=== PATIENT | female | born 1945 | race Two or more races ===

== ENCOUNTER 2017-04-18 18:42 | Observation (INO) | payer MEDICARE, OTHER ==
[~2017-04-18] VITALS: Ht 170.2 cm; Wt 91.6 kg
[~2017-04-18 18:42] MED LIST: ALBU0.63 NEB; AMIT25TA PO; AMOX875T PO; CEFU250T PO; CETI10TA22 PO; CYCL-331 PO; ETAN50DI2 SQ; FERR325T58 PO; FLUC150T PO; FLUT1DIS3 IH; FLUT9.9S NS; HYDR25TA9 PO; INSU100I13 SQ; INSU100V11 IJ; LIRA0.6P2 SQ; OMEP20CA9 PO; OXYM30SP NS; PHEN-443 PO; POTA20TA4 PO; PRED-220 PO; PROM25SU32 RC; TRAM50TA PO; TRIA15CR50 TP
[2017-04-18 19:18] LABS: HEMATOCRIT 41.1 % (36.0-47.0); HEMOGLOBIN 13.8 g/dL (12.0-15.5); LYMPH % 25 % (24-48); MEAN CORPUSCULAR HEMOGLOBIN 29 pg (25-35); MEAN CORPUSCULAR HGB CONC 34 g/dL (31-37); MEAN CORPUSCULAR VOLUME 85 fL (79-100); MONO % 7 % (0-9); NEUT % 67 % (31-73); PLATELET COUNT 271 x10^3/uL (140-400); RED BLOOD COUNT 4.83 x10^6/uL (3.50-5.40); RED CELL DISTRIBUTION WIDTH 14.3 % (11.5-14.5); WHITE BLOOD COUNT 11.1 x10^3/uL (4.0-11.0)
[2017-04-18 19:19] LABS: BASO # 0.1 x10^3/uL (0.0-0.2); BASO % 1 % (0-3); EOS % 0 % (0-3); LYMPH # 2.7 x10^3/uL (1.0-4.8); MONO # 0.8 x10^3/uL (0.0-1.1); NEUT # 7.4 x10^3uL (1.8-7.7)
[2017-04-18] MEDS ORDERED: NITROGLYCERIN SUBLINGUAL 0.4 MG BOTTLE OF 25. SL PRN ×2 (19:30→21:15)
[2017-04-18 19:33] LABS: ALBUMIN 3.6 g/dL (3.4-5.0); ALBUMIN/GLOBULIN RATIO 0.9 (1.0-1.7); CALCIUM 9.3 mg/dL (8.5-10.1); CREATININE 1.2 mg/dL (0.6-1.0); GFR 44.5; MAGNESIUM 1.7 mg/dL (1.8-2.4); POTASSIUM 3.8 mmol/L (3.5-5.1); TOTAL BILIRUBIN 0.3 mg/dL (0.2-1.0); TOTAL PROTEIN 7.8 g/dL (6.4-8.2)
[2017-04-18] MEDS ORDERED: LIDO:MAALOX 1:1 20 ML SINGLE DOSE PO ONE (19:45)
[2017-04-18 19:57] LABS: CREATINE KINASE 81 U/L (26-192); LIPASE 117 U/L (73-393)
[2017-04-18] MEDS ORDERED: IOHEXOL 300 MG/ML 75 ML VIAL. IV ONE (20:15)
[2017-04-18] MEDS ORDERED: ENOXAPARIN ** NOTE DOSE ** SYRINGE SQ ONE (21:15)
--- NOTE | 2017-04-18 22:10 | EKG ---
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
[2017-04-18 22:14] VITALS: BP 138/68
[2017-04-18] MEDS ORDERED: ZOLP10TA PO (23:58)
[2017-04-19] MEDS ORDERED: AMOX500T PO
[2017-04-19] MEDS ORDERED: ESOM40CA PO
[2017-04-19] MEDS ORDERED: INSU100I30 SQ (00:01)
--- NOTE | 2017-04-19 00:02 | PHYS DOC ---
General Chief Complaint: CHEST PAIN Stated Complaint: CHEST PAIN ELEV D DIMER Time Seen by MD: 19:16 Source: patient Exam Limitations: no limitations Problems: History of Present Illness Initial Comments Patient is a 71-year-old female brought to the ED by EMS with chest pain. Patient states that immediately prior to arrival she developed sudden onset anterior chest pain described as sharp and steady 10 out of 10 no exacerbating or relieving factors. She denies breathing, arm or neck radiation, diaphoresis or emesis. When I evaluated her initially she attributes her symptoms to gastroesophageal reflux disease stating that she had some chili at noon today. GI cocktail did not affect her discomfort in the emergency department. Patient received nitroglycerin without relief as well as aspirin in route to this facility. ED vital signs: 98.2, 110, 20, 162/100, 97% on room air Patient follows with Dr. Stevens Timing/Duration: 1/2 hour Severity: severe Modifying Factors: improves with other Associated Symptoms: chest pain, other Allergies: Coded Allergies: Sulfa (Sulfonamide Antibiotics) (Verified Allergy, Intermediate, 05/07/15) capsaicin (Verified Allergy, Intermediate, 05/07/15) codeine (Verified Allergy, Intermediate, 05/07/15) insulin lispro (Verified Allergy, Intermediate, 05/07/15) iodine (Verified Allergy, Intermediate, 05/07/15) levofloxacin (Verified Allergy, Intermediate, 05/07/15) menthol (Verified Allergy, Intermediate, 05/07/15) metformin (Verified Allergy, Intermediate, 05/07/15) naproxen (Verified Allergy, Intermediate, 05/07/15) Past Medical History Medical History: other (GERD, rheumatoid arthritis, diabetes, hypertension, asthma, osteoarthritis) Surgical History: noncontributory Social History Smoker: non-smoker Alcohol: none Drugs: none Review of Systems Constitutional: denies chills, denies diaphoresis, denies fever, denies malaise Respiratory: denies cough, denies shortness of breath, denies wheezing Cardiovascular: see HPI Gastrointestinal: denies abdominal pain, denies nausea, denies vomiting Musculoskeletal: see HPI Psychiatric/Neurological: denies headache, denies numbness, denies paresthesia Hematologic/Lymphatic: denies blood clots, denies easy bleeding, denies easy bruising Physical Exam General Appearance: no apparent distress, obese Eyes: bilateral eye normal inspection, bilateral eye PERRL, bilateral eye EOMI Ear, Nose, Throat: hearing grossly normal, normal ENT inspection, normal pharynx Neck: non-tender, supple Respiratory: chest non-tender, normal breath sounds, no respiratory distress Cardiovascular: normal peripheral pulses, tachycardia Gastrointestinal: normal bowel sounds, non tender, soft Back: no CVA tenderness, no vertebral tenderness Extremities: non-tender, normal inspection, other (left knee swelling which is chronic "[id number]") Neurologic/Psychiatric: dehairing machine tender II-XII nml as tested, no motor/sensory deficits, alert, normal mood/affect, oriented x 3 Skin: normal color, warm/dry Orders, Labs, Meds EKG: Sinus tachycardia 108 bpm, PAC, nonspecific ST T changes no STEMI. Interpreted by Dr Moreno. Chest x-ray unremarkable. Pertinent labs: White blood cells 11.1, d-dimer 1.11, BUN 23, creatinine 1.2, glucose 60, magnesium 1.7 Patient has an iodine allergy and CTA of the chest is contraindicated. Patient is agreeable to hospitalization for observation, serial cardiac enzymes, and VQ scan. 2027: I discussed the patient with Dr. Stevens who agrees to accept the patient for further evaluation as above. The patient had no new or progressive symptoms throughout her ED course and was discharged to the floor in stable condition. Departure Disposition: 09 ADMITTED INPATIENT Diagnosis: chest pain, elevated d-dimer, Condition: STABLE MUSHTAQ MORENO DO Apr 19, 2017 00:02
[2017-04-19] MEDS ORDERED: PROMETHAZINE 25 MG SUPP.RECT. RC PRN (01:00)
[2017-04-19] MEDS ORDERED: ALBUTEROL SULFATE 2.5 MG/3 ML NEBU. NEB PRN ×2 (01:00→01:30)
[2017-04-19] MEDS: ZOLPIDEM 10 MG TABLET. PO PRN ×3 (01:54→22:22)
--- NOTE | 2017-04-19 02:00 | RAD ---
AP chest radiograph 04/18/2017 Clinical indication: Chest pain, shortness of air. COMPARISON: Chest radiograph 05/05/2015. FINDINGS: Cardiac and mediastinal silhouettes are within normal limits. No pleural effusion, pneumothorax or focal consolidation. IMPRESSION: No acute cardiopulmonary abnormality Electronically signed by: Ismael Adhikari MD (04/19/2017 1:57 AM) [facility]
--- NOTE | 2017-04-19 02:04 | RAD ---
Nuclear medicine ventilation/perfusion scan 04/19/2017 CLINICAL INDICATION: Chest pain, tachycardia, elevated d-dimer. COMPARISON: Same day chest radiograph. TECHNIQUE: Ventilation portion performed after inhalation from a vial containing 26 mCi 133 xenon gas. Perfusion portion performed after the intravenous administration of 5.5 mCi technetium 99m MAA. Multiple projection planar images of the lungs were obtained. FINDINGS: Ventilation images are within normal limits. Perfusion images demonstrate no suspicious perfusion defects. IMPRESSION:Normal ventilation/perfusion scan. Negative for pulmonary embolism. Electronically signed by: Ismael Adhikari MD (04/19/2017 2:01 AM) [facility]
[2017-04-19] MEDS: CALCIUM CARBONATE 500 MG TAB.CHEW PO PRN (02:20)
[2017-04-19] MEDS: ACETAMINOPHEN 325 MG TABLET PO PRN ×3 (02:46→20:46)
[2017-04-19 03:00] VITALS: BP 127/67
[2017-04-19 05:58] VITALS: BP 156/75
[2017-04-19] MEDS ORDERED: INSULIN REGULAR 100 UNIT/ML 10ML VIAL. SQ SCH (08:00)
[2017-04-19 08:29] LABS: BASO # 0.1 x10^3/uL (0.0-0.2); BASO % 1 % (0-3); EOS # 0.2 x10^3/uL (0.0-0.7); EOS % 3 % (0-3); HEMATOCRIT 40.6 % (36.0-47.0); HEMOGLOBIN 13.8 g/dL (12.0-15.5); LYMPH # 3.7 x10^3/uL (1.0-4.8); LYMPH % 40 % (24-48); MEAN CORPUSCULAR HEMOGLOBIN 29 pg (25-35); MEAN CORPUSCULAR HGB CONC 34 g/dL (31-37); MEAN CORPUSCULAR VOLUME 86 fL (79-100); MONO # 0.8 x10^3/uL (0.0-1.1); MONO % 9 % (0-9); NEUT # 4.4 x10^3uL (1.8-7.7); NEUT % 47 % (31-73); PLATELET COUNT 247 x10^3/uL (140-400); RED BLOOD COUNT 4.75 x10^6/uL (3.50-5.40); RED CELL DISTRIBUTION WIDTH 14.5 % (11.5-14.5); WHITE BLOOD COUNT 9.3 x10^3/uL (4.0-11.0)
[2017-04-19 08:40] LABS: CALCIUM 8.8 mg/dL (8.5-10.1); CREATININE 0.9 mg/dL (0.6-1.0); GFR 62.1; POTASSIUM 3.7 mmol/L (3.5-5.1)
[2017-04-19] MEDS ORDERED: FERROUS SULFATE 325 MG TABLET PO SCH (09:00)
[2017-04-19] MEDS ORDERED: CYCLOBENZAPRINE 10 MG TABLET. PO SCH (09:00)
[2017-04-19] MEDS ORDERED: FLUCONAZOLE 100 MG TABLET. PO SCH (09:00)
[2017-04-19] MEDS ORDERED: CYCLOBENZAPRINE 10 MG TABLET. PO PRN (09:15)
[2017-04-19] MEDS: FLUTICASONE 50MCG/NASAL SPRAY 16GM BOTTLE. NS SCH (09:22)
[2017-04-19] MEDS: TRIAMCINOLONE ACETONIDE 0.5% TOPICAL CREAM 15GM TUBE. TP SCH ×3 (09:23→20:43)
[2017-04-19] MEDS: hydroCHLOROthiazide 25 MG TABLET PO SCH (09:24)
[2017-04-19] MEDS: PHENAZOPYRIDINE 100 MG TABLET. PO SCH ×2 (09:24→12:36)
[2017-04-19] MEDS: predniSONE 10 MG TABLET PO SCH (09:24)
[2017-04-19] MEDS: POTASSIUM CHLORIDE 20 MEQ TABLET.ER. PO SCH (09:25)
[2017-04-19] MEDS: CETIRIZINE HCL 10 MG TABLET PO SCH (09:25)
--- NOTE | 2017-04-19 10:14 | PDOC2 ---
CONSULT Date of Admission DATE: 04/19/17 TIME: 10:13 Reason for Consult: chest pain History of Present Illness Ms Guerra is a 71 year old female with history of diabetes mellitus, hypertension, hyperlipidemia and family history of premature coronary disease. She presented to the ED with complaints of anterior chest pain that started after some emotional upset. She reports that she has been having episodes of pain she attributed to reflux. This is described as burning that radiates from the epigastric area up into her throat. Yesterday she was upset and had a sudden onset of midsternal chest tightness that she describes as severe. She rested without relief so called EMS. She reports that she was given aspirin and NTG, which significantly improved her discomfort. She does report that she continued to have some burning in her throat similar to the earlier episodes and was given GI coctail which did not help at all. She reports a significant decline in her functional capacity due to need for knee surgery. She also reports she was told she needed cardiac clearance for this surgery but has not seen cardiology up until now as she felt her pain was all reflux related. She reports occasional dyspnea on exertion but denies congestive symptoms. She denies palpitations, lightheadedness or syncope. Past Medical History rheumatoid arthritis, bilateral cataracts, hypercholesterolemia, hypertension, asthma, bronchitis, pneumonia, GERD, heartburn, hysterectomy, diabetes mellitus ago. Past Surgical History Cataract surgery with lens implants, abdominal surgeries for cholecystectomy and hysterectomy, right knee surgery, amputation of right small toe and left middle toe. Family History Father with stroke and mother of an [place] in her 50s Social History The patient denies smoking, alcohol or drug use, , lives at home. Current Medications Current Medications Nitroglycerin (Nitrostat) 0.4 mg PRN Q5MIN PRN SL CP RATING > 1/10; Start 04/18 at 19:30; Stop 04/18/17 at 22:11; Status DC Multi-Ingredient Mouthwash/Gargle (Gi Cocktail) 20 ml 1X ONCE PO Last administered on 04/18/17t 19:45; Start 04/18/17 at 19:45; Stop 04/18/17 at 19:46 ; Status DC Iohexol (Omnipaque 300 Mg/ml) 75 ml 1X ONCE IV ; Start 04/18/17 at 20:15; Stop 04/18/17 at 20:16; Status UNV Enoxaparin Sodium (Lovenox 80mg Syringe) 80 mg 1X ONCE SQ Last administered on 04/18/17 22:58; Start 04/18/17 at 21:15; Stop 04/18/17 at 21:16; Status DC Acetaminophen (Tylenol) 650 mg PRN Q4HRS PRN PO FEVER Last administered on 04/19 02:46; Start 04/18/17 at 21:15; Stop 04/19/17 at 21:14 Nitroglycerin (Nitrostat) 0.4 mg PRN Q5MIN PRN SL CHEST PAIN; Start 04/18/17 at 21:15; Stop 04/19/17 at 21:14 Calcium Carbonate/ Glycine (Tums) 500 mg TID PRN PRN PO INDIGESTION Last administered on 04/19/17 02:20; Start 04/18/17 at 23:30 Amitriptyline HCl (Elavil) 25 mg HS PO ; Start 04/19/17 at 21:00 Cetirizine HCl (ZyrTEC) 10 mg DAILY PO Last administered on 04/19/17 09:25; Start 04/19/17 at 09:00 Cyclobenzaprine HCl (Flexeril) 10 mg TID PO ; Start 04/19/17 at 09:00; Stop at 09:10; Status DC Ferrous Sulfate (Feosol) 325 mg DAILY PO ; Start 04/19/17 at 09:00 Hydrochlorothiazide (Hydrodiuril) 25 mg DAILY PO Last administered on 09:24; Start 04/19/17 at 09:00 Insulin Human Regular (NovoLIN R) 18-20 units with meals TIDWMEALS SQ ; Start at 08:00 Phenazopyridine HCl (Pyridium) 200 mg TIDPC PO Last administered on 04/19/17 09:24; Start 04/19/17 at 08:30 Potassium Chloride (Klor-Con) 20 meq DAILY PO Last administered on 04/19/17 09 :25; Start 04/19/17 at 09:00 Prednisone (Prednisone) 10 mg DAILY PO Last administered on 04/19/17 09:24; Start 04/19/17 at 09:00 Promethazine HCl (Phenergan) 25 mg PRN Q6HRS PRN RC NAUSEA; Start 04/19/17 at 01:00 Tramadol HCl (Ultram) 50 mg PRN Q6HRS PRN PO MODERATE PAIN; Start 04/19/17 at 01:00 Triamcinolone Acetonide (Aristocort) 1 dorian TID TP Last administered on 09:23; Start 04/19/17 at 09:00 Zolpidem Tartrate (Ambien) 5 mg PRN QHS PRN PO INSOMNIA, MAY REPEAT X1 Last administered on 04/19/17 02:53; Start 04/19/17 at 01:00 Albuterol Sulfate (Ventolin) 2.5 mg PRN Q6HRS PRN NEB SHORTNESS OF BREATH; Start 04/19/17 at 01:00; Status UNV Albuterol Sulfate (Ventolin) 2.5 mg PRN Q6HRS PRN NEB SHORTNESS OF BREATH; Start 04/19/17 at 01:30 Fluticasone Propionate (Flonase) 1 spray DAILY NS Last administered on 09:22; Start 04/19/17 at 09:00 Fluconazole (Diflucan) 150 mg DAILY PO ; Start 04/19/17 at 09:00; Stop 04/19/17 at 09:10; Status DC Cyclobenzaprine HCl (Flexeril) 10 mg PRN TID PRN PO pain Last administered on 09:23; Start 04/19/17 at 09:15 Active Scripts Active Reported Tresiba Flextouch U-100 (Insulin Degludec) 100 Unit/1 Ml Insuln.pen 100 Unit SQ DAILY Amoxicillin 500 Mg Tablet 2 Tab PO TID Nexium Capsule (Esomeprazole Magnesium) 40 Mg Capsule.dr 40 Mg PO DAILYAC Ambien (Zolpidem Tartrate) 10 Mg Tablet 10 Mg PO PRN QHS PRN Tramadol Hcl (Tramadol HCl) 50 Mg Tablet 50 Mg PO Q6HRS PRN take as needed for pain. last dose: 05/06 PM Novolin R (Insulin Regular, Human) 100 Unit/1 Ml Vial 18-20 Unit IJ TIDWMEALS high blood sugar, uses Novolog pen during admission last dose: 05/07 AM next dose: 10/7 with lunch Advair 250-50 Diskus (Fluticasone/Salmeterol) 1 Each Disk.w.dev 1 Puff IH BID for shortness of breath last dose: 05/07 AM next dose: 05/07 PM Zyrtec (Cetirizine Hcl) 10 Mg Tablet 10 Mg PO DAILY for acid reflux last dose: 05/07 AM next dose: 05/08 AM Omeprazole 20 Mg Capsule.dr 20 Mg PO BID for acid reflux, substituted with Protonix during admission. last dose: 05/07 AM next dose: 05/07 PM Diflucan (Fluconazole) 150 Mg Tablet 150 Mg PO DAILY yeast infections last dose: 05/07 AM next dose: 05/08 AM Hydrochlorothiazide Tablet (Hydrochlorothiazide) 25 Mg Tablet 25 Mg PO DAILY for fluid retention last dose: 05/07 AM next dose: 05/08 AM Flonase Allergy Relief (Fluticasone Propionate) 9.9 Ml Miller.susp 1 Spr NS DAILY for seasonal allergies last dose: 05/07 AM next dose: 05/08 AM Amitriptyline Hcl 25 Mg Tablet 25 Mg PO HS for depression. not given this admission. Phenergan (Promethazine HCl) 25 Mg Supp.rect 25 Mg RC PRN Q6HRS PRN take as needed for nausea. not given this admission Phenazopyridine Hcl 100 Mg Tablet 200 Mg PO TIDPC for urinary symptoms last dose: 05/07 AM next dose: 05/07 afternoon Victoza 3-Sotero (Liraglutide) 0.6 Mg/0.1 Ml Pen.injctr 1 Mg SQ DAILY for high blood sugar last dose: 05/07 next dose: 05/08 AM Cyclobenzaprine Hcl 10 Mg Tablet 10 Mg PO TID for muscle spasms last dose: 05/07 AM next dose: 05/07 PM Klor-Con M20 (Potassium Chloride) 20 Meq Tab.er.prt 20 Meq PO DAILY supplement last dose: 05/07 next dose: 05/08 AM Iron Supplement (Ferrous Sulfate) 325 Mg Tablet 325 Mg PO DAILY supplement last dose: 05/07 AM next dose: 05/08 AM Albuterol Sulfate Neb Soln (Albuterol Sulfate) 0.63 Mg/3 Ml Vial.neb 0.63 Mg NEB QID for asthma not given this admission Prednisone 10 Mg Tablet 10 Mg PO DAILY steroid last dose: 10/7 AM next dose: 108 AM Triamcinolone Acetonide 15 Gm Cream..g. 1 Dorian TP TID topical cream last dose: 10 PM next dose: 05/07 AM Enbrel (Etanercept) 50 Mg/1 Ml Disp.syrin 50 Mg SQ WEEKLY for arthritis not given this admission Allergies: Coded Allergies: Sulfa (Sulfonamide Antibiotics) (Verified Allergy, Intermediate, 05/07/15) capsaicin (Verified Allergy, Intermediate, 05/07/15) codeine (Verified Allergy, Intermediate, 05/07/15) insulin lispro (Verified Allergy, Intermediate, 05/07/15) iodine (Verified Allergy, Intermediate, 05/07/15) levofloxacin (Verified Allergy, Intermediate, 05/07/15) menthol (Verified Allergy, Intermediate, 05/07/15) metformin (Verified Allergy, Intermediate, 05/07/15) naproxen (Verified Allergy, Intermediate, 05/07/15) Review of System as per HPI General: Alert, Oriented X3, Cooperative, No acute distress HEENT: Atraumatic, EOMI Lungs: Other (few basilar crackles clear with cough) Heart: Regular rate, Normal S1, Normal S2 Abdomen: Normal bowel sounds, Soft Extremities: No cyanosis, No edema, Normal pulses Neuro: Normal speech, Strength at 5/5 X4 ext Psych/Mental Status: Mental status NL, Mood NL VITALS Vital Signs Date Time Temp Pulse Resp B/P (MAP) Pulse Ox O2 Delivery O2 Flow Rate FiO2 04/19/17 05:58 97.9 76 16 156/75 (102) 96 Room Air Labs Laboratory Tests Test 04/18/17 18:57 04/18/17 18:59 04/18/17 19:47 04/18/17 20:39 Glucose (Fingerstick) 96 mg/dL (70-99) 60 mg/dL (70-99) 94 mg/dL (70-99) White Blood Count 11.1 x10^3/uL (4.0-11.0) Red Blood Count 4.83 x10^6/uL (3.50-5.40) Hemoglobin 13.8 g/dL (12.0-15.5) Hematocrit 41.1 % (36.0-47.0) Mean Corpuscular Volume 85 fL (79-100) Mean Corpuscular Hemoglobin 29 pg (25-35) Mean Corpuscular Hemoglobin Concent 34 g/dL (31-37) Red Cell Distribution Width 14.3 % (11.5-14.5) Platelet Count 271 x10^3/uL (140-400) Neutrophils (%) (Auto) 67 % (31-73) Lymphocytes (%) (Auto) 25 % (24-48) Monocytes (%) (Auto) 7 % (0-9) Eosinophils (%) (Auto) 0 % (0-3) Basophils (%) (Auto) 1 % (0-3) Neutrophils # (Auto) 7.4 x10^3uL (1.8-7.7) Lymphocytes # (Auto) 2.7 x10^3/uL (1.0-4.8) Monocytes # (Auto) 0.8 x10^3/uL (0.0-1.1) Eosinophils # (Auto) 0.0 x10^3/uL (0.0-0.7) Basophils # (Auto) 0.1 x10^3/uL (0.0-0.2) Prothrombin Time 10.3 SEC (9.4-11.4) Prothromb Time International Ratio 1.0 (0.9-1.1) Activated Partial Thromboplast Time 21 SEC (23-33) D-Dimer (Dalia) 1.11 mg/L (0.00-0.50) Sodium Level 142 mmol/L (136-145) Potassium Level 3.8 mmol/L (3.5-5.1) Chloride Level 104 mmol/L (98-107) Carbon Dioxide Level 30 mmol/L (21-32) Anion Gap 8 (6-14) Blood Urea Nitrogen 23 mg/dL (7-20) Creatinine 1.2 mg/dL (0.6-1.0) Estimated GFR (Cockcroft-Gault) 44.5 BUN/Creatinine Ratio 19 (6-20) Glucose Level 98 mg/dL (70-99) Calcium Level 9.3 mg/dL (8.5-10.1) Magnesium Level 1.7 mg/dL (1.8-2.4) Total Bilirubin 0.3 mg/dL (0.2-1.0) Aspartate Amino Transf (AST/SGOT) 27 U/L (15-37) Alanine Aminotransferase (ALT/SGPT) 53 U/L (14-59) Alkaline Phosphatase 107 U/L (46-116) Creatine Kinase 81 U/L (26-192) Troponin I Quantitative < 0.017 ng/mL (0-0.055) CJ-Sww-Z-Type Natriuretic Peptide 72 pg/mL (0-124) Total Protein 7.8 g/dL (6.4-8.2) Albumin 3.6 g/dL (3.4-5.0) Albumin/Globulin Ratio 0.9 (1.0-1.7) Lipase 117 U/L (73-393) Test 04/18/17 23:39 04/19/17 00:28 04/19/17 02:25 04/19/17 07:24 Glucose (Fingerstick) 94 mg/dL (70-99) 87 mg/dL (70-99) 97 mg/dL (70-99) Troponin I Quantitative < 0.017 ng/mL (0-0.055) Test 04/19/17 08:07 White Blood Count 9.3 x10^3/uL (4.0-11.0) Red Blood Count 4.75 x10^6/uL (3.50-5.40) Hemoglobin 13.8 g/dL (12.0-15.5) Hematocrit 40.6 % (36.0-47.0) Mean Corpuscular Volume 86 fL (79-100) Mean Corpuscular Hemoglobin 29 pg (25-35) Mean Corpuscular Hemoglobin Concent 34 g/dL (31-37) Red Cell Distribution Width 14.5 % (11.5-14.5) Platelet Count 247 x10^3/uL (140-400) Neutrophils (%) (Auto) 47 % (31-73) Lymphocytes (%) (Auto) 40 % (24-48) Monocytes (%) (Auto) 9 % (0-9) Eosinophils (%) (Auto) 3 % (0-3) Basophils (%) (Auto) 1 % (0-3) Neutrophils # (Auto) 4.4 x10^3uL (1.8-7.7) Lymphocytes # (Auto) 3.7 x10^3/uL (1.0-4.8) Monocytes # (Auto) 0.8 x10^3/uL (0.0-1.1) Eosinophils # (Auto) 0.2 x10^3/uL (0.0-0.7) Basophils # (Auto) 0.1 x10^3/uL (0.0-0.2) Sodium Level 143 mmol/L (136-145) Potassium Level 3.7 mmol/L (3.5-5.1) Chloride Level 105 mmol/L (98-107) Carbon Dioxide Level 28 mmol/L (21-32) Anion Gap 10 (6-14) Blood Urea Nitrogen 21 mg/dL (7-20) Creatinine 0.9 mg/dL (0.6-1.0) Estimated GFR (Cockcroft-Gault) 62.1 Glucose Level 176 mg/dL (70-99) Calcium Level 8.8 mg/dL (8.5-10.1) Troponin I Quantitative 0.017 ng/mL (0-0.055) Images EKG - sinus tachycardia, leftward axis, non specific abnormalities, CXR - no acute abn VQ - low prob Assessment/Plan 1. Chest pain - CE negative. EKG with non specific abnormalities. Suggest echo for LV function and wall motion today and MPI in am. 2. hypertension - uncontrolled. add beta fam, consider addition of ACEI as well in hypertensive diabetic. 3. hyperlipidemia - check lipids 4. preop for knee surgery - clearance after above testing. 5. diabetes mellitus - mgmt per PCP 6. elevated d dimer - VQ low prob Problems: CARMEL JURADO APRN Apr 19, 2017 10:14
--- NOTE | 2017-04-19 11:09 | HP ---
ADMIT DATE: 04/19/2017 HISTORY OF PRESENT ILLNESS: The patient is a 71-year-old female came in via EMS to the Emergency Room with chest pain, anterior chest wall pain, 10/10, exacerbating. The patient denies any problems with breathing or radiation or diaphoresis with it, though it was reflux, although she did receive some GI cocktail in the Emergency Room without any relief whatsoever. She also received nitroglycerin without much relief. In any case, because of her multiple risk factors, the patient was admitted to the hospital for rule out [place] protocol, she also had an elevated D-dimer and make further evaluation on her. She has risk factors of obesity, type 2 diabetes, rheumatoid arthritis, hypercholesterolemia, and poorly controlled diabetes . ALLERGIES: THE PATIENT HAS ALLERGIES TO SULFUR, CAPSAICIN, CODEINE, FORMS OF INSULIN, IODINE, LEVOTHYROXINE, LEVAQUIN, MENTHOL, METFORMIN AND NAPROXEN. PAST MEDICAL HISTORY: Extensive. She is on Enbrel for her rheumatoid arthritis; lens implants, bilateral cataracts. She has had hypercholesterolemia, hypertension, asthma, bronchitis, pneumonia, abdominal surgeries for cholecystectomy, GERD, heartburn, hysterectomy, amputation of the right small toe and left middle toe, rheumatoid arthritis, orthopedic surgery on the right knee and supposed to have surgery on her left knee, but has not received cardiac clearance. Endocrine disorder includes diabetes ____ 4 years ago. FAMILY HISTORY: Father with stroke and mother of an [place]. SOCIAL HISTORY: The patient denies smoking, alcohol or drug use, , lives at home. REVIEW OF SYSTEMS: The patient outside of the severe anterior chest wall pain, denies shortness of breath, abdominal pain. Denies any melena, hematochezia, hematemesis. Neurologically stable. MEDICATIONS: Include that of Tylenol, Ventolin inhaler, Elavil 25 mg at bedtime, calcium carbonate, Zyrtec 10 mg, Flexeril 10, ferrous sulfate, Flonase, hydrochlorothiazide, HydroDIURIL, Novolin, Nitrostat 0.4, Pyridium 200 t.i.d., potassium chloride, prednisone 10, promethazine 25 mg a day, tramadol 50 mg q.6h., Aristocort, Ambien 5 mg at bedtime. PHYSICAL EXAMINATION: GENERAL: White female in moderate amount of discomfort. VITAL SIGNS: Blood pressure 160/68, respiratory rate 20, pulse 110, temperature 98, oxygen saturation good. HEENT: The patient's head was atraumatic, normocephalic. Eyes: PERRLA without jaundice. Mouth and throat were normal. NECK: Supple, without JVD, carotid bruits. No thyromegaly. LUNGS: Diminished throughout, but clear. CARDIOVASCULAR: Regular sinus rhythm, S1, S2, without murmur, rub, thrill, or extra heart sounds. ABDOMEN: Soft, nontender, no rebound or guarding, positive bowel sounds, no hepatosplenomegaly. EXTREMITIES: No clubbing, cyanosis. Trace edema noted. Arthritic changes of the MCP joints as well as the knees noted consistent with her rheumatoid arthritis. LABORATORY DATA: The patient's white count 9, hemoglobin 13 and 40. Labs so far have been good, except for sugar of 176. Cardiac enzymes were negative so far. Lipase 117, blood sugars varied anywhere from 60-170. IMPRESSION AND PLAN: 1. Chest pain, high probability multiple risk factors for coronary artery disease, apparently has not seen a parking enforcement technician in the past. 2. The patient is also type 2 diabetic, poorly controlled at times. 3. Possible gastroesophageal reflux disease, drinks a lot of coffee, told to stop on that. 4. Hypertension, hypercholesterolemia, obesity for risk factors and of course, her age of almost 72. The patient will be admitted for rule out [place] protocol, get a Cardiology consultation and make further evaluation on her as indicated. JOSE FRANCISCO SZYMANSKI MD DR: LAURENT/jaime JOB#: [id number] / [id number]
[2017-04-19 11:17] VITALS: BP 164/61
[2017-04-19] MEDS ORDERED: LISPRO INSULIN SQ SCH ×2 (11:30→16:30)
[2017-04-19] MEDS ORDERED: [UNRECOGNIZED DRUG - OTHER] SQ SCH ×2 (11:30→16:30)
[2017-04-19] MEDS: IPRATRPIUM/ALBUTEROL 0.5/2.5MG 3 ML NEBU. NEB SCH ×3 (12:00→21:31)
[2017-04-19] MEDS: ASPIRIN ENTERIC COATED 81 MG TABLET.DR. PO SCH (12:03)
[2017-04-19] MEDS: traMADol 50 MG TABLET PO PRN ×2 (12:03→20:45)
[2017-04-19] MEDS: MAGNESIUM OXIDE 400 MG TABLET PO SCH ×2 (12:03→20:45)
[2017-04-19] MEDS: METOPROLOL TART IMMED RELEASE 25 MG TABLET PO SCH ×2 (12:04→20:44)
[2017-04-19] MEDS: LIRAGLUTIDE SQ SCH (12:07)
[2017-04-19] MEDS: VICTOZA SQ SCH (12:07)
[2017-04-19] MEDS: POLYETHYLENE GLYCOL 3350 17 GM PACKET. PO SCH (13:29)
[2017-04-19] MEDS ORDERED: diphenhydrAMINE HCL 25 MG CAPSULE PO PRN (14:00)
[2017-04-19 15:39] VITALS: BP 151/76
[2017-04-19] MEDS: [UNRECOGNIZED DRUG - OTHER] SQ SCH (17:45)
[2017-04-19] MEDS: LISPRO INSULIN SQ SCH (17:45)
[2017-04-19] MEDS: PHENAZOPYRIDINE 200 MG TABLET. PO SCH (17:51)
[2017-04-19 19:00] VITALS: BP 148/77
[2017-04-19] MEDS ORDERED: AMITRIPTYLINE HCL 25 MG TABLET PO SCH (21:00)
[2017-04-19 23:00] VITALS: BP 145/79
[2017-04-20 05:10] VITALS: BP 140/73
[2017-04-20] MEDS: IPRATRPIUM/ALBUTEROL 0.5/2.5MG 3 ML NEBU. NEB SCH ×2 (05:36→11:37)
[2017-04-20] MEDS: [UNRECOGNIZED DRUG - OTHER] SQ SCH ×2 (07:30→11:30)
[2017-04-20] MEDS: LISPRO INSULIN SQ SCH ×2 (07:30→11:30)
--- NOTE | 2017-04-20 07:31 | CARD ---
APPROVED REPORT EXAM: Two-dimensional and M-mode echocardiogram with Doppler and color Doppler. Other Information Quality : GoodHR: 78bpm Rhythm : NSR INDICATION Chest Pain RISK FACTORS Obesity 2D DIMENSIONS RVDd3.0 (2.9-3.5cm)Left Atrium(2D)3.5 (1.6-4.0cm) IVSd1.2 (0.7-1.1cm)Aortic Root(2D)3.3 (2.0-3.7cm) LVDd5.0 (3.9-5.9cm)LVOT Diameter2.4 (1.8-2.4cm) PWd1.2 (0.7-1.1cm)LVDs3.7 (2.5-4.0cm) FS (%) 25.9 %SV59.5 ml LVEF(%)50.7 (>50%) Aortic Valve AoV Peak Jhonathan.102.2cm/sAoV VTI20.6cm AO Peak GR.4.2mmHgLVOT Peak Jhonathan.84.2cm/s LVOT VTI 15.44cmAO Mean GR.2mmHg MAIA (VMAX)3.44jy6THG (VTI)3.51cm2 Mitral Valve MV E Jretscyw71.8cm/sMV DECEL YHEC625sl MV A Cblavnmi14.9cm/sE/A Ratio0.7 MV A [id number] Pulmonary Valve PV Peak Cxurowqo75.9cm/sPV Peak Grad.3mmHg Pulmonary Vein S1 Lskjwrzx84.1cm/sD2 Kpcagvpv87.2cm/s LEFT VENTRICLE The left ventricle is normal size. There is mild concentric left ventricular hypertrophy. The left ve ntricular systolic function is normal. The Ejection Fraction is 50-55%. There is normal LV segmental wall motion. Transmitral Doppler flow pattern is Grade I-abnormal relaxation pattern. RIGHT VENTRICLE The right ventricle is normal size. There is normal right ventricular wall thickness. The right ventr icular systolic function is normal. ATRIA The left atrium size is normal. The right atrium size is normal. The interatrial septum is intact wit h no evidence for an atrial septal defect or patent foramen ovale as noted on 2-D or Doppler imaging. AORTIC VALVE The aortic valve is mildly sclerotic. The aortic valve is trileaflet. Doppler and Color Flow revealed no significant aortic regurgitation. There is no significant aortic valvular stenosis. MITRAL VALVE The mitral valve leaflets are mildly thickened. There is no evidence of mitral valve prolapse. There is no mitral valve stenosis. Doppler and Color Flow revealed mild mitral regurgitation. TRICUSPID VALVE Doppler and Color Flow revealed no tricuspid valve regurgitation noted. PULMONIC VALVE The pulmonic valve is not well visualized but appears to open adequately. Doppler and Color Flow reve aled mild pulmonic valvular regurgitation. There is no pulmonic valvular stenosis by spectral Doppler . GREAT VESSELS The aortic root is normal in size. The ascending aorta is normal in size. The pulmonary artery is nor mal. The IVC is normal in size and collapses >50% with inspiration. PERICARDIAL EFFUSION There is no evidence of significant pericardial effusion. Critical Notification Critical Value: No <Conclusion> The left ventricular systolic function is normal. The Ejection Fraction is 50-55%. There is normal LV segmental wall motion. Transmitral Doppler flow pattern is Grade I-abnormal relaxation pattern. Mild mitral regurgitation. There is no evidence of significant pericardial effusion.
[2017-04-20] MEDS ORDERED: REGADENOSON 0.4 MG/5 ML DISP.SYRIN. IV ONE (08:30)
[2017-04-20] MEDS: VICTOZA SQ SCH (09:00)
[2017-04-20] MEDS ORDERED: LISINOPRIL 2.5 MG TABLET PO SCH (09:00)
[2017-04-20] MEDS ORDERED: INSULIN DEGLUDEC SQ SCH (09:00)
[2017-04-20] MEDS ORDERED: FERROUS SULFATE 325 MG TABLET. PO SCH (09:00)
[2017-04-20] MEDS ORDERED: TRESIBA SQ SCH (09:00)
[2017-04-20] MEDS: LIRAGLUTIDE SQ SCH (09:00)
--- NOTE | 2017-04-20 09:20 | PDOC ---
PROGRESS NOTES Assessment 1. Chest pain - CE negative. EKG with non specific abnormalities. Echo with low normal EF and normal wall motion. MPI pending. 2. hypertension - improved. Continue beta fam and add low dose ACEI. 3. hyperlipidemia - lipids pending 4. preop for knee surgery - clearance after above testing. 5. diabetes mellitus - mgmt per PCP 6. elevated d dimer - VQ low prob If MPI normal she could discharge from CV perspective. If normal MPI revised cardiac risk class II for non cardiac surgery. Problems: Subjective no chest pain, breathing easy. no palpitations. no lightheadedness or syncope. Objective Vital Signs Date Time Temp Pulse Resp B/P (MAP) Pulse Ox O2 Delivery O2 Flow Rate FiO2 04/20/17 05:38 95 Room Air 04/20/17 05:10 98.4 82 18 140/73 (95) Abdomen: Normal bowel sounds, Soft, No tenderness Heart: Regular rate, Normal S1, Normal S2 Extremities: No cyanosis, No edema, Normal pulses General: Alert, Oriented X3, Cooperative, No acute distress HEENT: Atraumatic, EOMI Lungs: Other (few basilar crackles) Neuro: Normal speech, Strength at 5/5 X4 ext Psych/Mental Status: Mental status NL, Mood NL Review of Relevant I have reviewed the following items federico (where applicable) has been applied. Labs Laboratory Tests Test 04/18/17 18:57 04/18/17 18:59 04/18/17 19:47 04/18/17 20:39 Glucose (Fingerstick) 96 mg/dL (70-99) 60 mg/dL (70-99) 94 mg/dL (70-99) White Blood Count 11.1 x10^3/uL (4.0-11.0) Red Blood Count 4.83 x10^6/uL (3.50-5.40) Hemoglobin 13.8 g/dL (12.0-15.5) Hematocrit 41.1 % (36.0-47.0) Mean Corpuscular Volume 85 fL (79-100) Mean Corpuscular Hemoglobin 29 pg (25-35) Mean Corpuscular Hemoglobin Concent 34 g/dL (31-37) Red Cell Distribution Width 14.3 % (11.5-14.5) Platelet Count 271 x10^3/uL (140-400) Neutrophils (%) (Auto) 67 % (31-73) Lymphocytes (%) (Auto) 25 % (24-48) Monocytes (%) (Auto) 7 % (0-9) Eosinophils (%) (Auto) 0 % (0-3) Basophils (%) (Auto) 1 % (0-3) Neutrophils # (Auto) 7.4 x10^3uL (1.8-7.7) Lymphocytes # (Auto) 2.7 x10^3/uL (1.0-4.8) Monocytes # (Auto) 0.8 x10^3/uL (0.0-1.1) Eosinophils # (Auto) 0.0 x10^3/uL (0.0-0.7) Basophils # (Auto) 0.1 x10^3/uL (0.0-0.2) Prothrombin Time 10.3 SEC (9.4-11.4) Prothromb Time International Ratio 1.0 (0.9-1.1) Activated Partial Thromboplast Time 21 SEC (23-33) D-Dimer (Dalia) 1.11 mg/L (0.00-0.50) Sodium Level 142 mmol/L (136-145) Potassium Level 3.8 mmol/L (3.5-5.1) Chloride Level 104 mmol/L (98-107) Carbon Dioxide Level 30 mmol/L (21-32) Anion Gap 8 (6-14) Blood Urea Nitrogen 23 mg/dL (7-20) Creatinine 1.2 mg/dL (0.6-1.0) Estimated GFR (Cockcroft-Gault) 44.5 BUN/Creatinine Ratio 19 (6-20) Glucose Level 98 mg/dL (70-99) Calcium Level 9.3 mg/dL (8.5-10.1) Magnesium Level 1.7 mg/dL (1.8-2.4) Total Bilirubin 0.3 mg/dL (0.2-1.0) Aspartate Amino Transf (AST/SGOT) 27 U/L (15-37) Alanine Aminotransferase (ALT/SGPT) 53 U/L (14-59) Alkaline Phosphatase 107 U/L (46-116) Creatine Kinase 81 U/L (26-192) Troponin I Quantitative < 0.017 ng/mL (0-0.055) GQ-Hes-X-Type Natriuretic Peptide 72 pg/mL (0-124) Total Protein 7.8 g/dL (6.4-8.2) Albumin 3.6 g/dL (3.4-5.0) Albumin/Globulin Ratio 0.9 (1.0-1.7) Lipase 117 U/L (73-393) Test 04/18/17 23:39 04/19/17 00:28 04/19/17 02:25 04/19/17 07:24 Glucose (Fingerstick) 94 mg/dL (70-99) 87 mg/dL (70-99) 97 mg/dL (70-99) Troponin I Quantitative < 0.017 ng/mL (0-0.055) Test 04/19/17 08:07 04/19/17 16:53 04/19/17 20:03 04/20/17 05:55 White Blood Count 9.3 x10^3/uL (4.0-11.0) Red Blood Count 4.75 x10^6/uL (3.50-5.40) Hemoglobin 13.8 g/dL (12.0-15.5) Hematocrit 40.6 % (36.0-47.0) Mean Corpuscular Volume 86 fL (79-100) Mean Corpuscular Hemoglobin 29 pg (25-35) Mean Corpuscular Hemoglobin Concent 34 g/dL (31-37) Red Cell Distribution Width 14.5 % (11.5-14.5) Platelet Count 247 x10^3/uL (140-400) Neutrophils (%) (Auto) 47 % (31-73) Lymphocytes (%) (Auto) 40 % (24-48) Monocytes (%) (Auto) 9 % (0-9) Eosinophils (%) (Auto) 3 % (0-3) Basophils (%) (Auto) 1 % (0-3) Neutrophils # (Auto) 4.4 x10^3uL (1.8-7.7) Lymphocytes # (Auto) 3.7 x10^3/uL (1.0-4.8) Monocytes # (Auto) 0.8 x10^3/uL (0.0-1.1) Eosinophils # (Auto) 0.2 x10^3/uL (0.0-0.7) Basophils # (Auto) 0.1 x10^3/uL (0.0-0.2) Sodium Level 143 mmol/L (136-145) Potassium Level 3.7 mmol/L (3.5-5.1) Chloride Level 105 mmol/L (98-107) Carbon Dioxide Level 28 mmol/L (21-32) Anion Gap 10 (6-14) Blood Urea Nitrogen 21 mg/dL (7-20) Creatinine 0.9 mg/dL (0.6-1.0) Estimated GFR (Cockcroft-Gault) 62.1 Glucose Level 176 mg/dL (70-99) Calcium Level 8.8 mg/dL (8.5-10.1) Troponin I Quantitative 0.017 ng/mL (0-0.055) Glucose (Fingerstick) 175 mg/dL (70-99) 153 mg/dL (70-99) Magnesium Level 1.9 mg/dL (1.8-2.4) Test 04/20/17 07:48 Glucose (Fingerstick) 125 mg/dL (70-99) Medications Current Medications Nitroglycerin (Nitrostat) 0.4 mg PRN Q5MIN PRN SL CP RATING > 1/10; Start 04/18 at 19:30; Stop 04/18/17 at 22:11; Status DC Multi-Ingredient Mouthwash/Gargle (Gi Cocktail) 20 ml 1X ONCE PO Last administered on 04/18/17 19:45; Start 04/18/17 at 19:45; Stop 04/18/17 at 19:46 ; Status DC Iohexol (Omnipaque 300 Mg/ml) 75 ml 1X ONCE IV ; Start 04/18/17 at 20:15; Stop 04/18/17 at 20:16; Status UNV Enoxaparin Sodium (Lovenox 80mg Syringe) 80 mg 1X ONCE SQ Last administered on 04/18/17 22:58; Start 04/18/17 at 21:15; Stop 04/18/17 at 21:16; Status DC Acetaminophen (Tylenol) 650 mg PRN Q4HRS PRN PO FEVER Last administered on 04/19 20:46; Start 04/18/17 at 21:15; Stop 04/19/17 at 21:14; Status DC Nitroglycerin (Nitrostat) 0.4 mg PRN Q5MIN PRN SL CHEST PAIN; Start 04/18/17 at 21:15; Stop 04/19/17 at 21:14; Status DC Calcium Carbonate/ Glycine (Tums) 500 mg TID PRN PRN PO INDIGESTION Last administered on 04/19/17 02:20; Start 04/18/17 at 23:30 Amitriptyline HCl (Elavil) 25 mg HS PO Last administered on 04/19/17 20:46; Start 04/19/17 at 21:00 Cetirizine HCl (ZyrTEC) 10 mg DAILY PO Last administered on 04/19/17 09:25; Start 04/19/17 at 09:00 Cyclobenzaprine HCl (Flexeril) 10 mg TID PO ; Start 04/19/17 at 09:00; Stop at 09:10; Status DC Ferrous Sulfate (Feosol) 325 mg DAILY PO ; Start 04/19/17 at 09:00; Stop at 12:01; Status DC Hydrochlorothiazide (Hydrodiuril) 25 mg DAILY PO Last administered on 09:24; Start 04/19/17 at 09:00 Insulin Human Regular (NovoLIN R) 18-20 units with meals TIDWMEALS SQ ; Start at 08:00; Stop 04/19/17 at 11:21; Status DC Phenazopyridine HCl (Pyridium) 200 mg TIDPC PO Last administered on 04/19/17 12:36; Start 04/19/17 at 08:30; Stop 04/19/17 at 17:46; Status DC Potassium Chloride (Klor-Con) 20 meq DAILY PO Last administered on 04/19/17 09 :25; Start 04/19/17 at 09:00 Prednisone (Prednisone) 10 mg DAILY PO Last administered on 04/19/17 09:24; Start 04/19/17 at 09:00 Promethazine HCl (Phenergan) 25 mg PRN Q6HRS PRN RC NAUSEA; Start 04/19/17 at 01:00 Tramadol HCl (Ultram) 50 mg PRN Q6HRS PRN PO MODERATE PAIN Last administered on 04/19/17 20:45; Start 04/19/17 at 01:00 Triamcinolone Acetonide (Aristocort) 1 dorian TID TP Last administered on 20:43; Start 04/19/17 at 09:00 Zolpidem Tartrate (Ambien) 5 mg PRN QHS PRN PO INSOMNIA, MAY REPEAT X1 Last administered on 04/19/17 22:22; Start 04/19/17 at 01:00 Albuterol Sulfate (Ventolin) 2.5 mg PRN Q6HRS PRN NEB SHORTNESS OF BREATH; Start 04/19/17 at 01:00; Status UNV Albuterol Sulfate (Ventolin) 2.5 mg PRN Q6HRS PRN NEB SHORTNESS OF BREATH; Start 04/19/17 at 01:30 Fluticasone Propionate (Flonase) 1 spray DAILY NS Last administered on 09:22; Start 04/19/17 at 09:00 Fluconazole (Diflucan) 150 mg DAILY PO ; Start 04/19/17 at 09:00; Stop 04/19/17 at 09:10; Status DC Cyclobenzaprine HCl (Flexeril) 10 mg PRN TID PRN PO pain Last administered on 09:23; Start 04/19/17 at 09:15 Aspirin (Aspirin Enteric Coated) 81 mg DAILYWBKFT PO Last administered on 12:03; Start 04/19/17 at 10:30 Metoprolol Tartrate (Lopressor) 25 mg BID PO Last administered on 04/19/17 20: 44; Start 04/19/17 at 10:30 Magnesium Oxide (Magnesium Oxide) 400 mg BID PO Last administered on 04/19/17 20:45; Start 04/19/17 at 10:30; Stop 04/20/17 at 10:29 Albuterol/ Ipratropium (Duoneb) 3 ml RTQID NEB Last administered on 04/20/17 05:36; Start 04/19/17 at 12:00 Non-Formulary Medication 85 ea DAILY SQ Last administered on 04/19/17 12:01; Start 04/20/17 at 09:00 Non-Formulary Medication 18-20 UNITS DAILY W... TIDBFRMEAL SQ ; Start 04/19/17 at 11:30; Stop 04/19/17 at 11:38; Status DC Non-Formulary Medication 1.8 ea DAILY SQ Last administered on 04/19/17 12:07; Start 04/19/17 at 11:30 Non-Formulary Medication 18-20 UNITS DAILY W... TIDBFRMEAL SQ Last administered on 04/19/17 12:02; Start 04/19/17 at 16:30; Stop 04/19/17 at 17:41 ; Status DC Ferrous Sulfate (Feosol) 325 mg DAILY PO ; Start 04/20/17 at 09:00 Polyethylene Glycol (miraLAX) 17 gm DAILY PO Last administered on 04/19/17 13: 29; Start 04/19/17 at 13:20 Diphenhydramine HCl (Benadryl) 25 mg PRN Q6HRS PRN PO ITCHING Last administered on 04/19/17 13:59; Start 04/19/17 at 14:00 Non-Formulary Medication 18-20 UNITS DAILY W... TIDBFRMEAL SQ Last administered on 04/19/17 17:45; Start 04/19/17 at 17:45 Phenazopyridine HCl (Pyridium) 200 mg TIDPC PO Last administered on 04/19/17 17:51; Start 04/19/17 at 18:00 Regadenoson (Lexiscan) 0.4 mg 1X ONCE IV ; Start 04/20/17 at 08:30; Stop at 08:31; Status DC Active Scripts Active Reported Tresiba Flextouch U-100 (Insulin Degludec) 100 Unit/1 Ml Insuln.pen 100 Unit SQ DAILY Amoxicillin 500 Mg Tablet 2 Tab PO TID Nexium Capsule (Esomeprazole Magnesium) 40 Mg Capsule.dr 40 Mg PO DAILYAC Ambien (Zolpidem Tartrate) 10 Mg Tablet 10 Mg PO PRN QHS PRN Tramadol Hcl (Tramadol HCl) 50 Mg Tablet 50 Mg PO Q6HRS PRN take as needed for pain. last dose: 05/06 PM Novolin R (Insulin Regular, Human) 100 Unit/1 Ml Vial 18-20 Unit IJ TIDWMEALS high blood sugar, uses Novolog pen during admission last dose: 05/07 AM next dose: 05/07 with lunch Advair 250-50 Diskus (Fluticasone/Salmeterol) 1 Each Disk.w.dev 1 Puff IH BID for shortness of breath last dose: 05/07 AM next dose: 05/07 PM Zyrtec (Cetirizine Hcl) 10 Mg Tablet 10 Mg PO DAILY for acid reflux last dose: 05/07 AM next dose: 05/08 AM Omeprazole 20 Mg Capsule.dr 20 Mg PO BID for acid reflux, substituted with Protonix during admission. last dose: 05/07 AM next dose: 05/07 PM Diflucan (Fluconazole) 150 Mg Tablet 150 Mg PO DAILY yeast infections last dose: 05/07 AM next dose: 05/08 AM Hydrochlorothiazide Tablet (Hydrochlorothiazide) 25 Mg Tablet 25 Mg PO DAILY for fluid retention last dose: 05/07 AM next dose: 05/08 AM Flonase Allergy Relief (Fluticasone Propionate) 9.9 Ml [place].susp 1 Spr NS DAILY for seasonal allergies last dose: 05/07 next dose: 05/08 AM Amitriptyline Hcl 25 Mg Tablet 25 Mg PO HS for depression. not given this admission. Phenergan (Promethazine HCl) 25 Mg Supp.rect 25 Mg RC PRN Q6HRS PRN take as needed for nausea. not given this admission Phenazopyridine Hcl 100 Mg Tablet 200 Mg PO TIDPC for urinary symptoms last dose: 05/07 AM next dose: 05/07 afternoon Victoza 3-Sotero (Liraglutide) 0.6 Mg/0.1 Ml Pen.injctr 1 Mg SQ DAILY for high blood sugar last dose: 05/07 next dose: 05/08 AM Cyclobenzaprine Hcl 10 Mg Tablet 10 Mg PO TID for muscle spasms last dose: 05/07 AM next dose: 05/07 PM Klor-Con M20 (Potassium Chloride) 20 Meq Tab.er.prt 20 Meq PO DAILY supplement last dose: 05/07 AM next dose: 05/08 AM Iron Supplement (Ferrous Sulfate) 325 Mg Tablet 325 Mg PO DAILY supplement last dose: 05/07 AM next dose: 05/08 AM Albuterol Sulfate Neb Soln (Albuterol Sulfate) 0.63 Mg/3 Ml Vial.neb 0.63 Mg NEB QID for asthma not given this admission Prednisone 10 Mg Tablet 10 Mg PO DAILY steroid last dose: 05/07 AM next dose: 108 AM Triamcinolone Acetonide 15 Gm Cream..g. 1 Dorian TP TID topical cream last dose: 05/06 PM next dose: 107 AM Enbrel (Etanercept) 50 Mg/1 Ml Disp.syrin 50 Mg SQ WEEKLY for arthritis not given this admission Vitals/I & O Vital Sign - Last 24 Hours 04/19/17 04/19/17 04/19/17 04/19/17 11:17 12:03 12:04 15:39 Temp 97.9 98.3 Pulse 96 96 83 Resp 20 20 B/P (MAP) 164/61 (95) 164/61 151/76 (101) Pulse Ox 97 97 97 O2 Delivery Room Air Room Air 04/19/17 04/19/17 04/19/17 04/19/17 16:52 19:00 20:44 20:45 Temp 98.4 Pulse 88 88 Resp 19 B/P (MAP) 148/77 (100) 148/77 Pulse Ox 100 98 98 O2 Delivery Room Air Room Air Room Air 04/19/17 04/19/17 04/19/17 04/20/17 21:33 21:45 23:00 05:10 Temp 98.4 Pulse 84 82 Resp 18 19 18 B/P (MAP) 145/79 (101) 140/73 (95) Pulse Ox 99 99 99 97 O2 Delivery Room Air Room Air Room Air 04/20/17 05:38 Pulse Ox 95 O2 Delivery Room Air CARMEL JURADO APRN Apr 20, 2017 09:20
[2017-04-20] MEDS: predniSONE 10 MG TABLET PO SCH (09:33)
[2017-04-20] MEDS: METOPROLOL TART IMMED RELEASE 25 MG TABLET PO SCH (09:33)
[2017-04-20] MEDS: MAGNESIUM OXIDE 400 MG TABLET PO SCH (09:33)
[2017-04-20] MEDS: POTASSIUM CHLORIDE 20 MEQ TABLET.ER. PO SCH (09:33)
[2017-04-20] MEDS: ASPIRIN ENTERIC COATED 81 MG TABLET.DR. PO SCH (09:33)
[2017-04-20] MEDS: TRIAMCINOLONE ACETONIDE 0.5% TOPICAL CREAM 15GM TUBE. TP SCH ×2 (09:34→13:24)
[2017-04-20] MEDS: FLUTICASONE 50MCG/NASAL SPRAY 16GM BOTTLE. NS SCH (09:34)
[2017-04-20] MEDS: CETIRIZINE HCL 10 MG TABLET PO SCH (09:34)
[2017-04-20] MEDS: hydroCHLOROthiazide 25 MG TABLET PO SCH (09:34)
[2017-04-20] MEDS: POLYETHYLENE GLYCOL 3350 17 GM PACKET. PO SCH (09:36)
[2017-04-20] MEDS: PHENAZOPYRIDINE 200 MG TABLET. PO SCH ×2 (09:38→12:03)
--- NOTE | 2017-04-20 10:40 | RAD ---
APPROVED REPORT Test Type: Pharmacological Stress Nurse/Tech: GILDARDO Yo Test Indications: Tachycardia+ Chest pain Cardiac History: Pt is diabetic Medications: see EHR Medical History: see EHR Resting ECG: SR Left [place] NS Changes Resting Heart Rate: 89 bpm Resting Blood Pressure: 138/60mmHg Pretest Chest Pain: None Nurse/Tech Notes Dyspnea during stress Consent: The procedure was explained to the patient in lay terms. Informed consent was witnessed. Ramirez eout was entered into [employer]. History and Stress Test performed by GILDARDO Yo Pharm. Details Pharmacologic stress testing was performed using 0.4mg per 5ml of regadenoson given intravenously ove r 7-10 seconds. Stress Symptoms Dyspnea during stress POST EXERCISE Max HR: 105 bpm Max Blood Pressure: 144/61mmHg Blood Pressure response to exercise: Normal blood pressure response during stress. Heart Rate response to exercise: normal response Chest Pain: No. INTERPRETATION Stress EKG Conclusion: No Chest Pain - no Acute Changes Imaging Protocol IMAGE PROTOCOL: Rest Tc-99m/stress Tc-99m 1 day Rest: Stress: Viability: Radiopharm.Tc99m [id number] Sestamibi Dose11.9mCi 33mCi Duration 17min. 12min. Img Date 04/20/2017 04/20/2017 Inj-Img Faux96oem. 45min. Rest Admin Site:IV - Left AntecubitalAdministrator: GILDARDO Yo Stress Admin Site: IV - Left AntecubitalAdministrator: GILDARDO Yo STRESS DATA End Diast. Vol.107.0mlAv. Heart Rate97.0bpm LVEDV index BSA2.0mlCardiac Output0.1L/min End Syst. Vol.38.0mlCO Index BSA6.7L/min LVESV index BSA1.0mlMyocardial Saal795.0g Eject. Icvhcmgs70.0% Stress Rates Pk. Fill Rate2.97EDV/secLVtime Pk. Fill 63.28msec Pk. Empty Rate4.66ESV/secLVtime Pk. Oogrk894.97msec 08/03 Pk. Fill2.13EDV/sec Stress Scores Regional WT1.00Summed WT21.00 Regional WM0.00Summed WM2.00 The rest and stress images show normal perfusion, normal contraction and thickening. LV Perf. Quant 17 Seg. SSS0.00 17 Seg. SRS2.00 17 Seg. SDS0.00 Stress Defect Extent (% LAD)0.00Rest Defect Extent (% LAD)0.00Rev. Defect Extent (% LAD)0.00 Stress Defect Extent (% LCX) 0.00Rest Defect Extent (% LCX)13.80Rev. Defect Extent (% LCX)0.00 Stress Defect Extent (% RCA)0.00Rest Defect Extent (% RCA)0.00Rev. Defect Extent (% RCA)0.00 Stress Defect Extent (% UMANG)0.00Rest Defect Extent (% UMANG)3.30Rev. Defect Extent (% UMANG)0.00 Other Information Quality:Fair Risk Assessment: Low Risk Conclusion 1. No evidence of EKG changes with stress testing. 2. Normal perfusion at stress/rest. 3. Low risk study. 4. EF > 60%.
[2017-04-20 10:47] VITALS: BP 129/73
[2017-04-20] MEDS: CALCIUM CARBONATE 500 MG TAB.CHEW PO PRN (12:04)
[2017-04-20] MEDS ORDERED: ZOLPIDEM 5 MG TABLET. PO PRN (13:00)
--- NOTE | 2017-04-20 13:34 | PDOC3 ---
Discharge Summary Visit Information Date of Admission: Apr 18, 2017 Date of Discharge: Apr 20, 2017 Final Diagnosis essment 1. Chest pain - CE negative. EKG with non specific abnormalities. Echo with low normal EF and normal wall motion. MPI pending. 2. hypertension - improved. Continue beta fam and add low dose ACEI. 3. hyperlipidemia - lipids pending 4. preop for knee surgery - clearance after above testing. 5. diabetes mellitus - mgmt per PCP 6. elevated d dimer - VQ low prob Problems: Brief Hospital Course Allergies Allergies Coded Allergies Type Severity Reaction Last Updated Verified Sulfa (Sulfonamide Antibiotics) Allergy Intermediate 05/07/15 Yes capsaicin Allergy Intermediate 05/07/15 Yes codeine Allergy Intermediate 05/07/15 Yes insulin lispro Allergy Intermediate 05/07/15 Yes iodine Allergy Intermediate 05/07/15 Yes levofloxacin Allergy Intermediate 05/07/15 Yes menthol Allergy Intermediate 05/07/15 Yes metformin Allergy Intermediate 05/07/15 Yes naproxen Allergy Intermediate 05/07/15 Yes Influenza Virus Vaccines Allergy Unknown 04/20/17 Yes Vital Signs Vital Signs Date Time Temp Pulse Resp B/P (MAP) Pulse Ox O2 Delivery O2 Flow Rate FiO2 04/20/17 11:41 98 Room Air 04/20/17 10:47 98.4 103 20 129/73 (91) Lab Results Laboratory Tests Test 04/18/17 18:57 04/18/17 18:59 04/18/17 19:47 04/18/17 20:39 Glucose (Fingerstick) 96 mg/dL (70-99) 60 mg/dL (70-99) 94 mg/dL (70-99) White Blood Count 11.1 x10^3/uL (4.0-11.0) Red Blood Count 4.83 x10^6/uL (3.50-5.40) Hemoglobin 13.8 g/dL (12.0-15.5) Hematocrit 41.1 % (36.0-47.0) Mean Corpuscular Volume 85 fL (79-100) Mean Corpuscular Hemoglobin 29 pg (25-35) Mean Corpuscular Hemoglobin Concent 34 g/dL (31-37) Red Cell Distribution Width 14.3 % (11.5-14.5) Platelet Count 271 x10^3/uL (140-400) Neutrophils (%) (Auto) 67 % (31-73) Lymphocytes (%) (Auto) 25 % (24-48) Monocytes (%) (Auto) 7 % (0-9) Eosinophils (%) (Auto) 0 % (0-3) Basophils (%) (Auto) 1 % (0-3) Neutrophils # (Auto) 7.4 x10^3uL (1.8-7.7) Lymphocytes # (Auto) 2.7 x10^3/uL (1.0-4.8) Monocytes # (Auto) 0.8 x10^3/uL (0.0-1.1) Eosinophils # (Auto) 0.0 x10^3/uL (0.0-0.7) Basophils # (Auto) 0.1 x10^3/uL (0.0-0.2) Prothrombin Time 10.3 SEC (9.4-11.4) Prothromb Time International Ratio 1.0 (0.9-1.1) Activated Partial Thromboplast Time 21 SEC (23-33) D-Dimer (Dalia) 1.11 mg/L (0.00-0.50) Sodium Level 142 mmol/L (136-145) Potassium Level 3.8 mmol/L (3.5-5.1) Chloride Level 104 mmol/L (98-107) Carbon Dioxide Level 30 mmol/L (21-32) Anion Gap 8 (6-14) Blood Urea Nitrogen 23 mg/dL (7-20) Creatinine 1.2 mg/dL (0.6-1.0) Estimated GFR (Cockcroft-Gault) 44.5 BUN/Creatinine Ratio 19 (6-20) Glucose Level 98 mg/dL (70-99) Calcium Level 9.3 mg/dL (8.5-10.1) Magnesium Level 1.7 mg/dL (1.8-2.4) Total Bilirubin 0.3 mg/dL (0.2-1.0) Aspartate Amino Transf (AST/SGOT) 27 U/L (15-37) Alanine Aminotransferase (ALT/SGPT) 53 U/L (14-59) Alkaline Phosphatase 107 U/L (46-116) Creatine Kinase 81 U/L (26-192) Troponin I Quantitative < 0.017 ng/mL (0-0.055) BL-Fpv-[id number]-Type Natriuretic Peptide 72 pg/mL (0-124) Total Protein 7.8 g/dL (6.4-8.2) Albumin 3.6 g/dL (3.4-5.0) Albumin/Globulin Ratio 0.9 (1.0-1.7) Lipase 117 U/L (73-393) Test 04/18/17 23:39 04/19/17 00:28 04/19/17 02:25 04/19/17 07:24 Glucose (Fingerstick) 94 mg/dL (70-99) 87 mg/dL (70-99) 97 mg/dL (70-99) Troponin I Quantitative < 0.017 ng/mL (0-0.055) Test 04/19/17 08:07 04/19/17 16:53 04/19/17 20:03 04/20/17 05:55 White Blood Count 9.3 x10^3/uL (4.0-11.0) Red Blood Count 4.75 x10^6/uL (3.50-5.40) Hemoglobin 13.8 g/dL (12.0-15.5) Hematocrit 40.6 % (36.0-47.0) Mean Corpuscular Volume 86 fL (79-100) Mean Corpuscular Hemoglobin 29 pg (25-35) Mean Corpuscular Hemoglobin Concent 34 g/dL (31-37) Red Cell Distribution Width 14.5 % (11.5-14.5) Platelet Count 247 x10^3/uL (140-400) Neutrophils (%) (Auto) 47 % (31-73) Lymphocytes (%) (Auto) 40 % (24-48) Monocytes (%) (Auto) 9 % (0-9) Eosinophils (%) (Auto) 3 % (0-3) Basophils (%) (Auto) 1 % (0-3) Neutrophils # (Auto) 4.4 x10^3uL (1.8-7.7) Lymphocytes # (Auto) 3.7 x10^3/uL (1.0-4.8) Monocytes # (Auto) 0.8 x10^3/uL (0.0-1.1) Eosinophils # (Auto) 0.2 x10^3/uL (0.0-0.7) Basophils # (Auto) 0.1 x10^3/uL (0.0-0.2) Sodium Level 143 mmol/L (136-145) Potassium Level 3.7 mmol/L (3.5-5.1) Chloride Level 105 mmol/L (98-107) Carbon Dioxide Level 28 mmol/L (21-32) Anion Gap 10 (6-14) Blood Urea Nitrogen 21 mg/dL (7-20) Creatinine 0.9 mg/dL (0.6-1.0) Estimated GFR (Cockcroft-Gault) 62.1 Glucose Level 176 mg/dL (70-99) Calcium Level 8.8 mg/dL (8.5-10.1) Troponin I Quantitative 0.017 ng/mL (0-0.055) Glucose (Fingerstick) 175 mg/dL (70-99) 153 mg/dL (70-99) Magnesium Level 1.9 mg/dL (1.8-2.4) Test 04/20/17 07:48 04/20/17 11:22 Glucose (Fingerstick) 125 mg/dL (70-99) 222 mg/dL (70-99) Brief Hospital Course Ms. Guerra is a 71 old FEMALE WHO PRESENTED WITH CHEST PAIN. OR WAS RULED OUT AND HER MPI WAS NEGATIVE. SHE IS CLEARED TO HAVE HER KNEE SURGERY PER CARDIOLOGY. Discharge Information Condition at Discharge: Improved Disposition/Orders: D/C to Home Dischare Medications Current Medications Nitroglycerin (Nitrostat) 0.4 mg PRN Q5MIN PRN SL CP RATING > 1/10; Start 04/18 at 19:30; Stop 04/18/17 at 22:11; Status DC Multi-Ingredient Mouthwash/Gargle (Gi Cocktail) 20 ml 1X ONCE PO Last administered on 04/18/17t 19:45; Start 04/18/17 at 19:45; Stop 04/18/17 at 19:46 ; Status DC Iohexol (Omnipaque 300 Mg/ml) 75 ml 1X ONCE IV ; Start 04/18/17 at 20:15; Stop 04/18/17 at 20:16; Status UNV Enoxaparin Sodium (Lovenox 80mg Syringe) 80 mg 1X ONCE SQ Last administered on 04/18/17 22:58; Start 04/18/17 at 21:15; Stop 04/18/17 at 21:16; Status DC Acetaminophen (Tylenol) 650 mg PRN Q4HRS PRN PO FEVER Last administered on 04/19 20:46; Start 04/18/17 at 21:15; Stop 04/19/17 at 21:14; Status DC Nitroglycerin (Nitrostat) 0.4 mg PRN Q5MIN PRN SL CHEST PAIN; Start 04/18/17 at 21:15; Stop 04/19/17 at 21:14; Status DC Calcium Carbonate/ Glycine (Tums) 500 mg TID PRN PRN PO INDIGESTION Last administered on 04/20/17 12:04; Start 04/18/17 at 23:30 Amitriptyline HCl (Elavil) 25 mg HS PO Last administered on 04/19/17 20:46; Start 04/19/17 at 21:00 Cetirizine HCl (ZyrTEC) 10 mg DAILY PO Last administered on 04/20/17 09:34; Start 04/19/17 at 09:00 Cyclobenzaprine HCl (Flexeril) 10 mg TID PO ; Start 04/19/17 at 09:00; Stop at 09:10; Status DC Ferrous Sulfate (Feosol) 325 mg DAILY PO ; Start 04/19/17 at 09:00; Stop at 12:01; Status DC Hydrochlorothiazide (Hydrodiuril) 25 mg DAILY PO Last administered on 09:34; Start 04/19/17 at 09:00 Insulin Human Regular (NovoLIN R) 18-20 units with meals TIDWMEALS SQ ; Start at 08:00; Stop 04/19/17 at 11:21; Status DC Phenazopyridine HCl (Pyridium) 200 mg TIDPC PO Last administered on 04/19/17 12:36; Start 04/19/17 at 08:30; Stop 04/19/17 at 17:46; Status DC Potassium Chloride (Klor-Con) 20 meq DAILY PO Last administered on 04/20/17 09 :33; Start 04/19/17 at 09:00 Prednisone (Prednisone) 10 mg DAILY PO Last administered on 04/20/17 09:33; Start 04/19/17 at 09:00 Promethazine HCl (Phenergan) 25 mg PRN Q6HRS PRN RC NAUSEA; Start 04/19/17 at 01:00 Tramadol HCl (Ultram) 50 mg PRN Q6HRS PRN PO MODERATE PAIN Last administered on 04/19/17 20:45; Start 04/19/17 at 01:00 Triamcinolone Acetonide (Aristocort) 1 dorian TID TP Last administered on 13:24; Start 04/19/17 at 09:00 Zolpidem Tartrate (Ambien) 5 mg PRN QHS PRN PO INSOMNIA, MAY REPEAT X1 Last administered on 04/19/17 22:22; Start 04/19/17 at 01:00; Stop 04/20/17 at 12:54 ; Status DC Albuterol Sulfate (Ventolin) 2.5 mg PRN Q6HRS PRN NEB SHORTNESS OF BREATH; Start 04/19/17 at 01:00; Status UNV Albuterol Sulfate (Ventolin) 2.5 mg PRN Q6HRS PRN NEB SHORTNESS OF BREATH; Start 04/19/17 at 01:30 Fluticasone Propionate (Flonase) 1 spray DAILY NS Last administered on 09:34; Start 04/19/17 at 09:00 Fluconazole (Diflucan) 150 mg DAILY PO ; Start 04/19/17 at 09:00; Stop 04/19/17 at 09:10; Status DC Cyclobenzaprine HCl (Flexeril) 10 mg PRN TID PRN PO pain Last administered on 09:23; Start 04/19/17 at 09:15 Aspirin (Aspirin Enteric Coated) 81 mg DAILYWBKFT PO Last administered on 09:33; Start 04/19/17 at 10:30 Metoprolol Tartrate (Lopressor) 25 mg BID PO Last administered on 04/20/17 09: 33; Start 04/19/17 at 10:30 Magnesium Oxide (Magnesium Oxide) 400 mg BID PO Last administered on 04/20/17 09:33; Start 04/19/17 at 10:30; Stop 04/20/17 at 10:29; Status DC Albuterol/ Ipratropium (Duoneb) 3 ml RTQID NEB Last administered on 04/20/17 11:37; Start 04/19/17 at 12:00 Non-Formulary Medication 85 ea DAILY SQ Last administered on 04/19/17 12:01; Start 04/20/17 at 09:00 Non-Formulary Medication 18-20 UNITS DAILY W... TIDBFRMEAL SQ ; Start 04/19/17 at 11:30; Stop 04/19/17 at 11:38; Status DC Non-Formulary Medication 1.8 ea DAILY SQ Last administered on 04/20/17 09:00; Start 04/19/17 at 11:30 Non-Formulary Medication 18-20 UNITS DAILY W... TIDBFRMEAL SQ Last administered on 04/19/17 12:02; Start 04/19/17 at 16:30; Stop 04/19/17 at 17:41 ; Status DC Ferrous Sulfate (Feosol) 325 mg DAILY PO ; Start 04/20/17 at 09:00 Polyethylene Glycol (miraLAX) 17 gm DAILY PO Last administered on 04/20/17 09: 36; Start 04/19/17 at 13:20 Diphenhydramine HCl (Benadryl) 25 mg PRN Q6HRS PRN PO ITCHING Last administered on 04/19/17 13:59; Start 04/19/17 at 14:00 Non-Formulary Medication 18-20 UNITS DAILY W... TIDBFRMEAL SQ Last administered on 04/20/17 11:30; Start 04/19/17 at 17:45 Phenazopyridine HCl (Pyridium) 200 mg TIDPC PO Last administered on 04/20/17 12:03; Start 04/19/17 at 18:00 Regadenoson (Lexiscan) 0.4 mg 1X ONCE IV Last administered on 04/20/17 08:30 ; Start 04/20/17 at 08:30; Stop 04/20/17 at 08:31; Status DC Lisinopril (Prinivil) 2.5 mg DAILY PO Last administered on 04/20/17 09:38; Start 04/20/17 at 09:00 Zolpidem Tartrate (Ambien) 5 mg PRN QHS PRN PO INSOMNIA, MAY REPEAT X1; Start 04/20/17 at 13:00 Active Scripts Active Reported Tresiba Flextouch U-100 (Insulin Degludec) 100 Unit/1 Ml Insuln.pen 100 Unit SQ DAILY Amoxicillin 500 Mg Tablet 2 Tab PO TID Nexium Capsule (Esomeprazole Magnesium) 40 Mg Capsule.dr 40 Mg PO DAILYAC Ambien (Zolpidem Tartrate) 10 Mg Tablet 10 Mg PO PRN QHS PRN Tramadol Hcl (Tramadol HCl) 50 Mg Tablet 50 Mg PO Q6HRS PRN take as needed for pain. last dose: 05/06 PM Novolin R (Insulin Regular, Human) 100 Unit/1 Ml Vial 18-20 Unit IJ TIDWMEALS high blood sugar, uses Novolog pen during admission last dose: 05/07 AM next dose: 05/07 with lunch Advair 250-50 Diskus (Fluticasone/Salmeterol) 1 Each Disk.w.dev 1 Puff IH BID for shortness of breath last dose: 05/07 AM next dose: 05/07 PM Zyrtec (Cetirizine Hcl) 10 Mg Tablet 10 Mg PO DAILY for acid reflux last dose: 05/07 AM next dose: 05/08 AM Omeprazole 20 Mg Capsule.dr 20 Mg PO BID for acid reflux, substituted with Protonix during admission. last dose: 05/07 AM next dose: 05/07 PM Diflucan (Fluconazole) 150 Mg Tablet 150 Mg PO DAILY yeast infections last dose: 05/07 AM next dose: 108 AM Hydrochlorothiazide Tablet (Hydrochlorothiazide) 25 Mg Tablet 25 Mg PO DAILY for fluid retention last dose: 05/07 AM next dose: 05/08 AM Flonase Allergy Relief (Fluticasone Propionate) 9.9 Ml [place].susp 1 Spr NS DAILY for seasonal allergies last dose: 05/07 AM next dose: 05/08 AM Amitriptyline Hcl 25 Mg Tablet 25 Mg PO HS for depression. not given this admission. Phenergan (Promethazine HCl) 25 Mg Supp.rect 25 Mg RC PRN Q6HRS PRN take as needed for nausea. not given this admission Phenazopyridine Hcl 100 Mg Tablet 200 Mg PO TIDPC for urinary symptoms last dose: 05/07 AM next dose: 05/07 afternoon Victoza 3-Sotero (Liraglutide) 0.6 Mg/0.1 Ml Pen.injctr 1 Mg SQ DAILY for high blood sugar last dose: 05/07 AM next dose: 05/08 AM Cyclobenzaprine Hcl 10 Mg Tablet 10 Mg PO TID for muscle spasms last dose: 05/07 AM next dose: 05/07 PM Klor-Con M20 (Potassium Chloride) 20 Meq Tab.er.prt 20 Meq PO DAILY supplement last dose: 05/07 AM next dose: 05/08 AM Iron Supplement (Ferrous Sulfate) 325 Mg Tablet 325 Mg PO DAILY supplement last dose: 05/07 AM next dose: 05/08 AM Albuterol Sulfate Neb Soln (Albuterol Sulfate) 0.63 Mg/3 Ml Vial.neb 0.63 Mg NEB QID for asthma not given this admission Prednisone 10 Mg Tablet 10 Mg PO DAILY steroid last dose: 05/07 AM next dose: 05/08 AM Triamcinolone Acetonide 15 Gm Cream..g. 1 Dorian TP TID topical cream last dose: 05/06 PM next dose: 05/07 AM Enbrel (Etanercept) 50 Mg/1 Ml Disp.syrin 50 Mg SQ WEEKLY for arthritis not given this admission Patient Instructions Patient Instuctions TAKE ALL MEDS PRESCRIBED. CLEARED FOR KNEE SURGERY. GOPAL MEDINA DO Apr 20, 2017 13:34
== END 2017-04-20 14:20 | disposition home or self-care (01) ==
LOC: ER 18:42 → 1 SOUTH 21:08
PROVIDERS: ADMIT Family Medicine; ATTEND Family Medicine
DX: R07.89 Other chest pain (principal); I10 Essential (primary) hypertension; E78.5 Hyperlipidemia, unspecified; E11.65 Type 2 diabetes mellitus with hyperglycemia; R79.1 Abnormal coagulation profile; K21.9 Gastro-esophageal reflux disease without esophagitis; E78.00 Pure hypercholesterolemia, unspecified; M06.9 Rheumatoid arthritis, unspecified; J45.909 Unspecified asthma, uncomplicated; M19.90 Unspecified osteoarthritis, unspecified site; Z79.899 Other long term (current) drug therapy; Z82.3 Family history of stroke; Z82.49 Family history of ischemic heart disease and other diseases of the circulatory system; Z96.1 Presence of intraocular lens
CPT/HCPCS: 36415; 71010; 78452; 78582; 80048; 80053; 80061; 82550; 82947; 83690; 83735; 83880; 84484; 85025; 85379; 85610; 85730; 93005; 93017; 93306; 94640; 96372; 96376; 99285; A9500; A9540; A9558; G0378; J1650; J2785; J7512; J7620; Q0163; 96360; 96374; 96375; G0379; J1815

== ENCOUNTER 2017-10-06 05:19 | Emergency (ER) | payer MEDICARE, OTHER ==
[~2017-10-06] VITALS: Ht 170.2 cm; Wt 88.9 kg
[~2017-10-06 05:19] MED LIST changes: +AMOX500T PO; +ESOM40CA PO; +INSU100I30 SQ; +ZOLP10TA PO
--- NOTE | 2017-10-06 05:59 | ED.ADGEN ---
Past History Past Medical History: No Pertinent History Past Surgical History: No Surgical History Alcohol Use: None Drug Use: None Adult General Chief Complaint Chief Complaint Severe back pain HPI HPI Patient is a 72-year-old female presents with bilateral back pain she describes as pain over kidneys. Patient has a history of recurrent urinary tract infection and kidney stones who is currently on day 2 of 3 of for Rocephin for treatment of urinary tract infection, day 3 of Augmentin after having completed a 10 day course of penicillin. Pain is worse with palpation and movement. It is associated with fever. Patient reports temperature 100.0 yesterday. No nausea vomiting, no abdominal pain, no hematuria, urinary frequency urgency. No focal extremity weakness, loss of sensation. Patient last treated for kidney stone 2 years ago. She has not had recent imaging studies. Patient has been treating her pain with tramadol and Tylenol every 6 hours until this morning when it worsened which prompted her visit to the emergency department. [] Review of Systems Review of Systems Review symptoms as per history of present illness. All other review symptoms are negative.[] All other systems were reviewed and found to be within normal limits, except as documented in this note. Current Medications Current Medications Current Medications Medications (Trade) Dose Ordered Sig/Ashlyn Start Time Stop Time Status Last Admin Dose Admin Fentanyl Citrate (Fentanyl 2ml Vial) 50 mcg 1X ONCE 10/06/17 06:00 10/06/17 06:01 UNV Ondansetron HCl (Zofran) 4 mg 1X ONCE 10/06/17 06:00 10/06/17 06:01 UNV Allergies Allergies Allergies Coded Allergies Type Severity Reaction Last Updated Verified Sulfa (Sulfonamide Antibiotics) Allergy Intermediate 05/07/15 Yes capsaicin Allergy Intermediate 05/07/15 Yes codeine Allergy Intermediate 05/07/15 Yes insulin lispro Allergy Intermediate 05/07/15 Yes iodine Allergy Intermediate 05/07/15 Yes levofloxacin Allergy Intermediate 05/07/15 Yes menthol Allergy Intermediate 05/07/15 Yes metformin Allergy Intermediate 05/07/15 Yes naproxen Allergy Intermediate 05/07/15 Yes Influenza Virus Vaccines Allergy Unknown 04/20/17 Yes Physical Exam Physical Exam Constitutional: Well developed, well nourished, moderate comfort secondary to pain. [] HENT: Normocephalic, atraumatic, bilateral external ears normal, oropharynx moist, no oral exudates, nose normal. [] Eyes: PERRLA, EOMI, conjunctiva normal, no discharge. [] Neck: Normal range of motion, no tenderness, supple, no stridor. [] Cardiovascular:Heart rate regular rhythm, no murmur [] Lungs & Thorax: Bilateral breath sounds clear to auscultation [] Abdomen: Bowel sounds normal, soft, no tenderness. [] Skin: Warm, dry, no erythema, no rash. [] Back: No tenderness, L CVA tenderness, diffuse mid back pain reproduces with palpation in trunk movement. [] Extremities: No tenderness, no cyanosis, no clubbing, ROM intact, no edema. [] Neurologic: Alert and oriented X 3, normal motor function, normal sensory function, no focal deficits noted. [] [] EKG EKG [] Radiology/Procedures Radiology/Procedures [] Course & Med Decision Making Course & Med Decision Making Pertinent Labs and Imaging studies reviewed. (See chart for details) [Diffuse back pain, disproportionate to presence of urinary tract infection alone. Pain address, lab work started. Dissipate chance imaging study performed here in the emergency department. All labs and studies pending. Care endorsed to oncoming ERP at 06:00.] Final Impression Final Impression [1. Back pain] Problems: Dragon Disclaimer Dragon Disclaimer This electronic medical record was generated, in whole or in part, using a voice recognition dictation system. DEMOND VALLADARES DO Oct 06, 2017 05:59
[2017-10-06] MEDS ORDERED: ONDANSETRON PF 4 MG/2 ML VIAL. IV ONE (06:00)
--- NOTE | 2017-10-06 06:12 | EKG ---
[address] [address] Test Date: 2017-10-06 Test Time: 06:05:42 Pat Name: PATRIA GONSALVES Department: Room: Gender: F Die Holder: : 1945 Requested By: DEMOND VALLADARES Order Number: [id number] Reading MD: Measurements Intervals [place] Rate: 110 P: 90 AL: 166 QRS: -7 QRSD: 76 T: 52 QT: 330 QTc: 452 Interpretive Statements SINUS TACHYCARDIA ATRIAL PREMATURE COMPLEX(ES) LEFTWARD AXIS OTHERWISE NORMAL ECG RI6.01 No previous ECG available for comparison
[2017-10-06 06:28] LABS: BASO # 0.1 x10^3/uL (0.0-0.2); BASO % 1 % (0-3); EOS # 0.1 x10^3/uL (0.0-0.7); EOS % 1 % (0-3); HEMATOCRIT 36.3 % (36.0-47.0); LYMPH # 2.4 x10^3/uL (1.0-4.8); LYMPH % 18 % (24-48); MEAN CORPUSCULAR HEMOGLOBIN 27 pg (25-35); MEAN CORPUSCULAR HGB CONC 33 g/dL (31-37); MEAN CORPUSCULAR VOLUME 81 fL (79-100); MONO % 8 % (0-9); NEUT # 9.9 x10^3uL (1.8-7.7); NEUT % 73 % (31-73); PLATELET COUNT 316 x10^3/uL (140-400); RED BLOOD COUNT 4.51 x10^6/uL (3.50-5.40); RED CELL DISTRIBUTION WIDTH 17.6 % (11.5-14.5); WHITE BLOOD COUNT 13.6 x10^3/uL (4.0-11.0)
[2017-10-06 06:31] LABS: CLARITY,URINE HAZY; COLOR,URINE YELLOW
[2017-10-06 06:32] LABS: BACTERIA,URINE FEW /HPF (0-FEW); BILIRUBIN,URINE NEG (NEG); GLUCOSE,URINE NEG (NEG); NITRITE,URINE NEG (NEG); SQUAMOUS EPITHELIAL CELL,UR FEW /LPF; UROBILINOGEN,URINE 0.2 mg/dL (0.2 mg/dL)
[2017-10-06 07:00] LABS: ALBUMIN 2.7 g/dL (3.4-5.0); ALBUMIN/GLOBULIN RATIO 0.6 (1.0-1.7); C REACTIVE PROTEIN 75.3 mg/L (0-3.3); CALCIUM 8.2 mg/dL (8.5-10.1); CREATININE 1.2 mg/dL (0.6-1.0); GFR 44.4; POTASSIUM 3.6 mmol/L (3.5-5.1); TOTAL BILIRUBIN 0.3 mg/dL (0.2-1.0); TOTAL PROTEIN 7.3 g/dL (6.4-8.2)
[2017-10-06 07:09] LABS: LIPASE 89 U/L (73-393)
[2017-10-06] MEDS ORDERED: IV NORMAL SALINE 50ML 50 ML ONE (07:27)
[2017-10-06] MEDS ORDERED: PIPERACILLIN/TAZOBACTAM 3.375 GM VIAL IV ONE (07:27)
[2017-10-06] MEDS ORDERED: PIPERACILLIN/TAZOBACTAM 3.375 GM in IV NORMAL SALINE 50ML 50 ML IV ONE (07:30)
[2017-10-06] MEDS ORDERED: IV NORMAL SALINE 1,000ML 1,000 ML IV ONE ×2 (07:30→09:15)
--- NOTE | 2017-10-06 07:59 | RAD ---
CT chest, abdomen and pelvis without contrast 10/06/2017 Indication: Back and flank pain. Chest pain with weakness. Comparison: CT chest 02/19/2012. Technique: Multiple axial CT images of the chest, abdomen and pelvis were obtained without intravenous contrast. Coronal and sagittal reformats are provided. Findings: Chest: The thyroid gland is normal in appearance. There are no pathologically enlarged lymph nodes in the axilla, mediastinum or hilar regions. Heart size is within normal limits. There is mild coronary artery vascular calcification. The thoracic aorta is normal in course and caliber. Anterior chest wall appears normal. There is a 4 mm groundglass nodule in the left upper lobe (series 7, image 18). Findings are likely inflammatory. Scattered areas of subpleural interstitial thickening is present with adjacent groundglass changes. These findings are new from 02/19/2012. There are no pleural effusions. There is no pulmonary vascular congestion or pneumothorax. The central airways are clear. Abdomen/pelvis: Evaluation of the solid abdominal viscera is limited by lack of intravenous contrast. No suspicious hepatic masses are identified. The spleen, bilateral adrenal glands and pancreas appear normal. Gallbladder is surgically absent. The abdominal aorta is normal in course and caliber. There are no pathologically enlarged lymph nodes in the abdomen and pelvis. There is no abdominal free fluid. There is no free intraperitoneal air. Mild atherosclerotic changes of the abdominal aorta are present. Calcified portacaval and leobardo hepatis lymph nodes are present suggestive of prior granulomatous exposure. Kidneys are symmetric in appearance. There may be a 1 mm calculus in the distal one third of the left ureter (series 2, image 126). There is no hydronephrosis. No contour deforming renal mass is suspected. Small and large bowel are normal in caliber. There is no evidence for bowel obstruction or inflammation. Appendix is normal in caliber without adjacent inflammatory changes. Urinary bladder is within normal limits given degree of distention. No suspicious pelvic mass is visualized. There is a fat-containing right inguinal hernia. No suspicious osseous lesions are identified. There is advanced degenerative disc disease at L2-L3, L4-L5 and L5-S1. Impression: 1. There are scattered areas of subpleural interstitial thickening with few scattered areas of groundglass changes. Findings are nonspecific and may be associated with mild chronic interstitial edema versus early chronic interstitial lung disease. There is no honeycombing or traction bronchiectasis. Findings may be secondary to chronic obstructive pulmonary disease. 2. No focal airspace consolidation is visualized. 3. There may be a 1 mm calculus in the distal left ureter. No significant hydroureteronephrosis. Correlate with site of patient's symptoms. 4. Appendix is normal. 5. There is a fat-containing right inguinal hernia. PQRS Compliance Statement: One or more of the following individualized dose reduction techniques were utilized for this examination: 1. Automated exposure control 2. Adjustment of the mA and/or kV according to patient size 3. Use of iterative reconstruction technique
--- NOTE | 2017-10-06 08:15 | PHYS DOC ---
Past History Past Medical History: Asthma, Diabetes Past Surgical History: Cholecystectomy Alcohol Use: None Drug Use: None Adult General Chief Complaint Chief Complaint: BACK PAIN OR INJURY HPI HPI Patient is a [age] year old [sex] who presents with [] Review of Systems Review of Systems Please see Dr. Festus Pettit note Current Medications Current Medications Current Medications Medications (Trade) Dose Ordered Sig/Ashlyn Start Time Stop Time Status Last Admin Dose Admin Fentanyl Citrate (Fentanyl 2ml Vial) 50 mcg 1X ONCE 10/06/17 06:00 10/06/17 06:02 DC 10/06/17 06:41 50 MCG Ondansetron HCl (Zofran) 4 mg 1X ONCE 10/06/17 06:00 10/06/17 06:02 DC 10/06/17 06:41 4 MG Piperacillin Sod/ Tazobactam Sod (Zosyn) 3.375 gm STK-MED ONCE 10/06/17 07:27 10/06/17 07:28 DC Piperacillin Sod/ Tazobactam Sod 3.375 gm/Sodium Chloride 50 ml @ 100 mls/hr 1X ONCE 10/06/17 07:30 10/06/17 07:59 DC 10/06/17 07:34 100 MLS/HR Sodium Chloride 50 ml @ As Directed STK-MED ONCE 10/06/17 07:27 10/06/17 07:28 DC Allergies Allergies Allergies Coded Allergies Type Severity Reaction Last Updated Verified Sulfa (Sulfonamide Antibiotics) Allergy Intermediate 05/07/15 Yes capsaicin Allergy Intermediate 05/07/15 Yes codeine Allergy Intermediate 05/07/15 Yes insulin lispro Allergy Intermediate 05/07/15 Yes iodine Allergy Intermediate 05/07/15 Yes levofloxacin Allergy Intermediate 05/07/15 Yes menthol Allergy Intermediate 05/07/15 Yes metformin Allergy Intermediate 05/07/15 Yes naproxen Allergy Intermediate 05/07/15 Yes Influenza Virus Vaccines Allergy Unknown 04/20/17 Yes Physical Exam Physical Exam Please see Dr. Festus Pettit note Current Patient Data Vital Signs Vital Signs Date Time Temp Pulse Resp B/P (MAP) Pulse Ox O2 Delivery O2 Flow Rate FiO2 10/06/17 07:37 72 20 131/57 (81) 94 Room Air 10/06/17 05:19 98.4 Lab Results Laboratory Tests Test 10/06/17 05:25 10/06/17 05:55 10/06/17 06:29 Urine Collection Type Unknown Urine Color Yellow Urine Clarity Hazy Urine pH 6.0 Urine Specific [place] <=1.005 Urine Protein Neg (NEG-TRACE) Urine Glucose (UA) Neg mg/dL (NEG) Urine Ketones (Stick) Neg mg/dL (NEG) Urine Blood Mod (NEG) Urine Nitrite Neg (NEG) Urine Bilirubin Neg (NEG) Urine Urobilinogen Dipstick 0.2 mg/dL (0.2 mg/dL) Urine Leukocyte Esterase Small (NEG) Urine RBC 1-2 /HPF (0-2) Urine WBC 5-10 /HPF (0-4) Urine Squamous Epithelial Cells Few /LPF Urine Bacteria Few /HPF (0-FEW) White Blood Count 13.6 x10^3/uL (4.0-11.0) H Red Blood Count 4.51 x10^6/uL (3.50-5.40) Hemoglobin 12.0 g/dL (12.0-15.5) Hematocrit 36.3 % (36.0-47.0) Mean Corpuscular Volume 81 fL (79-100) Mean Corpuscular Hemoglobin 27 pg (25-35) Mean Corpuscular Hemoglobin Concent 33 g/dL (31-37) Red Cell Distribution Width 17.6 % (11.5-14.5) H Platelet Count 316 x10^3/uL (140-400) Neutrophils (%) (Auto) 73 % (31-73) Lymphocytes (%) (Auto) 18 % (24-48) L Monocytes (%) (Auto) 8 % (0-9) Eosinophils (%) (Auto) 1 % (0-3) Basophils (%) (Auto) 1 % (0-3) Neutrophils # (Auto) 9.9 x10^3uL (1.8-7.7) H Lymphocytes # (Auto) 2.4 x10^3/uL (1.0-4.8) Monocytes # (Auto) 1.0 x10^3/uL (0.0-1.1) Eosinophils # (Auto) 0.1 x10^3/uL (0.0-0.7) Basophils # (Auto) 0.1 x10^3/uL (0.0-0.2) D-Dimer (Dalia) 1.49 mg/L (0.00-0.50) H Sodium Level 138 mmol/L (136-145) Potassium Level 3.6 mmol/L (3.5-5.1) Chloride Level 101 mmol/L (98-107) Carbon Dioxide Level 28 mmol/L (21-32) Anion Gap 9 (6-14) Blood Urea Nitrogen 24 mg/dL (7-20) H Creatinine 1.2 mg/dL (0.6-1.0) H Estimated GFR (Cockcroft-Gault) 44.4 BUN/Creatinine Ratio 20 (6-20) Glucose Level 160 mg/dL (70-99) H Lactic Acid Level 2.3 mmol/L (0.4-2.0) H Calcium Level 8.2 mg/dL (8.5-10.1) L Total Bilirubin 0.3 mg/dL (0.2-1.0) Aspartate Amino Transferase (AST) 16 U/L (15-37) Alanine Aminotransferase (ALT) 32 U/L (14-59) Alkaline Phosphatase 103 U/L (46-116) Creatine Kinase 17 U/L (26-192) L Creatine Kinase MB (Mass) < 0.5 ng/mL (0.0-3.6) Creatine Kinase MB Relative Index 2.9 % (0-4) Troponin I Quantitative < 0.017 ng/mL (0-0.055) C-Reactive Protein 75.3 mg/L (0-3.3) H XH-Wrs-F-Type Natriuretic Peptide 226 pg/mL (0-124) H Total Protein 7.3 g/dL (6.4-8.2) Albumin 2.7 g/dL (3.4-5.0) L Albumin/Globulin Ratio 0.6 (1.0-1.7) L Lipase 89 U/L (73-393) EKG EKG EKG interpreted by me. EKG at 0605 showed sinus tachycardia at rate of 110 him a PACs, left johnson axis[, no acute ST and T wave abnormality] Radiology/Procedures Radiology/Procedures [] [address] [address] IMAGING REPORT Signed PATIENT: PATRIA GONSALVES ACCOUNT: [id number] : 1945 LOCATION: ER AGE: 72 SEX: F EXAM STATUS: REG ER ORD. PHYSICIAN: JEROME HILLIARD MD REASON: back pain PROCEDURE: CT CHEST ABDOMEN PELVIS WO CT chest, abdomen and pelvis without contrast 10/06/2017 Indication: Back and flank pain. Chest pain with weakness. Comparison: CT chest 02/19/2012. Technique: Multiple axial CT images of the chest, abdomen and pelvis were obtained without intravenous contrast. Coronal and sagittal reformats are provided. Findings: Chest: The thyroid gland is normal in appearance. There are no pathologically enlarged lymph nodes in the axilla, mediastinum or hilar regions. Heart size is within normal limits. There is mild coronary artery vascular calcification. The thoracic aorta is normal in course and caliber. Anterior chest wall appears normal. There is a 4 mm groundglass nodule in the left upper lobe (series 7, image 18). Findings are likely inflammatory. Scattered areas of subpleural interstitial thickening is present with adjacent groundglass changes. These findings are new from 02/19/2012. There are no pleural effusions. There is no pulmonary vascular congestion or pneumothorax. The central airways are clear. Abdomen/pelvis: Evaluation of the solid abdominal viscera is limited by lack of intravenous contrast. No suspicious hepatic masses are identified. The spleen, bilateral adrenal glands and pancreas appear normal. Gallbladder is surgically absent. The abdominal aorta is normal in course and caliber. There are no pathologically enlarged lymph nodes in the abdomen and pelvis. There is no abdominal free fluid. There is no free intraperitoneal air. Mild atherosclerotic changes of the abdominal aorta are present. Calcified portacaval and leobardo hepatis lymph nodes are present suggestive of prior granulomatous exposure. Kidneys are symmetric in appearance. There may be a 1 mm calculus in the distal one third of the left ureter (series 2, image 126). There is no hydronephrosis. No contour deforming renal mass is suspected. Small and large bowel are normal in caliber. There is no evidence for bowel obstruction or inflammation. Appendix is normal in caliber without adjacent inflammatory changes. Urinary bladder is within normal limits given degree of distention. No suspicious pelvic mass is visualized. There is a fat-containing right inguinal hernia. No suspicious osseous lesions are identified. There is advanced degenerative disc disease at L2-L3, L4-L5 and L5-S1. Impression: 1. There are scattered areas of subpleural interstitial thickening with few scattered areas of groundglass changes. Findings are nonspecific and may be associated with mild chronic interstitial edema versus early chronic interstitial lung disease. There is no honeycombing or traction bronchiectasis. Findings may be secondary to chronic obstructive pulmonary disease. 2. No focal airspace consolidation is visualized. 3. There may be a 1 mm calculus in the distal left ureter. No significant hydroureteronephrosis. Correlate with site of patient's symptoms. 4. Appendix is normal. 5. There is a fat-containing right inguinal hernia. PQRS Compliance Statement: One or more of the following individualized dose reduction techniques were utilized for this examination: 1. Automated exposure control 2. Adjustment of the mA and/or kV according to patient size 3. Use of iterative reconstruction technique Course & Med Decision Making Course & Med Decision Making Pertinent Labs and Imaging studies reviewed. (See chart for details) Evaluation of patient in ER showed 9-year-old female patient with complaining of bilateral flank pain for 3 weeks that did not get better with treatment for UTI as outpatient by primary care physician including Rocephin IM. She had tachycardia and elevation of lactic acid without hypertension or fever. IV fluids and Zosyn was started. Patient had leukocytosis and elevation of C- reactive protein. She treated with fentanyl and her pain improved to [address] Szymanski informed at 0 626 and recommended to transfer patient to [facility]. Dr. Jara accepted transfer at [address] [facility] did show possible left ureteral stone. Dragon Disclaimer Dragon Disclaimer This electronic medical record was generated, in whole or in part, using a voice recognition dictation system. Departure Departure: Impression: Primary Impression: Sepsis Additional Impressions: UTI (urinary tract infection) Flank pain Ureterolithiasis Uncontrolled diabetes mellitus Disposition: 02 XFER SHT-TRM HOSP ([facility]@0 856) Condition: IMPROVED Referrals: JOSE FRANCISCO SZYMANSKI MD (PCP) Problem Qualifiers JEROME HILLIARD MD Oct 06, 2017 08:15
[2017-10-06 09:50] VITALS: BP 139/76
== END 2017-10-06 10:00 | disposition short-term general hospital (02) ==
LOC: ER 05:19
DX: A41.9 Sepsis, unspecified organism (principal); N39.0 Urinary tract infection, site not specified; N20.1 Calculus of ureter; E11.9 Type 2 diabetes mellitus without complications; J45.909 Unspecified asthma, uncomplicated; Z87.440 Personal history of urinary (tract) infections; Z87.442 Personal history of urinary calculi; Z88.2 Allergy status to sulfonamides; Z88.1 Allergy status to other antibiotic agents; Z88.5 Allergy status to narcotic agent; Z88.7 Allergy status to serum and vaccine; Z88.8 Allergy status to other drugs, medicaments and biological substances; Z88.6 Allergy status to analgesic agent; Z91.041 Radiographic dye allergy status
CPT/HCPCS: 36415; 71250; 74176; 80053; 81001; 82553; 83605; 83690; 83880; 84484; 85025; 85379; 86140; 87040; 87086; 93005; 96361; 96365; 96375; 99285; J2405; J2543; J3010; J7030

== ENCOUNTER 2017-11-10 14:34 | Inpatient (IN) | payer MEDICARE, OTHER ==
[~2017-11-10] VITALS: Ht 171.4 cm; Wt 90.8 kg
[2017-11-10] MEDS ORDERED: ONDANSETRON PF 4 MG/2 ML VIAL. IV ONE (15:00)
[2017-11-10] MEDS ORDERED: IV NORMAL SALINE 1,000ML 1,000 ML IV SCH (15:00)
[2017-11-10] MEDS ORDERED: PANTOPRAZOLE IV 40 MG VIAL. IVP ONE (15:00)
--- NOTE | 2017-11-10 15:20 | PHYS DOC ---
Past History Past Medical History: Asthma, Diabetes Past Surgical History: Cholecystectomy Alcohol Use: None Drug Use: None Adult General Chief Complaint Chief Complaint: NAUSEA/VOMITING/DIARRHEA HPI HPI 72-year-old female patient with history of diabetes mellitus and previous cholecystectomy complaining of intermittent episodes of right upper quadrant pain for the last 4 days as a sharp pain with radiation to her back that last for a few minutes and repeated frequently. Patient said the pain became constant since yesterday and had 16 episodes of coffee-ground material. Patient states she had a normal bowel movement today and denies urinary symptom. Patient states she had a temperature of 102 last night but because she was taking care of her grandkids she was not to come to emergency room. She denies chest pain, shortness of breath, melena, history of the same problem. Review of Systems Review of Systems Constitutional: Reports fever Eyes: Denies change in visual acuity, redness, or eye pain [] HENT: Denies nasal congestion or sore throat [] Respiratory: Denies cough or shortness of breath [] Cardiovascular: No additional information not addressed in HPI [] GI: Reports abdominal pain, nausea, vomiting, denies bloody stools or diarrhea [ ] : Denies dysuria or hematuria [] Musculoskeletal: Denies back pain or joint pain [] Integument: Denies rash or skin lesions [] Neurologic: Denies headache, focal weakness or sensory changes [] Endocrine: Denies polyuria or polydipsia [] All other systems were reviewed and found to be within normal limits, except as documented in this note. Allergies Allergies Allergies Coded Allergies Type Severity Reaction Last Updated Verified Sulfa (Sulfonamide Antibiotics) Allergy Intermediate 05/07/15 Yes capsaicin Allergy Intermediate 05/07/15 Yes codeine Allergy Intermediate 05/07/15 Yes insulin lispro Allergy Intermediate 05/07/15 Yes iodine Allergy Intermediate 05/07/15 Yes levofloxacin Allergy Intermediate 05/07/15 Yes menthol Allergy Intermediate 05/07/15 Yes metformin Allergy Intermediate 05/07/15 Yes naproxen Allergy Intermediate 05/07/15 Yes Influenza Virus Vaccines Allergy Unknown 04/20/17 Yes Physical Exam Physical Exam Constitutional: Well nourished, mild distress, non-toxic appearance. [] HENT: Normocephalic, atraumatic, oropharynx dry, no oral exudates, nose normal. [] Eyes: PERRLA, EOMI, conjunctiva normal, no discharge. [] Neck: Normal range of motion, no tenderness, supple, no stridor. [] Cardiovascular:Heart rate regular rhythm, no murmur [] Lungs & Thorax: Bilateral breath sounds clear to auscultation [] Abdomen: Bowel sounds normal, soft, right upper quadrant guarding , no masses, no pulsatile masses. [] Skin: Warm, dry, no erythema, no rash. [] Back: No tenderness, no CVA tenderness. [] Extremities: No tenderness, no cyanosis, no clubbing, ROM intact, no edema. [] Neurologic: Alert and oriented X 3, normal motor function, normal sensory function, no focal deficits noted. [] Psychologic: Affect normal, judgement normal, mood normal. [] EKG EKG EKG interpreted by me. EKG at 1458 showed sinus tachycardia rate of 115, PACs, left johnson axis, no acute ST-T wave abnormalities[] Radiology/Procedures Radiology/Procedures [] [place] [address] IMAGING REPORT Signed PATIENT: PATRIA GONSALVES ACCOUNT: [id number] : 1945 LOCATION: ER AGE: 72 SEX: F EXAM STATUS: REG ER ORD. PHYSICIAN: JEROME HILLIARD MD REASON: RUQ pain - DRINKING [id number] PROCEDURE: CT ABD PEL W/ORAL CONTRST ONLY CT abdomen pelvis without intravenous contrast History: Right upper quadrant pain, coffee-ground emesis. Comparison: CT abdomen pelvis October 06, 2017. Technique: CT of the abdomen and pelvis was performed without intravenous contrast. Oral contrast was administered to the patient. No intravenous contrast was administered secondary to iodine allergy. Exposure: One or more of the following individualized dose reduction techniques were utilized for this examination: 1. Automated exposure control 2. Adjustment of the mA and/or kV according to patient size 3. Use of iterative reconstruction technique Findings: Evaluation of solid organs is limited by lack of intravenous contrast. Scattered groundglass opacity and nodules involving both lung bases are similar to previous study. Fatty liver disease is seen. Gallbladder is absent. Pancreas and bilateral adrenal glands unremarkable. Bilateral kidneys and ureters are free stone or obstruction. Appendix is without evidence of inflammation. Uterus is absent. Urinary bladder is unremarkable. No bowel obstruction or inflammation is seen. Small fat-containing epigastric ventral hernia is seen, similar to previous study. Fat-containing right inguinal hernia is seen. No stomach wall thickening is identified. No free air or free fluid is seen in the abdomen or pelvis. Degenerative changes are present in the spine. Impression: 1. No acute abnormality identified in the abdomen or pelvis. 2. Less salient findings as above. Electronically signed by: Edvin Mcmahon MD (11/10/2017 5:00 PM) [place] [id number] DICTATED AND SIGNED BY: EDVIN MCMAHON MD DATE: 11/10/17 0139 CC: JOSE FRANCISCO SZYMANSKI MD; JEROME HILLIARD MD ~ Course & Med Decision Making Course & Med Decision Making Pertinent Labs and Imaging studies reviewed. (See chart for details) Evaluation of patient in ER showed 72-year-old female patient with complaining of nausea and vomiting and lower abdominal pain and fever. Patient had temperature of 100 at arrival to ER with tachycardia and treated with IV fluid and fentanyl and Zofran and did not have any episodes of vomiting while she was in ER. Patient had unremarkable CBC and CMP except for elevation of blood sugar and the urine. UA was unremarkable. Chest x-ray CT of abdomen and pelvis did not show acute finding. Dr. Szymanski informed at 1745 and agreed with plan of admission and starting Rocephin. Lactic acid is pending because of miscommunication between the GALLERY DIRECTOR and lab. Dragon Disclaimer Dragon Disclaimer This electronic medical record was generated, in whole or in part, using a voice recognition dictation system. Departure Departure: Impression: Primary Impression: Nausea and vomiting Additional Impressions: SIRS (systemic inflammatory response syndrome) Abdominal pain Uncontrolled diabetes mellitus Fever Tachycardia Dehydration Disposition: 09 ADMITTED INPATIENT (at 1745) Admitting Physician: Jose Francisco Szymanski Condition: IMPROVED Referrals: JOSE FRANCISCO SZYMANSKI MD (PCP) Problem Qualifiers JEROME HILLIARD MD Nov 10, 2017 15:20
[2017-11-10 15:23] LABS: BASO % 1 % (0-3); EOS % 0 % (0-3); HEMATOCRIT 40.7 % (36.0-47.0); HEMOGLOBIN 13.7 g/dL (12.0-15.5); LYMPH # 0.4 x10^3/uL (1.0-4.8); LYMPH % 5 % (24-48); MEAN CORPUSCULAR HEMOGLOBIN 28 pg (25-35); MEAN CORPUSCULAR HGB CONC 34 g/dL (31-37); MEAN CORPUSCULAR VOLUME 82 fL (79-100); MONO # 0.3 x10^3/uL (0.0-1.1); MONO % 4 % (0-9); NEUT # 7.5 x10^3uL (1.8-7.7); NEUT % 90 % (31-73); PLATELET COUNT 233 x10^3/uL (140-400); RED BLOOD COUNT 4.95 x10^6/uL (3.50-5.40); RED CELL DISTRIBUTION WIDTH 17.4 % (11.5-14.5); WHITE BLOOD COUNT 8.3 x10^3/uL (4.0-11.0)
[2017-11-10 15:32] LABS: ALBUMIN 3.4 g/dL (3.4-5.0); ALBUMIN/GLOBULIN RATIO 1.1 (1.0-1.7); CALCIUM 8.1 mg/dL (8.5-10.1); CREATININE 1.1 mg/dL (0.6-1.0); GFR 49.1; POTASSIUM 3.6 mmol/L (3.5-5.1); TOTAL BILIRUBIN 0.6 mg/dL (0.2-1.0); TOTAL PROTEIN 6.6 g/dL (6.4-8.2)
--- NOTE | 2017-11-10 17:03 | RAD ---
CT abdomen pelvis without intravenous contrast History: Right upper quadrant pain, coffee-ground emesis. Comparison: CT abdomen pelvis October 06, 2017. Technique: CT of the abdomen and pelvis was performed without intravenous contrast. Oral contrast was administered to the patient. No intravenous contrast was administered secondary to iodine allergy. Exposure: One or more of the following individualized dose reduction techniques were utilized for this examination: 1. Automated exposure control 2. Adjustment of the mA and/or kV according to patient size 3. Use of iterative reconstruction technique Findings: Evaluation of solid organs is limited by lack of intravenous contrast. Scattered groundglass opacity and nodules involving both lung bases are similar to previous study. Fatty liver disease is seen. Gallbladder is absent. Pancreas and bilateral adrenal glands unremarkable. Bilateral kidneys and ureters are free stone or obstruction. Appendix is without evidence of inflammation. Uterus is absent. Urinary bladder is unremarkable. No bowel obstruction or inflammation is seen. Small fat-containing epigastric ventral hernia is seen, similar to previous study. Fat-containing right inguinal hernia is seen. No stomach wall thickening is identified. No free air or free fluid is seen in the abdomen or pelvis. Degenerative changes are present in the spine. Impression: 1. No acute abnormality identified in the abdomen or pelvis. 2. Less salient findings as above. Electronically signed by: Edvin Escobar MD (11/10/2017 5:00 PM) [place] [id number]
--- NOTE | 2017-11-10 17:12 | EKG ---
[address] [address] Test Date: 2017-11-10 Test Time: 14:58:31 Pat Name: PATRIA GONSALVES Department: Room: Gender: F Manager Security And Safety: EZRA : 1945 Requested By: JEROME HILLIARD Order Number: [id number] Reading MD: Chris Lam MD Measurements Intervals [place] Rate: 115 P: 48 HI: 154 QRS: -17 QRSD: 76 T: 66 QT: 332 QTc: 461 Interpretive Statements SINUS TACHYCARDIA ATRIAL PREMATURE COMPLEX(ES) Electronically Signed On 11-14-2017 16:13:50 CDT by Chris Lam MD
[2017-11-10 17:38] LABS: BACTERIA,URINE 0 /HPF (0-FEW); BILIRUBIN,URINE NEG (NEG); CLARITY,URINE CLEAR; COLOR,URINE YELLOW; GLUCOSE,URINE 100 mg/dL (NEG); NITRITE,URINE NEG (NEG); RBC,URINE OCC /HPF (0-2); SQUAMOUS EPITHELIAL CELL,UR OCC /LPF; UROBILINOGEN,URINE 0.2 mg/dL (0.2 mg/dL); WBC,URINE RARE /HPF (0-4)
[2017-11-10] MEDS ORDERED: cefTRIAXone IV Push 1 GM VIAL. IVP ONE (18:00)
[2017-11-10] MEDS ORDERED: ONDANSETRON PF 4 MG/2 ML VIAL. IV PRN (18:00)
[2017-11-10 20:57] VITALS: BP 135/90
[2017-11-10] MEDS ORDERED: INSU100V9 SQ (21:25)
[2017-11-10] MEDS ORDERED: INSULIN GLULISINE 10 UNIT SQ SCH (22:45)
[2017-11-10] MEDS ORDERED: PROMETHAZINE 25 MG SUPP.RECT. RC PRN (22:45)
[2017-11-10] MEDS: ZOLPIDEM 5 MG TABLET. PO PRN (23:11)
[2017-11-10] MEDS: AMITRIPTYLINE HCL 25 MG TABLET PO SCH (23:11)
[2017-11-10] MEDS: IV NORMAL SALINE 1,000ML 1,000 ML IV SCH (23:11)
[2017-11-10] MEDS: CYCLOBENZAPRINE 10 MG TABLET. PO SCH (23:11)
[2017-11-10 23:41] VITALS: BP 132/72
[2017-11-11] MEDS: IV NORMAL SALINE 1,000ML 1,000 ML IV SCH ×2 (01:47→07:05)
[2017-11-11 05:22] VITALS: BP 154/78
[2017-11-11] MEDS ORDERED: IPRATRPIUM/ALBUTEROL 0.5/2.5MG 3 ML NEBU. ONE (05:35)
[2017-11-11] MEDS: ALBUTEROL SULFATE 2.5 MG/3 ML NEBU. NEB SCH ×4 (05:53→21:05)
[2017-11-11] MEDS: PANTOPRAZOLE 40 MG TABLET. PO SCH (07:37)
[2017-11-11 08:51] LABS: BASO % 1 % (0-3); EOS # 0.2 x10^3/uL (0.0-0.7); EOS % 3 % (0-3); HEMATOCRIT 38.7 % (36.0-47.0); HEMOGLOBIN 12.8 g/dL (12.0-15.5); LYMPH % 34 % (24-48); MEAN CORPUSCULAR HEMOGLOBIN 28 pg (25-35); MEAN CORPUSCULAR HGB CONC 33 g/dL (31-37); MEAN CORPUSCULAR VOLUME 83 fL (79-100); MONO # 0.7 x10^3/uL (0.0-1.1); MONO % 11 % (0-9); NEUT % 52 % (31-73); PLATELET COUNT 201 x10^3/uL (140-400); RED BLOOD COUNT 4.65 x10^6/uL (3.50-5.40); RED CELL DISTRIBUTION WIDTH 17.5 % (11.5-14.5); WHITE BLOOD COUNT 5.9 x10^3/uL (4.0-11.0)
[2017-11-11] MEDS: TRIAMCINOLONE ACETONIDE 0.1% TOPICAL CREAM 15GM TUBE. TP SCH ×3 (09:00→20:09)
[2017-11-11] MEDS ORDERED: NON FORMULARY ITEM (Omeprazole 20 MG) PO SCH (09:00)
[2017-11-11] MEDS: NON FORMULARY ITEM (Liraglutide (Victoza 3-Pak) 1.8 MG) SQ SCH (09:00)
[2017-11-11] MEDS ORDERED: hydroCHLOROthiazide 25 MG TABLET PO SCH (09:00)
[2017-11-11] MEDS ORDERED: INSULIN DETEMIR 300 UNITS/3 ML INSULN.PEN. SQ SCH (09:00)
[2017-11-11] MEDS ORDERED: NON FORMULARY ITEM (Albuterol Sulfate (Albuterol Sulfate Neb Soln) 0.63 MG) NEB SCH (09:00)
[2017-11-11] MEDS ORDERED: predniSONE 10 MG TABLET PO SCH (09:00)
[2017-11-11] MEDS ORDERED: NON FORMULARY ITEM (Fluticasone/Salmeterol (Advair 250-50 Diskus) 1 PUFF) IH SCH (09:00)
[2017-11-11] MEDS: POTASSIUM CHLORIDE 20 MEQ TABLET.ER. PO SCH (09:01)
[2017-11-11] MEDS: CETIRIZINE HCL 10 MG TABLET PO SCH (09:02)
[2017-11-11] MEDS: FERROUS SULFATE 325 MG TABLET. PO SCH (09:03)
[2017-11-11] MEDS: PHENAZOPYRIDINE 100 MG TABLET. PO SCH ×3 (09:03→17:30)
[2017-11-11] MEDS: FLUTICASONE 50MCG/NASAL SPRAY 16GM BOTTLE. NS SCH (09:03)
[2017-11-11] MEDS: CYCLOBENZAPRINE 10 MG TABLET. PO SCH ×3 (09:03→20:08)
[2017-11-11 09:08] LABS: CALCIUM 7.4 mg/dL (8.5-10.1); GFR 54.8; POTASSIUM 3.3 mmol/L (3.5-5.1)
[2017-11-11] MEDS: HEPARIN PF for SUB-Q USE 5,000 UNIT/0.5 ML VIAL. SQ SCH ×2 (09:08→20:18)
--- NOTE | 2017-11-11 09:36 | RAD ---
Portable chest, 11/10/2017: History: Fever Comparison is made to a study from 04/18/2017. The heart size and pulmonary vascularity are normal. No pulmonary infiltrate is seen. There is no evidence of pleural fluid. IMPRESSION: No acute cardiopulmonary abnormality is detected.
[2017-11-11 10:23] VITALS: BP 147/70
[2017-11-11] MEDS: BUDESONIDE 0.5 MG/2 ML NEBU NEB SCH ×2 (10:39→21:05)
--- NOTE | 2017-11-11 13:56 | HP ---
ADMIT DATE: 11/10/2017 HISTORY OF PRESENT ILLNESS: A 72-year-old female came in through the Emergency Room. The patient has history of diabetes, complaining of intermittent episodes of right mid lower quadrant pain radiating to her back for the last few minutes. The patient notes the pain is about 9-10/10. The patient has also had bringing up some coffee-ground material. The patient otherwise denies any chest pain or shortness of breath or abdominal pain, did have a slight temperature of 102 degrees. PAST MEDICAL HISTORY: The patient's history shows lens implants, cataracts, hypercholesterolemia, bronchitis, pneumonia, cholecystectomy, hysterectomy, amputation of the right small toe and left middle toe, rheumatoid arthritis, orthopedic surgery right knee, pneumococcal vaccination. FAMILY HISTORY: The patient's condition, stroke in father, mother with myocardial infarction. ALLERGIES: TO INFLUENZA VACCINE, SULFUR, CAPSAICIN, CODEINE, INSULIN ASPART, INSULIN GLARGINE, INSULIN LISPRO, IODINE, LEVOTHYROXINE, MENTHOL, METFORMIN, AND NAPROXEN. MEDICATIONS: Reviewed. CODE STATUS: The patient is a full code. SOCIAL HISTORY: Denies smoking, alcohol or drug use. REVIEW OF SYSTEMS: Outside of the pain in her right flank area, the patient denies any headaches, visual change, blurred vision, double vision. Denies any melena, hematochezia, hematemesis and neurologically, the patient is alert and oriented x 3 there. PHYSICAL EXAMINATION: GENERAL: This is a pleasant white female, in moderate amount of distress. VITAL SIGNS: Blood pressure 147/70, respiratory rate 20, pulse 100, afebrile. HEENT: The patient's head was atraumatic, normocephalic. Eyes: PERRLA without jaundice. Mouth and throat were normal. NECK: Supple, without JVD, carotid bruits. No thyromegaly. LUNGS: The patient's lungs were diminished throughout, but clear. CARDIOVASCULAR: Regular sinus rhythm, S1, S2, without murmur, rub, thrill, or extra heart sounds. ABDOMEN: Soft, nontender, no rebound or guarding. Positive bowel sounds, no hepatosplenomegaly except for the right mid quadrant area, which shows some tenderness on palpation, but no rebounding or guarding. EXTREMITIES: No clubbing, cyanosis, nor edema. GENITOURINARY: Normal female genitalia. NEUROLOGIC: The patient was alert and oriented x 3. LABORATORY DATA: The patient's CBC all within normal limits. The patient's chemistry showed low potassium of 3.3, otherwise liver enzymes are normal. Blood sugar is 254. UA was basically unremarkable. IMPRESSION AND PLAN: Right flank pain, elevated D-dimer. We will continue to monitor the patient accordingly with IV PPIs and make further evaluation on the possibility of a fever and some hidden occult infection as well, although CT scan does not show any signs of diverticulitis underlying. JOSE FRANCISCO SZYMANSKI MD DR: LAURENT/jaime JOB#: [id number] / [id number]
[2017-11-11] MEDS: cefTRIAXone IV Push 1 GM VIAL. IVP SCH (14:27)
[2017-11-11 14:56] VITALS: BP 135/61
[2017-11-11] MEDS: SUCRALFATE 1 GM/10 ML ORAL.SUSP. PO SCH ×2 (16:41→20:08)
[2017-11-11 19:41] VITALS: BP 100/57
[2017-11-11] MEDS: FLUCONAZOLE 100 MG TABLET. PO SCH (20:08)
[2017-11-11] MEDS: AMITRIPTYLINE HCL 25 MG TABLET PO SCH (20:08)
[2017-11-11] MEDS: LACTOBACILLUS RHAMNOSUS GG 1 CAPSULE. PO SCH (20:12)
[2017-11-11] MEDS: ZOLPIDEM 5 MG TABLET. PO PRN (20:13)
[2017-11-11] MEDS: traMADol 50 MG TABLET PO PRN (23:31)
[2017-11-11 23:47] VITALS: BP 146/80
[2017-11-12] MEDS: ALBUTEROL SULFATE 2.5 MG/3 ML NEBU. NEB SCH ×4 (05:34→21:48)
[2017-11-12] MEDS: BUDESONIDE 0.5 MG/2 ML NEBU NEB SCH ×2 (05:35→10:02)
[2017-11-12 06:14] VITALS: BP 147/61
[2017-11-12 06:43] LABS: HEMATOCRIT 38.1 % (36.0-47.0); HEMOGLOBIN 12.6 g/dL (12.0-15.5); RED BLOOD COUNT 4.57 x10^6/uL (3.50-5.40); RED CELL DISTRIBUTION WIDTH 17.1 % (11.5-14.5); WHITE BLOOD COUNT 6.1 x10^3/uL (4.0-11.0)
[2017-11-12 07:17] LABS: CALCIUM 8.2 mg/dL (8.5-10.1); GFR 54.8
[2017-11-12 07:24] LABS: POTASSIUM 2.7 mmol/L (3.5-5.1)
[2017-11-12] MEDS: SUCRALFATE 1 GM/10 ML ORAL.SUSP. PO SCH ×4 (07:53→20:41)
[2017-11-12] MEDS: PANTOPRAZOLE 40 MG TABLET. PO SCH (07:53)
[2017-11-12] MEDS: PHENAZOPYRIDINE 100 MG TABLET. PO SCH ×3 (08:13→17:02)
[2017-11-12] MEDS: predniSONE 10 MG TABLET PO SCH (08:13)
[2017-11-12] MEDS: CYCLOBENZAPRINE 10 MG TABLET. PO SCH (08:13)
[2017-11-12] MEDS: LACTOBACILLUS RHAMNOSUS GG 1 CAPSULE. PO SCH ×2 (08:13→20:39)
[2017-11-12] MEDS: FERROUS SULFATE 325 MG TABLET. PO SCH (08:13)
[2017-11-12] MEDS: FLUCONAZOLE 100 MG TABLET. PO SCH (08:14)
[2017-11-12] MEDS: CETIRIZINE HCL 10 MG TABLET PO SCH (08:14)
[2017-11-12] MEDS: POTASSIUM CHLORIDE 20 MEQ/15 ML ORAL LIQUID. PO SCH ×2 (08:16→11:37)
--- NOTE | 2017-11-12 08:16 | RAD ---
EXAM: Pulmonary ventilation-perfusion scan. HISTORY: Elevated d-dimer, back pain. TECHNIQUE: Anterior projection ventilation images of the chest were obtained during the inhalation of 20.0 mCi Xe-133 gas. Anterior, posterior, bilateral oblique and bilateral lateral images of the chest were obtained following the administration of 5.5 mCi Tc-99m MAA. COMPARISON: Chest radiograph, 11/10/2017. FINDINGS: Ventilation images demonstrate a normal pulmonary distribution of radiotracer. Uptake in the liver is consistent with diffuse hepatic steatosis. Perfusion images demonstrate no segmental defects. IMPRESSION: 1. Low probability of pulmonary embolism. 2. Findings consistent with diffuse hepatic steatosis.
[2017-11-12] MEDS: FLUTICASONE 50MCG/NASAL SPRAY 16GM BOTTLE. NS SCH (08:19)
[2017-11-12] MEDS: NON FORMULARY ITEM (Liraglutide (Victoza 3-Pak) 1.8 MG) SQ SCH (08:20)
[2017-11-12] MEDS: INSULIN DEGLUDEC SQ SCH (08:22)
[2017-11-12] MEDS: TRIAMCINOLONE ACETONIDE 0.1% TOPICAL CREAM 15GM TUBE. TP SCH ×3 (08:23→20:39)
[2017-11-12] MEDS: POTASSIUM CHLORIDE 20 MEQ TABLET.ER. PO SCH (08:33)
[2017-11-12] MEDS: HEPARIN PF for SUB-Q USE 5,000 UNIT/0.5 ML VIAL. SQ SCH ×2 (08:33→20:42)
[2017-11-12 10:37] VITALS: BP 131/56
[2017-11-12] MEDS ORDERED: methylPREDNISolone SOD SUCC PF 40 MG/ML VIAL. IV ONE (11:30)
[2017-11-12] MEDS ORDERED: diphenhydrAMINE HCL 25 MG CAPSULE PO PRN (11:30)
[2017-11-12] MEDS ORDERED: diphenhydrAMINE 50 MG/ML VIAL IM ONE (11:30)
[2017-11-12] MEDS: traMADol 50 MG TABLET PO PRN ×2 (14:03→18:42)
[2017-11-12] MEDS: cefTRIAXone IV Push 1 GM VIAL. IVP SCH (14:04)
[2017-11-12] MEDS ORDERED: ACETAMINOPHEN 325 MG TABLET PO PRN (14:15)
[2017-11-12 15:10] VITALS: BP 164/75
[2017-11-12 16:43] LABS: CALCIUM 8.1 mg/dL (8.5-10.1); CREATININE 1.4 mg/dL (0.6-1.0); GFR 37.2; POTASSIUM 4.6 mmol/L (3.5-5.1)
[2017-11-12 18:00] LABS: FECAL OB PT NEGATIVE (NEG)
[2017-11-12 18:26] VITALS: BP 164/77
[2017-11-12] MEDS ORDERED: INSULIN REGULAR 100 UNIT/ML 10ML VIAL. SQ ONE ×2 (19:00→21:00)
[2017-11-12] MEDS: AMITRIPTYLINE HCL 25 MG TABLET PO SCH (20:39)
[2017-11-12] MEDS: ZOLPIDEM 5 MG TABLET. PO PRN (20:39)
[2017-11-12] MEDS ORDERED: CYCLOBENZAPRINE 10 MG TABLET. PO SCH (21:00)
[2017-11-12 23:16] VITALS: BP 140/70
[2017-11-13] MEDS: ALBUTEROL SULFATE 2.5 MG/3 ML NEBU. NEB SCH ×2 (04:38→10:14)
[2017-11-13] MEDS: BUDESONIDE 0.5 MG/2 ML NEBU NEB SCH ×2 (04:38→10:14)
[2017-11-13 05:17] VITALS: BP 162/73
[2017-11-13 07:24] LABS: HEMATOCRIT 36.9 % (36.0-47.0); HEMOGLOBIN 12.2 g/dL (12.0-15.5); RED BLOOD COUNT 4.43 x10^6/uL (3.50-5.40); RED CELL DISTRIBUTION WIDTH 17.1 % (11.5-14.5); WHITE BLOOD COUNT 9.2 x10^3/uL (4.0-11.0)
[2017-11-13] MEDS: SUCRALFATE 1 GM/10 ML ORAL.SUSP. PO SCH (07:26)
[2017-11-13] MEDS: PANTOPRAZOLE 40 MG TABLET. PO SCH (07:26)
[2017-11-13 07:29] LABS: CALCIUM 8.4 mg/dL (8.5-10.1); GFR 54.8; POTASSIUM 3.5 mmol/L (3.5-5.1)
[2017-11-13] MEDS ORDERED: INSULIN REGULAR 100 UNIT/ML 10ML VIAL. SQ SCH (07:30)
[2017-11-13] MEDS: POTASSIUM CHLORIDE 20 MEQ TABLET.ER. PO SCH (08:01)
[2017-11-13] MEDS: LACTOBACILLUS RHAMNOSUS GG 1 CAPSULE. PO SCH (08:01)
[2017-11-13] MEDS: FERROUS SULFATE 325 MG TABLET. PO SCH (08:01)
[2017-11-13] MEDS: PHENAZOPYRIDINE 100 MG TABLET. PO SCH (08:01)
[2017-11-13] MEDS: CETIRIZINE HCL 10 MG TABLET PO SCH (08:01)
[2017-11-13] MEDS: predniSONE 10 MG TABLET PO SCH (08:01)
[2017-11-13] MEDS: FLUCONAZOLE 100 MG TABLET. PO SCH (08:02)
[2017-11-13] MEDS: FLUTICASONE 50MCG/NASAL SPRAY 16GM BOTTLE. NS SCH (08:03)
[2017-11-13] MEDS: INSULIN DEGLUDEC SQ SCH (08:05)
[2017-11-13] MEDS: NON FORMULARY ITEM (Liraglutide (Victoza 3-Pak) 1.8 MG) SQ SCH (08:06)
[2017-11-13] MEDS: TRIAMCINOLONE ACETONIDE 0.1% TOPICAL CREAM 15GM TUBE. TP SCH (08:06)
[2017-11-13] MEDS: HEPARIN PF for SUB-Q USE 5,000 UNIT/0.5 ML VIAL. SQ SCH (08:11)
[2017-11-13] MEDS: traMADol 50 MG TABLET PO PRN (10:10)
--- NOTE | 2017-11-13 10:38 | PN ---
DATE: 11/12/2017 SUBJECTIVE: The patient says she has had her allergic reaction to Apidra. She does have a rash over her neck and upper chest wall and has some swelling to her face, gave her immediate Benadryl and Solu-Medrol to monitor that. Her potassium also dropped down into the 2.7 range, placed on electrolyte replacement there. Otherwise, the patient says she is feeling a little better, but still very weak. The patient is still having pain down in her right mid abdominal area after she eats; however, she says the pain is somewhat better. She will need to see Gastroenterology. PHYSICAL EXAMINATION: VITAL SIGNS: Her blood pressure is 130/56, respiratory rate 20, pulse 110, afebrile. LUNGS: Clear to auscultation. CARDIOVASCULAR: CVR Regular sinus rhythm, S1, S2, without murmur, rub, thrill, or extra heart sound. ABDOMEN: Soft. Slight tenderness in the right mid quadrant area, but no rebounding or guarding. Positive bowel sounds, no hepatosplenomegaly was noted. EXTREMITIES: No clubbing, cyanosis, no edema. The patient is still receiving some pain medication. PLAN: We will go ahead and continue to be monitored carefully, make further evaluation on the abdominal pain as well as her low potassium and her allergic reaction. Obviously needs to be monitored carefully, pressure right abdominal pain, allergic reaction to Apidra, hypokalemia. JOSE FRANCISCO SZYMANSKI MD DR: LAURENT/jaime JOB#: [id number] / [id number]
[2017-11-13] MEDS ORDERED: INSU100V11 SQ (11:04)
--- NOTE | 2017-11-13 20:48 | DS ---
DATE OF DISCHARGE: HOSPITAL COURSE: A 72-year-old female in with diabetes with intermittent episodes of right mid to lower quadrant pain. She also was bringing up some coffee-ground emesis, but that was not confirmed here at the hospital. Her hemoglobin remained basically stable. Her electrolytes were somewhat off initially of 2.7 potassium. Her blood sugars were vacillating. Apparently she said she had an allergic reaction to Apidra and as a result of that had to stop the Apidra and give her Benadryl and some methylprednisolone. We also stopped the Flexeril. The patient continued to have a little bit of pain, it was in the right mid quadrant, but she said that got better. Her CAT scan of her abdomen and pelvis was basically unremarkable. She will be scheduled for a colonoscopy as an outpatient as soon as possible and make further evaluation. She has a sliding scale at home. She was in good health. She said she wanted to be discharged. She was here with her and said she was well enough to go home. She was eating, drinking, and having normal bowel movements at the time of discharge. See MRAD. Decreased activity. She will follow up in 7-10 days and also get a colonoscopy as soon as possible. JOSE FRANCISCO SZYMANSKI MD DR: LAURENT/jaime JOB#: [id number] / [id number]
[2017-11-17] MEDS ORDERED: NON FORMULARY ITEM (Etanercept (Enbrel) 50 MG) SQ SCH (09:00)
== END 2017-11-13 11:55 | disposition home or self-care (01) | DRG 638 ==
LOC: ER 14:34 → 1 SOUTH 17:47
PROVIDERS: ADMIT Family Medicine; ATTEND Family Medicine
DX: E11.65 Type 2 diabetes mellitus with hyperglycemia (principal); R65.10 Systemic inflammatory response syndrome (SIRS) of non-infectious origin without acute organ dysfunction; M06.9 Rheumatoid arthritis, unspecified; K52.9 Noninfective gastroenteritis and colitis, unspecified; E86.0 Dehydration; E87.6 Hypokalemia; R11.2 Nausea with vomiting, unspecified; J45.909 Unspecified asthma, uncomplicated; T38.3X5A Adverse effect of insulin and oral hypoglycemic [antidiabetic] drugs, initial encounter; E78.00 Pure hypercholesterolemia, unspecified; Z96.1 Presence of intraocular lens; R21 Rash and other nonspecific skin eruption; R79.1 Abnormal coagulation profile; Z82.3 Family history of stroke; Z82.49 Family history of ischemic heart disease and other diseases of the circulatory system; Z90.49 Acquired absence of other specified parts of digestive tract; Z88.5 Allergy status to narcotic agent; Z88.2 Allergy status to sulfonamides; Z88.8 Allergy status to other drugs, medicaments and biological substances; Z88.7 Allergy status to serum and vaccine; Z88.1 Allergy status to other antibiotic agents; Z91.041 Radiographic dye allergy status; Z90.710 Acquired absence of both cervix and uterus; Y92.89 Other specified places as the place of occurrence of the external cause; Z87.01 Personal history of pneumonia (recurrent); Z98.42 Cataract extraction status, left eye; Z98.41 Cataract extraction status, right eye; Z89.421 Acquired absence of other right toe(s)
CPT/HCPCS: 36415; 71045; 74176; 78582; 80048; 80053; 81001; 82274; 82947; 83605; 83690; 84484; 85025; 85027; 85379; 85610; 93005; 94640; 96361; 96374; 96375; A9540; A9558; C9113; J0696; J1200; J1815; J2405; J2920; J3010; J7512; J7613; J7626; Q0163; 99285-25; J7030

== ENCOUNTER → 2017-11-25 | Outpatient (CLI) | payer MEDICARE, OTHER ==
[2017-11-13 05:17] VITALS: BP 162/73
[~2017-11-25] MED LIST changes: +INSU100V11 SQ; +INSU100V9 SQ
--- NOTE | 2017-11-25 13:56 | RAD ---
Abdominal ultrasound, 11/25/2017: History: Right upper quadrant pain The gallbladder is surgically absent. The liver is enlarged measuring 18 cm in craniocaudad extent at the level of the right lobe. It demonstrates generalized increased echogenicity, most commonly due to fatty change. No hepatic mass is evident. The common bile duct measures 7-8 mm which is within normal limits for the postcholecystectomy state. The visualized portions of the pancreas show no evidence of a mass. The pancreatic duct in the pancreatic body is at the upper limits of normal in size measuring 3 mm. The spleen is of normal size. No renal abnormality is detected. The abdominal aorta is not dilated. The visualized portions of the inferior vena cava show no abnormality. No free fluid is evident in the abdomen. IMPRESSION: 1. Status post cholecystectomy. 2. Hepatic steatosis.. 3. No acute abdominal abnormality is detected.
== END | disposition home or self-care (01) ==
LOC: US 06:54
PROVIDERS: ATTEND Internal Medicine Gastroenterology
DX: K76.0 Fatty (change of) liver, not elsewhere classified (principal); Z90.49 Acquired absence of other specified parts of digestive tract
CPT/HCPCS: 76700

== ENCOUNTER → 2017-12-06 | Outpatient (CLI) | payer MEDICARE, OTHER ==
[2017-11-13 05:17] VITALS: BP 162/73
== END | disposition home or self-care (01) ==
LOC: SURG 13:46
PROVIDERS: ATTEND Anesthesiology
DX: M54.16 Radiculopathy, lumbar region (principal); M46.1 Sacroiliitis, not elsewhere classified; M79.1 Myalgia
CPT/HCPCS: 99214

== ENCOUNTER → 2017-12-22 | Day surgery (SDC) | payer MEDICARE, OTHER ==
[~2017-12-22] MED LIST changes: +ALBU8.5H8 INH; +DOCU-109 PO; +ESTR1TAB17 PO; +FERR325T14 PO; +GLIP5TAB10 PO; +HYDR-971 PO; +IV RINGERS SOLUTION,LACTATED 1,000 ML IV SCH; +LIDOCAINE 1% Multi-Dose 20 ML VIAL. ONE; +LIDOCAINE 1% PF 2 ML VIAL. ID PRN; +NEOM7.5C2 TP; +ONDA4TAB10 SL; +ONDANSETRON PF 4 MG/2 ML VIAL. IV PRN; +PANT40TA3 PO; +PROPOFOL 10,000 MCG/ML (20ML) VIAL IV ONE; +PROPOFOL 20 ML IV ONE
[2017-12-22 09:13] VITALS: BP 146/78
== END ==
LOC: SURG 07:14
PROVIDERS: ATTEND Internal Medicine Gastroenterology
DX: K29.50 Unspecified chronic gastritis without bleeding (principal); E11.9 Type 2 diabetes mellitus without complications; I10 Essential (primary) hypertension; E78.5 Hyperlipidemia, unspecified; E83.51 Hypocalcemia; J45.909 Unspecified asthma, uncomplicated; Z90.49 Acquired absence of other specified parts of digestive tract; Z90.710 Acquired absence of both cervix and uterus; Z98.41 Cataract extraction status, right eye; Z96.651 Presence of right artificial knee joint; Z88.6 Allergy status to analgesic agent; Z88.1 Allergy status to other antibiotic agents; Z88.5 Allergy status to narcotic agent; Z88.8 Allergy status to other drugs, medicaments and biological substances
CPT/HCPCS: 43239; 82947; J2704; J7120

== ENCOUNTER 2017-12-31 08:10 | Emergency (ER) | payer MEDICARE, OTHER ==
[~2017-12-31 08:10] MED LIST changes: -HYDR-971 PO; -IV RINGERS SOLUTION,LACTATED 1,000 ML IV SCH; -LIDOCAINE 1% Multi-Dose 20 ML VIAL. ONE; -LIDOCAINE 1% PF 2 ML VIAL. ID PRN; -ONDANSETRON PF 4 MG/2 ML VIAL. IV PRN; -PROPOFOL 10,000 MCG/ML (20ML) VIAL IV ONE; -PROPOFOL 20 ML IV ONE
--- NOTE | 2017-12-31 09:27 | PHYS DOC ---
Past History Past Medical History: Arthritis, Diabetes, Hypertension Past Surgical History: Appendectomy, Hysterectomy, Knee Replacement Alcohol Use: None Drug Use: None Adult General Chief Complaint Chief Complaint: MECHANICAL FALL HPI HPI 72-year-old female presents with right elbow pain. She was eating breakfast and sitting on a stool. She went to lean back and leaned too far. She fell off backwards and to the right. She landed on her right side and struck her elbow on the ground. She did not hit her head. She denies loss of consciousness. At this time her only pain is her right elbow. She has a laceration. The patient damaged her right toenail, but is unsure how. She's had some bleeding from the front of that toenail. The pain is minimal. Review of Systems Review of Systems Constitutional: Denies fever or chills [] Eyes: Denies change in visual acuity, redness, or eye pain [] HENT: Denies nasal congestion or sore throat [] Respiratory: Denies cough or shortness of breath [] Cardiovascular: No additional information not addressed in HPI [] GI: Denies abdominal pain, nausea, vomiting, bloody stools or diarrhea [] : Denies dysuria or hematuria [] Musculoskeletal: right elbow pain [] Integument: Denies rash or skin lesions [] Neurologic: Denies headache, focal weakness or sensory changes [] Endocrine: Denies polyuria or polydipsia [] All other systems were reviewed and found to be within normal limits, except as documented in this note. Allergies Allergies Allergies Coded Allergies Type Severity Reaction Last Updated Verified insulin aspart Allergy Severe Anaphylaxis 11/12/17 Yes insulin glargine Allergy Severe Anaphylaxis 11/12/17 Yes insulin lispro Allergy Severe Anaphylaxis 11/12/17 Yes Influenza Virus Vaccines Allergy Intermediate 11/12/17 Yes Sulfa (Sulfonamide Antibiotics) Allergy Intermediate 05/07/15 Yes capsaicin Allergy Intermediate 05/07/15 Yes codeine Allergy Intermediate 05/07/15 Yes insulin glulisine Allergy Intermediate Rash 11/12/17 Yes iodine Allergy Intermediate 05/07/15 Yes levofloxacin Allergy Intermediate 05/07/15 Yes menthol Allergy Intermediate 05/07/15 Yes metformin Allergy Intermediate Hives 11/12/17 Yes naproxen Allergy Intermediate 05/07/15 Yes Gadolinium-Containing Contrast Medi Allergy Unknown 12/16/17 Yes alogliptin Allergy Unknown 12/16/17 Yes clindamycin Allergy Unknown 12/16/17 Yes exenatide Allergy Unknown 12/16/17 Yes morphine Allergy Unknown 12/16/17 Yes pioglitazone Allergy Unknown 12/16/17 Yes pregabalin Allergy Unknown 12/16/17 Yes Physical Exam Physical Exam Constitutional: Well developed, well nourished, no acute distress, non-toxic appearance. [] HENT: Normocephalic, atraumatic, bilateral external ears normal, oropharynx moist, no oral exudates, nose normal. [] Eyes: PERRLA, EOMI, conjunctiva normal, no discharge. [] Neck: Normal range of motion, no tenderness, supple, no stridor. [] Cardiovascular:Heart rate regular rhythm, no murmur [] Lungs & Thorax: Bilateral breath sounds clear to auscultation [] Abdomen: Bowel sounds normal, soft, no tenderness, no masses, no pulsatile masses. [] Skin: Warm, dry, no erythema, no rash. [] Back: No tenderness, no CVA tenderness. [] Extremities: right elbow tenderness, ROM normal, no obvious deformity. 8cm laceration to the posterior right elbow.[] Neurologic: Alert and oriented X 3, normal motor function, normal sensory function, no focal deficits noted. [] Psychologic: Affect normal, judgement normal, mood normal. [] EKG EKG [] Radiology/Procedures Radiology/Procedures Three-view right elbow study Clinical indications: Fell today. Right elbow pain FINDINGS: No joint effusion is seen. No acute fracture or dislocation or osteolytic process is seen. IMPRESSION: No acute fracture. Electronically signed by: Rodolfo Murphy MD (12/31/2017 10:47 AM) [facility][] Course & Med Decision Making Course & Med Decision Making Pertinent Labs and Imaging studies reviewed. (See chart for details) The patient's x-rays are negative for fracture. The patient had a 4 cm laceration of the right posterior elbow. I was able to repair this with sutures. See note below. The patient tolerated the procedure well. Her tetanus is up-to-date as it was 4 years ago. I will give her Deshler 5/325 for pain management at home. I advised she not take her tramadol while she is taking this medication. She is stable for discharge. Laceration repair: I received verbal consent from the patient for the procedure. Timeout was performed to identify the correct site and side for the procedure. The wound was irrigated with normal saline spray under pressure. I anesthetized the wound with 1% lidocaine with epinephrine. A total of 5 mL was used. After good anesthesia was achieved, I placed 8 4-0 Ethilon sutures in an interrupted fashion. Good skin closure and hemostasis. The patient tolerated the procedure well. There were no complications. Antibiotic ointment and a clean gauze dressing were placed over the wound. [] Dragon Disclaimer Dragon Disclaimer This electronic medical record was generated, in whole or in part, using a voice recognition dictation system. Departure Departure: Referrals: JOSE FRANCISCO SZYMANSKI MD (PCP) Scripts Hydrocodone Bit/Acetaminophen (NORCO 5-325 TABLET) 1 Each Tablet 1 TAB PO PRN Q6HRS PRN for PAIN, #12 TAB 0 Refills Prov: DEMOND NEVILLE DO 12/31/17 DEMOND NEVILLE DO Dec 31, 2017 09:27
--- NOTE | 2017-12-31 10:50 | RAD ---
Three-view right elbow study Clinical indications: Fell today. Right elbow pain FINDINGS: No joint effusion is seen. No acute fracture or dislocation or osteolytic process is seen. IMPRESSION: No acute fracture. Electronically signed by: Rodolfo Murphy MD (12/31/2017 10:47 AM) [facility]
[2017-12-31 11:15] VITALS: BP 132/93
[2017-12-31] MEDS ORDERED: HYDR-971 PO (11:18)
== END 2017-12-31 11:20 | disposition home or self-care (01) ==
LOC: ER 08:10
DX: S51.011A Laceration without foreign body of right elbow, initial encounter (principal); M19.90 Unspecified osteoarthritis, unspecified site; E11.9 Type 2 diabetes mellitus without complications; I10 Essential (primary) hypertension; Z88.6 Allergy status to analgesic agent; Z88.1 Allergy status to other antibiotic agents; Z91.041 Radiographic dye allergy status; Z88.5 Allergy status to narcotic agent; Z88.7 Allergy status to serum and vaccine; Z88.8 Allergy status to other drugs, medicaments and biological substances; Z91.018 Allergy to other foods; Z88.2 Allergy status to sulfonamides; W19.XXXA Unspecified fall, initial encounter; Y93.89 Activity, other specified; Y99.8 Other external cause status; Y92.89 Other specified places as the place of occurrence of the external cause
CPT/HCPCS: 12004; 73080; 99284

== ENCOUNTER → 2018-01-26 | Day surgery (SDC) | payer MEDICARE, OTHER ==
[~2018-01-26] MED LIST changes: +HYDR-971 PO; +IV RINGERS SOLUTION,LACTATED 1,000 ML IV SCH; +LIDOCAINE 1% Multi-Dose 20 ML VIAL. ONE; +LIDOCAINE 1% PF 2 ML VIAL. ID PRN; +PROPOFOL 10,000 MCG/ML (20ML) VIAL IV ONE; +PROPOFOL 40 ML IV ONE
[2018-01-26 12:03] VITALS: BP 120/71
== END ==
LOC: SURG 10:18
PROVIDERS: ATTEND Internal Medicine Gastroenterology
DX: K57.30 Diverticulosis of large intestine without perforation or abscess without bleeding (principal); K64.8 Other hemorrhoids; E11.9 Type 2 diabetes mellitus without complications; I10 Essential (primary) hypertension; E78.5 Hyperlipidemia, unspecified; E78.00 Pure hypercholesterolemia, unspecified; J45.909 Unspecified asthma, uncomplicated; Z90.710 Acquired absence of both cervix and uterus; Z90.49 Acquired absence of other specified parts of digestive tract; Z98.890 Other specified postprocedural states; Z88.1 Allergy status to other antibiotic agents; Z88.5 Allergy status to narcotic agent; Z88.8 Allergy status to other drugs, medicaments and biological substances
CPT/HCPCS: 45378; J2704; J7120

== ENCOUNTER → 2018-04-07 | Outpatient (CLI) | payer MEDICARE, OTHER ==
[2018-01-26 12:03] VITALS: BP 120/71
[~2018-04-07] MED LIST changes: +0.9 % SODIUM CHLORIDE 10 ML VIAL ONE; +BUPIVACAINE MPF 0.25% 30 ML VIAL. ONE; +DEXAMETHASONE SOD PHOS 10 MG/ML VIAL ONE; -IV RINGERS SOLUTION,LACTATED 1,000 ML IV SCH; -LIDOCAINE 1% Multi-Dose 20 ML VIAL. ONE; -LIDOCAINE 1% PF 2 ML VIAL. ID PRN; +LIDOCAINE 1% PF 30 ML VIAL. ONE; -PROPOFOL 10,000 MCG/ML (20ML) VIAL IV ONE; -PROPOFOL 40 ML IV ONE; +methylPREDNISolone ACETATE 40 MG/ML VIAL. ONE
== END | disposition home or self-care (01) ==
LOC: SURG 13:39
PROVIDERS: ATTEND Anesthesiology Pain Medicine
DX: M54.16 Radiculopathy, lumbar region (principal); J45.909 Unspecified asthma, uncomplicated; E11.9 Type 2 diabetes mellitus without complications; M19.90 Unspecified osteoarthritis, unspecified site; I10 Essential (primary) hypertension; K21.9 Gastro-esophageal reflux disease without esophagitis; Z90.49 Acquired absence of other specified parts of digestive tract; Z98.890 Other specified postprocedural states; Z79.899 Other long term (current) drug therapy; Z79.4 Long term (current) use of insulin; Z91.041 Radiographic dye allergy status; Z88.2 Allergy status to sulfonamides; Z88.5 Allergy status to narcotic agent; Z88.1 Allergy status to other antibiotic agents; Z88.6 Allergy status to analgesic agent; Z88.8 Allergy status to other drugs, medicaments and biological substances; Z72.89 Other problems related to lifestyle; M06.9 Rheumatoid arthritis, unspecified; Z96.652 Presence of left artificial knee joint
CPT/HCPCS: 62323; J1030; J1100; J2001; J3490; 62321

== ENCOUNTER → 2018-05-02 | Outpatient (CLI) | payer MEDICARE, OTHER ==
[2018-01-26 12:03] VITALS: BP 120/71
[~2018-05-02] MED LIST changes: -0.9 % SODIUM CHLORIDE 10 ML VIAL ONE; -DEXAMETHASONE SOD PHOS 10 MG/ML VIAL ONE; +DEXAMETHASONE SOD PHOS 4 MG/ML VIAL ONE; +IOHEXOL 300 MG/ML 50 ML VIAL. ONE; +LIDOCAINE 1% PF 2 ML VIAL. ONE; -LIDOCAINE 1% PF 30 ML VIAL. ONE; -methylPREDNISolone ACETATE 40 MG/ML VIAL. ONE
== END | disposition home or self-care (01) ==
LOC: SURG 12:15
PROVIDERS: ATTEND Anesthesiology
DX: M54.16 Radiculopathy, lumbar region (principal); J45.909 Unspecified asthma, uncomplicated; Z72.89 Other problems related to lifestyle; I10 Essential (primary) hypertension; E11.9 Type 2 diabetes mellitus without complications; M19.90 Unspecified osteoarthritis, unspecified site; Z98.890 Other specified postprocedural states; Z88.2 Allergy status to sulfonamides; Z88.1 Allergy status to other antibiotic agents; Z88.6 Allergy status to analgesic agent; Z88.7 Allergy status to serum and vaccine; Z88.8 Allergy status to other drugs, medicaments and biological substances; Z91.041 Radiographic dye allergy status
CPT/HCPCS: 64483; J1100; J3490; Q9967; 64484

== ENCOUNTER → 2018-05-03 | Outpatient (CLI) | payer MEDICARE, OTHER ==
[2018-01-26 12:03] VITALS: BP 120/71
[~2018-05-03] MED LIST changes: -BUPIVACAINE MPF 0.25% 30 ML VIAL. ONE; -DEXAMETHASONE SOD PHOS 4 MG/ML VIAL ONE; -IOHEXOL 300 MG/ML 50 ML VIAL. ONE; -LIDOCAINE 1% PF 2 ML VIAL. ONE
--- NOTE | 2018-05-03 16:38 | RAD ---
CT ABDOMEN PELVIS WO CONTRAST Indication: LUQ pain rule out kidney stone hx of rt sided kidney stone x1 year Exposure: One or more of the following individualized dose reduction techniques were utilized for this examination: 1. Automated exposure control 2. Adjustment of the mA and/or kV according to patient size 3. Use of iterative reconstruction technique. Comparison: November 10, 2017 Contrast: No intravenous contrast given. No oral contrast per request. Evaluation of solid viscera, bowel and vasculature is compromised by the noncontrast technique. Lower thorax: Mild reticulonodular opacities in both lung bases are again identified. Liver: Unremarkable Spleen: Unremarkable Pancreas: Unremarkable Adrenals: No evidence of mass. Kidneys: No obvious mass. Urinary tracts: No urolithiasis or hydronephrosis. Gallbladder: Surgically absent Aorta: Mild calcifications. No aneurysm. Lymph nodes: No significant enlargement GI tract: Mild retained stool in the colon. No acute colitis. No bowel obstruction. Appendix is normal. Reproductive organs:No evidence of mass. Urinary bladder: Unremarkable. Peritoneum: No evidence of pneumoperitoneum. No free fluid. Abdominal wall: Tiny fat-containing abdominal wall hernia at the upper abdominal midline. Spine: Degenerative spondylosis, severe at several lumbar levels Bones: No destructive process identified. IMPRESSION: 1. Mild retained stool in the colon. 2. Mild reticulonodular opacities in both lung bases appears similar to prior. 3. Degenerative lumbar spondylosis. Electronically signed by: Edvin Hannah MD (05/03/2018 4:35 PM) [facility]
== END | disposition home or self-care (01) ==
LOC: CT 13:22
PROVIDERS: ATTEND Nurse Practitioner Family
DX: K56.41 Fecal impaction (principal); M47.896 Other spondylosis, lumbar region; R91.8 Other nonspecific abnormal finding of lung field; J45.909 Unspecified asthma, uncomplicated; E11.9 Type 2 diabetes mellitus without complications
CPT/HCPCS: 74176

== ENCOUNTER 2018-05-25 01:27 | Inpatient (IN) | payer MEDICARE, OTHER ==
[~2018-05-25] VITALS: Ht 170.2 cm; Wt 96.2 kg
[2018-05-25] MEDS ORDERED: IV NORMAL SALINE 1,000ML 1,000 ML IV ONE (01:45)
[2018-05-25] MEDS ORDERED: ONDANSETRON PF 4 MG/2 ML VIAL. IV ONE (02:00)
[2018-05-25] MEDS ORDERED: fentaNYL PF 250 MCG/5 ML VIAL IV ONE (02:00)
--- NOTE | 2018-05-25 02:02 | PHYS DOC ---
Past History Past Medical History: Asthma, COPD, Diabetes, Other Past Surgical History: Hysterectomy, Knee Replacement, Other Alcohol Use: None Drug Use: None Adult General Chief Complaint Chief Complaint: MUSCLE SPASM/CRAMP [facility] HPI 72-year-old female complains of muscle spasms in her bilateral lower extremities , across her abdomen, and her bilateral hands. She states that they started suddenly around 9 PM last night. She describes the pain as a spasming, cramping sensation. She was concerned it could be related to her blood sugar so she checked it. The meter read "high". The patient took 30 units of Apidra ( glulisine) short-acting prior to arrival. 3 days ago, the patient completely stopped taking her Tresiba and Apidra because she looked something up on the Internet that said she could not take these 2 medications together. She is on several other medications for various things. She denies any other changes in medications. She has not had cramping like this before. She has been eating and drinking normally. She denies fever or chills. Review of Systems Review of Systems Constitutional: Denies fever or chills [] Eyes: Denies change in visual acuity, redness, or eye pain [] HENT: Denies nasal congestion or sore throat [] Respiratory: Denies cough or shortness of breath [] Cardiovascular: No additional information not addressed in HPI [] GI: Denies abdominal pain, nausea, vomiting, bloody stools or diarrhea [] : Denies dysuria or hematuria [] Musculoskeletal: Bilateral lower extremity muscle spasms[] Integument: Denies rash or skin lesions [] Neurologic: Denies headache, focal weakness or sensory changes [] Endocrine: Denies polyuria or polydipsia [] All other systems were reviewed and found to be within normal limits, except as documented in this note. Current Medications Current Medications Current Medications Medications (Trade) Dose Ordered Sig/Ashlyn Start Time Stop Time Status Last Admin Dose Admin Fentanyl Citrate (Fentanyl 5ml Vial) 50 mcg 1X ONCE 05/25/18 02:00 05/25/18 02:01 Ondansetron HCl (Zofran) 4 mg 1X ONCE 05/25/18 02:00 05/25/18 02:01 Sodium Chloride 1,000 ml @ 1,000 mls/hr 1X ONCE 05/25/18 01:45 05/25/18 02:44 Allergies Allergies Allergies Coded Allergies Type Severity Reaction Last Updated Verified insulin aspart Allergy Severe Anaphylaxis 01/26/18 Yes insulin glargine Allergy Severe Anaphylaxis 01/26/18 Yes insulin lispro Allergy Severe Anaphylaxis 01/26/18 Yes Influenza Virus Vaccines Allergy Intermediate 01/26/18 Yes Sulfa (Sulfonamide Antibiotics) Allergy Intermediate 01/26/18 Yes capsaicin Allergy Intermediate 01/26/18 Yes codeine Allergy Intermediate 01/26/18 Yes insulin glulisine Allergy Intermediate Rash 01/26/18 Yes iodine Allergy Intermediate 01/26/18 Yes levofloxacin Allergy Intermediate 01/26/18 Yes menthol Allergy Intermediate 01/26/18 Yes metformin Allergy Intermediate Hives 01/26/18 Yes naproxen Allergy Intermediate 01/26/18 Yes Gadolinium-Containing Contrast Medi Allergy Unknown 01/26/18 Yes alogliptin Allergy Unknown 01/26/18 Yes clindamycin Allergy Unknown 01/26/18 Yes exenatide Allergy Unknown 01/26/18 Yes morphine Allergy Unknown 01/26/18 Yes pioglitazone Allergy Unknown 01/26/18 Yes pregabalin Allergy Unknown 01/26/18 Yes Physical Exam Physical Exam Constitutional: Well developed, well nourished, mild acute distress, non-toxic appearance. The patient appears to have sudden periods of discomfort that would be consistent with muscle cramps or spasms.[] HENT: Normocephalic, atraumatic, bilateral external ears normal, oropharynx moist, no oral exudates, nose normal. [] Eyes: PERRLA, EOMI, conjunctiva normal, no discharge. [] Neck: Normal range of motion, no tenderness, supple, no stridor. [] Cardiovascular:Heart rate regular rhythm, no murmur [] Lungs & Thorax: Bilateral breath sounds clear to auscultation [] Abdomen: Bowel sounds normal, soft, no tenderness, no masses, no pulsatile masses. [] Skin: Warm, dry, no erythema, no rash. [] Back: No tenderness, no CVA tenderness. [] Extremities: No tenderness, no cyanosis, no clubbing, ROM intact, no edema. [] Neurologic: Alert and oriented X 3, normal motor function, normal sensory function, no focal deficits noted. [] Psychologic: Affect normal, judgement normal, mood normal. [] Current Patient Data Vital Signs Vital Signs Date Time Temp Pulse Resp B/P (MAP) Pulse Ox O2 Delivery O2 Flow Rate FiO2 05/25/18 01:37 97.6 110 30 100 EKG EKG [] Radiology/Procedures Radiology/Procedures [] Course & Med Decision Making Course & Med Decision Making Pertinent Labs and Imaging studies reviewed. (See chart for details) The patient's labs are remarkable for an elevated blood sugar of 219. Her anion gap is 15. Acetone is negative. Some signs of dehydration with an elevated creatinine (1.7) compared to baseline (1.0) as well as an elevated BUN of 32. I have given her 1 L normal saline. Her potassium and sodium and chloride are slightly low. None of these appear to be low enough to the likely cause of her symptoms though I can't rule that out. Her urinalysis is unremarkable except for the expected spilling of glucose. I gave the patient 50 g of fentanyl and this significantly helped with her pain. She was able to fall asleep in the room. After waking up, the patient states that the pain is somewhat better but she still has episodes of pain. Since the patient has a creatinine increase of 0.7 from baseline and signs of dehydration with borderline electrolytes, I feel it is prudent to admit her to the hospital for rehydration and further evaluation of these cramps. I discussed the case with Dr. Roman and he has accepted the patient for admission. Dr. Szymanski is out of town. [] Dragon Disclaimer Dragon Disclaimer This electronic medical record was generated, in whole or in part, using a voice recognition dictation system. Departure Departure: Referrals: JOSE FRANCISCO SZYMANSKI MD (PCP) DEMOND NEVILLE DO May 25, 2018 02:02
[2018-05-25 02:12] LABS: BASO # 0.1 x10^3/uL (0.0-0.2); BASO % 1 % (0-3); EOS # 0.2 x10^3/uL (0.0-0.7); EOS % 2 % (0-3); HEMATOCRIT 40.5 % (36.0-47.0); HEMOGLOBIN 13.1 g/dL (12.0-15.5); LYMPH % 28 % (24-48); MEAN CORPUSCULAR HEMOGLOBIN 24 pg (25-35); MEAN CORPUSCULAR HGB CONC 32 g/dL (31-37); MEAN CORPUSCULAR VOLUME 74 fL (79-100); MONO % 9 % (0-9); NEUT # 6.4 x10^3uL (1.8-7.7); NEUT % 60 % (31-73); PLATELET COUNT 299 x10^3/uL (140-400); RED BLOOD COUNT 5.46 x10^6/uL (3.50-5.40); RED CELL DISTRIBUTION WIDTH 16.7 % (11.5-14.5); WHITE BLOOD COUNT 10.6 x10^3/uL (4.0-11.0)
[2018-05-25 02:26] LABS: ALBUMIN 3.9 g/dL (3.4-5.0); CALCIUM 10.1 mg/dL (8.5-10.1); CREATININE 1.7 mg/dL (0.6-1.0); GFR 29.7; POTASSIUM 3.1 mmol/L (3.5-5.1); TOTAL BILIRUBIN 0.4 mg/dL (0.2-1.0)
[2018-05-25] MEDS ORDERED: POTASSIUM CHLORIDE 20 MEQ TABLET.ER. PO ONE ×2 (02:45→11:30)
[2018-05-25 03:04] LABS: BACTERIA,URINE 0 /HPF (0-FEW); BILIRUBIN,URINE NEG (NEG); CLARITY,URINE CLEAR; COLOR,URINE YELLOW; GLUCOSE,URINE >=1000 mg/dL (NEG); NITRITE,URINE NEG (NEG); RBC,URINE OCC /HPF (0-2); SQUAMOUS EPITHELIAL CELL,UR OCC /LPF; UROBILINOGEN,URINE 0.2 mg/dL (0.2 mg/dL); WBC,URINE OCC /HPF (0-4)
[2018-05-25] MEDS ORDERED: POTASSIUM BICARB 25 MEQ EFFERVESCENT TAB. PO SCH (03:30)
[2018-05-25] MEDS ORDERED: ONDANSETRON PF 4 MG/2 ML VIAL. IV PRN (03:45)
[2018-05-25] MEDS: IV NORMAL SALINE 1,000ML 1,000 ML IV SCH ×4 (03:51→16:00)
[2018-05-25 04:30] VITALS: BP 116/50
[2018-05-25] MEDS ORDERED: ERGO500027 PO (06:33)
[2018-05-25] MEDS ORDERED: DIPH25CA58 PO (06:33)
[2018-05-25] MEDS ORDERED: ALPR0.254 PO (06:33)
[2018-05-25] MEDS ORDERED: INSU100I15 SUBCUT (06:33)
[2018-05-25] MEDS ORDERED: TRAM50TA PO (06:33)
[2018-05-25] MEDS ORDERED: CIME200T8 PO (06:33)
[2018-05-25] MEDS ORDERED: GABA100C6 PO (06:33)
[2018-05-25] MEDS ORDERED: GLIP5TAB10 PO (06:33)
[2018-05-25] MEDS ORDERED: ACET500T68 PO (06:33)
[2018-05-25] MEDS ORDERED: INSU200I4 SUBCUT (06:33)
[2018-05-25] MEDS ORDERED: IV NORMAL SALINE 1,000ML 1,000 ML IV SCH (08:53)
[2018-05-25 09:51] LABS: BASO # 0.1 x10^3/uL (0.0-0.2); BASO % 1 % (0-3); EOS # 0.3 x10^3/uL (0.0-0.7); EOS % 4 % (0-3); HEMATOCRIT 37.5 % (36.0-47.0); HEMOGLOBIN 12.3 g/dL (12.0-15.5); LYMPH # 2.2 x10^3/uL (1.0-4.8); LYMPH % 27 % (24-48); MEAN CORPUSCULAR HEMOGLOBIN 24 pg (25-35); MEAN CORPUSCULAR HGB CONC 33 g/dL (31-37); MEAN CORPUSCULAR VOLUME 74 fL (79-100); MONO # 0.8 x10^3/uL (0.0-1.1); MONO % 9 % (0-9); NEUT # 4.8 x10^3uL (1.8-7.7); NEUT % 59 % (31-73); PLATELET COUNT 269 x10^3/uL (140-400); RED BLOOD COUNT 5.06 x10^6/uL (3.50-5.40); WHITE BLOOD COUNT 8.2 x10^3/uL (4.0-11.0)
[2018-05-25 10:02] LABS: CREATININE 1.3 mg/dL (0.6-1.0); GFR 40.5; POTASSIUM 3.1 mmol/L (3.5-5.1)
[2018-05-25 10:54] VITALS: BP 132/55
[2018-05-25] MEDS ORDERED: traMADol 50 MG TABLET PO PRN (12:15)
[2018-05-25] MEDS ORDERED: ALPRAZolam 0.25 MG TABLET PO PRN (12:15)
[2018-05-25] MEDS ORDERED: PANTOPRAZOLE 40 MG TABLET. PO SCH (12:30)
[2018-05-25] MEDS ORDERED: POTASSIUM CHLORIDE 20 MEQ TABLET.ER. PO SCH (12:30)
[2018-05-25] MEDS: predniSONE 1 MG TABLET PO SCH ×2 (12:30→12:52)
[2018-05-25] MEDS ORDERED: GABAPENTIN 100 MG CAPSULE. PO SCH (12:30)
[2018-05-25] MEDS ORDERED: CETIRIZINE HCL 10 MG TABLET PO SCH (12:30)
[2018-05-25] MEDS ORDERED: hydroCHLOROthiazide 25 MG TABLET PO SCH (12:30)
[2018-05-25] MEDS ORDERED: predniSONE 10 MG TABLET PO SCH (12:30)
[2018-05-25 15:54] LABS: CALCIUM 8.4 mg/dL (8.5-10.1); CREATININE 1.3 mg/dL (0.6-1.0); GFR 40.5; POTASSIUM 4.3 mmol/L (3.5-5.1)
[2018-05-25] MEDS ORDERED: glipiZIDE 5 MG TABLET PO SCH (16:30)
[2018-05-25 16:47] VITALS: BP 153/83
--- NOTE | 2018-05-25 17:30 | PDOC1 ---
History of Present Illness Reason for Visit: muscle cramps History of Present Illness 72-year-old female presented to the emergency department very early this morning with a complaint of whole body muscle cramping. She reports that the cramping began approximately 9 PM on the day prior. She was having severe pain associated describing the pain as intermittent muscle spasms and contractures. She is a diabetic and says she has numerous drug allergies including insulin and had been taking Tresiba and Apidra to control her sugars. She had been having some left adductor muscle discomforts she says started with these medications and caused her to limp and reports that she read on the Internet these medications caused limping. She reports that she stopped taking this medications 3 days ago and her limp resolved immediately. Prior to coming to the emergency department had checked her blood sugar which read "high" and she took 30 units of Apidra prior to ED arrival. Denies any other recent medication changes denies any change with by mouth intake, no headache or focal neurologic deficit no fever chills. She does have history of rheumatoid arthritis as well among other things. I find her today lying in bed resting comfortably with spouse at bedside. She reports that she's feeling better and is requesting discharge. Her potassium was 3.1 in the emergency department that has improved with supplementation to 4.3. B UN initially 32 and creatinine 1.7, has improved some to B UN 26 and creatinine 1.3 after IV hydration. Initial glucose was 219 her anion gap was 15 with greater than 1000 glucosuria. Current glucose is 382 and I advised her she needs further hydration and improvement of kidney function as well as better glucose control. She reports that she just ate a banana and this is her typical glucose response however I advised her I feel her glucose is not going to be well controlled and she is going to get dehydrated again likely having to come back to the hospital. She is adamant about going home and says she is at her baseline and intends to follow-up with Dr. Stevens's nurse practitioner in the office tomorrow. Dr. Stevens is out of town. Chief Complaint: MUSCLE SPASM/CRAMP Allergies: Coded Allergies: insulin aspart (Verified Allergy, Severe, Anaphylaxis, 01/26/18) insulin glargine (Verified Allergy, Severe, Anaphylaxis, 01/26/18) insulin lispro (Verified Allergy, Severe, Anaphylaxis, 01/26/18) Gadolinium-Containing Contrast Medi (Verified Allergy, Intermediate, 05/25) Influenza Virus Vaccines (Verified Allergy, Intermediate, 01/26/18) Sulfa (Sulfonamide Antibiotics) (Verified Allergy, Intermediate, 01/26/18) alogliptin (Verified Allergy, Intermediate, 05/25/18) capsaicin (Verified Allergy, Intermediate, 01/26/18) clindamycin (Verified Allergy, Intermediate, 05/25/18) codeine (Verified Allergy, Intermediate, 01/26/18) exenatide (Verified Allergy, Intermediate, 05/25/18) insulin glulisine (Verified Allergy, Intermediate, Rash, 01/26/18) iodine (Verified Allergy, Intermediate, 01/26/18) levofloxacin (Verified Allergy, Intermediate, 01/26/18) menthol (Verified Allergy, Intermediate, 01/26/18) metformin (Verified Allergy, Intermediate, Hives, 01/26/18) morphine (Verified Allergy, Intermediate, 05/25/18) naproxen (Verified Allergy, Intermediate, 01/26/18) pioglitazone (Verified Allergy, Intermediate, 05/25/18) pregabalin (Verified Allergy, Intermediate, 05/25/18) Past Medical History Pulmonary: Asthma, COPD [employer]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 See HPI for pertinent positives and negative responses, other vergara all other systems are negative, non pertinent or non contributory Constitutional: No: Fever, Chills Eyes: No: Eye Pain, Photophobia ENT: No: Ear pain, Nose congestion, Throat pain Respiratory: No: Cough, Shortness of breath, SOB with excertion Cardiovascular: No: Chest Pain, Palpitations, Orthopnea Gastrointestinal: No: Nausea, Vomiting, Abdominal Pain Musculoskeletal: YES: Other (see history of present illness) Neurological: No: Confusion, Headaches, Weakness Medications Current Medications Sodium Chloride 1,000 ml @ 1,000 mls/hr 1X ONCE IV Last administered on 05/25at 02:06; Start 05/25/18 at 01:45; Stop 05/25/18 at 02:45; Status DC Fentanyl Citrate (Fentanyl 5ml Vial) 50 mcg 1X ONCE IV Last administered on at 02:06; Start 05/25/18 at 02:00; Stop 05/25/18 at 02:02; Status DC Ondansetron HCl (Zofran) 4 mg 1X ONCE IV Last administered on 05/25/18at 02:06 ; Start 05/25/18 at 02:00; Stop 05/25/18 at 02:02; Status DC Potassium Chloride (Klor-Con) 40 meq 1X ONCE PO ; Start 05/25/18 at 02:45; Stop 05/25/18 at 03:02; Status DC Potassium Bicarbonate (Klyte/Cl) 25 meq DAILY PO Last administered on at 03:10; Start 05/25/18 at 03:30; Stop 05/25/18 at 12:26; Status DC Ondansetron HCl (Zofran) 4 mg PRN Q4HRS PRN IV NAUSEA/VOMITING; Start at 03:45; Stop 05/26/18 at 03:44 Fentanyl Citrate (Fentanyl 2ml Vial) 50 mcg PRN Q2HR PRN IV PAIN Last administered on 05/25/18at 03:50; Start 05/25/18 at 03:45; Stop 05/26/18 at 03 :44 Sodium Chloride 1,000 ml @ 250 mls/hr Q4H IV Last administered on 05/25/18at 09:22; Start 05/25/18 at 04:00 Sodium Chloride 1,000 ml @ 200 mls/hr Q5H IV ; Start 05/25/18 at 08:53; Stop 05/25/18 at 13:52; Status DC Potassium Chloride (Klor-Con) 40 meq 1X ONCE PO Last administered on at 12:36; Start 05/25/18 at 11:30; Stop 05/25/18 at 11:31; Status DC Hydrochlorothiazide (Hydrodiuril) 25 mg DAILY PO Last administered on at 12:36; Start 05/25/18 at 12:30 Potassium Chloride (Klor-Con) 20 meq DAILY PO ; Start 05/25/18 at 12:30; Stop 05/25/18 at 12:30; Status DC Prednisone (Prednisone) 10 mg DAILY PO Last administered on 05/25/18at 12:36; Start 05/25/18 at 12:30 Tramadol HCl (Ultram) 50 mg PRN Q12HR PRN PO PAIN; Start 05/25/18 at 12:15 Alprazolam (Xanax) 0.25 mg Q8HRS PRN PO ANXIETY / AGITATION Last administered on 05/25/18at 12:36; Start 05/25/18 at 12:15 Amitriptyline HCl (Elavil) 25 mg QHS PO ; Start 05/25/18 at 21:00 Cetirizine HCl (ZyrTEC) 10 mg DAILY PO Last administered on 05/25/18at 12:36; Start 05/25/18 at 12:30 Gabapentin (Neurontin) 2 mg BID PO Last administered on 05/25/18at 12:36; Start 05/25/18 at 12:30 Glipizide (Glucotrol) 5 mg BIDBFRMEAL PO Last administered on 05/25/18at 17:00 ; Start 05/25/18 at 16:30 Pantoprazole Sodium (Protonix) 40 mg DAILYAC PO Last administered on at 12:39; Start 05/25/18 at 12:30 Potassium Chloride (Klor-Con) 20 meq DAILY PO ; Start 05/26/18 at 09:00 Prednisone (Prednisone) 2 mg DAILY PO Last administered on 05/25/18at 12:52; Start 05/25/18 at 12:30 Active Scripts Active Reported Acid Lapeler (Cimetidine) 200 Mg Tablet 200 Mg PO PRN PRN Acetaminophen 500 Mg Tablet 1 Tab PO BID PRN Benadryl (Diphenhydramine Hcl) 25 Mg Capsule 1 Cap PO QHS PRN Alprazolam 0.25 Mg Tablet 0.25 Mg PO Q8HRS PRN Vitamin D2 (Ergocalciferol (Vitamin D2)) 50,000 Unit Capsule 1 Cap PO WEEKLY Gabapentin 100 Mg Capsule 200 Cap PO BID Glipizide 5 Mg Tablet 1 Tab PO BID Apidra Solostar (Insulin Glulisine) 100 Unit/1 Ml Insuln.pen 20 Units SUBCUT TIDWMEALS Tresiba Flextouch U-200 (Insulin Degludec) 200 Unit/1 Ml Insuln.pen 96 Units SUBCUT DAILY Tramadol Hcl (Tramadol HCl) 50 Mg Tablet 50 Mg PO PRN Q12HR PRN Diflucan (Fluconazole) 150 Mg Tablet 1 Tab PO ONCE Protonix (Pantoprazole Sodium) 40 Mg Tablet.dr 1 Tab PO DAILY Zyrtec (Cetirizine Hcl) 10 Mg Tablet 10 Mg PO DAILY LAST DOSE GIVEN: DATE: TODAY TIME: AM NEXT DOSE DUE: DATE: TOMORROW TIME: AM Hydrochlorothiazide Tablet (Hydrochlorothiazide) 25 Mg Tablet 25 Mg PO DAILY LAST DOSE GIVEN: DATE: TODAY TIME: AM NEXT DOSE DUE: DATE: TOMORROW TIME: AM Flonase Allergy Relief (Fluticasone Propionate) 9.9 Ml [place].susp 1 Spr NS DAILY LAST DOSE GIVEN: DATE: TODAY TIME: AM NEXT DOSE DUE: DATE: TOMORR TIME: AM Amitriptyline Hcl 25 Mg Tablet 25 Mg PO HS LAST DOSE GIVEN: DATE: YESTER TIME: AT BEDTIME NEXT DOSE DUE: DATE: TODAY TIME: AT BEDTIME Cyclobenzaprine Hcl 10 Mg Tablet 10 Mg PO TID LAST DOSE GIVEN: DATE: YESTER TIME: AT BEDTIME NEXT DOSE DUE: DATE: TODAY TIME: AT BEDTIME IF NEEDED Klor-Con M20 (Potassium Chloride) 20 Meq Tab.er.prt 20 Meq PO DAILY LAST DOSE GIVEN: DATE: TODAY TIME: AM NEXT DOSE DUE: DATE: TOMORR TIME: AM Prednisone 10 Mg Tablet 12 Mg PO DAILY LAST DOSE GIVEN: DATE: TIME: AM NEXT DOSE DUE: DATE: TOMORROW TIME: AM Enbrel (Etanercept) 50 Mg/1 Ml Disp.syrin 50 Mg SQ WEEKLY RESTART ON YOUR NORMALLY SCHEDULED DAY not given this admission Exam Vital Signs Vital Signs Date Time Temp Pulse Resp B/P (MAP) Pulse Ox O2 Delivery O2 Flow Rate FiO2 05/25/18 16:47 98.7 76 18 153/83 (106) 97 Room Air Constitutional: Slightly pale no jaundice sitting up in bed with spouse at bedside in no apparent distress HENT: Normocephalic, atraumatic, bilateral external ears normal, oropharynx slightly dry, no oral exudates, nose normal. Neck: Normal range of motion, no tenderness, supple, no stridor. Cardiovascular: JVP not elevated. S1N,S2N. No murmurs. Thorax and Lungs: Normal respiration. Normal chest expansion. Clear to auscultation bilaterally Abdomen: Bowel sounds normal, soft, no tenderness Skin: Warm, dry, no erythema, poor turgor Back: No tenderness, no CVA tenderness. Neurologic: Alert and oriented X 3, normal motor function Psychologic: Alert and oriented 3, Affect normal, judgement normal, mood normal. Assessment/Plan Assessment/Plan Muscle cramps Hypovolemia Acute kidney injury Hypokalemia Uncontrolled diabetes Multiple drug allergies Rheumatoid arthritis Noncompliance After discussing my concerns about her leaving and discussing risks associated patient and spouse continue to request discharge home. They agree to follow-up at their PCPs office tomorrow for recheck, further evaluation and treatment. They agree to return to the emergency department as needed, see discharge orders and instructions. COURSE Allergies Coded Allergies Type Severity Reaction Last Updated Verified insulin aspart Allergy Severe Anaphylaxis 01/26/18 Yes insulin glargine Allergy Severe Anaphylaxis 01/26/18 Yes insulin lispro Allergy Severe Anaphylaxis 01/26/18 Yes Gadolinium-Containing Contrast Medi Allergy Intermediate 05/25/18 Yes Influenza Virus Vaccines Allergy Intermediate 01/26/18 Yes Sulfa (Sulfonamide Antibiotics) Allergy Intermediate 01/26/18 Yes alogliptin Allergy Intermediate 05/25/18 Yes capsaicin Allergy Intermediate 01/26/18 Yes clindamycin Allergy Intermediate 05/25/18 Yes codeine Allergy Intermediate 01/26/18 Yes exenatide Allergy Intermediate 05/25/18 Yes insulin glulisine Allergy Intermediate Rash 01/26/18 Yes iodine Allergy Intermediate 01/26/18 Yes levofloxacin Allergy Intermediate 01/26/18 Yes menthol Allergy Intermediate 01/26/18 Yes metformin Allergy Intermediate Hives 01/26/18 Yes morphine Allergy Intermediate 05/25/18 Yes naproxen Allergy Intermediate 01/26/18 Yes pioglitazone Allergy Intermediate 05/25/18 Yes pregabalin Allergy Intermediate 05/25/18 Yes Laboratory Tests Test 05/25/18 01:53 05/25/18 01:55 05/25/18 01:56 05/25/18 02:45 Magnesium Level 1.7 mg/dL (1.8-2.4) White Blood Count 10.6 x10^3/uL (4.0-11.0) Red Blood Count 5.46 x10^6/uL (3.50-5.40) Hemoglobin 13.1 g/dL (12.0-15.5) Hematocrit 40.5 % (36.0-47.0) Mean Corpuscular Volume 74 fL (79-100) Mean Corpuscular Hemoglobin 24 pg (25-35) Mean Corpuscular Hemoglobin Concent 32 g/dL (31-37) Red Cell Distribution Width 16.7 % (11.5-14.5) Platelet Count 299 x10^3/uL (140-400) Neutrophils (%) (Auto) 60 % (31-73) Lymphocytes (%) (Auto) 28 % (24-48) Monocytes (%) (Auto) 9 % (0-9) Eosinophils (%) (Auto) 2 % (0-3) Basophils (%) (Auto) 1 % (0-3) Neutrophils # (Auto) 6.4 x10^3uL (1.8-7.7) Lymphocytes # (Auto) 3.0 x10^3/uL (1.0-4.8) Monocytes # (Auto) 1.0 x10^3/uL (0.0-1.1) Eosinophils # (Auto) 0.2 x10^3/uL (0.0-0.7) Basophils # (Auto) 0.1 x10^3/uL (0.0-0.2) Sodium Level 135 mmol/L (136-145) Potassium Level 3.1 mmol/L (3.5-5.1) Chloride Level 94 mmol/L (98-107) Carbon Dioxide Level 26 mmol/L (21-32) Anion Gap 15 (6-14) Blood Urea Nitrogen 32 mg/dL (7-20) Creatinine 1.7 mg/dL (0.6-1.0) Estimated GFR (Cockcroft-Gault) 29.7 BUN/Creatinine Ratio 19 (6-20) Glucose Level 219 mg/dL (70-99) Calcium Level 10.1 mg/dL (8.5-10.1) Total Bilirubin 0.4 mg/dL (0.2-1.0) Aspartate Amino Transf (AST/SGOT) 28 U/L (15-37) Alanine Aminotransferase (ALT/SGPT) 48 U/L (14-59) Alkaline Phosphatase 150 U/L (46-116) Total Protein 8.0 g/dL (6.4-8.2) Albumin 3.9 g/dL (3.4-5.0) Albumin/Globulin Ratio 1.0 (1.0-1.7) Acetone Level Neg (NEG) Glucose (Fingerstick) 252 mg/dL (70-99) Urine Collection Type U cath Urine Color Yellow Urine Clarity Clear Urine pH 5.5 Urine Specific [place] <=1.005 Urine Protein Neg (NEG-TRACE) Urine Glucose (UA) >=1000 mg/dL (NEG) Urine Ketones (Stick) Neg mg/dL (NEG) Urine Blood Small (NEG) Urine Nitrite Neg (NEG) Urine Bilirubin Neg (NEG) Urine Urobilinogen Dipstick 0.2 mg/dL (0.2 mg/dL) Urine Leukocyte Esterase Neg (NEG) Urine RBC Occ /HPF (0-2) Urine WBC Occ /HPF (0-4) Urine Squamous Epithelial Cells Occ /LPF Urine Bacteria 0 /HPF (0-FEW) Test 05/25/18 09:40 05/25/18 11:08 05/25/18 15:33 White Blood Count 8.2 x10^3/uL (4.0-11.0) Red Blood Count 5.06 x10^6/uL (3.50-5.40) Hemoglobin 12.3 g/dL (12.0-15.5) Hematocrit 37.5 % (36.0-47.0) Mean Corpuscular Volume 74 fL (79-100) Mean Corpuscular Hemoglobin 24 pg (25-35) Mean Corpuscular Hemoglobin Concent 33 g/dL (31-37) Red Cell Distribution Width 17.0 % (11.5-14.5) Platelet Count 269 x10^3/uL (140-400) Neutrophils (%) (Auto) 59 % (31-73) Lymphocytes (%) (Auto) 27 % (24-48) Monocytes (%) (Auto) 9 % (0-9) Eosinophils (%) (Auto) 4 % (0-3) Basophils (%) (Auto) 1 % (0-3) Neutrophils # (Auto) 4.8 x10^3uL (1.8-7.7) Lymphocytes # (Auto) 2.2 x10^3/uL (1.0-4.8) Monocytes # (Auto) 0.8 x10^3/uL (0.0-1.1) Eosinophils # (Auto) 0.3 x10^3/uL (0.0-0.7) Basophils # (Auto) 0.1 x10^3/uL (0.0-0.2) Sodium Level 139 mmol/L (136-145) 136 mmol/L (136-145) Potassium Level 3.1 mmol/L (3.5-5.1) 4.3 mmol/L (3.5-5.1) Chloride Level 103 mmol/L (98-107) 101 mmol/L (98-107) Carbon Dioxide Level 28 mmol/L (21-32) 26 mmol/L (21-32) Anion Gap 8 (6-14) 9 (6-14) Blood Urea Nitrogen 29 mg/dL (7-20) 26 mg/dL (7-20) Creatinine 1.3 mg/dL (0.6-1.0) 1.3 mg/dL (0.6-1.0) Estimated GFR (Cockcroft-Gault) 40.5 40.5 Glucose Level 74 mg/dL (70-99) 382 mg/dL (70-99) Calcium Level 9.0 mg/dL (8.5-10.1) 8.4 mg/dL (8.5-10.1) Glucose (Fingerstick) 170 mg/dL (70-99) Current Medications Medications (Trade) Dose Ordered Sig/Ashlyn Route PRN Reason Start Time Stop Time Status Last Admin Dose Admin Sodium Chloride 1,000 ml @ 1,000 mls/hr 1X ONCE IV 05/25/18 01:45 05/25/18 02:45 DC 05/25/18 02:06 Fentanyl Citrate (Fentanyl 5ml Vial) 50 mcg 1X ONCE IV 05/25/18 02:00 05/25/18 02:02 DC 05/25/18 02:06 Ondansetron HCl (Zofran) 4 mg 1X ONCE IV 05/25/18 02:00 05/25/18 02:02 DC 05/25/18 02:06 Potassium Chloride (Klor-Con) 40 meq 1X ONCE PO 05/25/18 02:45 05/25/18 03:02 DC Potassium Bicarbonate (Klyte/Cl) 25 meq DAILY PO 05/25/18 03:30 05/25/18 12:26 DC 05/25/18 03:10 Ondansetron HCl (Zofran) 4 mg PRN Q4HRS PRN IV NAUSEA/VOMITING 05/25/18 03:45 05/26/18 03:44 Fentanyl Citrate (Fentanyl 2ml Vial) 50 mcg PRN Q2HR PRN IV PAIN 05/25/18 03:45 05/26/18 03:44 05/25/18 03:50 Sodium Chloride 1,000 ml @ 250 mls/hr Q4H IV 05/25/18 04:00 05/25/18 09:22 Sodium Chloride 1,000 ml @ 200 mls/hr Q5H IV 05/25/18 08:53 05/25/18 13:52 DC Potassium Chloride (Klor-Con) 40 meq 1X ONCE PO 05/25/18 11:30 05/25/18 11:31 DC 05/25/18 12:36 Hydrochlorothiazide (Hydrodiuril) 25 mg DAILY PO 05/25/18 12:30 05/25/18 12:36 Potassium Chloride (Klor-Con) 20 meq DAILY PO 05/25/18 12:30 05/25/18 12:30 DC Prednisone (Prednisone) 10 mg DAILY PO 05/25/18 12:30 05/25/18 12:36 Tramadol HCl (Ultram) 50 mg PRN Q12HR PRN PO PAIN 05/25/18 12:15 Alprazolam (Xanax) 0.25 mg Q8HRS PRN PO ANXIETY / AGITATION 05/25/18 12:15 05/25/18 12:36 Amitriptyline HCl (Elavil) 25 mg QHS PO 05/25/18 21:00 Cetirizine HCl (ZyrTEC) 10 mg DAILY PO 05/25/18 12:30 05/25/18 12:36 Gabapentin (Neurontin) 2 mg BID PO 05/25/18 12:30 05/25/18 12:36 Glipizide (Glucotrol) 5 mg BIDBFRMEAL PO 05/25/18 16:30 05/25/18 17:00 Pantoprazole Sodium (Protonix) 40 mg DAILYAC PO 05/25/18 12:30 05/25/18 12:39 Potassium Chloride (Klor-Con) 20 meq DAILY PO 05/26/18 09:00 Prednisone (Prednisone) 2 mg DAILY PO 05/25/18 12:30 05/25/18 12:52 Orders Procedure Category Date Status Time Cbc W [facility] LAB 05/25/18 Complete 01:33 Comprehensive LAB 05/25/18 Complete Metabolic Panel 01:33 Iv Normal Saline PHA 05/25/18 Complete 1,000ml (Iv Sodium 01:45 Fentanyl Pf (Fentanyl PHA 05/25/18 Complete 5ml Vial) 02:00 Ondansetron Pf PHA 05/25/18 Complete (Zofran) 02:00 Ua, Cult If Indicated LAB 05/25/18 Complete 01:50 Acetone LAB 05/25/18 Complete 01:50 Potassium Chloride PHA 05/25/18 Complete Tab (Klor-Con) 02:45 Potassium Bicarb Eff PHA 05/25/18 Complete Tab (Klyte/Cl) 03:30 [place] Order ADT 05/25/18 Transmitted 03:37 Code Status CODE 05/25/18 Transmitted 03:37 Vital Signs, Per [facility] 05/25/18 In Process Protocol 03:37 Mexican Diabetic DIET 05/25/18 Transmitted Assoc Diet Breakfast Ambulate Ad [place] [facility] 05/25/18 In Process 03:37 Cbc W [employer] LAB 05/26/18 Verified 06:00 Basic Metabolic Panel LAB 05/26/18 Verified 06:00 Ondansetron Pf PHA 05/25/18 In Process (Zofran) 03:45 Fentanyl Pf (Fentanyl PHA 05/25/18 In Process 2ml Vial) 03:45 Iv Normal Saline PHA 05/25/18 In Process 1,000ml (Iv Sodium 04:00 Admit Orders ADT 05/25/18 Transmitted 04:09 Notify Provider No [facility] 05/25/18 In Process Vte Prophyl 05:28 Apply Marc Stockings [facility] 05/25/18 In Process And Mike Wr 05:28 Pneumatic Compression [facility] 05/25/18 In Process Device 05:28 Magnesium LAB 05/25/18 Complete 06:06 Pt. On Electrolyte [facility] 05/25/18 In Process Protocol 08:53 Cbc W [employer]odiff LAB 05/25/18 Complete 08:53 Basic Metabolic Panel LAB 05/25/18 Complete 08:53 Iv Normal Saline PHA 05/25/18 Complete 1,000ml (Iv Sodium 08:53 Potassium Chloride PHA 05/25/18 Complete Tab (Klor-Con) 11:30 Tramadol (Ultram) PHA 05/25/18 In Process 12:15 Alprazolam (Xanax) PHA 05/25/18 In Process 12:15 Amitriptyline Hcl PHA 05/25/18 In Process (Elavil) 21:00 Gabapentin (Neurontin) PHA 05/25/18 In Process 12:30 Glipizide (Glucotrol) PHA 05/25/18 In Process 16:30 Hydrochlorothiazide PHA 05/25/18 In Process (Hydrodiuril) 12:30 Cetirizine Hcl PHA 05/25/18 In Process (Zyrtec) 12:30 Pantoprazole PHA 05/25/18 In Process (Protonix) 12:30 Potassium Chloride PHA 05/25/18 Complete Tab (Klor-Con) 12:30 Potassium Chloride PHA 05/26/18 In Process Tab (Klor-Con) 09:00 Prednisone PHA 05/25/18 In Process (Prednisone) 12:30 Prednisone PHA 05/25/18 In Process (Prednisone) 12:30 Basic Metabolic Panel LAB 05/25/18 Complete 15:09 Discharge From ADT 05/25/18 [facility] Vital Signs Date Time Temp Pulse Resp B/P (MAP) Pulse Ox O2 Delivery O2 Flow Rate FiO2 05/25/18 16:47 98.7 76 18 153/83 (106) 97 Room Air DAMIEN MORENO DO May 25, 2018 17:30
[2018-05-25] MEDS ORDERED: AMITRIPTYLINE HCL 25 MG TABLET PO SCH (21:00)
[2018-05-26] MEDS ORDERED: POTASSIUM CHLORIDE 20 MEQ TABLET.ER. PO SCH (09:00)
== END 2018-05-25 17:25 | disposition home or self-care (01) | DRG 683 ==
LOC: ER 01:27 → 1 SOUTH 03:37
PROVIDERS: ADMIT Neuromusculoskeletal Medicine & OMM; ATTEND Neuromusculoskeletal Medicine & OMM
DX: N17.9 Acute kidney failure, unspecified (principal); E87.1 Hypo-osmolality and hyponatremia; E87.2 Acidosis; E11.65 Type 2 diabetes mellitus with hyperglycemia; E86.0 Dehydration; E86.1 Hypovolemia; E87.6 Hypokalemia; J44.9 Chronic obstructive pulmonary disease, unspecified; M06.9 Rheumatoid arthritis, unspecified; M19.90 Unspecified osteoarthritis, unspecified site; Z96.659 Presence of unspecified artificial knee joint; E11.42 Type 2 diabetes mellitus with diabetic polyneuropathy; M62.48 Contracture of muscle, other site; G89.29 Other chronic pain; Z88.9 Allergy status to unspecified drugs, medicaments and biological substances; Z91.19 Patient's noncompliance with other medical treatment and regimen; Z90.710 Acquired absence of both cervix and uterus; Z79.4 Long term (current) use of insulin; Z79.899 Other long term (current) drug therapy; Z88.6 Allergy status to analgesic agent; Z88.4 Allergy status to anesthetic agent; Z88.1 Allergy status to other antibiotic agents; Z88.2 Allergy status to sulfonamides; Z88.8 Allergy status to other drugs, medicaments and biological substances; Z91.018 Allergy to other foods; Z91.048 Other nonmedicinal substance allergy status
CPT/HCPCS: 36415; 80048; 80053; 81001; 82010; 82947; 83735; 85025; 96361; 96374; 96375; 96376; J2405; J3010; J7512; P9612; 99285-25; J7030

== ENCOUNTER → 2018-06-06 | Outpatient (CLI) | payer MEDICARE, OTHER ==
[2018-05-25 16:47] VITALS: BP 153/83
[~2018-06-06] MED LIST changes: +ACET500T68 PO; +ALPR0.254 PO; +BUPIVACAINE MPF 0.25% 30 ML VIAL. ONE; +CIME200T8 PO; +DEXAMETHASONE SOD PHOS 4 MG/ML VIAL ONE; +DIPH25CA58 PO; +ERGO500027 PO; +GABA100C6 PO; +INSU100I15 SUBCUT; +INSU200I4 SUBCUT; +IOHEXOL 300 MG/ML 50 ML VIAL. ONE; +LIDOCAINE 1% PF 30 ML VIAL. ONE
== END ==
LOC: SURG 13:55
PROVIDERS: ATTEND Anesthesiology
DX: M54.16 Radiculopathy, lumbar region (principal); Z90.49 Acquired absence of other specified parts of digestive tract; Z98.890 Other specified postprocedural states; Z79.899 Other long term (current) drug therapy; Z96.659 Presence of unspecified artificial knee joint; Z91.041 Radiographic dye allergy status
CPT/HCPCS: 64483; 64484; J1100; J2001; J3490; Q9967; 77002

== ENCOUNTER 2018-07-04 15:07 | Inpatient (IN) | payer MEDICARE, OTHER ==
[2018-07-04] VITALS (7 sets, daily range): BP systolic 145–174; BP diastolic 69–86
[~2018-07-04] VITALS: Ht 170.2 cm; Wt 101.3 kg
[~2018-07-04 15:07] MED LIST changes: -BUPIVACAINE MPF 0.25% 30 ML VIAL. ONE; -DEXAMETHASONE SOD PHOS 4 MG/ML VIAL ONE; +HYDR-2145 PO; +HYDR-3165 PO; -HYDR-971 PO; -HYDR25TA9 PO; -IOHEXOL 300 MG/ML 50 ML VIAL. ONE; -LIDOCAINE 1% PF 30 ML VIAL. ONE
[2018-07-04] MEDS ORDERED: ALBUTEROL SULFATE 2.5 MG/3 ML NEBU. ONE (15:14)
[2018-07-04] MEDS ORDERED: IV NORMAL SALINE 1,000ML 1,000 ML IV ONE (15:30)
[2018-07-04] MEDS ORDERED: IPRATRPIUM/ALBUTEROL 0.5/2.5MG 3 ML NEBU. NEB ONE (15:30)
[2018-07-04] MEDS ORDERED: methylPREDNISolone SOD SUCC PF 125 MG/2 ML VIAL. IV ONE (15:30)
[2018-07-04 15:39] LABS: BASO % 0 % (0-3); EOS % 0 % (0-3); HEMATOCRIT 36.9 % (36.0-47.0); HEMOGLOBIN 11.5 g/dL (12.0-15.5); LYMPH # 0.7 x10^3/uL (1.0-4.8); LYMPH % 8 % (24-48); MEAN CORPUSCULAR HEMOGLOBIN 23 pg (25-35); MEAN CORPUSCULAR HGB CONC 31 g/dL (31-37); MEAN CORPUSCULAR VOLUME 75 fL (79-100); MONO # 0.1 x10^3/uL (0.0-1.1); MONO % 2 % (0-9); NEUT % 90 % (31-73); PLATELET COUNT 256 x10^3/uL (140-400); RED BLOOD COUNT 4.95 x10^6/uL (3.50-5.40); RED CELL DISTRIBUTION WIDTH 17.6 % (11.5-14.5); WHITE BLOOD COUNT 8.8 x10^3/uL (4.0-11.0)
--- NOTE | 2018-07-04 15:39 | PHYS DOC ---
Past History Past Medical History: Asthma, COPD, Diabetes, Hypertension, Other Past Surgical History: Hysterectomy, Knee Replacement, Other Alcohol Use: None Drug Use: None Adult General Chief Complaint Chief Complaint: shortness of breath HPI HPI Patient is a 72 year old female who presents with complaining of shortness of breath. Patient states she has had exertional shortness of breath worse more than 2 weeks and seen by her primary care physician and [facility] and treated with prednisone and antibiotics without improvement of her condition. Patient complaining of supine shortness of breath and dry cough without chest pain, palpitation, nausea and vomiting. 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 Review of Systems Review of Systems Constitutional: Denies fever or chills [] Eyes: Denies change in visual acuity, redness, or eye pain [] HENT: Denies nasal congestion or sore throat [] Respiratory: Reports cough and shortness of breath Cardiovascular: No additional information not addressed in HPI [] GI: Denies abdominal pain, nausea, vomiting, bloody stools or diarrhea [] : Denies dysuria or hematuria [] Musculoskeletal: Denies back pain or joint pain [] Integument: Denies rash or skin lesions [] Neurologic: Denies headache, focal weakness or sensory changes [] Endocrine: Denies polyuria or polydipsia [] All other systems were reviewed and found to be within normal limits, except as documented in this note. Current Medications Current Medications Current Medications Medications (Trade) Dose Ordered Sig/Ashlyn Start Time Stop Time Status Last Admin Dose Admin Albuterol Sulfate (Ventolin) 2.5 mg STK-MED ONCE 07/04/18 15:14 07/04/18 15:15 DC Albuterol/ Ipratropium (Duoneb) 3 ml 1X ONCE 07/04/18 15:30 07/04/18 15:31 DC 07/04/18 15:31 3 ML Methylprednisolone Sodium Succinate (SOLU-Medrol 125MG VIAL) 125 mg 1X ONCE 07/04/18 15:30 07/04/18 15:31 DC 07/04/18 15:31 125 MG Sodium Chloride 1,000 ml @ 1,000 mls/hr 1X ONCE 07/04/18 15:30 07/04/18 15:31 DC Allergies Allergies Allergies Coded Allergies Type Severity Reaction Last Updated Verified insulin aspart Allergy Severe Anaphylaxis 01/26/18 Yes insulin glargine Allergy Severe Anaphylaxis 01/26/18 Yes insulin lispro Allergy Severe Anaphylaxis 01/26/18 Yes Gadolinium-Containing Contrast Medi Allergy Intermediate 05/25/18 Yes Influenza Virus Vaccines Allergy Intermediate 01/26/18 Yes Sulfa (Sulfonamide Antibiotics) Allergy Intermediate 01/26/18 Yes alogliptin Allergy Intermediate 05/25/18 Yes capsaicin Allergy Intermediate 01/26/18 Yes clindamycin Allergy Intermediate 05/25/18 Yes codeine Allergy Intermediate 01/26/18 Yes exenatide Allergy Intermediate 05/25/18 Yes insulin glulisine Allergy Intermediate Rash 01/26/18 Yes iodine Allergy Intermediate 01/26/18 Yes levofloxacin Allergy Intermediate 01/26/18 Yes menthol Allergy Intermediate 01/26/18 Yes metformin Allergy Intermediate Hives 01/26/18 Yes morphine Allergy Intermediate 05/25/18 Yes naproxen Allergy Intermediate 01/26/18 Yes pioglitazone Allergy Intermediate 05/25/18 Yes pregabalin Allergy Intermediate 05/25/18 Yes Physical Exam Physical Exam Constitutional: Well developed, well nourished, moderate distress, non-toxic appearance. [] HENT: Normocephalic, atraumatic, bilateral external ears normal, oropharynx moist, no oral exudates, nose normal. [] Eyes: PERRLA, EOMI, conjunctiva normal, no discharge. [] Neck: Normal range of motion, no tenderness, supple, no stridor. [] Cardiovascular: Tachycardia, no murmur [] Lungs & Thorax: Mild respiratory distress with intercostal retraction, bilateral rhonchi, no wheezing or rales Abdomen: Bowel sounds normal, soft, no tenderness, no masses, no pulsatile masses. [] Skin: Warm, dry, no erythema, no rash. [] Back: No tenderness, no CVA tenderness. [] Extremities: No tenderness, no cyanosis, no clubbing, ROM intact, bilateral lower extremity 1+ edema as a chronic problem[] Neurologic: Alert and oriented X 3, normal motor function, normal sensory function, no focal deficits noted. [] Psychologic: Affect anxious, judgement normal, mood normal. [] EKG EKG EKG interpreted by me. EKG at 1549 showed sinus tachycardia at rate of 112, left fourth axis, normal intervals, no acute ST and T-wave abnormalities. Radiology/Procedures Radiology/Procedures [address] [address] IMAGING REPORT Signed PATIENT: PATRIA GONSALVES ACCOUNT: [id number] : 1945 LOCATION: ER AGE: 72 SEX: F EXAM STATUS: REG ER ORD. PHYSICIAN: JEROME HILLIARD MD REASON: shortness of breath PROCEDURE: PORTABLE CHEST 1V Portable chest, 07/04/2018: HISTORY: Shortness of breath, tube insertion Comparison is made to a study from 11/10/2017. No tube is evident on this exam. The heart is at the upper limits of normal in size. The pulmonary vascularity is prominent with loss of vascular margination. There are interstitial opacities in the lungs suggesting mild interstitial edema. No definite pleural fluid is seen. IMPRESSION: Vascular congestion with interstitial prominence suggesting mild pulmonary edema due to congestive heart failure. Electronically signed by: Loi Sarkar MD (07/04/2018 4:30 PM) [facility] DICTATED AND SIGNED BY: LOI SARKAR MD DATE: 07/04/181626 CC: JOSE FRANCISCO SZYMANSKI MD; JREOME HILLIARD MD ~ Course & Med Decision Making Course & Med Decision Making Pertinent Labs and Imaging studies reviewed. (See chart for details) Evaluation of patient in ER showed 72-year-old female patient with several because of shortness of breath that did not respond to outpatient treatment. Patient had O2 sat of 92% at room air with blood pressure of 90s over 60s and tachycardia without fever and confusion. Blood pressure went to 130/70 with rest. Patient treated with IV fluid, DuoNeb, Solu-Medrol improvement of her condition After results of lactic acid of 3.4 vancomycin and Zosyn was started. Patient had elevation of d-dimer and VQ scan was requested. Dr. Szymanski accepted admission at 1608. Dragon Disclaimer Dragon Disclaimer This electronic medical record was generated, in whole or in part, using a voice recognition dictation system. Departure Departure: Impression: Primary Impression: Acute respiratory distress Additional Impressions: Sepsis CAP (community acquired pneumonia) Hypoxia CHF (congestive heart failure) Elevated d-dimer Renal insufficiency Hypomagnesemia Elevated liver function tests Rheumatoid arthritis Uncontrolled diabetes mellitus Disposition: ADMITTED INPATIENT (@1609) Admitting Physician: Jose Francisco Szymanski (accepted admission at 1608) Condition: GUARDED Referrals: JOSE FRANCISCO SZYMANSKI MD (PCP) Critical Care Time Critical care time was 60 minutes exclusive of procedures. Problem Qualifiers JEROME HILLIARD MD Jul 04, 2018 15:39
[2018-07-04 16:03] LABS: ALBUMIN 3.4 g/dL (3.4-5.0); ALBUMIN/GLOBULIN RATIO 0.9 (1.0-1.7); CALCIUM 8.6 mg/dL (8.5-10.1); CREATININE 1.2 mg/dL (0.6-1.0); GFR 44.4; MAGNESIUM 1.7 mg/dL (1.8-2.4); POTASSIUM 4.1 mmol/L (3.5-5.1); TOTAL BILIRUBIN 0.4 mg/dL (0.2-1.0); TOTAL PROTEIN 7.2 g/dL (6.4-8.2)
[2018-07-04] MEDS ORDERED: IV NORMAL SALINE 1,000ML 1,000 ML IV SCH (16:09)
[2018-07-04] MEDS ORDERED: IV NORMAL SALINE 50ML 50 ML ONE (16:13)
[2018-07-04] MEDS ORDERED: PIPERACILLIN/TAZOBACTAM 3.375 GM VIAL IV ONE (16:13)
[2018-07-04] MEDS ORDERED: IV NORMAL SALINE 500ML 500 ML IV ONE (16:15)
[2018-07-04] MEDS ORDERED: VANCOMYCIN 1 GM in IV NORMAL SALINE 250ML 250 ML IV ONE (16:15)
[2018-07-04] MEDS ORDERED: PIPERACILLIN/TAZOBACTAM 3.375 GM in IV NORMAL SALINE 50ML 50 ML IV ONE (16:15)
[2018-07-04 16:18] LABS: BGAS PH 7.42 (7.35-7.45)
[2018-07-04] MEDS ORDERED: VANCOMYCIN 2 GM in IV NORMAL SALINE 500ML 500 ML IV ONE (16:30)
--- NOTE | 2018-07-04 16:33 | RAD ---
Portable chest, 07/04/2018: HISTORY: Shortness of breath, tube insertion Comparison is made to a study from 11/10/2017. No tube is evident on this exam. The heart is at the upper limits of normal in size. The pulmonary vascularity is prominent with loss of vascular margination. There are interstitial opacities in the lungs suggesting mild interstitial edema. No definite pleural fluid is seen. IMPRESSION: Vascular congestion with interstitial prominence suggesting mild pulmonary edema due to congestive heart failure. Electronically signed by: Loi Yee MD (07/04/2018 4:30 PM) [facility]
--- NOTE | 2018-07-04 16:39 | EKG ---
[address] [address] Test Date: 2018-07-04 Test Time: 15:49:21 Pat Name: PATRIA GONSALVES Department: Room: Gender: F Palliative Care Coordinator: : 1945 Requested By: JEROME HILLIARD Order Number: [id number] Reading MD: Chris Lam MD Measurements Intervals [place] Rate: 112 P: 90 NH: 174 QRS: -3 QRSD: 82 T: 29 QT: 336 QTc: 460 Interpretive Statements SINUS TACHYCARDIA Electronically Signed On 07-05-2018 16:49:52 GENERAL REPAIRER by Chris Lam MD
[2018-07-04] MEDS ORDERED: ACETAMINOPHEN 500 MG TABLET PO PRN (17:45)
[2018-07-04] MEDS: FUROSEMIDE 20 MG/2 ML VIAL IVP SCH (18:40)
[2018-07-04] MEDS ORDERED: INSU100I17 SQ (19:17)
[2018-07-04] MEDS ORDERED: HYDR25TA PO (19:17)
[2018-07-04] MEDS ORDERED: HYDR-2145 PO (19:17)
[2018-07-04] MEDS ORDERED: ZOLP5TAB PO (19:19)
[2018-07-04] MEDS ORDERED: ALPRAZolam 0.25 MG TABLET PO PRN (19:45)
[2018-07-04] MEDS: VANCOMYCIN PER PHARMACY MC PRN (19:56)
[2018-07-04] MEDS: IPRATRPIUM/ALBUTEROL 0.5/2.5MG 3 ML NEBU. NEB SCH (20:24)
[2018-07-04 20:34] LABS: CLARITY,URINE CLEAR; COLOR,URINE YELLOW; GLUCOSE,URINE 500 mg/dL (NEG)
[2018-07-04 20:35] LABS: BACTERIA,URINE MOD /HPF (0-FEW); BILIRUBIN,URINE NEG (NEG); NITRITE,URINE POS (NEG); RBC,URINE OCC /HPF (0-2); SQUAMOUS EPITHELIAL CELL,UR FEW /LPF; UROBILINOGEN,URINE 0.2 mg/dL (0.2 mg/dL); YEAST,URINE PRESENT /HPF
[2018-07-04] MEDS ORDERED: PIP/TAZO PER PHARMACY MC PRN (20:45)
[2018-07-04] MEDS ORDERED: AMITRIPTYLINE HCL 25 MG PO SCH (21:00)
[2018-07-04] MEDS ORDERED: FLUCONAZOLE 100 MG TABLET. PO ONE (21:00)
[2018-07-04] MEDS ORDERED: GABAPENTIN PO SCH (21:00)
[2018-07-04] MEDS ORDERED: FAMOTIDINE 20 MG TABLET PO PRN (21:00)
[2018-07-04] MEDS: GABAPENTIN 300 MG CAPSULE. PO SCH (21:26)
[2018-07-04] MEDS: diphenhydrAMINE HCL 25 MG CAPSULE PO PRN (21:27)
[2018-07-04] MEDS: CYCLOBENZAPRINE 10 MG TABLET. PO SCH (21:27)
[2018-07-04] MEDS: methylPREDNISolone SOD SUCC PF 40 MG/ML VIAL. IV SCH (21:27)
[2018-07-04] MEDS: AMITRIPTYLINE HCL 50 MG TABLET PO SCH (21:28)
[2018-07-04] MEDS: HEPARIN for SUB-Q USE 5,000 UNIT/ML VIAL. SQ SCH (21:33)
[2018-07-04] MEDS: PIPERACILLIN/TAZOBACTAM 3.375 GM in IV NORMAL SALINE 50ML 50 ML IV SCH (21:48)
[2018-07-04] MEDS ORDERED: methylPREDNISolone SOD SUCC PF 40 MG/ML VIAL. IV SCH (22:00)
[2018-07-05] VITALS (13 sets, daily range): BP systolic 124–166; BP diastolic 55–91
[2018-07-05] MEDS: PIPERACILLIN/TAZOBACTAM 3.375 GM in IV NORMAL SALINE 50ML 50 ML IV SCH ×4 (04:02→21:26)
[2018-07-05] MEDS: IPRATRPIUM/ALBUTEROL 0.5/2.5MG 3 ML NEBU. NEB SCH ×7 (05:27→19:42)
[2018-07-05] MEDS: methylPREDNISolone SOD SUCC PF 40 MG/ML VIAL. IV SCH ×3 (05:45→21:05)
[2018-07-05] MEDS: HEPARIN for SUB-Q USE 5,000 UNIT/ML VIAL. SQ SCH ×3 (05:46→21:06)
[2018-07-05] MEDS ORDERED: INSULIN GLULISINE 20 UNIT SUBCUT SCH (08:00)
[2018-07-05] MEDS: glipiZIDE 5 MG TABLET PO SCH ×2 (08:39→16:10)
[2018-07-05] MEDS: CETIRIZINE HCL 10 MG TABLET PO SCH (08:39)
[2018-07-05] MEDS: GABAPENTIN 300 MG CAPSULE. PO SCH ×2 (08:39→21:03)
[2018-07-05] MEDS: PANTOPRAZOLE 40 MG TABLET. PO SCH (08:39)
[2018-07-05] MEDS: POTASSIUM CHLORIDE 20 MEQ TABLET.ER. PO SCH ×2 (08:40→21:03)
[2018-07-05] MEDS: CYCLOBENZAPRINE 10 MG TABLET. PO SCH ×3 (08:40→21:03)
[2018-07-05] MEDS: FLUTICASONE 50MCG/NASAL SPRAY 16GM BOTTLE. NS SCH (08:40)
[2018-07-05 08:42] LABS: BASO % 0 % (0-3); EOS % 0 % (0-3); HEMATOCRIT 34.6 % (36.0-47.0); HEMOGLOBIN 10.6 g/dL (12.0-15.5); LYMPH # 0.5 x10^3/uL (1.0-4.8); LYMPH % 6 % (24-48); MEAN CORPUSCULAR HEMOGLOBIN 23 pg (25-35); MEAN CORPUSCULAR HGB CONC 31 g/dL (31-37); MEAN CORPUSCULAR VOLUME 74 fL (79-100); MONO # 0.2 x10^3/uL (0.0-1.1); MONO % 2 % (0-9); NEUT # 7.6 x10^3uL (1.8-7.7); NEUT % 92 % (31-73); PLATELET COUNT 247 x10^3/uL (140-400); RED BLOOD COUNT 4.65 x10^6/uL (3.50-5.40); RED CELL DISTRIBUTION WIDTH 17.6 % (11.5-14.5); WHITE BLOOD COUNT 8.3 x10^3/uL (4.0-11.0)
[2018-07-05] MEDS: FUROSEMIDE 20 MG/2 ML VIAL IVP SCH ×3 (08:42→21:01)
[2018-07-05] MEDS ORDERED: DEXTROSE 50% 25 GM / 50ML DISP.SYRIN. IV PRN (08:45)
[2018-07-05 08:49] LABS: ALBUMIN 3.1 g/dL (3.4-5.0); ALBUMIN/GLOBULIN RATIO 0.8 (1.0-1.7); CALCIUM 7.9 mg/dL (8.5-10.1); CREATININE 1.2 mg/dL (0.6-1.0); GFR 44.4; MAGNESIUM 1.8 mg/dL (1.8-2.4); POTASSIUM 3.3 mmol/L (3.5-5.1); TOTAL BILIRUBIN 0.5 mg/dL (0.2-1.0); TOTAL PROTEIN 6.8 g/dL (6.4-8.2)
[2018-07-05] MEDS ORDERED: predniSONE 10 MG TABLET PO SCH (09:00)
[2018-07-05] MEDS ORDERED: POTASSIUM CHLORIDE 20 MEQ TABLET.ER. PO SCH (09:00)
[2018-07-05] MEDS ORDERED: INSULIN DEGLUDEC SUBCUT SCH ×2 (09:00)
--- NOTE | 2018-07-05 09:21 | RAD ---
Lung scan 07/05/2018 CLINICAL HISTORY: Shortness of breath. Elevated d-dimer. TECHNIQUE: After the administration of 14.2 mCi of xenon-133 gas, ventilation images of both lungs were obtained using the gamma camera. After the intravenous administration of 5.5 mCi of technetium 99m MAA, perfusion images of both lungs were obtained using the gamma camera. FINDINGS: Comparison is made to a portable chest radiograph dated 07/04/2018. This demonstrates findings consistent with mild to moderate CHF. There is mild cardiomegaly. Homogeneous ventilation/perfusion to both lungs is seen. No perfusion defect is noted. These findings are consistent with a normal lung scan. IMPRESSION: Normal lung scan. Electronically signed by: Vitaliy Geiger MD (07/05/2018 9:17 AM) [id number]
[2018-07-05] MEDS: INSULIN ASPART 10 UNIT SQ SCH ×3 (09:27→17:23)
[2018-07-05] MEDS: NOVOLOG SQ SCH ×3 (09:30→17:00)
--- NOTE | 2018-07-05 09:44 | PDOC2 ---
CARMEL JURADO Helen ACOSTA 07/05/18 0944: CONSULT Date of Admission DATE: 07/05/18 TIME: 09:36 Reason for Consult: CHF History of Present Illness Ms Guerra is a 72 year old female with complaints of increased edema and dyspnea that started on Thanksgiving. She reports increased weight and lower extremity edema since the . She says edema is worsened when on her feet. She has shortness of breath with minimal exertion and +orthopnea. She reports being seen by her PCP office and recommended to be admitted which she declined. She was told her throat was red and her ears congested at that time and was given an antibiotic. She was then seen by her furniture upholsterer a few days later, who sent her for lab and CXR and again advised her to be admitted which she again declined. Reports were sent to her PCP and she finally agreed to be seen and admitted. She presented to the ED where she was found to be in mild congestive heart failure so consult was called. She denies any fever, chills or cough. She denies chest pain, palpitations, lightheadedness or syncope. She denies any increased sodium intake, or change in medication compliance. She reports her blood pressure has been well controlled. Past Medical History Echo 04/19/17 <Conclusion> The left ventricular systolic function is normal. The Ejection Fraction is 50-55%. There is normal LV segmental wall motion. Transmitral Doppler flow pattern is Grade I-abnormal relaxation pattern. Mild mitral regurgitation. There is no evidence of significant pericardial effusion. MPI 04/20/17 Conclusion 1. No evidence of EKG changes with stress testing. 2. Normal perfusion at stress/rest. 3. Low risk study. 4. EF > 60%. Cardiovascular: HTN, hyperipidemia, Other (peripheral vascular disease) Pulmonary: Asthma, Bronchitis, COPD, Pneumonia CENTRAL NERVOUS SYSTEM: Periperal neuropathy GI: GERD Psych: Anxiety Musculoskeletal: Other (back pain) Rheumatologic: Rheumatoid arthritis ENT: Other (thrush ) Renal/: Chronic renal insuff (Cr last admission baseline 1.7) Endocrine: Diabetes Past Surgical History Cataract surgery with lens implants, abdominal surgeries for cholecystectomy and hysterectomy, right knee surgery, amputation of right small toe and left middle toe. Family History Father with stroke and mother of an IN in her 50s Family History: Coronary Artery Disease, Stroke Social History The patient denies smoking, alcohol or drug use, , lives at home. Current Medications Current Medications Albuterol Sulfate (Ventolin) 2.5 mg STK-MED ONCE .ROUTE ; Start 07/04/18 at 15: 14; Stop 07/04/18 at 15:15; Status DC Methylprednisolone Sodium Succinate (SOLU-Medrol 125MG VIAL) 125 mg 1X ONCE IV Last administered on 07/04/18at 15:31; Start 07/04/18 at 15:30; Stop 07/04/18 at 15:31; Status DC Albuterol/ Ipratropium (Duoneb) 3 ml 1X ONCE NEB Last administered on at 15:31; Start 07/04/18 at 15:30; Stop 07/04/18 at 15:31; Status DC Sodium Chloride 1,000 ml @ 1,000 mls/hr 1X ONCE IV ; Start 07/04/18 at 15:30; Stop 07/04/18 at 15:31; Status DC Piperacillin Sod/ Tazobactam Sod 3.375 gm/Sodium Chloride 50 ml @ 100 mls/hr 1X ONCE IV Last administered on 07/04/18at 16:35; Start 07/04/18 at 16:15; Stop 07/04/18 at 16:44; Status DC Vancomycin HCl 1 gm/Sodium Chloride 250 ml @ 250 mls/hr 1X ONCE IV ; Start at 16:15; Stop 07/04/18 at 17:14; Status UNV Sodium Chloride 500 ml @ 0 mls/hr 1X ONCE IV ; Start 07/04/18 at 16:15; Stop 07/04/18 at 16:16; Status DC Vancomycin HCl 2 gm/Sodium Chloride 500 ml @ 250 mls/hr 1X ONCE IV Last administered on 07/04/18at 18:35; Start 07/04/18 at 16:30; Stop 07/04/18 at 18:29 ; Status DC Sodium Chloride 1,000 ml @ 150 mls/hr Q6H40M IV Last administered on at 16:35; Start 07/04/18 at 16:09; Stop 07/04/18 at 18:32; Status DC Sodium Chloride 50 ml @ As Directed STK-MED ONCE .ROUTE ; Start 07/04/18 at 16: 13; Stop 07/04/18 at 16:14; Status DC Piperacillin Sod/ Tazobactam Sod (Zosyn) 3.375 gm STK-MED ONCE IV ; Start at 16:13; Stop 07/04/18 at 16:14; Status DC Diphenhydramine HCl (Benadryl) 25 mg PRN QHS PRN PO ALLERGIES Last administered on 07/04/18at 21:27; Start 07/04/18 at 17:30 Potassium Chloride (Klor-Con) 20 meq DAILY PO ; Start 07/05/18 at 09:00; Stop 07/05/18 at 09:00; Status DC Prednisone (Prednisone) 12 mg DAILY PO ; Start 07/05/18 at 09:00; Stop 07/05/18 at 09:00; Status DC Tramadol HCl (Ultram) 50 mg PRN Q12HR PRN PO PAIN; Start 07/04/18 at 17:30 Acetaminophen (Tylenol) 500 mg PRN BID PRN PO PAIN / TEMP; Start 07/04/18 at 17 :45 Alprazolam (Xanax) 0.25 mg PRN Q8HRS PRN PO ANXIETY / AGITATION; Start at 19:45 Non-Formulary Medication (Amitriptyline Hcl ) 25 mg HS PO ; Start 07/04/18 at 21 :00; Stop 07/04/18 at 21:00; Status DC Cetirizine HCl (ZyrTEC) 10 mg DAILY PO Last administered on 07/05/18at 08:39; Start 07/05/18 at 09:00 Famotidine (Pepcid) 20 mg PRN BID PRN PO INDIGESTION; Start 07/04/18 at 21:00 Cyclobenzaprine HCl (Flexeril) 10 mg TID PO Last administered on 07/05/18at 08: 40; Start 07/04/18 at 21:00 Non-Formulary Medication (Ergocalciferol (Vitamin D2) (Vitamin D2)) 1 cap WEEKLY PO ; Start 07/11/18 at 09:00; Stop 07/11/18 at 09:00; Status DC Non-Formulary Medication (Etanercept (Enbrel)) 50 mg WEEKLY SQ ; Start at 09:00; Status UNV Fluconazole (Diflucan) 150 mg 1X ONCE PO Last administered on 07/04/18at 21:27 ; Start 07/04/18 at 21:00; Stop 07/04/18 at 21:01; Status DC Fluticasone Propionate (Flonase) 1 spray DAILY NS Last administered on at 08:40; Start 07/05/18 at 09:00 Non-Formulary Medication (Gabapentin ) 200 cap BID PO ; Start 07/04/18 at 21:00 ; Stop 07/04/18 at 21:00; Status DC Glipizide (Glucotrol) 5 mg BIDBFRMEAL PO Last administered on 07/05/18at 08:39; Start 07/05/18 at 07:30 Non-Formulary Medication (Insulin Degludec (Tresiba Flextouch U-200)) 96 units DAILY SUBCUT ; Start 07/05/18 at 09:00; Stop 07/05/18 at 09:00; Status DC Non-Formulary Medication (Insulin Glulisine (Apidra Solostar)) 20 units TIDWMEALS SUBCUT ; Start 07/05/18 at 08:00; Stop 07/05/18 at 08:00; Status DC Pantoprazole Sodium (Protonix) 40 mg DAILY PO Last administered on 07/05/18 08 :39; Start 07/05/18 at 09:00 Furosemide (Lasix) 20 mg DAILY IVP Last administered on 07/05/18at 08:42; Start 07/04/18 at 18:45 Vancomycin HCl (Vanco Per Pharmacy) 1 each PRN DAILY PRN MC SEE COMMENTS Last administered on 07/04/18at 19:56; Start 07/04/18 at 17:30 Methylprednisolone Sodium Succinate (SOLU-Medrol 40MG VIAL) 40 mg Q8HRS IV Last administered on 07/05/18at 05:45; Start 07/04/18 at 22:00 Methylprednisolone Sodium Succinate (SOLU-Medrol 40MG VIAL) 40 mg Q8HRS IV ; Start 07/04/18 at 22:00; Status UNV Heparin Sodium (Porcine) (Heparin Sodium) 5,000 unit Q8HRS SQ Last administered on 07/05/18at 05:46; Start 07/04/18 at 22:00 Potassium Chloride (Klor-Con) 20 meq BID PO Last administered on 12/5/18at 08: 40; Start 07/05/18 at 09:00 Amitriptyline HCl (Elavil) 50 mg QHS PO Last administered on 07/04/18at 21:28; Start 07/04/18 at 21:00 Gabapentin (Neurontin) 300 mg BID PO Last administered on 07/05/18at 08:39; Start 07/04/18 at 21:00 Non-Formulary Medication (Insulin Degludec (Tresiba Flextouch U-200)) 98 units DAILY SUBCUT ; Start 07/05/18 at 09:00; Stop 07/05/18 at 09:00; Status DC Non-Formulary Medication (Insulin Aspart (Novolog Flexpen)) 10 unit TIDWMEALS SQ Last administered on 07/05/18at 09:27; Start 07/05/18 at 08:00 Vancomycin HCl 1.5 gm/Sodium Chloride 500 ml @ 250 mls/hr Q24H IV ; Start 07/05 at 18:00 Vancomycin HCl (Vancomycin Trough Level) 1 each 1X ONCE MC ; Start 07/06/18 at 17:30; Stop 07/06/18 at 17:31 Albuterol/ Ipratropium (Duoneb) 3 ml RTQID NEB Last administered on 07/05/18at 09:25; Start 07/04/18 at 20:00 Piperacillin Sod/ Tazobactam Sod (Zosyn Per Pharmacy) 1 each PRN DAILY PRN MC SEE COMMENTS; Start 07/04/18 at 20:45 Piperacillin Sod/ Tazobactam Sod 3.375 gm/Sodium Chloride 50 ml @ 100 mls/hr Q6H IV Last administered on 07/05/18at 04:02; Start 07/04/18 at 22:00 Non-Formulary Medication 0-7 UNITS TIDWMEALS SQ ; Start 07/05/18 at 09:30 Dextrose 12.5 gm PRN Q15MIN PRN IV SEE COMMENTS; Start 07/05/18 at 08:45 Non-Formulary Medication (Insulin Degludec (Tresiba Flextouch U-200)) 98 units HS SQ ; Start 07/05/18 at 21:00 Active Scripts Active Reported Ambien (Zolpidem Tartrate) 5 Mg Tablet 1 Tab PO QHS Hydrochlorothiazide Tablet (Hydrochlorothiazide) 25 Mg Tablet 25 Mg PO DAILY Hydroxyzine Hcl 25 Mg Tablet 25 Mg PO PRN QHS PRN Novolog Flexpen (Insulin Aspart) 100 Unit/1 Ml Insuln.pen 10 Unit SQ TIDWMEALS Acid [employer] (Cimetidine) 200 Mg Tablet 200 Mg PO PRN PRN Acetaminophen 500 Mg Tablet 1 Tab PO BID PRN Benadryl (Diphenhydramine Hcl) 25 Mg Capsule 1 Cap PO QHS PRN Alprazolam 0.25 Mg Tablet 0.25 Mg PO Q8HRS PRN Vitamin D2 (Ergocalciferol (Vitamin D2)) 50,000 Unit Capsule 1 Cap PO WEEKLY Gabapentin 100 Mg Capsule 300 Cap PO BID Glipizide 5 Mg Tablet 1 Tab PO BID Tresiba Flextouch U-200 (Insulin Degludec) 200 Unit/1 Ml Insuln.pen 98 Units SUBCUT DAILY Tramadol Hcl (Tramadol HCl) 50 Mg Tablet 50 Mg PO PRN Q12HR PRN Diflucan (Fluconazole) 150 Mg Tablet 1 Tab PO ONCE Protonix (Pantoprazole Sodium) 40 Mg Tablet.dr 1 Tab PO DAILY Zyrtec (Cetirizine Hcl) 10 Mg Tablet 10 Mg PO DAILY LAST DOSE GIVEN: DATE: TODAY TIME: AM NEXT DOSE DUE: DATE: TOMORROW TIME: AM Flonase Allergy Relief (Fluticasone Propionate) 9.9 Ml [place].susp 1 Spr NS DAILY LAST DOSE GIVEN: DATE: TODAY TIME: AM NEXT DOSE DUE: DATE: TOMORROW TIME: AM Amitriptyline Hcl 25 Mg Tablet 2 Tab PO HS LAST DOSE GIVEN: DATE: YESTERDAY TIME: AT BEDTIME NEXT DOSE DUE: DATE: TODAY TIME: AT BEDTIME Cyclobenzaprine Hcl 10 Mg Tablet 10 Mg PO TID LAST DOSE GIVEN: DATE: YESTERDAY TIME: AT BEDTIME NEXT DOSE DUE: DATE: TODAY TIME: AT BEDTIME IF NEEDED Klor-Con M20 (Potassium Chloride) 20 Meq Tab.er.prt 20 Meq PO BID LAST DOSE GIVEN: DATE: TODAY TIME: AM NEXT DOSE DUE: DATE: TOMORROW TIME: AM Prednisone 10 Mg Tablet 18 Mg PO DAILY LAST DOSE GIVEN: DATE: TODAY TIME: AM NEXT DOSE DUE: DATE: TOMORROW TIME: AM Enbrel (Etanercept) 50 Mg/1 Ml Disp.syrin 50 Mg SQ WEEKLY RESTART ON YOUR NORMALLY SCHEDULED DAY not given this admission Allergies: Coded Allergies: insulin aspart (Verified Allergy, Severe, Anaphylaxis, 01/26/18) insulin glargine (Verified Allergy, Severe, Anaphylaxis, 01/26/18) insulin lispro (Verified Allergy, Severe, Anaphylaxis, 01/26/18) Gadolinium-Containing Contrast Medi (Verified Allergy, Intermediate, 05/25) Influenza Virus Vaccines (Verified Allergy, Intermediate, 01/26/18) Sulfa (Sulfonamide Antibiotics) (Verified Allergy, Intermediate, 01/26/18) alogliptin (Verified Allergy, Intermediate, 05/25/18) capsaicin (Verified Allergy, Intermediate, 01/26/18) clindamycin (Verified Allergy, Intermediate, 05/25/18) codeine (Verified Allergy, Intermediate, 01/26/18) exenatide (Verified Allergy, Intermediate, 05/25/18) insulin glulisine (Verified Allergy, Intermediate, Rash, 01/26/18) iodine (Verified Allergy, Intermediate, 01/26/18) levofloxacin (Verified Allergy, Intermediate, 01/26/18) menthol (Verified Allergy, Intermediate, 01/26/18) metformin (Verified Allergy, Intermediate, Hives, 01/26/18) morphine (Verified Allergy, Intermediate, 05/25/18) naproxen (Verified Allergy, Intermediate, 01/26/18) pioglitazone (Verified Allergy, Intermediate, 05/25/18) pregabalin (Verified Allergy, Intermediate, 05/25/18) Review of System as per HPI HEENT: YES: Nasal congestion, Sore Throat, Other (ear congestion) Respiratory: YES: Orthopnea, Shortness of breath, SOB with excertion Cardiovascular: yes: Orthopnea, Edema Musculoskeletal: YES: Joint Pain, Joint Stiffness General: Alert, Oriented X3, Cooperative, No acute distress HEENT: Atraumatic, EOMI, Mucous membr. moist/pink Lungs: Other (bibasilar crackles) Heart: Normal S1, Normal S2, Other (no gallops, clicks or rubs) Abdomen: Normal bowel sounds, Soft, No tenderness Extremities: No cyanosis, Other (1-2+ edema left>right) Neuro: Normal speech, Strength at 5/5 X4 ext Psych/Mental Status: Mental status NL, Mood NL VITALS Vital Signs Date Time Temp Pulse Resp B/P (MAP) Pulse Ox O2 Delivery O2 Flow Rate FiO2 07/05/18 09:27 97 Room Air 07/05/18 08:43 110 18 162/77 (105) 1.0 07/05/18 05:35 97.9 Labs Laboratory Tests Test 07/04/18 15:22 07/04/18 15:40 07/04/18 19:47 07/04/18 20:05 White Blood Count 8.8 x10^3/uL (4.0-11.0) Red Blood Count 4.95 x10^6/uL (3.50-5.40) Hemoglobin 11.5 g/dL (12.0-15.5) Hematocrit 36.9 % (36.0-47.0) Mean Corpuscular Volume 75 fL (79-100) Mean Corpuscular Hemoglobin 23 pg (25-35) Mean Corpuscular Hemoglobin Concent 31 g/dL (31-37) Red Cell Distribution Width 17.6 % (11.5-14.5) Platelet Count 256 x10^3/uL (140-400) Neutrophils (%) (Auto) 90 % (31-73) Lymphocytes (%) (Auto) 8 % (24-48) Monocytes (%) (Auto) 2 % (0-9) Eosinophils (%) (Auto) 0 % (0-3) Basophils (%) (Auto) 0 % (0-3) Neutrophils # (Auto) 8.0 x10^3uL (1.8-7.7) Lymphocytes # (Auto) 0.7 x10^3/uL (1.0-4.8) Monocytes # (Auto) 0.1 x10^3/uL (0.0-1.1) Eosinophils # (Auto) 0.0 x10^3/uL (0.0-0.7) Basophils # (Auto) 0.0 x10^3/uL (0.0-0.2) Prothrombin Time 10.0 SEC (9.4-11.4) Prothromb Time International Ratio 1.0 (0.9-1.1) Activated Partial Thromboplast Time 22 SEC (23-33) D-Dimer (Dalia) 2.29 mg/L (0.00-0.50) Sodium Level 139 mmol/L (136-145) Potassium Level 4.1 mmol/L (3.5-5.1) Chloride Level 101 mmol/L (98-107) Carbon Dioxide Level 27 mmol/L (21-32) Anion Gap 11 (6-14) Blood Urea Nitrogen 20 mg/dL (7-20) Creatinine 1.2 mg/dL (0.6-1.0) Estimated GFR (Cockcroft-Gault) 44.4 BUN/Creatinine Ratio 17 (6-20) Glucose Level 259 mg/dL (70-99) Lactic Acid Level 3.4 mmol/L (0.4-2.0) 5.2 mmol/L (0.4-2.0) Calcium Level 8.6 mg/dL (8.5-10.1) Magnesium Level 1.7 mg/dL (1.8-2.4) Total Bilirubin 0.4 mg/dL (0.2-1.0) Aspartate Amino Transf (AST/SGOT) 64 U/L (15-37) Alanine Aminotransferase (ALT/SGPT) 89 U/L (14-59) Alkaline Phosphatase 116 U/L (46-116) Creatine Kinase 54 U/L (26-192) Troponin I Quantitative 0.023 ng/mL (0-0.055) RR-Jwh-X-Type Natriuretic Peptide 170 pg/mL (0-124) Total Protein 7.2 g/dL (6.4-8.2) Albumin 3.4 g/dL (3.4-5.0) Albumin/Globulin Ratio 0.9 (1.0-1.7) Blood Gas pH 7.42 (7.35-7.45) Blood Gas PCO2 37 mmHg (35-45) Blood Gas PO2 65 mmHg (71-100) Blood Gas HCO3 24 mmol/L (22-26) Arterial Bld O2 Saturation (Calc) 93 % (92-99) FiO2 21 % Urine Collection Type Unknown Urine Color Yellow Urine Clarity Clear Urine pH 5.5 Urine Specific [place] 1.010 Urine Protein Neg (NEG-TRACE) Urine Glucose (UA) 500 mg/dL (NEG) Urine Ketones (Stick) Neg mg/dL (NEG) Urine Blood Trace (NEG) Urine Nitrite Pos (NEG) Urine Bilirubin Neg (NEG) Urine Urobilinogen Dipstick 0.2 mg/dL (0.2 mg/dL) Urine Leukocyte Esterase Neg (NEG) Urine RBC Occ /HPF (0-2) Urine WBC 1-4 /HPF (0-4) Urine Squamous Epithelial Cells Few /LPF Urine Bacteria Mod /HPF (0-FEW) Urine Yeast Present /HPF Test 07/04/18 21:14 07/05/18 03:17 07/05/18 08:22 07/05/18 08:24 Glucose (Fingerstick) 393 mg/dL (70-99) 308 mg/dL (70-99) 307 mg/dL (70-99) White Blood Count 8.3 x10^3/uL (4.0-11.0) Red Blood Count 4.65 x10^6/uL (3.50-5.40) Hemoglobin 10.6 g/dL (12.0-15.5) Hematocrit 34.6 % (36.0-47.0) Mean Corpuscular Volume 74 fL (79-100) Mean Corpuscular Hemoglobin 23 pg (25-35) Mean Corpuscular Hemoglobin Concent 31 g/dL (31-37) Red Cell Distribution Width 17.6 % (11.5-14.5) Platelet Count 247 x10^3/uL (140-400) Neutrophils (%) (Auto) 92 % (31-73) Lymphocytes (%) (Auto) 6 % (24-48) Monocytes (%) (Auto) 2 % (0-9) Eosinophils (%) (Auto) 0 % (0-3) Basophils (%) (Auto) 0 % (0-3) Neutrophils # (Auto) 7.6 x10^3uL (1.8-7.7) Lymphocytes # (Auto) 0.5 x10^3/uL (1.0-4.8) Monocytes # (Auto) 0.2 x10^3/uL (0.0-1.1) Eosinophils # (Auto) 0.0 x10^3/uL (0.0-0.7) Basophils # (Auto) 0.0 x10^3/uL (0.0-0.2) Sodium Level 139 mmol/L (136-145) Potassium Level 3.3 mmol/L (3.5-5.1) Chloride Level 103 mmol/L (98-107) Carbon Dioxide Level 26 mmol/L (21-32) Anion Gap 10 (6-14) Blood Urea Nitrogen 23 mg/dL (7-20) Creatinine 1.2 mg/dL (0.6-1.0) Estimated GFR (Cockcroft-Gault) 44.4 BUN/Creatinine Ratio 19 (6-20) Glucose Level 302 mg/dL (70-99) Lactic Acid Level 2.3 mmol/L (0.4-2.0) Calcium Level 7.9 mg/dL (8.5-10.1) Magnesium Level 1.8 mg/dL (1.8-2.4) Total Bilirubin 0.5 mg/dL (0.2-1.0) Aspartate Amino Transf (AST/SGOT) 38 U/L (15-37) Alanine Aminotransferase (ALT/SGPT) 76 U/L (14-59) Alkaline Phosphatase 95 U/L (46-116) Total Protein 6.8 g/dL (6.4-8.2) Albumin 3.1 g/dL (3.4-5.0) Albumin/Globulin Ratio 0.8 (1.0-1.7) Test 07/05/18 09:20 Glucose (Fingerstick) 328 mg/dL (70-99) Images EKG - sinus rhythm 1st degree AV block, left axis, non specific changes, no acute ischemia CXR - IMPRESSION: Vascular congestion with interstitial prominence suggesting mild pulmonary edema due to congestive heart failure. VQ - IMPRESSION: Normal lung scan. Assessment/Plan 1. CHF, acute, likely diastolic - check echo, continue diuresis. 2. hypertension - add lisinopril 3. hypokalemia - replace and increase supplement 4. hepatic insufficiency - ?congestive 5. lactic acidosis - PCP 6. diabetes mellitus - uncontrolled - per PCP WIL CRUZ MD 07/05/18 1651: CONSULT Assessment/Plan Pt. seen and examined. Agree with above NURSE EMERGENCY ROOM note. Echo wnl. No significant diastolic or systolic dysfunction. Supportive care with diuresis as tolerated Outpt evaluation on a routine basis. CARMEL JURADO APRN Jul 05, 2018 09:44 WIL CRUZ MD Jul 05, 2018 16:51
[2018-07-05 10:30] LABS: HYPOCHROMIA SLIGHT; MICROCYTOSIS SLIGHT; PLT ESTIMATE ADEQUATE (ADEQUATE); STOMATOCYTES OCC; TARGET CELLS OCC
[2018-07-05] MEDS ORDERED: POTASSIUM CHLORIDE 20 MEQ TABLET.ER. PO ONE (10:30)
[2018-07-05] MEDS: LISINOPRIL 5 MG TABLET. PO SCH (11:04)
--- NOTE | 2018-07-05 12:05 | RAD ---
Bilateral lower extremity venous ultrasound, 07/05/2018: History: Elevated d-dimer, edema Duplex evaluation of the deep veins in the lower extremities was performed including grayscale, color-flow and spectral Doppler analysis. The femoral and popliteal veins demonstrate normal compressibility and normal responses to distal augmentation maneuvers. Color imaging of those vessels shows no evidence of intraluminal clot. The visualized deep veins in both calves are patent. IMPRESSION: There is no sonographic evidence of deep vein thrombosis in either lower extremity. Electronically signed by: Loi Yee MD (07/05/2018 12:01 PM) [facility]
[2018-07-05] MEDS: diphenhydrAMINE HCL 25 MG CAPSULE PO PRN ×2 (13:02→21:03)
--- NOTE | 2018-07-05 15:44 | CARD ---
MR#: [id number] Date of Study: 07/05/2018 Ordering Physician: JOSE FRANCISCO SZYMANSKI, Referring Physician: JOSE FRANCSICO SZYMANSKI, Tech: Padma Flynn PK APPROVED REPORT EXAM: Two-dimensional and M-mode echocardiogram with Doppler and color Doppler. Other Information Quality : Good INDICATION Congestive Heart Failure 2D DIMENSIONS RVDd2.5 (2.9-3.5cm)Left Atrium(2D)4.1 (1.6-4.0cm) IVSd1.0 (0.7-1.1cm)Aortic Root(2D)3.1 (2.0-3.7cm) LVDd5.4 (3.9-5.9cm)PWd1.2 (0.7-1.1cm) LVDs4.5 (2.5-4.0cm)FS (%) 25.0 % SV51.9 mlLVEF(%)50.0 (>50%) Aortic Valve AoV Peak Jhonathan.150.2cm/sAoV VTI24.3cm AO Peak GR.9.0mmHgAO Mean GR.6mmHg MAIA (VTI)2.42cm2 Mitral Valve MV E Pyrvgpif300.0cm/sMV DECEL [id number] MV A Fwommouv13.5cm/sE/A Ratio1.6 Tricuspid Valve TR P. [id number] [id number] TR Peak Gr.[id number] LEFT VENTRICLE The left ventricle is normal size. There is mild concentric left ventricular hypertrophy. Left ventri marysol systolic function is low normal. The Ejection Fraction is 50-55%. There is normal LV segmental wa ll motion. RIGHT VENTRICLE The right ventricle is normal size. The right ventricular systolic function is normal. ATRIA The left atrium is mildly dilated. The right atrium size is normal. The interatrial septum is intact with no evidence for an atrial septal defect or patent foramen ovale as noted on 2-D or Doppler imagi ng. AORTIC VALVE The aortic valve is calcified but opens well. Doppler and Color Flow revealed trace aortic regurgitat ion. There is no significant aortic valvular stenosis. MITRAL VALVE The mitral valve is calcified but opens well. There is no evidence of mitral valve prolapse. There is no mitral valve stenosis. Doppler and Color-flow revealed mild mitral regurgitation. TRICUSPID VALVE The tricuspid valve is normal in structure and function. Doppler and Color Flow revealed trace tricus pid regurgitation. There is mild pulmonary hypertension. The PA pressure was estimated at 35 mmHg. Th ere is no tricuspid valve stenosis. PULMONIC VALVE The pulmonic valve is not well visualized. Doppler and Color Flow revealed trace to mild pulmonic michael vular regurgitation. There is no pulmonic valvular stenosis. GREAT VESSELS The aortic root is normal in size. The ascending aorta is normal in size. The IVC is normal in size a nd collapses >50% with inspiration. PERICARDIAL EFFUSION There is no evidence of significant pericardial effusion. Critical Notification Critical Value: No <Conclusion> Left ventricle systolic function is low normal. The Ejection Fraction is 50-55%. There is normal LV segmental wall motion. Mild mitral regurgitation. Trace tricuspid regurgitation. The PA pressure was estimated at 35 mmHg. There is no evidence of significant pericardial effusion. Signed by : Betito Burch, Electronically Approved : 07/05/2018 15:42:29
[2018-07-05] MEDS: traMADol 50 MG TABLET PO PRN ×2 (16:10→21:27)
[2018-07-05 17:01] LABS: CREATININE 1.2 mg/dL (0.6-1.0); GFR 44.4; POTASSIUM 3.4 mmol/L (3.5-5.1)
[2018-07-05] MEDS ORDERED: VANCOMYCIN 1.5 GM in IV NORMAL SALINE 500ML 500 ML IV SCH (18:00)
[2018-07-05] MEDS ORDERED: FUROSEMIDE 20 MG/2 ML VIAL IVP SCH (21:00)
[2018-07-05] MEDS ORDERED: FAMOTIDINE 20 MG/2 ML VIAL IVP ONE (21:00)
[2018-07-05] MEDS: INSULIN DEGLUDEC SQ SCH (21:00)
[2018-07-05] MEDS: AMITRIPTYLINE HCL 50 MG TABLET PO SCH (21:03)
--- NOTE | 2018-07-06 00:21 | HP ---
ADMIT DATE: 07/04/2018 HISTORY OF PRESENT ILLNESS: The patient is a 72-year-old female who came in through the Emergency Room with shortness of breath, which the patient has been having for about 2 weeks. She saw her doctor down at who is treating her for her rheumatoid arthritis. He told her to see her primary care doctor. She came up here through the Emergency Room and was found to be in acute exacerbation of her CHF. The patient also was felt to be possibly septic, and the patient was admitted to the ICU for further evaluation of IV antibiotic therapy, and further evaluation. PAST MEDICAL HISTORY: Includes lens implants, cataracts, cataract extraction, peripheral neuropathy, hypercholesterolemia, hypertension, COPD, bronchitis, pneumonia, abdominal cramping, cholecystectomy, hysterectomy, muscle spasms of the extremities, amputation of the second toe of the left first knuckle, rheumatoid arthritis, orthopedic surgery, bilateral foot surgery for RA, joint replacement, bilateral knee replacements, prednisone for RA, chronic back pain, anxiety. Pneumococcal and flu vaccines are up to date. FAMILY HISTORY: Positive for stroke and myocardial infarction in father and mother respectively. ALLERGIES: ____ contrast, influenza vaccine, sulfur, sulfonamide antibiotics, alogliptin, CAPSAICIN, CLINDAMYCIN, CODEINE, INSULIN, Aspartame Insulin Glargine and insulin ____. The patient is a full code. SOCIAL HISTORY: The patient denies smoking, alcohol, or drug use. The patient otherwise is basically stable there. REVIEW OF SYSTEMS: The patient notes increased shortness of breath, swelling, weight gain of approximately 25-30 pounds. Denies any problem with bowels or bladder. Some mild nausea, but otherwise basically unremarkable. PHYSICAL EXAMINATION: GENERAL: A pleasant white female in a moderate amount of distress. VITAL SIGNS: Blood pressure that of 170/70, respiratory rate 24, pulse 110, afebrile. HEENT: The patient's head was atraumatic, normocephalic. Eyes: PERRLA without jaundice. Mouth and throat were normal. NECK: Supple, without JVD or carotid bruits. No thyromegaly. LUNGS: Diminished. Poor movement of air, some rales and rhonchi noted in the bases. CARDIOVASCULAR: Regular sinus rhythm. S1, S2. ABDOMEN: Soft, nontender, no rebound or guarding. Positive bowel sounds, no hepatosplenomegaly noted. EXTREMITIES: No clubbing, cyanosis, or edema. NEUROLOGIC: The patient was alert and oriented x3. Speech is normal. Cranial nerves 2-12 grossly intact. LABORATORY DATA: White count 8, hemoglobin and hematocrit 11 and 36 respectively. Chemistries 139, 3.3, 23, 12. Sugars in the 300s, lactic acid was 2.3. She had been kept on vancomycin for that and Zosyn. Elevated liver enzymes. Albumin slightly low. The patient's urine basically does have positive for nitrites. Culture pending on that. IMPRESSION: So, in any case, she had zfghn-[id number] of chronic diastolic heart failure, [id number] of chronic respiratory distress, dyspnea, morbid obesity, has severe rheumatoid arthritis, and possible sepsis. PLAN: Continue with IV antibiotic therapies and diuresis. Cardiology consultation and make further evaluation on her as indicated per those results. JOSE FRANCISCO SZYMANSKI MD DR: LAURENT/jaime JOB#: [id number] / [id number]
[2018-07-06 04:00] VITALS: BP 152/84
[2018-07-06] MEDS: PIPERACILLIN/TAZOBACTAM 3.375 GM in IV NORMAL SALINE 50ML 50 ML IV SCH ×4 (04:12→22:22)
[2018-07-06] MEDS: IPRATRPIUM/ALBUTEROL 0.5/2.5MG 3 ML NEBU. NEB SCH ×5 (04:33→20:23)
[2018-07-06] MEDS: methylPREDNISolone SOD SUCC PF 40 MG/ML VIAL. IV SCH (05:32)
[2018-07-06] MEDS: HEPARIN for SUB-Q USE 5,000 UNIT/ML VIAL. SQ SCH ×3 (05:34→22:31)
[2018-07-06 06:00] VITALS: BP 152/84
[2018-07-06 06:29] LABS: BASO % 0 % (0-3); EOS % 0 % (0-3); HEMATOCRIT 32.7 % (36.0-47.0); HEMOGLOBIN 10.1 g/dL (12.0-15.5); LYMPH # 0.8 x10^3/uL (1.0-4.8); LYMPH % 5 % (24-48); MEAN CORPUSCULAR HEMOGLOBIN 23 pg (25-35); MEAN CORPUSCULAR HGB CONC 31 g/dL (31-37); MEAN CORPUSCULAR VOLUME 74 fL (79-100); MONO # 0.8 x10^3/uL (0.0-1.1); MONO % 6 % (0-9); NEUT # 13.5 x10^3uL (1.8-7.7); NEUT % 89 % (31-73); PLATELET COUNT 234 x10^3/uL (140-400); RED BLOOD COUNT 4.44 x10^6/uL (3.50-5.40); RED CELL DISTRIBUTION WIDTH 17.5 % (11.5-14.5); WHITE BLOOD COUNT 15.2 x10^3/uL (4.0-11.0)
[2018-07-06 06:43] LABS: CALCIUM 7.6 mg/dL (8.5-10.1); CREATININE 1.2 mg/dL (0.6-1.0); GFR 44.4; POTASSIUM 3.7 mmol/L (3.5-5.1)
[2018-07-06 07:32] LABS: % LYMPHS 2 % (24-48); % MONOS 5 % (0-10); % SEGS 93 % (35-66); ANISOCYTOSIS SLIGHT; HYPOCHROMIA MOD; PLT ESTIMATE ADEQUATE (ADEQUATE)
[2018-07-06] MEDS: NOVOLOG SQ SCH ×3 (08:00→17:00)
[2018-07-06] MEDS: PANTOPRAZOLE 40 MG TABLET. PO SCH (09:15)
[2018-07-06] MEDS: glipiZIDE 5 MG TABLET PO SCH ×2 (09:15→15:43)
[2018-07-06] MEDS: GABAPENTIN 300 MG CAPSULE. PO SCH ×2 (09:15→21:34)
[2018-07-06] MEDS: LISINOPRIL 5 MG TABLET. PO SCH (09:17)
[2018-07-06] MEDS: CETIRIZINE HCL 10 MG TABLET PO SCH (09:17)
[2018-07-06] MEDS: POTASSIUM CHLORIDE 20 MEQ TABLET.ER. PO SCH ×2 (09:17→21:34)
[2018-07-06] MEDS: CYCLOBENZAPRINE 10 MG TABLET. PO SCH ×3 (09:17→21:34)
[2018-07-06] MEDS: FUROSEMIDE 20 MG/2 ML VIAL IVP SCH (09:19)
[2018-07-06] MEDS: INSULIN ASPART 10 UNIT SQ SCH ×3 (09:19→17:12)
[2018-07-06] MEDS: FLUTICASONE 50MCG/NASAL SPRAY 16GM BOTTLE. NS SCH (09:19)
--- NOTE | 2018-07-06 09:35 | PDOC ---
PROGRESS NOTES Assessment 1. CHF, acute, diastolic - Clinically improved. Normal LV systolic and diastolic function by echo. Good diuresis. Change to oral lasix. Outpatient follow up in 2 weeks. 2. sinus tachycardia - add metoprolol 3. hypertension - improved this am. Pressure remained elevated through yesterday and last night. low dose metoprolol as above. 4. hypokalemia - WNL 5. CKD stage 3 - Cr remains stable. 6. diabetes mellitus - uncontrolled - Mgmt per PCP Subjective feeling much better, no chest pain, dyspnea significantly improved. no palpitations. remains tachy. Objective Vital Signs Date Time Temp Pulse Resp B/P (MAP) Pulse Ox O2 Delivery O2 Flow Rate FiO2 07/06/18 09:17 112 117/73 07/06/18 06:00 98.5 20 95 Room Air 1.0 Intake and Output 07/06/18 07:00 Intake Total 1560 ml Output Total 3475 ml Balance -1915 ml Intake Oral 860 ml IV Total 700 ml Output Urine Total 3475 ml # Voids 1 # Bowel Movements 1 Abdomen: Normal bowel sounds, Soft, No tenderness Heart: Other (tachycardic, RRR, no significant murmurs, clicks or rubs, no gallops) Extremities: No cyanosis, Normal pulses, Other (trace to 1+ edema, improved. ) General: Alert, Oriented X3, Cooperative, No acute distress Lungs: Other (few basilar crackles, improved) Neuro: Normal speech, Strength at 5/5 X4 ext Psych/Mental Status: Mental status NL, Mood NL Review of Relevant I have reviewed the following items federico (where applicable) has been applied. Labs Laboratory Tests Test 07/04/18 15:22 07/04/18 15:40 07/04/18 17:00 07/04/18 19:20 White Blood Count 8.8 x10^3/uL (4.0-11.0) Red Blood Count 4.95 x10^6/uL (3.50-5.40) Hemoglobin 11.5 g/dL (12.0-15.5) Hematocrit 36.9 % (36.0-47.0) Mean Corpuscular Volume 75 fL (79-100) Mean Corpuscular Hemoglobin 23 pg (25-35) Mean Corpuscular Hemoglobin Concent 31 g/dL (31-37) Red Cell Distribution Width 17.6 % (11.5-14.5) Platelet Count 256 x10^3/uL (140-400) Neutrophils (%) (Auto) 90 % (31-73) Lymphocytes (%) (Auto) 8 % (24-48) Monocytes (%) (Auto) 2 % (0-9) Eosinophils (%) (Auto) 0 % (0-3) Basophils (%) (Auto) 0 % (0-3) Neutrophils # (Auto) 8.0 x10^3uL (1.8-7.7) Lymphocytes # (Auto) 0.7 x10^3/uL (1.0-4.8) Monocytes # (Auto) 0.1 x10^3/uL (0.0-1.1) Eosinophils # (Auto) 0.0 x10^3/uL (0.0-0.7) Basophils # (Auto) 0.0 x10^3/uL (0.0-0.2) Prothrombin Time 10.0 SEC (9.4-11.4) Prothromb Time International Ratio 1.0 (0.9-1.1) Activated Partial Thromboplast Time 22 SEC (23-33) D-Dimer (Dalia) 2.29 mg/L (0.00-0.50) Sodium Level 139 mmol/L (136-145) Potassium Level 4.1 mmol/L (3.5-5.1) Chloride Level 101 mmol/L (98-107) Carbon Dioxide Level 27 mmol/L (21-32) Anion Gap 11 (6-14) Blood Urea Nitrogen 20 mg/dL (7-20) Creatinine 1.2 mg/dL (0.6-1.0) Estimated GFR (Cockcroft-Gault) 44.4 BUN/Creatinine Ratio 17 (6-20) Glucose Level 259 mg/dL (70-99) Lactic Acid Level 3.4 mmol/L (0.4-2.0) Calcium Level 8.6 mg/dL (8.5-10.1) Magnesium Level 1.7 mg/dL (1.8-2.4) Total Bilirubin 0.4 mg/dL (0.2-1.0) Aspartate Amino Transf (AST/SGOT) 64 U/L (15-37) Alanine Aminotransferase (ALT/SGPT) 89 U/L (14-59) Alkaline Phosphatase 116 U/L (46-116) Creatine Kinase 54 U/L (26-192) Troponin I Quantitative 0.023 ng/mL (0-0.055) QG-Hgi-X-Type Natriuretic Peptide 170 pg/mL (0-124) Total Protein 7.2 g/dL (6.4-8.2) Albumin 3.4 g/dL (3.4-5.0) Albumin/Globulin Ratio 0.9 (1.0-1.7) Blood Gas pH 7.42 (7.35-7.45) Blood Gas PCO2 37 mmHg (35-45) Blood Gas PO2 65 mmHg (71-100) Blood Gas HCO3 24 mmol/L (22-26) Arterial Bld O2 Saturation (Calc) 93 % (92-99) FiO2 21 % Procalcitonin < 0.10 ng/mL (0.00-0.10) Nasal Screen MRSA (PCR) Positive (Negative) Test 07/04/18 19:47 07/04/18 20:05 07/04/18 21:14 07/05/18 03:17 Lactic Acid Level 5.2 mmol/L (0.4-2.0) Urine Collection Type Unknown Urine Color Yellow Urine Clarity Clear Urine pH 5.5 Urine Specific [place] 1.010 Urine Protein Neg (NEG-TRACE) Urine Glucose (UA) 500 mg/dL (NEG) Urine Ketones (Stick) Neg mg/dL (NEG) Urine Blood Trace (NEG) Urine Nitrite Pos (NEG) Urine Bilirubin Neg (NEG) Urine Urobilinogen Dipstick 0.2 mg/dL (0.2 mg/dL) Urine Leukocyte Esterase Neg (NEG) Urine RBC Occ /HPF (0-2) Urine WBC 1-4 /HPF (0-4) Urine Squamous Epithelial Cells Few /LPF Urine Bacteria Mod /HPF (0-FEW) Urine Yeast Present /HPF Glucose (Fingerstick) 393 mg/dL (70-99) 308 mg/dL (70-99) Test 07/05/18 08:22 07/05/18 08:24 07/05/18 09:20 07/05/18 11:33 Glucose (Fingerstick) 307 mg/dL (70-99) 328 mg/dL (70-99) 341 mg/dL (70-99) White Blood Count 8.3 x10^3/uL (4.0-11.0) Red Blood Count 4.65 x10^6/uL (3.50-5.40) Hemoglobin 10.6 g/dL (12.0-15.5) Hematocrit 34.6 % (36.0-47.0) Mean Corpuscular Volume 74 fL (79-100) Mean Corpuscular Hemoglobin 23 pg (25-35) Mean Corpuscular Hemoglobin Concent 31 g/dL (31-37) Red Cell Distribution Width 17.6 % (11.5-14.5) Platelet Count 247 x10^3/uL (140-400) Neutrophils (%) (Auto) 92 % (31-73) Lymphocytes (%) (Auto) 6 % (24-48) Monocytes (%) (Auto) 2 % (0-9) Eosinophils (%) (Auto) 0 % (0-3) Basophils (%) (Auto) 0 % (0-3) Neutrophils # (Auto) 7.6 x10^3uL (1.8-7.7) Lymphocytes # (Auto) 0.5 x10^3/uL (1.0-4.8) Monocytes # (Auto) 0.2 x10^3/uL (0.0-1.1) Eosinophils # (Auto) 0.0 x10^3/uL (0.0-0.7) Basophils # (Auto) 0.0 x10^3/uL (0.0-0.2) Platelet Estimate Adequate (ADEQUATE) Hypochromasia Slight Microcytosis Slight Target Cells Occ Stomatocytes Occ Sodium Level 139 mmol/L (136-145) Potassium Level 3.3 mmol/L (3.5-5.1) Chloride Level 103 mmol/L (98-107) Carbon Dioxide Level 26 mmol/L (21-32) Anion Gap 10 (6-14) Blood Urea Nitrogen 23 mg/dL (7-20) Creatinine 1.2 mg/dL (0.6-1.0) Estimated GFR (Cockcroft-Gault) 44.4 BUN/Creatinine Ratio 19 (6-20) Glucose Level 302 mg/dL (70-99) Lactic Acid Level 2.3 mmol/L (0.4-2.0) Calcium Level 7.9 mg/dL (8.5-10.1) Magnesium Level 1.8 mg/dL (1.8-2.4) Total Bilirubin 0.5 mg/dL (0.2-1.0) Aspartate Amino Transf (AST/SGOT) 38 U/L (15-37) Alanine Aminotransferase (ALT/SGPT) 76 U/L (14-59) Alkaline Phosphatase 95 U/L (46-116) Total Protein 6.8 g/dL (6.4-8.2) Albumin 3.1 g/dL (3.4-5.0) Albumin/Globulin Ratio 0.8 (1.0-1.7) Test 07/05/18 16:35 07/05/18 21:00 07/06/18 05:19 07/06/18 06:09 Sodium Level 142 mmol/L (136-145) 144 mmol/L (136-145) Potassium Level 3.4 mmol/L (3.5-5.1) 3.7 mmol/L (3.5-5.1) Chloride Level 105 mmol/L (98-107) 104 mmol/L (98-107) Carbon Dioxide Level 26 mmol/L (21-32) 28 mmol/L (21-32) Anion Gap 11 (6-14) 12 (6-14) Blood Urea Nitrogen 28 mg/dL (7-20) 36 mg/dL (7-20) Creatinine 1.2 mg/dL (0.6-1.0) 1.2 mg/dL (0.6-1.0) Estimated GFR (Cockcroft-Gault) 44.4 44.4 Glucose Level 255 mg/dL (70-99) 253 mg/dL (70-99) Calcium Level 8.0 mg/dL (8.5-10.1) 7.6 mg/dL (8.5-10.1) Glucose (Fingerstick) 217 mg/dL (70-99) 231 mg/dL (70-99) White Blood Count 15.2 x10^3/uL (4.0-11.0) Red Blood Count 4.44 x10^6/uL (3.50-5.40) Hemoglobin 10.1 g/dL (12.0-15.5) Hematocrit 32.7 % (36.0-47.0) Mean Corpuscular Volume 74 fL (79-100) Mean Corpuscular Hemoglobin 23 pg (25-35) Mean Corpuscular Hemoglobin Concent 31 g/dL (31-37) Red Cell Distribution Width 17.5 % (11.5-14.5) Platelet Count 234 x10^3/uL (140-400) Neutrophils (%) (Auto) 89 % (31-73) Lymphocytes (%) (Auto) 5 % (24-48) Monocytes (%) (Auto) 6 % (0-9) Eosinophils (%) (Auto) 0 % (0-3) Basophils (%) (Auto) 0 % (0-3) Neutrophils # (Auto) 13.5 x10^3uL (1.8-7.7) Lymphocytes # (Auto) 0.8 x10^3/uL (1.0-4.8) Monocytes # (Auto) 0.8 x10^3/uL (0.0-1.1) Eosinophils # (Auto) 0.0 x10^3/uL (0.0-0.7) Basophils # (Auto) 0.0 x10^3/uL (0.0-0.2) Segmented Neutrophils % 93 % (35-66) Lymphocytes % 2 % (24-48) Monocytes % 5 % (0-10) Platelet Estimate Adequate (ADEQUATE) Hypochromasia Mod Anisocytosis Slight Microbiology 07/04/18 Blood Culture - Preliminary, Resulted NO GROWTH AFTER 1 DAY... Medications Current Medications Albuterol Sulfate (Ventolin) 2.5 mg STK-MED ONCE .ROUTE ; Start 07/04/18 at 15: 14; Stop 07/04/18 at 15:15; Status DC Methylprednisolone Sodium Succinate (SOLU-Medrol 125MG VIAL) 125 mg 1X ONCE IV Last administered on 07/04/18at 15:31; Start 07/04/18 at 15:30; Stop 07/04/18 at 15:31; Status DC Albuterol/ Ipratropium (Duoneb) 3 ml 1X ONCE NEB Last administered on at 15:31; Start 07/04/18 at 15:30; Stop 07/04/18 at 15:31; Status DC Sodium Chloride 1,000 ml @ 1,000 mls/hr 1X ONCE IV ; Start 07/04/18 at 15:30; Stop 07/04/18 at 15:31; Status DC Piperacillin Sod/ Tazobactam Sod 3.375 gm/Sodium Chloride 50 ml @ 100 mls/hr 1X ONCE IV Last administered on 07/04/18at 16:35; Start 07/04/18 at 16:15; Stop 07/04/18 at 16:44; Status DC Vancomycin HCl 1 gm/Sodium Chloride 250 ml @ 250 mls/hr 1X ONCE IV ; Start at 16:15; Stop 07/04/18 at 17:14; Status UNV Sodium Chloride 500 ml @ 0 mls/hr 1X ONCE IV ; Start 07/04/18 at 16:15; Stop 07/04/18 at 16:16; Status DC Vancomycin HCl 2 gm/Sodium Chloride 500 ml @ 250 mls/hr 1X ONCE IV Last administered on 07/04/18at 18:35; Start 07/04/18 at 16:30; Stop 07/04/18 at 18:29 ; Status DC Sodium Chloride 1,000 ml @ 150 mls/hr Q6H40M IV Last administered on at 16:35; Start 07/04/18 at 16:09; Stop 07/04/18 at 18:32; Status DC Sodium Chloride 50 ml @ As Directed STK-MED ONCE .ROUTE ; Start 07/04/18 at 16: 13; Stop 07/04/18 at 16:14; Status DC Piperacillin Sod/ Tazobactam Sod (Zosyn) 3.375 gm STK-MED ONCE IV ; Start at 16:13; Stop 07/04/18 at 16:14; Status DC Diphenhydramine HCl (Benadryl) 25 mg PRN QHS PRN PO ALLERGIES Last administered on 07/05/18at 21:03; Start 07/04/18 at 17:30 Potassium Chloride (Klor-Con) 20 meq DAILY PO ; Start 07/05/18 at 09:00; Stop 07/05/18 at 09:00; Status DC Prednisone (Prednisone) 12 mg DAILY PO ; Start 07/05/18 at 09:00; Stop 07/05/18 at 09:00; Status DC Tramadol HCl (Ultram) 50 mg PRN Q12HR PRN PO PAIN Last administered on at 16:10; Start 07/04/18 at 17:30 Acetaminophen (Tylenol) 500 mg PRN BID PRN PO PAIN / TEMP; Start 07/04/18 at 17 :45 Alprazolam (Xanax) 0.25 mg PRN Q8HRS PRN PO ANXIETY / AGITATION; Start at 19:45 Non-Formulary Medication (Amitriptyline Hcl ) 25 mg HS PO ; Start 07/04/18 at 21 :00; Stop 07/04/18 at 21:00; Status DC Cetirizine HCl (ZyrTEC) 10 mg DAILY PO Last administered on 07/06/18at 09:17; Start 07/05/18 at 09:00 Famotidine (Pepcid) 20 mg PRN BID PRN PO INDIGESTION; Start 07/04/18 at 21:00 Cyclobenzaprine HCl (Flexeril) 10 mg TID PO Last administered on 07/06/18at 09: 17; Start 07/04/18 at 21:00 Non-Formulary Medication (Ergocalciferol (Vitamin D2) (Vitamin D2)) 1 cap WEEKLY PO ; Start 07/11/18 at 09:00; Stop 07/11/18 at 09:00; Status DC Non-Formulary Medication (Etanercept (Enbrel)) 50 mg WEEKLY SQ ; Start at 09:00; Status UNV Fluconazole (Diflucan) 150 mg 1X ONCE PO Last administered on 07/04/18at 21:27 ; Start 07/04/18 at 21:00; Stop 07/04/18 at 21:01; Status DC Fluticasone Propionate (Flonase) 1 spray DAILY NS Last administered on at 09:19; Start 07/05/18 at 09:00 Non-Formulary Medication (Gabapentin ) 200 cap BID PO ; Start 07/04/18 at 21:00 ; Stop 07/04/18 at 21:00; Status DC Glipizide (Glucotrol) 5 mg BIDBFRMEAL PO Last administered on 07/06/18at 09:15; Start 07/05/18 at 07:30 Non-Formulary Medication (Insulin Degludec (Tresiba Flextouch U-200)) 96 units DAILY SUBCUT ; Start 07/05/18 at 09:00; Stop 07/05/18 at 09:00; Status DC Non-Formulary Medication (Insulin Glulisine (Apidra Solostar)) 20 units TIDWMEALS SUBCUT ; Start 07/05/18 at 08:00; Stop 07/05/18 at 08:00; Status DC Pantoprazole Sodium (Protonix) 40 mg DAILY PO Last administered on 07/06/18 09 :15; Start 07/05/18 at 09:00 Furosemide (Lasix) 20 mg DAILY IVP Last administered on 07/05/18at 08:42; Start 07/04/18 at 18:45; Stop 07/05/18 at 10:01; Status DC Vancomycin HCl (Vanco Per Pharmacy) 1 each PRN DAILY PRN MC SEE COMMENTS Last administered on 07/04/18 19:56; Start 07/04/18 at 17:30 Methylprednisolone Sodium Succinate (SOLU-Medrol 40MG VIAL) 40 mg Q8HRS IV Last administered on 07/06/18 05:32; Start 07/04/18 at 22:00 Methylprednisolone Sodium Succinate (SOLU-Medrol 40MG VIAL) 40 mg Q8HRS IV ; Start 07/04/18 at 22:00; Status UNV Heparin Sodium (Porcine) (Heparin Sodium) 5,000 unit Q8HRS SQ Last administered on 07/06/18 05:34; Start 07/04/18 at 22:00 Potassium Chloride (Klor-Con) 20 meq BID PO Last administered on 07/06/18 09: 17; Start 07/05/18 at 09:00 Amitriptyline HCl (Elavil) 50 mg QHS PO Last administered on 07/05/18at 21:03; Start 07/04/18 at 21:00 Gabapentin (Neurontin) 300 mg BID PO Last administered on 07/06/18 09:15; Start 07/04/18 at 21:00 Non-Formulary Medication (Insulin Degludec (Tresiba Flextouch U-200)) 98 units DAILY SUBCUT ; Start 07/05/18 at 09:00; Stop 07/05/18 at 09:00; Status DC Non-Formulary Medication (Insulin Aspart (Novolog Flexpen)) 10 unit TIDWMEALS SQ Last administered on 12/6/18at 09:19; Start 07/05/18 at 08:00 Vancomycin HCl 1.5 gm/Sodium Chloride 500 ml @ 250 mls/hr Q24H IV Last administered on 07/05/18at 18:46; Start 07/05/18 at 18:00 Vancomycin HCl (Vancomycin Trough Level) 1 each 1X ONCE MC ; Start 07/06/18 at 17:30; Stop 07/06/18 at 17:31 Albuterol/ Ipratropium (Duoneb) 3 ml RTQID NEB Last administered on 07/06/18at 04:33; Start 07/04/18 at 20:00; Stop 07/06/18 at 07:36; Status DC Piperacillin Sod/ Tazobactam Sod (Zosyn Per Pharmacy) 1 each PRN DAILY PRN MC SEE COMMENTS; Start 07/04/18 at 20:45 Piperacillin Sod/ Tazobactam Sod 3.375 gm/Sodium Chloride 50 ml @ 100 mls/hr Q6H IV Last administered on 07/06/18at 04:12; Start 07/04/18 at 22:00 Non-Formulary Medication 0-7 UNITS TIDWMEALS SQ Last administered on 07/06/18at 08:00; Start 07/05/18 at 09:30 Dextrose 12.5 gm PRN Q15MIN PRN IV SEE COMMENTS; Start 07/05/18 at 08:45 Non-Formulary Medication (Insulin Degludec (Tresiba Flextouch U-200)) 98 units HS SQ Last administered on 07/05/18at 21:00; Start 07/05/18 at 21:00 Tramadol HCl (Ultram) 50 mg PRN Q6HRS PRN PO PAIN Last administered on at 21:27; Start 07/05/18 at 09:45 Albuterol/ Ipratropium (Duoneb) 3 ml RTQID NEB Last administered on 07/05/18at 09:27; Start 07/05/18 at 12:00 Furosemide (Lasix) 20 mg BID IVP ; Start 07/05/18 at 21:00; Stop 07/05/18 at 21: 00; Status DC Potassium Chloride (Klor-Con) 20 meq 1X ONCE PO Last administered on at 11:05; Start 07/05/18 at 10:30; Stop 07/05/18 at 10:31; Status DC Lisinopril (Prinivil) 5 mg DAILY PO Last administered on 07/06/18at 09:17; Start 07/05/18 at 10:30 Furosemide (Lasix) 40 mg BID IVP Last administered on 07/06/18at 09:19; Start 07/05/18 at 10:30 Famotidine (Pepcid Vial) 20 mg 1X ONCE IVP Last administered on 07/05/18at 21: 03; Start 07/05/18 at 21:00; Stop 07/05/18 at 21:03; Status DC Lactobacillus Rhamnosus (Culturelle) 1 cap BID PO ; Start 07/06/18 at 21:00 Active Scripts Active Reported Ambien (Zolpidem Tartrate) 5 Mg Tablet 1 Tab PO QHS Hydrochlorothiazide Tablet (Hydrochlorothiazide) 25 Mg Tablet 25 Mg PO DAILY Hydroxyzine Hcl 25 Mg Tablet 25 Mg PO PRN QHS PRN Novolog Flexpen (Insulin Aspart) 100 Unit/1 Ml Insuln.pen 10 Unit SQ TIDWMEALS Acid Registered Nurse Practitioner (Cimetidine) 200 Mg Tablet 200 Mg PO PRN PRN Acetaminophen 500 Mg Tablet 1 Tab PO BID PRN Benadryl (Diphenhydramine Hcl) 25 Mg Capsule 1 Cap PO QHS PRN Alprazolam 0.25 Mg Tablet 0.25 Mg PO Q8HRS PRN Vitamin D2 (Ergocalciferol (Vitamin D2)) 50,000 Unit Capsule 1 Cap PO WEEKLY Gabapentin 100 Mg Capsule 300 Cap PO BID Glipizide 5 Mg Tablet 1 Tab PO BID Tresiba Flextouch U-200 (Insulin Degludec) 200 Unit/1 Ml Insuln.pen 98 Units SUBCUT DAILY Tramadol Hcl (Tramadol HCl) 50 Mg Tablet 50 Mg PO PRN Q12HR PRN Diflucan (Fluconazole) 150 Mg Tablet 1 Tab PO ONCE Protonix (Pantoprazole Sodium) 40 Mg Tablet.dr 1 Tab PO DAILY Zyrtec (Cetirizine Hcl) 10 Mg Tablet 10 Mg PO DAILY LAST DOSE GIVEN: DATE: TODAY TIME: AM NEXT DOSE DUE: DATE: TOMORROW TIME: AM Flonase Allergy Relief (Fluticasone Propionate) 9.9 Ml [place].susp 1 Spr NS DAILY LAST DOSE GIVEN: DATE: TODAY TIME: AM NEXT DOSE DUE: DATE: TOMORROW TIME: AM Amitriptyline Hcl 25 Mg Tablet 2 Tab PO HS LAST DOSE GIVEN: DATE: YESTERDAY TIME: AT BEDTIME NEXT DOSE DUE: DATE: TODAY TIME: AT BEDTIME Cyclobenzaprine Hcl 10 Mg Tablet 10 Mg PO TID LAST DOSE GIVEN: DATE: YESTERDAY TIME: AT BEDTIME NEXT DOSE DUE: DATE: TODAY TIME: AT BEDTIME IF NEEDED Klor-Con M20 (Potassium Chloride) 20 Meq Tab.er.prt 20 Meq PO BID LAST DOSE GIVEN: DATE: TODAY TIME: AM NEXT DOSE DUE: DATE: TOMORROW TIME: AM Prednisone 10 Mg Tablet 18 Mg PO DAILY LAST DOSE GIVEN: DATE: TODAY TIME: AM NEXT DOSE DUE: DATE: TOMORROW TIME: AM Enbrel (Etanercept) 50 Mg/1 Ml Disp.syrin 50 Mg SQ WEEKLY RESTART ON YOUR NORMALLY SCHEDULED DAY not given this admission Vitals/I & O Vital Sign - Last 24 Hours 07/05/18 07/05/18 07/05/18 07/05/18 09:27 11:04 11:55 12:48 Pulse 110 106 B/P (MAP) 162/77 152/72 (98) Pulse Ox 97 97 O2 Delivery Room Air Room Air Room Air 07/05/18 07/05/18 07/05/18 07/05/18 13:08 14:07 14:11 15:13 Pulse 116 113 111 Resp 22 B/P (MAP) 147/63 (91) 147/63 (91) Pulse Ox 98 97 98 95 O2 Delivery Room Air Room Air Room Air Room Air 07/05/18 07/05/18 07/05/18 07/05/18 16:10 16:10 16:19 17:24 Pulse 111 B/P (MAP) 127/63 (84) Pulse Ox 95 95 95 O2 Delivery Room Air Room Air Room Air Room Air O2 Flow Rate 1.0 1.0 07/05/18 07/05/18 07/05/18 07/05/18 18:50 19:44 20:00 21:27 Temp 97.6 Pulse 112 Resp 20 22 B/P (MAP) 149/76 (100) Pulse Ox 95 96 97 O2 Delivery Room Air Room Air Room Air Room Air 07/05/18 07/05/18 07/05/18 12/6/18 21:45 22:30 22:50 04:00 Temp 98.4 98.5 Pulse 113 119 108 Resp 20 22 20 20 B/P (MAP) 133/55 (81) 148/70 (96) 152/84 (106) Pulse Ox 96 96 94 96 O2 Delivery Room Air Room Air Room Air Room Air 07/06/18 07/06/18 07/06/18 04:48 06:00 09:17 Temp 98.5 Pulse 108 112 Resp 20 B/P (MAP) 152/84 (106) 117/73 Pulse Ox 95 95 O2 Delivery Room Air Room Air O2 Flow Rate 1.0 Intake and Output 07/05/18 07/05/18 07/06/18 15:00 23:00 07:00 Intake Total 290 ml 920 ml 350 ml Output Total 1300 ml 1450 ml 725 ml Balance -1010 ml -530 ml -375 ml CARMEL JURADO APRN Jul 06, 2018 09:35
[2018-07-06 09:38] VITALS: BP 117/73
[2018-07-06] MEDS: traMADol 50 MG TABLET PO PRN (12:35)
[2018-07-06] MEDS: diphenhydrAMINE HCL 25 MG CAPSULE PO PRN ×2 (13:28→22:22)
[2018-07-06] MEDS ORDERED: FUROSEMIDE 40 MG TABLET PO ONE (16:00)
[2018-07-06 16:09] VITALS: BP 148/75
[2018-07-06 17:46] VITALS: BP 113/70
[2018-07-06] MEDS: VANCOMYCIN 1.5 GM in IV NORMAL SALINE 500ML 500 ML IV SCH (19:00)
[2018-07-06] MEDS: VANCOMYCIN PER PHARMACY MC PRN (19:07)
[2018-07-06] MEDS ORDERED: methylPREDNISolone SOD SUCC PF 40 MG/ML VIAL. IV SCH (21:00)
[2018-07-06] MEDS: INSULIN DEGLUDEC SQ SCH (21:00)
--- NOTE | 2018-07-06 21:15 | PN ---
DATE: 07/06/2018 SUBJECTIVE: The patient is doing a little bit better, pulse rate seems to be under better control, but still in the low 100s. OBJECTIVE: VITAL SIGNS: Blood pressure 117/70, respiratory rate 22, pulse 115, afebrile. GENERAL: The patient is very down the bed scales. LUNGS: Diminished, but much clear. CARDIOVASCULAR: Regular sinus rhythm. ABDOMEN: Soft, nontender, no rebound or guarding. Positive bowel sounds. No hepatosplenomegaly. LABORATORY DATA: The patient's White count has gone up to 15,000, hemoglobin and hematocrit of 10 and 32. IMPRESSION: congestive heart failure, acute diastolic, sinus tachycardia, controlled with metoprolol, hypertension, hypokalemia, morbid obesity, chronic kidney disease, type 2 diabetes, rheumatoid arthritis. PLAN: Probably add some additional insulin to her drug regimen Right now, make that sugar come down on a regular basis. JOSE FRANCISCO SZYMANSKI MD DR: LAURENT/jaime JOB#: [id number] / [id number]
[2018-07-06] MEDS: LACTOBACILLUS RHAMNOSUS GG 1 CAPSULE. PO SCH (21:34)
[2018-07-06] MEDS: AMITRIPTYLINE HCL 50 MG TABLET PO SCH (21:34)
[2018-07-07] MEDS: traMADol 50 MG TABLET PO PRN (00:14)
[2018-07-07] MEDS: PIPERACILLIN/TAZOBACTAM 3.375 GM in IV NORMAL SALINE 50ML 50 ML IV SCH ×2 (03:37→10:32)
[2018-07-07] MEDS: IPRATRPIUM/ALBUTEROL 0.5/2.5MG 3 ML NEBU. NEB SCH ×2 (05:26→10:28)
[2018-07-07] MEDS: HEPARIN for SUB-Q USE 5,000 UNIT/ML VIAL. SQ SCH (06:08)
[2018-07-07] MEDS: VANCOMYCIN 1.5 GM in IV NORMAL SALINE 500ML 500 ML IV SCH (06:08)
[2018-07-07 06:25] VITALS: BP 108/65
[2018-07-07 06:52] LABS: BASO % 0 % (0-3); EOS % 0 % (0-3); HEMOGLOBIN 10.5 g/dL (12.0-15.5); LYMPH # 1.2 x10^3/uL (1.0-4.8); LYMPH % 10 % (24-48); MEAN CORPUSCULAR HEMOGLOBIN 23 pg (25-35); MEAN CORPUSCULAR HGB CONC 31 g/dL (31-37); MEAN CORPUSCULAR VOLUME 74 fL (79-100); MONO # 0.7 x10^3/uL (0.0-1.1); MONO % 6 % (0-9); NEUT # 10.5 x10^3uL (1.8-7.7); NEUT % 85 % (31-73); PLATELET COUNT 234 x10^3/uL (140-400); RED BLOOD COUNT 4.56 x10^6/uL (3.50-5.40); RED CELL DISTRIBUTION WIDTH 17.3 % (11.5-14.5); WHITE BLOOD COUNT 12.4 x10^3/uL (4.0-11.0)
[2018-07-07 06:53] LABS: CALCIUM 7.4 mg/dL (8.5-10.1); CREATININE 1.3 mg/dL (0.6-1.0); GFR 40.5; POTASSIUM 4.5 mmol/L (3.5-5.1)
[2018-07-07] MEDS: NOVOLOG SQ SCH (08:00)
[2018-07-07] MEDS: INSULIN ASPART 10 UNIT SQ SCH (08:00)
[2018-07-07] MEDS ORDERED: POTASSIUM CHLORIDE 20 MEQ TABLET.ER. PO SCH (08:00)
[2018-07-07] MEDS ORDERED: FUROSEMIDE 40 MG TABLET PO SCH (09:00)
[2018-07-07] MEDS: GABAPENTIN 300 MG CAPSULE. PO SCH (09:07)
[2018-07-07] MEDS: PANTOPRAZOLE 40 MG TABLET. PO SCH (09:07)
[2018-07-07] MEDS: LACTOBACILLUS RHAMNOSUS GG 1 CAPSULE. PO SCH (09:07)
[2018-07-07 09:08] VITALS: BP 108/65
[2018-07-07] MEDS: LISINOPRIL 5 MG TABLET. PO SCH (09:08)
[2018-07-07] MEDS: CETIRIZINE HCL 10 MG TABLET PO SCH (09:08)
[2018-07-07] MEDS: CYCLOBENZAPRINE 10 MG TABLET. PO SCH (09:08)
[2018-07-07] MEDS: glipiZIDE 5 MG TABLET PO SCH (09:08)
[2018-07-07] MEDS: FLUTICASONE 50MCG/NASAL SPRAY 16GM BOTTLE. NS SCH (09:12)
[2018-07-07] MEDS ORDERED: methylPREDNISolone SOD SUCC PF 40 MG/ML VIAL. IV SCH (09:30)
--- NOTE | 2018-07-07 10:19 | PDOC ---
PROGRESS NOTES Assessment 1. CHF, acute, diastolic - compensated Normal LV systolic and diastolic function by echo. Good diuresis. oral lasix daily. Chemistry in 1 week. Outpatient heart failure follow up in 2 weeks. 07/18/18 @1pm [address] [facility]. 2. sinus //tachycardia - resolved. 3. hypertension - controlled on low dose lisinopril. 4. hypokalemia - WNL 5. CKD stage 3 - Cr remains stable. 6. diabetes mellitus - uncontrolled - Mgmt per PCP Subjective "ready to go home", no dyspnea, no chest pain, no palpitations, no lightheadedness Objective Vital Signs Date Time Temp Pulse Resp B/P (MAP) Pulse Ox O2 Delivery O2 Flow Rate FiO2 07/07/18 09:08 273 108/65 07/07/18 08:00 Room Air 07/07/18 06:25 97.6 20 97 07/06/18 12:35 1.0 Intake and Output 07/07/18 07:00 Intake Total 1541.66 ml Output Total 2650 ml Balance -1108.34 ml Intake Oral 1390 ml IV Total 151.66 ml Output Urine Total 2650 ml Abdomen: Normal bowel sounds, Soft, No tenderness Heart: Normal S1, Normal S2, Other (no gallops, clicks or rubs) Extremities: Other (Trace edema, bilateral varicosities) General: Alert, Oriented X3, Cooperative, No acute distress HEENT: Atraumatic, EOMI, Mucous membr. moist/pink Lungs: Other (decreased bases with few crackles that improve with cough) Neuro: Normal speech, Strength at 5/5 X4 ext Psych/Mental Status: Mental status NL, Mood NL Review of Relevant I have reviewed the following items federico (where applicable) has been applied. Labs Laboratory Tests Test 07/05/18 11:33 07/05/18 16:35 07/05/18 21:00 07/06/18 05:19 Glucose (Fingerstick) 341 mg/dL (70-99) 217 mg/dL (70-99) 231 mg/dL (70-99) Sodium Level 142 mmol/L (136-145) Potassium Level 3.4 mmol/L (3.5-5.1) Chloride Level 105 mmol/L (98-107) Carbon Dioxide Level 26 mmol/L (21-32) Anion Gap 11 (6-14) Blood Urea Nitrogen 28 mg/dL (7-20) Creatinine 1.2 mg/dL (0.6-1.0) Estimated GFR (Cockcroft-Gault) 44.4 Glucose Level 255 mg/dL (70-99) Calcium Level 8.0 mg/dL (8.5-10.1) Test 07/06/18 06:09 07/06/18 12:17 07/06/18 16:10 07/06/18 18:15 White Blood Count 15.2 x10^3/uL (4.0-11.0) Red Blood Count 4.44 x10^6/uL (3.50-5.40) Hemoglobin 10.1 g/dL (12.0-15.5) Hematocrit 32.7 % (36.0-47.0) Mean Corpuscular Volume 74 fL (79-100) Mean Corpuscular Hemoglobin 23 pg (25-35) Mean Corpuscular Hemoglobin Concent 31 g/dL (31-37) Red Cell Distribution Width 17.5 % (11.5-14.5) Platelet Count 234 x10^3/uL (140-400) Neutrophils (%) (Auto) 89 % (31-73) Lymphocytes (%) (Auto) 5 % (24-48) Monocytes (%) (Auto) 6 % (0-9) Eosinophils (%) (Auto) 0 % (0-3) Basophils (%) (Auto) 0 % (0-3) Neutrophils # (Auto) 13.5 x10^3uL (1.8-7.7) Lymphocytes # (Auto) 0.8 x10^3/uL (1.0-4.8) Monocytes # (Auto) 0.8 x10^3/uL (0.0-1.1) Eosinophils # (Auto) 0.0 x10^3/uL (0.0-0.7) Basophils # (Auto) 0.0 x10^3/uL (0.0-0.2) Segmented Neutrophils % 93 % (35-66) Lymphocytes % 2 % (24-48) Monocytes % 5 % (0-10) Platelet Estimate Adequate (ADEQUATE) Hypochromasia Mod Anisocytosis Slight Sodium Level 144 mmol/L (136-145) Potassium Level 3.7 mmol/L (3.5-5.1) Chloride Level 104 mmol/L (98-107) Carbon Dioxide Level 28 mmol/L (21-32) Anion Gap 12 (6-14) Blood Urea Nitrogen 36 mg/dL (7-20) Creatinine 1.2 mg/dL (0.6-1.0) Estimated GFR (Cockcroft-Gault) 44.4 Glucose Level 253 mg/dL (70-99) Calcium Level 7.6 mg/dL (8.5-10.1) Glucose (Fingerstick) 351 mg/dL (70-99) 224 mg/dL (70-99) Vancomycin Level Trough 10.0 mcg/mL (10.0-20.0) Vancomycin Last Dose Date 07/05/18 Vancomycin Last Dose Time 1800 Test 07/06/18 19:51 07/06/18 21:30 07/06/18 22:16 07/06/18 23:34 Glucose (Fingerstick) 83 mg/dL (70-99) 61 mg/dL (70-99) 65 mg/dL (70-99) 142 mg/dL (70-99) Test 07/07/18 06:20 07/07/18 08:28 White Blood Count 12.4 x10^3/uL (4.0-11.0) Red Blood Count 4.56 x10^6/uL (3.50-5.40) Hemoglobin 10.5 g/dL (12.0-15.5) Hematocrit 34.0 % (36.0-47.0) Mean Corpuscular Volume 74 fL (79-100) Mean Corpuscular Hemoglobin 23 pg (25-35) Mean Corpuscular Hemoglobin Concent 31 g/dL (31-37) Red Cell Distribution Width 17.3 % (11.5-14.5) Platelet Count 234 x10^3/uL (140-400) Neutrophils (%) (Auto) 85 % (31-73) Lymphocytes (%) (Auto) 10 % (24-48) Monocytes (%) (Auto) 6 % (0-9) Eosinophils (%) (Auto) 0 % (0-3) Basophils (%) (Auto) 0 % (0-3) Neutrophils # (Auto) 10.5 x10^3uL (1.8-7.7) Lymphocytes # (Auto) 1.2 x10^3/uL (1.0-4.8) Monocytes # (Auto) 0.7 x10^3/uL (0.0-1.1) Eosinophils # (Auto) 0.0 x10^3/uL (0.0-0.7) Basophils # (Auto) 0.0 x10^3/uL (0.0-0.2) Sodium Level 142 mmol/L (136-145) Potassium Level 4.5 mmol/L (3.5-5.1) Chloride Level 105 mmol/L (98-107) Carbon Dioxide Level 27 mmol/L (21-32) Anion Gap 10 (6-14) Blood Urea Nitrogen 36 mg/dL (7-20) Creatinine 1.3 mg/dL (0.6-1.0) Estimated GFR (Cockcroft-Gault) 40.5 Glucose Level 281 mg/dL (70-99) Calcium Level 7.4 mg/dL (8.5-10.1) Glucose (Fingerstick) 273 mg/dL (70-99) Microbiology 07/04/18 Blood Culture - Preliminary, Resulted NO GROWTH AFTER 2 DAYS... 07/04/18 Urine Culture - Final, Complete 07/04/18 Urine Culture Result 1 (MARCIAL) - Final, Complete Medications Current Medications Albuterol Sulfate (Ventolin) 2.5 mg STK-MED ONCE .ROUTE ; Start 07/04/18 at 15: 14; Stop 07/04/18 at 15:15; Status DC Methylprednisolone Sodium Succinate (SOLU-Medrol 125MG VIAL) 125 mg 1X ONCE IV Last administered on 07/04/18at 15:31; Start 07/04/18 at 15:30; Stop 07/04/18 at 15:31; Status DC Albuterol/ Ipratropium (Duoneb) 3 ml 1X ONCE NEB Last administered on at 15:31; Start 07/04/18 at 15:30; Stop 07/04/18 at 15:31; Status DC Sodium Chloride 1,000 ml @ 1,000 mls/hr 1X ONCE IV ; Start 07/04/18 at 15:30; Stop 07/04/18 at 15:31; Status DC Piperacillin Sod/ Tazobactam Sod 3.375 gm/Sodium Chloride 50 ml @ 100 mls/hr 1X ONCE IV Last administered on 07/04/18at 16:35; Start 07/04/18 at 16:15; Stop 07/04/18 at 16:44; Status DC Vancomycin HCl 1 gm/Sodium Chloride 250 ml @ 250 mls/hr 1X ONCE IV ; Start at 16:15; Stop 07/04/18 at 17:14; Status UNV Sodium Chloride 500 ml @ 0 mls/hr 1X ONCE IV ; Start 07/04/18 at 16:15; Stop 07/04/18 at 16:16; Status DC Vancomycin HCl 2 gm/Sodium Chloride 500 ml @ 250 mls/hr 1X ONCE IV Last administered on 07/04/18at 18:35; Start 07/04/18 at 16:30; Stop 07/04/18 at 18:29 ; Status DC Sodium Chloride 1,000 ml @ 150 mls/hr Q6H40M IV Last administered on at 16:35; Start 07/04/18 at 16:09; Stop 07/04/18 at 18:32; Status DC Sodium Chloride 50 ml @ As Directed STK-MED ONCE .ROUTE ; Start 07/04/18 at 16: 13; Stop 07/04/18 at 16:14; Status DC Piperacillin Sod/ Tazobactam Sod (Zosyn) 3.375 gm STK-MED ONCE IV ; Start at 16:13; Stop 07/04/18 at 16:14; Status DC Diphenhydramine HCl (Benadryl) 25 mg PRN QHS PRN PO ALLERGIES Last administered on 07/06/18at 22:22; Start 07/04/18 at 17:30 Potassium Chloride (Klor-Con) 20 meq DAILY PO ; Start 07/05/18 at 09:00; Stop 07/05/18 at 09:00; Status DC Prednisone (Prednisone) 12 mg DAILY PO ; Start 07/05/18 at 09:00; Stop 07/05/18 at 09:00; Status DC Tramadol HCl (Ultram) 50 mg PRN Q12HR PRN PO PAIN Last administered on at 12:35; Start 07/04/18 at 17:30 Acetaminophen (Tylenol) 500 mg PRN BID PRN PO PAIN / TEMP Last administered on 07/07/18at 06:11; Start 07/04/18 at 17:45 Alprazolam (Xanax) 0.25 mg PRN Q8HRS PRN PO ANXIETY / AGITATION; Start at 19:45 Non-Formulary Medication (Amitriptyline Hcl ) 25 mg HS PO ; Start 07/04/18 at 21 :00; Stop 07/04/18 at 21:00; Status DC Cetirizine HCl (ZyrTEC) 10 mg DAILY PO Last administered on 07/07/18at 09:08; Start 07/05/18 at 09:00 Famotidine (Pepcid) 20 mg PRN BID PRN PO INDIGESTION; Start 07/04/18 at 21:00 Cyclobenzaprine HCl (Flexeril) 10 mg TID PO Last administered on 07/07/18at 09: 08; Start 07/04/18 at 21:00 Non-Formulary Medication (Ergocalciferol (Vitamin D2) (Vitamin D2)) 1 cap WEEKLY PO ; Start 07/11/18 at 09:00; Stop 07/11/18 at 09:00; Status DC Non-Formulary Medication (Etanercept (Enbrel)) 50 mg WEEKLY SQ ; Start at 09:00; Status UNV Fluconazole (Diflucan) 150 mg 1X ONCE PO Last administered on 07/04/18at 21:27 ; Start 07/04/18 at 21:00; Stop 07/04/18 at 21:01; Status DC Fluticasone Propionate (Flonase) 1 spray DAILY NS Last administered on at 09:12; Start 07/05/18 at 09:00 Non-Formulary Medication (Gabapentin ) 200 cap BID PO ; Start 07/04/18 at 21:00 ; Stop 07/04/18 at 21:00; Status DC Glipizide (Glucotrol) 5 mg BIDBFRMEAL PO Last administered on 07/07/18at 09:08; Start 07/05/18 at 07:30 Non-Formulary Medication (Insulin Degludec (Tresiba Flextouch U-200)) 96 units DAILY SUBCUT ; Start 07/05/18 at 09:00; Stop 07/05/18 at 09:00; Status DC Non-Formulary Medication (Insulin Glulisine (Apidra Solostar)) 20 units TIDWMEALS SUBCUT ; Start 07/05/18 at 08:00; Stop 07/05/18 at 08:00; Status DC Pantoprazole Sodium (Protonix) 40 mg DAILY PO Last administered on 07/07/18at 09 :07; Start 07/05/18 at 09:00 Furosemide (Lasix) 20 mg DAILY IVP Last administered on 07/05/18at 08:42; Start 07/04/18 at 18:45; Stop 07/05/18 at 10:01; Status DC Vancomycin HCl (Vanco Per Pharmacy) 1 each PRN DAILY PRN MC SEE COMMENTS Last administered on 07/06/18 19:07; Start 07/04/18 at 17:30 Methylprednisolone Sodium Succinate (SOLU-Medrol 40MG VIAL) 40 mg Q8HRS IV Last administered on 07/06/18 05:32; Start 07/04/18 at 22:00; Stop 07/06/18 at 13:04; Status DC Methylprednisolone Sodium Succinate (SOLU-Medrol 40MG VIAL) 40 mg Q8HRS IV ; Start 07/04/18 at 22:00; Status UNV Heparin Sodium (Porcine) (Heparin Sodium) 5,000 unit Q8HRS SQ Last administered on 07/07/18at 06:08; Start 07/04/18 at 22:00 Potassium Chloride (Klor-Con) 20 meq BID PO Last administered on 07/06/18at 21: 34; Start 07/05/18 at 09:00; Stop 07/06/18 at 23:55; Status DC Amitriptyline HCl (Elavil) 50 mg QHS PO Last administered on 07/06/18 21:34; Start 07/04/18 at 21:00 Gabapentin (Neurontin) 300 mg BID PO Last administered on 07/07/18 09:07; Start 07/04/18 at 21:00 Non-Formulary Medication (Insulin Degludec (Tresiba Flextouch U-200)) 98 units DAILY SUBCUT ; Start 07/05/18 at 09:00; Stop 07/05/18 at 09:00; Status DC Non-Formulary Medication (Insulin Aspart (Novolog Flexpen)) 10 unit TIDWMEALS SQ Last administered on 12/7/18at 08:00; Start 07/05/18 at 08:00 Vancomycin HCl 1.5 gm/Sodium Chloride 500 ml @ 250 mls/hr Q24H IV Last administered on 07/05/18at 18:46; Start 07/05/18 at 18:00; Stop 07/06/18 at 19:01 ; Status DC Vancomycin HCl (Vancomycin Trough Level) 1 each 1X ONCE MC Last administered on 07/06/18at 17:30; Start 07/06/18 at 17:30; Stop 07/06/18 at 17:31; Status DC Albuterol/ Ipratropium (Duoneb) 3 ml RTQID NEB Last administered on 07/06/18at 04:33; Start 07/04/18 at 20:00; Stop 07/06/18 at 07:36; Status DC Piperacillin Sod/ Tazobactam Sod (Zosyn Per Pharmacy) 1 each PRN DAILY PRN MC SEE COMMENTS; Start 07/04/18 at 20:45 Piperacillin Sod/ Tazobactam Sod 3.375 gm/Sodium Chloride 50 ml @ 100 mls/hr Q6H IV Last administered on 07/07/18at 03:37; Start 07/04/18 at 22:00 Non-Formulary Medication 0-7 UNITS TIDWMEALS SQ Last administered on 07/07/18 08:00; Start 07/05/18 at 09:30 Dextrose 12.5 gm PRN Q15MIN PRN IV SEE COMMENTS; Start 07/05/18 at 08:45 Non-Formulary Medication (Insulin Degludec (Tresiba Flextouch U-200)) 98 units HS SQ Last administered on 07/05/18at 21:00; Start 07/05/18 at 21:00; Stop 07/07 at 08:21; Status DC Tramadol HCl (Ultram) 50 mg PRN Q6HRS PRN PO PAIN Last administered on at 00:14; Start 07/05/18 at 09:45 Albuterol/ Ipratropium (Duoneb) 3 ml RTQID NEB Last administered on 07/07/18at 05:26; Start 07/05/18 at 12:00 Furosemide (Lasix) 20 mg BID IVP ; Start 07/05/18 at 21:00; Stop 07/05/18 at 21: 00; Status DC Potassium Chloride (Klor-Con) 20 meq 1X ONCE PO Last administered on at 11:05; Start 07/05/18 at 10:30; Stop 07/05/18 at 10:31; Status DC Lisinopril (Prinivil) 5 mg DAILY PO Last administered on 07/07/18at 09:08; Start 07/05/18 at 10:30 Furosemide (Lasix) 40 mg BID IVP Last administered on 07/06/18at 09:19; Start 07/05/18 at 10:30; Stop 07/06/18 at 12:51; Status DC Famotidine (Pepcid Vial) 20 mg 1X ONCE IVP Last administered on 07/05/18at 21: 03; Start 07/05/18 at 21:00; Stop 07/05/18 at 21:03; Status DC Lactobacillus Rhamnosus (Culturelle) 1 cap BID PO Last administered on at 09:07; Start 07/06/18 at 21:00 Furosemide (Lasix) 40 mg 1X ONCE PO Last administered on 07/06/18at 15:43; Start 07/06/18 at 16:00; Stop 07/06/18 at 16:01; Status DC Furosemide (Lasix) 40 mg DAILY PO Last administered on 07/07/18at 09:12; Start 07/07/18 at 09:00 Potassium Chloride (Klor-Con) 20 meq DAILYWBKFT PO Last administered on at 09:08; Start 07/07/18 at 08:00 Methylprednisolone Sodium Succinate (SOLU-Medrol 40MG VIAL) 40 mg BID IV Last administered on 07/06/18at 21:35; Start 07/06/18 at 21:00; Stop 07/07/18 at 08:48 ; Status DC Vancomycin HCl 1.5 gm/Sodium Chloride 500 ml @ 250 mls/hr Q12H IV Last administered on 07/07/18at 06:08; Start 07/06/18 at 19:00 Vancomycin HCl (Vancomycin Trough Level) 1 each 1X ONCE MC ; Start 07/07/18 at 18:30; Stop 07/07/18 at 18:31 Non-Formulary Medication (Insulin Degludec (Tresiba Flextouch U-200)) 60 units HS SQ ; Start 07/07/18 at 21:00; Stop 07/07/18 at 21:00; Status DC Methylprednisolone Sodium Succinate (SOLU-Medrol 40MG VIAL) 40 mg DAILY IV ; Start 07/07/18 at 09:30; Stop 07/07/18 at 09:59; Status DC Non-Formulary Medication (Insulin Degludec (Tresiba Flextouch U-200)) 60 units HS SQ ; Start 07/07/18 at 21:00 Fluconazole (Diflucan) 100 mg DAILY PO ; Start 07/07/18 at 10:30 Fluconazole (Diflucan) 100 mg DAILY PO ; Start 07/08/18 at 09:00; Status UNV Fluconazole (Diflucan) 100 mg DAILY PO ; Start 07/08/18 at 09:00; Status UNV Prednisone (Prednisone) 20 mg DAILY PO ; Start 07/08/18 at 09:00; Status UNV Active Scripts Active Reported Ambien (Zolpidem Tartrate) 5 Mg Tablet 1 Tab PO QHS Hydrochlorothiazide Tablet (Hydrochlorothiazide) 25 Mg Tablet 25 Mg PO DAILY Hydroxyzine Hcl 25 Mg Tablet 25 Mg PO PRN QHS PRN Novolog Flexpen (Insulin Aspart) 100 Unit/1 Ml Insuln.pen 10 Unit SQ TIDWMEALS [employer] (Cimetidine) 200 Mg Tablet 200 Mg PO PRN PRN Acetaminophen 500 Mg Tablet 1 Tab PO BID PRN Benadryl (Diphenhydramine Hcl) 25 Mg Capsule 1 Cap PO QHS PRN Alprazolam 0.25 Mg Tablet 0.25 Mg PO Q8HRS PRN Vitamin D2 (Ergocalciferol (Vitamin D2)) 50,000 Unit Capsule 1 Cap PO WEEKLY Gabapentin 100 Mg Capsule 300 Cap PO BID Glipizide 5 Mg Tablet 1 Tab PO BID Tresiba Flextouch U-200 (Insulin Degludec) 200 Unit/1 Ml Insuln.pen 98 Units SUBCUT DAILY Tramadol Hcl (Tramadol HCl) 50 Mg Tablet 50 Mg PO PRN Q12HR PRN Diflucan (Fluconazole) 150 Mg Tablet 1 Tab PO ONCE Protonix (Pantoprazole Sodium) 40 Mg Tablet.dr 1 Tab PO DAILY Zyrtec (Cetirizine Hcl) 10 Mg Tablet 10 Mg PO DAILY LAST DOSE GIVEN: DATE: TODAY TIME: AM NEXT DOSE DUE: DATE: TOMORROW TIME: AM Flonase Allergy Relief (Fluticasone Propionate) 9.9 Ml [place].susp 1 Spr NS DAILY LAST DOSE GIVEN: DATE: TODAY TIME: AM NEXT DOSE DUE: DATE: TOMORROW TIME: AM Amitriptyline Hcl 25 Mg Tablet 2 Tab PO HS LAST DOSE GIVEN: DATE: YESTER TIME: AT BEDTIME NEXT DOSE DUE: DATE: TODAY TIME: AT BEDTIME Cyclobenzaprine Hcl 10 Mg Tablet 10 Mg PO TID LAST DOSE GIVEN: DATE: YESTER TIME: AT BEDTIME NEXT DOSE DUE: DATE: TODAY TIME: AT BEDTIME IF NEEDED Klor-Con M20 (Potassium Chloride) 20 Meq Tab.er.prt 20 Meq PO BID LAST DOSE GIVEN: DATE: TODAY TIME: AM NEXT DOSE DUE: DATE: TOMORR TIME: AM Prednisone 10 Mg Tablet 18 Mg PO DAILY LAST DOSE GIVEN: DATE: TIME: AM NEXT DOSE DUE: DATE: TOMORROW TIME: AM Enbrel (Etanercept) 50 Mg/1 Ml Disp.syrin 50 Mg SQ WEEKLY RESTART ON YOUR NORMALLY SCHEDULED DAY not given this admission Vitals/I & O Vital Sign - Last 24 Hours 07/06/18 07/06/18 07/06/18 07/06/18 10:49 12:35 13:35 15:41 Pulse Ox 97 97 97 99 O2 Delivery Room Air Room Air Room Air Room Air O2 Flow Rate 1.0 07/06/18 07/06/18 07/06/18 07/06/18 16:09 17:46 20:15 20:25 Temp 98.0 Pulse 110 118 Resp 18 20 B/P (MAP) 148/75 (99) 113/70 (84) Pulse Ox 99 97 98 O2 Delivery Room Air Room Air Room Air Room Air 07/06/18 07/07/18 07/07/18 07/07/18 22:33 00:14 01:14 05:26 Resp 20 20 18 Pulse Ox 96 O2 Delivery Room Air Room Air Room Air 07/07/18 07/07/18 07/07/18 06:25 08:00 09:08 Temp 97.6 Pulse 63 273 Resp 20 B/P (MAP) 108/65 (79) 108/65 Pulse Ox 97 O2 Delivery Room Air Room Air Intake and Output 07/06/18 07/06/18 07/07/18 15:00 23:00 07:00 Intake Total 750 ml 791.66 ml Output Total 1500 ml 1150 ml Balance -750 ml -358.34 ml CARMEL JURADO [employer] Jul 07, 2018 10:19
[2018-07-07] MEDS ORDERED: FLUCONAZOLE 100 MG TABLET. PO SCH ×2 (10:30→12:00)
[2018-07-07] MEDS ORDERED: MUPI15CR TP ×2 (10:39→10:41)
[2018-07-07] MEDS ORDERED: DOXY100C PO (10:39)
[2018-07-07] MEDS ORDERED: LISI-338 PO (10:39)
[2018-07-07] MEDS ORDERED: PRED-220 PO (10:39)
[2018-07-07] MEDS ORDERED: FURO40TA4 PO (10:39)
[2018-07-07] MEDS ORDERED: IPRA3AMP29 NEB (10:39)
[2018-07-07] MEDS ORDERED: FLUC100T7 PO ×2 (10:39→11:23)
[2018-07-07] MEDS: VANCOMYCIN PER PHARMACY MC PRN (11:33)
[2018-07-07] MEDS ORDERED: INSULIN DEGLUDEC 60 UNIT SQ SCH ×2 (21:00)
[2018-07-08] MEDS ORDERED: FLUCONAZOLE 100 MG TABLET. PO SCH (09:00)
[2018-07-08] MEDS ORDERED: predniSONE 20 MG TABLET PO SCH (09:00)
[2018-07-11] MEDS ORDERED: NON FORMULARY ITEM (Ergocalciferol (Vitamin D2) (Vitamin D2) 1 CAP) PO SCH (09:00)
== END 2018-07-07 12:28 | disposition home or self-care (01) | DRG 871 ==
LOC: ER 15:07 → ICU 16:10 → 1 SOUTH 07-06 15:35
PROVIDERS: ADMIT Family Medicine; ATTEND Family Medicine
DX: A41.9 Sepsis, unspecified organism (principal); I50.43 Acute on chronic combined systolic (congestive) and diastolic (congestive) heart failure; J18.9 Pneumonia, unspecified organism; I13.0 Hypertensive heart and chronic kidney disease with heart failure and stage 1 through stage 4 chronic kidney disease, or unspecified chronic kidney disease; J44.0 Chronic obstructive pulmonary disease with (acute) lower respiratory infection; E11.22 Type 2 diabetes mellitus with diabetic chronic kidney disease; E11.51 Type 2 diabetes mellitus with diabetic peripheral angiopathy without gangrene; E11.65 Type 2 diabetes mellitus with hyperglycemia; E66.01 Morbid (severe) obesity due to excess calories; G89.29 Other chronic pain; E78.00 Pure hypercholesterolemia, unspecified; E83.42 Hypomagnesemia; E87.6 Hypokalemia; N18.3 Chronic kidney disease, stage 3 (moderate); Z79.4 Long term (current) use of insulin; E11.21 Type 2 diabetes mellitus with diabetic nephropathy; K21.9 Gastro-esophageal reflux disease without esophagitis; Z96.653 Presence of artificial knee joint, bilateral; K72.90 Hepatic failure, unspecified without coma; Z96.1 Presence of intraocular lens; F41.9 Anxiety disorder, unspecified; M06.9 Rheumatoid arthritis, unspecified; R09.02 Hypoxemia; Z82.3 Family history of stroke; Z82.49 Family history of ischemic heart disease and other diseases of the circulatory system; Z90.710 Acquired absence of both cervix and uterus; Z88.6 Allergy status to analgesic agent; Z88.4 Allergy status to anesthetic agent; Z88.1 Allergy status to other antibiotic agents; Z88.8 Allergy status to other drugs, medicaments and biological substances; Z91.018 Allergy to other foods; Z91.048 Other nonmedicinal substance allergy status; Z79.899 Other long term (current) drug therapy
CPT/HCPCS: 36415; 71045; 78582; 80048; 80053; 80202; 81001; 82550; 82803; 82947; 83605; 83735; 83880; 84145; 84484; 85007; 85025; 85379; 85610; 85730; 87040; 87086; 87641; 93005; 93306; 93970; 94640; 96374; 96375; A9540; A9558; J1644; J2543; J2920; J2930; J3370; J3490; J7040; J7620; Q0163; 99291-25; J7030

== ENCOUNTER 2018-07-11 03:23 | Inpatient (IN) | payer MEDICARE, OTHER ==
[~2018-07-11] VITALS: Ht 170.2 cm; Wt 98.0 kg
[~2018-07-11 03:23] MED LIST changes: +DOXY100C PO; +FLUC100T7 PO; +FURO40TA4 PO; +HYDR25TA PO; +INSU100I17 SQ; +IPRA3AMP29 NEB; +LISI-338 PO; +MUPI15CR TP; +ZOLP5TAB PO
--- NOTE | 2018-07-11 03:31 | ED.ADGEN ---
Past History Past Medical History: Anemia, Arthritis, Asthma, COPD, Diabetes, Hypertension, Other Past Surgical History: Hysterectomy, Knee Replacement, Other Alcohol Use: None Drug Use: None Adult General Chief Complaint Chief Complaint ".. Fell. .. I just got out .. of [facility]....". on Tuesday..." HPI HPI Patient is a 72 year old female who presents with above hx and complaints of fall after taking Ambien at home. Pt. has re-injury to Rt. elbow and has 10 cm laceration. Pt. very confused, and actually was admit here at [facility] for bilateral pneumonia.. Pt. Discharged tuesday. Pt. has extensive medical hx with rheumatoid arthritis, diabetes, hypertension, de-conditioning, and multiple drug allergies. Pt. complaint s of Low back and Lt. hip pain. These areas in past have been frequent complaints. Pt. normally follows with Dr. Stevens. Pt currently a very poor historian. Review of Systems Review of Systems Constitutional: Denies fever or chills [] Eyes: Denies change in visual acuity, redness, or eye pain [] HENT: Denies nasal congestion or sore throat [] Respiratory: Denies cough or shortness of breath [] Cardiovascular: No additional information not addressed in HPI [] GI: Denies abdominal pain, nausea, vomiting, bloody stools or diarrhea [] : Denies dysuria or hematuria [] Musculoskeletal: Complaints of multiple joint pains. Complaints of severe pain in Rt. elbow at site of contusion, abrasion and laceration. Integument: Denies rash or skin lesions [] Neurologic: Denies headache, focal weakness or sensory changes [] Endocrine: Denies polyuria or polydipsia [] All other systems were reviewed and found to be within normal limits, except as documented in this note. Family History Family History DM, HTN Current Medications Current Medications Current Medications Medications (Trade) Dose Ordered Sig/Ashlyn Start Time Stop Time Status Last Admin Dose Admin Acetaminophen (Tylenol) 650 mg PRN Q4HRS PRN 07/11/18 04:45 07/11/18 06:17 DC Diphtheria/ Tetanus/Acell Pertussis (Boostrix) 0.5 ml ONCE ONCE 07/11/18 04:00 07/11/18 04:01 DC Doxycycline Hyclate (Vibra-Tab) 100 mg BID 07/11/18 05:00 07/11/18 06:17 DC Levofloxacin (Levaquin) 500 mg DAILY 07/11/18 09:00 UNV Lidocaine HCl 20 ml STK-MED ONCE 07/11/18 05:23 07/11/18 05:24 DC Ondansetron HCl (Zofran) 4 mg PRN Q4HRS PRN 07/11/18 04:45 07/11/18 06:17 DC Sodium Chloride 1,000 ml @ 100 mls/hr Q10H 07/11/18 04:00 07/11/18 06:17 DC Allergies Allergies Allergies Coded Allergies Type Severity Reaction Last Updated Verified insulin aspart Allergy Severe Anaphylaxis 01/26/18 Yes insulin glargine Allergy Severe Anaphylaxis 01/26/18 Yes insulin lispro Allergy Severe Anaphylaxis 01/26/18 Yes Gadolinium-Containing Contrast Medi Allergy Intermediate 05/25/18 Yes Influenza Virus Vaccines Allergy Intermediate 01/26/18 Yes Sulfa (Sulfonamide Antibiotics) Allergy Intermediate 01/26/18 Yes alogliptin Allergy Intermediate 05/25/18 Yes capsaicin Allergy Intermediate 01/26/18 Yes clindamycin Allergy Intermediate 05/25/18 Yes codeine Allergy Intermediate 01/26/18 Yes exenatide Allergy Intermediate 05/25/18 Yes insulin glulisine Allergy Intermediate Rash 01/26/18 Yes iodine Allergy Intermediate 01/26/18 Yes levofloxacin Allergy Intermediate 01/26/18 Yes menthol Allergy Intermediate 01/26/18 Yes metformin Allergy Intermediate Hives 01/26/18 Yes morphine Allergy Intermediate 05/25/18 Yes naproxen Allergy Intermediate 01/26/18 Yes pioglitazone Allergy Intermediate 05/25/18 Yes pregabalin Allergy Intermediate 05/25/18 Yes I S O L A T I O N *CONTACT* Allergy Unknown 07/06/18 Yes Physical Exam Physical Exam Constitutional: in moderately acute distress, intoxicated or under influence of a sedative or narcotic in appearance. [] HENT: Normocephalic, contusion rt side head, bilateral external ears normal, oropharynx moist, no oral exudates, nose normal. [] Eyes: PERRLA, EOMI, conjunctiva normal, no discharge. [] Neck: Normal range of motion, some upper neck tenderness, supple, no stridor. [ ] Cardiovascular:Tachycardia Heart rate regular rhythm, no murmur []PMI to the left Lungs & Thorax: Bilateral breath sounds equal at apex with scattered wheezes on bilateral bases on auscultation [] Abdomen: Bowel sounds normal, soft, no tenderness, no masses, no pulsatile masses. Obese. Old surgery scars. Distended. Skin: Warm, dry, no erythema, no rash. [] Multiple areas of erythema and contusion. 10 cm laceration right elbow Back: Mid lumbar tenderness, no CVA tenderness. [] Extremities: Multiple joint pain tenderness, no cyanosis, no clubbing, ROM intact, right elbow and bilateral ankle edema. [] Marked pain on movement of right elbow with flexion, supination and pronation. Bilateral knee scars. Neurologic: Alert 2- name and knows she is at a hospital, confused, , generalized weakness motor function, decreased sensory in feet, DTR + 2 brachial , Rt hand dominate, Speech is slurred, but states this is normal for her after she takes her sleeping meds or pain meds. Psychologic: Affect anxious, judgement impaired, mood tearful. Current Patient Data Vital Signs Vital Signs Date Time Temp Pulse Resp B/P (MAP) Pulse Ox O2 Delivery O2 Flow Rate FiO2 07/11/18 05:21 102 24 120/52 (74) 95 Room Air 07/11/18 03:44 98.5 Lab Results Laboratory Tests Test 07/11/18 03:55 07/11/18 06:00 White Blood Count 9.0 x10^3/uL (4.0-11.0) Red Blood Count 5.00 x10^6/uL (3.50-5.40) Hemoglobin 11.6 g/dL (12.0-15.5) L Hematocrit 37.3 % (36.0-47.0) Mean Corpuscular Volume 75 fL (79-100) L Mean Corpuscular Hemoglobin 23 pg (25-35) L Mean Corpuscular Hemoglobin Concent 31 g/dL (31-37) Red Cell Distribution Width 17.7 % (11.5-14.5) H Platelet Count 236 x10^3/uL (140-400) Neutrophils (%) (Auto) 59 % (31-73) Lymphocytes (%) (Auto) 27 % (24-48) Monocytes (%) (Auto) 11 % (0-9) H Eosinophils (%) (Auto) 2 % (0-3) Basophils (%) (Auto) 1 % (0-3) Neutrophils # (Auto) 5.3 x10^3uL (1.8-7.7) Lymphocytes # (Auto) 2.4 x10^3/uL (1.0-4.8) Monocytes # (Auto) 1.0 x10^3/uL (0.0-1.1) Eosinophils # (Auto) 0.2 x10^3/uL (0.0-0.7) Basophils # (Auto) 0.1 x10^3/uL (0.0-0.2) Prothrombin Time 9.8 SEC (9.4-11.4) Prothrombin Time INR 1.0 (0.9-1.1) PTT < 150 SEC (23-33) *H D-Dimer (Dalia) 1.22 mg/L (0.00-0.50) H Sodium Level 138 mmol/L (136-145) Potassium Level 4.5 mmol/L (3.5-5.1) Chloride Level 100 mmol/L (98-107) Carbon Dioxide Level 26 mmol/L (21-32) Anion Gap 12 (6-14) Blood Urea Nitrogen 40 mg/dL (7-20) H Creatinine 1.6 mg/dL (0.6-1.0) H Estimated GFR (Cockcroft-Gault) 31.9 Glucose Level 142 mg/dL (70-99) H Calcium Level 8.9 mg/dL (8.5-10.1) Magnesium Level 1.8 mg/dL (1.8-2.4) Total Bilirubin 0.4 mg/dL (0.2-1.0) Direct Bilirubin 0.1 mg/dL (0.0-0.2) Aspartate Amino Transferase (AST) 30 U/L (15-37) Alanine Aminotransferase (ALT) 85 U/L (14-59) H Alkaline Phosphatase 128 U/L (46-116) H Creatine Kinase 68 U/L (26-192) Troponin I Quantitative 0.041 ng/mL (0-0.055) CA-Frs-V-Type Natriuretic Peptide 234 pg/mL (0-124) H Total Protein 6.9 g/dL (6.4-8.2) Albumin 3.4 g/dL (3.4-5.0) Lipase 534 U/L (73-393) H Urine Opiates Screen Neg (NEG) Urine Methadone Screen Neg (NEG) Urine Barbiturates Neg (NEG) Urine Phencyclidine Screen Neg (NEG) Urine Amphetamine/Methamphetamine Neg (NEG) Urine Benzodiazepines Screen Neg (NEG) Urine Cocaine Screen Neg (NEG) Urine Cannabinoids Screen Neg (NEG) Urine Ethyl Alcohol Neg (NEG) EKG EKG My interpretation of EKG shows a sinus tachycardia at 100 bpm. No occasional atrial premature complexes. There are some nonspecific contour abnormalities in the anterior septal region. But no findings acute STEMI with contralateral changes.[] Radiology/Procedures Radiology/Procedures My interpretation of CT of head shows no shift, mass, edema, bleed, or fracture. Does have findings of white matter disease and atrophy. I interpretation of cervical shows no obvious fracture dislocation. Marked degenerative joint changes. My interpretation chest x-ray shows cardiomegaly some basilar atelectasis or infiltrates. No free air in the diaphragm. Does have findings of degenerative joint changes. My interpretation of right elbow film shows edema and cellulitis fine he is indicated of an occult radial head fracture. Does have degenerative joint changes. My interpretation and pelvic film shows obvious fracture dislocation. Does have degenerative joint changes. My interpretation of left femur film shows no obvious fracture dislocation but has degenerative joint changes. My interpretation of CT of lumbar shows marked DJD joint changes but no obvious fracture. Does have multiple level of disc bulge, effacement of no bruits, and spinal stenosis. No obvious acute fracture See formal report when available[] Course & Med Decision Making Course & Med Decision Making Pertinent Labs and Imaging studies reviewed. (See chart for details) Procedure note- Laceration repair- Rt. elbow washed with NS. Injected edges of laceration with sensocaine and lidocaine. Re-washed with soap and saline. Re -irrigated in ROM. Suture with Vycril 4-0 x 50 external and internal. 10 simple /40 wip - warned patient's and patient wound is high risk for infection and poor healing because every current injury, diabetes, and contused tissue. Dressing applied. To apply polysporin to site tid x 30 days or completely healed. Continue Doxycycline as prior to ED visit. Discussed presentation, testing and tx. plan with Dr. Stevens. Admit for further eval. and tx. . [] Final Impression Final Impression 1. Falling- Recurrent 2. Rt. [place] Contusion, Abrasion and Laceration 10 cm 3. Suspected Radial Head Fx. - Sail Sign 4. DM 142 5. Hx. of Pneumonia- recent admit 6. Anemia 11.6- Microcytic Hypochromic 7. Elevated Bun/Creat. 40/1.6 8. Elevated Alk Phos and Alt. 128/85 9. Elevated Lipase 534 10.Elevated PTT Dragon Disclaimer Dragon Disclaimer This electronic medical record was generated, in whole or in part, using a voice recognition dictation system. DIPAK HOPKINS MD Jul 11, 2018 03:31
[2018-07-11] MEDS ORDERED: DIPHTH,PERTUSS(ACELL),TET TOX 0.5 ML DISP.SYRIN. VAX IM ONE (04:00)
[2018-07-11] MEDS ORDERED: IV NORMAL SALINE 1,000ML 1,000 ML IV SCH (04:00)
[2018-07-11 04:23] LABS: BASO # 0.1 x10^3/uL (0.0-0.2); BASO % 1 % (0-3); EOS # 0.2 x10^3/uL (0.0-0.7); EOS % 2 % (0-3); HEMATOCRIT 37.3 % (36.0-47.0); HEMOGLOBIN 11.6 g/dL (12.0-15.5); LYMPH # 2.4 x10^3/uL (1.0-4.8); LYMPH % 27 % (24-48); MEAN CORPUSCULAR HEMOGLOBIN 23 pg (25-35); MEAN CORPUSCULAR HGB CONC 31 g/dL (31-37); MEAN CORPUSCULAR VOLUME 75 fL (79-100); MONO % 11 % (0-9); NEUT # 5.3 x10^3uL (1.8-7.7); NEUT % 59 % (31-73); PLATELET COUNT 236 x10^3/uL (140-400); RED CELL DISTRIBUTION WIDTH 17.7 % (11.5-14.5)
[2018-07-11 04:42] LABS: ALBUMIN 3.4 g/dL (3.4-5.0); CALCIUM 8.9 mg/dL (8.5-10.1); CREATININE 1.6 mg/dL (0.6-1.0); DIRECT BILIRUBIN 0.1 mg/dL (0.0-0.2); GFR 31.9; MAGNESIUM 1.8 mg/dL (1.8-2.4); POTASSIUM 4.5 mmol/L (3.5-5.1); TOTAL BILIRUBIN 0.4 mg/dL (0.2-1.0); TOTAL PROTEIN 6.9 g/dL (6.4-8.2)
[2018-07-11] MEDS ORDERED: ONDANSETRON PF 4 MG/2 ML VIAL. IV PRN (04:45)
[2018-07-11] MEDS ORDERED: ACETAMINOPHEN 325 MG TABLET PO PRN (04:45)
--- NOTE | 2018-07-11 04:58 | EKG ---
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
--- NOTE | 2018-07-11 05:19 | RAD ---
Examination: CT HEAD AND CERVICAL SPINE WO History: Fall, headache and neck pain Comparison/Correlation: None Findings: Axial images of the head and cervical spine were obtained without contrast. Sagittal and coronal reformatted images of the cervical spine were provided. Advanced chronic ischemic changes white matter noted. Atrophy is present. No intracranial hemorrhage, midline shift, or mass effect. Cavernous carotid calcifications noted. Bilateral pratik bullosa are identified. No depressed fracture. Reversal cervical lordosis is present with the apex at C5. Significant disc space narrowing at C4-5, C5-6 and C6-C7 noted. Neural foraminal bony encroachment is present primarily at the right C5-6 level. Significant left C3-4 neural foraminal narrowing is present with significant degenerative hypertrophy of the facet joint. Nerve root compression is suspected on axial images. Neural foraminal narrowing on the right at this level is present which lesser extent. Vertebral body heights are unremarkable. Impression: No intracranial hemorrhage. No fracture or bony destruction. Advanced degenerative changes of the cervical spine. Electronically signed by: Fred Hamilton MD (07/11/2018 5:15 AM) [facility]
[2018-07-11] MEDS ORDERED: LIDOCAINE 1% Multi-Dose 20 ML VIAL. ONE (05:23)
--- NOTE | 2018-07-11 05:32 | RAD ---
Examination: CT LUMBAR SPINE WO CONTRAST History: Fall, lower back pain Comparison/Correlation: None Findings: Axial images of the lumbar spine were obtained. Sagittal and coronal reformatted images were provided. Motion limits evaluation of the low lumbar spine especially on reconstruction images. Alignment is normal. Bone island or other likely benign sclerotic process appreciated present involving the T12 vertebral body. L1-2: Unremarkable L2-3: Severe disc space narrowing with vacuum phenomenon is present. Concentric disc bulge is noted. No nerve root effacement of point seen. L3-4: Significant disc space narrowing. L4-5: Vacuum phenomenon. Left paracentral disc bulge is noted. Effacement of the exiting nerve root is suspected. Facet joint degenerative hypertrophy is present. L5-S1: Significant disc space narrowing is present. Central disc bulge is present. Assessment of exiting nerve roots is somewhat limited due to motion at this level. Soft tissues are grossly unremarkable. Impression: Advanced degenerative changes of the lumbar spine. Nerve root effacement. No fracture or bony destruction. Electronically signed by: Fred Hamilton MD (07/11/2018 5:28 AM) [facility]
--- NOTE | 2018-07-11 05:35 | RAD ---
Examination: CT PELVIS WO CONTRAST History: Fall, pelvic and left hip pain Comparison/Correlation: None Findings: Axial images of pelvis were obtained without contrast. Sagittal and coronal reformatted images were provided. Degenerative changes of the low lumbar spine are present. Hip joints are symmetric. No acute fracture or bony destruction. Bilateral inguinal hernias containing omental fat. Impression: No displaced fracture. Electronically signed by: Fred Hamilton MD (07/11/2018 5:31 AM) [facility] [place]
[2018-07-11 06:24] LABS: BARBITURATES NEG (NEG); BENZODIAZEPINES NEG (NEG); CANNABINOIDS NEG (NEG); COCAINE NEG (NEG); METHADONE NEG (NEG); OPIATES NEG (NEG); PHENCYCLIDINE NEG (NEG)
[2018-07-11 06:25] LABS: AMPHETAMINE/METHAMPHETAMINE NEG (NEG)
[2018-07-11 06:30] LABS: BACTERIA,URINE 0 /HPF (0-FEW); BILIRUBIN,URINE NEG (NEG); CLARITY,URINE HAZY; COLOR,URINE YELLOW; GLUCOSE,URINE NEG (NEG); NITRITE,URINE NEG (NEG); RBC,URINE 0 /HPF (0-2); SQUAMOUS EPITHELIAL CELL,UR OCC /LPF; UROBILINOGEN,URINE 0.2 mg/dL (0.2 mg/dL); WBC,URINE 0 /HPF (0-4); YEAST,URINE PRESENT /HPF
[2018-07-11 06:40] VITALS: BP 141/88
[2018-07-11] MEDS: DOXYCYCLINE HYCLATE 100 MG TABLET PO SCH ×2 (06:54→20:36)
[2018-07-11] MEDS ORDERED: LIDOCAINE 1% Multi-Dose 20 ML VIAL. IJ ONE (07:00)
--- NOTE | 2018-07-11 08:08 | RAD ---
CHEST AP ONLY, ELBOW RIGHT 3V Clinical indications: Fall, chest pain and right elbow pain AP view chest x-ray COMPARISON: July 04, 2018. Findings: The previously seen interstitial pulmonary edema and vascular congestion has resolved. No new lung infiltrate or pleural effusion or pneumothorax is seen. The heart size, pulmonary vasculature, mediastinum and both jarek are stable. Impression: Resolution of CHF seen previously. 3 view right elbow study: No joint effusion is seen. No acute fracture or dislocation or osteolytic process is evident. IMPRESSION: No acute fracture. Electronically signed by: Rodolfo Murphy MD (07/11/2018 8:04 AM) [facility]
--- NOTE | 2018-07-11 08:13 | RAD ---
Two-view study left hip and two-view study left femur Clinical indications: Fall with left hip pain and upper leg pain. FINDINGS: No acute fracture or dislocation or osteolytic process is evident. Total left knee arthroplasty is evident which is well aligned. IMPRESSION: No acute fracture. Electronically signed by: Rodolfo Murphy MD (07/11/2018 8:10 AM) [facility]
--- NOTE | 2018-07-11 08:13 | RAD ---
Two-view study left hip and two-view study left femur Clinical indications: Fall with left hip pain and upper leg pain. FINDINGS: No acute fracture or dislocation or osteolytic process is evident. Total left knee arthroplasty is evident which is well aligned. IMPRESSION: No acute fracture. Electronically signed by: Rodolfo Murphy MD (07/11/2018 8:10 AM) [facility]
[2018-07-11] MEDS ORDERED: levoFLOXacin 500 MG TABLET PO SCH (09:00)
[2018-07-11] MEDS ORDERED: CYCLOBENZAPRINE HCL 10 MG PO SCH (09:00)
[2018-07-11] MEDS ORDERED: traMADol 50 MG TABLET PO PRN (09:00)
[2018-07-11] MEDS ORDERED: FLUCONAZOLE 100 MG TABLET. PO SCH (09:00)
[2018-07-11] MEDS ORDERED: NON FORMULARY ITEM (Etanercept (Enbrel) 50 MG) SQ SCH (09:00)
[2018-07-11] MEDS ORDERED: diphenhydrAMINE HCL 25 MG CAPSULE PO PRN (09:00)
[2018-07-11] MEDS ORDERED: DOXYCYCLINE HYCLATE PO SCH (09:00)
[2018-07-11] MEDS ORDERED: NEOMYCIN/BACITRAC/POLY TOPICAL OINTMENT 28GM TUBE. TP SCH (10:00)
[2018-07-11] MEDS ORDERED: IPRATRPIUM/ALBUTEROL 0.5/2.5MG 3 ML NEBU. ONE (10:23)
[2018-07-11] MEDS ORDERED: ALPRAZolam 0.25 MG TABLET PO PRN (10:30)
[2018-07-11] MEDS: FLUCONAZOLE 100 MG TABLET. PO SCH (10:30)
[2018-07-11 10:43] VITALS: BP 102/52
[2018-07-11] MEDS ORDERED: ACETAMINOPHEN 500 MG TABLET PO PRN (10:45)
--- NOTE | 2018-07-11 11:15 | EKG ---
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
--- NOTE | 2018-07-11 11:38 | HP ---
ADMIT DATE: 07/11/2018 HISTORY OF PRESENT ILLNESS: A 72-year-old female came, apparently fell as she was getting out of bed early this morning. The patient took some Ambien in the middle of the night because she could not sleep and then she fell. Apparently, she thought she was low on her blood sugar, started to walk, fell, and injured her right elbow. Extensive workup was done in the Emergency Room as well as repair of the laceration was done in the Emergency Room. A 10 cm laceration of the right elbow, nothing broken. She recently had been treated for bilateral pneumonia. The patient was admitted for further evaluation and also change in mental status as the patient was quite lethargic and change in mental status. PAST MEDICAL HISTORY: Includes lens implant, bilateral cataract extraction, peripheral neuropathy, peripheral vascular disease, hypercholesterolemia, bronchitis, pneumonia, abdominal cramping. She is having abdominal pain presently. 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 FAMILY HISTORY: Positive for stroke in the father, [place] in the mother. ALLERGIES: The patient has allergies to GADOLINIUM CONTAINING CONTRAST MATERIAL, INFLUENZA VACCINES APPARENTLY, SULFUR, CLINDAMYCIN, CODEINE, IODINE, levofloxacin, Levaquin, menthol, METFORMIN, MORPHINE, NAPROXEN, PIOGLITAZONE, PREGABALIN, WHICH IS LYRICA, ALOGLIPTIN. MEDICATIONS: Benadryl, Zyrtec, doxycycline, fluconazole 100 mg daily, DuoNeb treatments, lisinopril 5 mg, Tylenol, Elavil 50 mg at bedtime, gabapentin 300 mg b.i.d., hydroxyzine p.r.n., Ambien p.r.n., potassium chloride, furosemide, fluticasone, Protonix 40, prednisone 20, Insulin tresiba, Enbrel 50 mg subcutaneous weekly and vitamin D2. SOCIAL HISTORY: The patient denies smoking, drug use or alcohol use. REVIEW OF SYSTEMS: The patient is very groggy, change in mental status, decrease some abdominal discomfort, otherwise contusion of the right elbow, but denies chest pain, shortness of breath. Denies nausea, vomiting, melena. She is not emesis, some grogginess in speech. PHYSICAL EXAMINATION: GENERAL: This is a pleasant female. VITAL SIGNS: Blood pressure 138/72, respiratory rate 27, pulse 97, afebrile. HEENT: The patient's head was atraumatic, normocephalic. Eyes: PERRLA without jaundice. Mouth and throat were normal. NECK: Supple, thyromegaly. LUNGS: Clear to auscultation. CARDIOVASCULAR: Regular sinus rhythm. ABDOMEN: Soft. There is tenderness in the epigastric area, slight guarding, but no rebounding, positive bowel sounds. No hepatosplenomegaly. EXTREMITIES: No clubbing, cyanosis. Trace edema. NEUROLOGIC: Alert and oriented. IMPRESSION AND PLAN: Speech somewhat slower than usual. Extensive x-rays taken from the head down through rest of the body through the Emergency Room and has been completely negative for fracture. Chest x-ray shows resolvement of her previous problems of her heart failure or pneumonia for that matter. The patient otherwise seems to be resting fairly comfortably. She has a well intact laceration to the right elbow that has been stitched up in the Emergency Room and is healing well. We will put some bacitracin on it and continue to monitor her accordingly for that. We will start her on some PT, OT. Pharmacy regulator looked at her medications to see if there is anything there that could be reviewed or stopped to help minimize drug interactions. IMPRESSION: Change in mental status, fall at home with laceration of the right elbow, multiple contusions, type 2 diabetes, morbid obesity, insulin-dependent diabetes, polyneuropathy secondary to diabetes, continue monitor PT, OT and evaluate for stability made looking also at her do a possibly an abdominal ultrasound. The patient did have some tenderness there. Also, chronic kidney disease stage 3, elevated liver enzymes. PLAN: As above. JOSE FRANCISCO SZYMANSKI MD DR: LAURENT/jaime JOB#: [id number] / [id number]
[2018-07-11] MEDS: IPRATRPIUM/ALBUTEROL 0.5/2.5MG 3 ML NEBU. NEB SCH ×3 (12:00→19:53)
[2018-07-11] MEDS: INSULIN ASPART 10 UNIT SQ SCH ×2 (12:21→17:00)
[2018-07-11] MEDS: GABAPENTIN 300 MG CAPSULE. PO SCH ×2 (12:23→20:36)
[2018-07-11] MEDS: PANTOPRAZOLE 40 MG TABLET. PO SCH (12:23)
[2018-07-11] MEDS: FUROSEMIDE 40 MG TABLET PO SCH (12:23)
[2018-07-11] MEDS: LISINOPRIL 5 MG TABLET. PO SCH (12:23)
[2018-07-11] MEDS: POTASSIUM CHLORIDE 20 MEQ TABLET.ER. PO SCH ×2 (12:23→20:36)
[2018-07-11] MEDS: MUPIROCIN 2% TOPICAL OINTMENT 22GM TUBE. TP SCH ×2 (14:00→20:37)
--- NOTE | 2018-07-11 14:37 | RAD ---
NUCLEAR MEDICINE VENTILATION PERFUSION SCAN History: Elevated d-dimer, shortness of breath x3 weeks. Comparison: AP chest, earlier same day. Technique: Patient initially ventilated with 8.5 mCi of xenon-133 gas. Anterior and posterior imaging of the lungs during initial breath-hold, equilibrium and, washout phase images is performed. Perfusion portion performed after intravenous administration of 5.5 mCi Technetium 99m MAA. Multiple projection planar images of the lungs were obtained. Findings: The initial breath-hold ventilation images are homogeneous. There is no retention of tracer on the washout phase images. Perfusion images demonstrate no perfusion defects. IMPRESSION: Normal VQ scan. Negative for pulmonary embolism. Electronically signed by: Jer Xavier MD (07/11/2018 2:33 PM) [id number]
[2018-07-11 15:30] VITALS: BP 114/67
[2018-07-11 15:31] VITALS: BP 137/90
[2018-07-11 15:33] VITALS: BP 122/73
--- NOTE | 2018-07-11 16:17 | PDOC2 ---
CONSULT Date of Admission DATE: 07/11/18 TIME: 16:16 Reason for Consult: PAT Problem List Problems Medical Problems: (1) Falling Status: Acute History of Present Illness Ms Guerra is a 72 year old female with history of diastolic heart failure seen last week for decompensation. She apparently took ambien for sleep last pm and had an interaction with her other medications experiencing mental status change and a fall. She was readmitted and tele revealed some short episodes of PAT so consult was called. See full consult from 07/05/18. She is currently sleepy, denies dyspnea, chest discomfort, palpitations, lightheadedness or syncope. she does complain of leg cramps off and on. Current Medications Current Medications Sodium Chloride 1,000 ml @ 100 mls/hr Q10H IV Last administered on 07/11/18at 06:54; Start 07/11/18 at 04:00; Stop 07/11/18 at 14:00; Status DC Diphtheria/ Tetanus/Acell Pertussis (Boostrix) 0.5 ml ONCE ONCE VAX IM ; Start 07/11/18 at 04:00; Stop 07/11/18 at 04:01; Status DC Ondansetron HCl (Zofran) 4 mg PRN Q4HRS PRN IV NAUSEA/VOMITING; Start at 04:45; Stop 07/12/18 at 04:44 Acetaminophen (Tylenol) 650 mg PRN Q4HRS PRN PO FEVER; Start 07/11/18 at 04:45 ; Stop 07/12/18 at 04:44 Levofloxacin (Levaquin) 500 mg DAILY PO ; Start 07/11/18 at 09:00; Status UNV Doxycycline Hyclate (Vibra-Tab) 100 mg BID PO Last administered on 07/11/18at 06:54; Start 07/11/18 at 05:00 Lidocaine HCl 20 ml STK-MED ONCE .ROUTE ; Start 07/11/18 at 05:23; Stop at 05:24; Status DC Lidocaine HCl 20 ml 1X ONCE IJ ; Start 07/11/18 at 07:00; Stop 07/11/18 at 07 :01; Status DC Diphenhydramine HCl (Benadryl) 25 mg QHS PRN PO ALLERGIES; Start 07/11/18 at 09:00; Stop 07/11/18 at 09:47; Status DC Fluconazole (Diflucan) 100 mg DAILY PO ; Start 07/11/18 at 09:00; Stop at 09:38; Status DC Fluconazole (Diflucan) 100 mg DAILY PO ; Start 07/11/18 at 10:30 Albuterol/ Ipratropium (Duoneb) 3 ml RTQID NEB Last administered on 07/11/18at 15:27; Start 07/11/18 at 12:00 Potassium Chloride (Klor-Con) 20 meq BID PO Last administered on 07/11/18at 12: 23; Start 07/11/18 at 10:30 Prednisone (Prednisone) 20 mg DAILY PO ; Start 07/12/18 at 09:00 Tramadol HCl (Ultram) 50 mg PRN Q12HR PRN PO PAIN; Start 07/11/18 at 09:00 Zolpidem Tartrate (Ambien) 5 mg QHS PO ; Start 07/11/18 at 21:00; Stop at 21:00; Status DC Acetaminophen (Tylenol) 500 mg PRN BID PRN PO PAIN / TEMP Last administered on 07/11/18at 12:25; Start 07/11/18 at 10:45 Alprazolam (Xanax) 0.25 mg PRN Q8HRS PRN PO ANXIETY / AGITATION; Start at 10:30 Non-Formulary Medication (Amitriptyline Hcl ) 2 tab HS PO ; Start 07/11/18 at 21:00; Stop 07/11/18 at 21:00; Status DC Cetirizine HCl (ZyrTEC) 10 mg DAILY PO ; Start 07/12/18 at 09:00 Non-Formulary Medication (Cyclobenzaprine Hcl ) 10 mg TID PO ; Start 07/11/18 at 09:00; Stop 07/11/18 at 09:38; Status DC Non-Formulary Medication (Doxycycline Hyclate (Vibramycin)) 1 cap BID PO ; Start 07/11/18 at 09:00; Stop 07/11/18 at 09:47; Status DC Vitamin D (Vitamin D3) 50,000 unit WEEKLY PO ; Start 07/18/18 at 09:00 Non-Formulary Medication (Etanercept (Enbrel)) 50 mg WEEKLY SQ ; Start at 09:00; Status UNV Fluticasone Propionate (Flonase) 2 spray DAILY NS ; Start 07/12/18 at 09:00 Furosemide (Lasix) 40 mg DAILY PO Last administered on 07/11/18at 12:23; Start 07/11/18 at 10:30 Gabapentin (Neurontin) 300 mg BID PO Last administered on 07/11/18at 12:23; Start 07/11/18 at 10:30 Glipizide (Glucotrol) 5 mg BIDBFRMEAL PO ; Start 07/11/18 at 16:30 Non-Formulary Medication (Insulin Aspart (Novolog Flexpen)) 10 unit TIDWMEALS SQ Last administered on 07/11/18at 12:21; Start 07/11/18 at 12:00 Non-Formulary Medication (Insulin Degludec (Tresiba Flextouch U-200)) 98 units DAILY SQ ; Start 07/12/18 at 09:00 Lisinopril (Prinivil) 5 mg DAILY PO Last administered on 07/11/18at 12:23; Start 07/11/18 at 10:30 Mupirocin (Bactroban) 1 dorian TID TP ; Start 07/11/18 at 14:00 Pantoprazole Sodium (Protonix) 40 mg DAILYAC PO Last administered on at 12:23; Start 07/11/18 at 10:30 Neomycin/ Polymyxin/ Bacitracin (Triple Antibiotic) 1 dorian BID TP ; Start at 10:00; Stop 07/11/18 at 10:00; Status DC Neomycin/ Polymyxin/ Bacitracin (Triple Antibiotic Ointment) 1 pkt BID TP ; Start 07/11/18 at 21:00 Albuterol/ Ipratropium (Duoneb) 3 ml STK-MED ONCE .ROUTE Last administered on 07/11/18at 10:28; Start 07/11/18 at 10:23; Stop 07/11/18 at 10:24; Status DC Lactobacillus Rhamnosus (Culturelle) 1 cap BID PO ; Start 07/11/18 at 21:00 Active Scripts Active Bactroban (Mupirocin Calcium) 15 Gm Cream..g. 1 Dorian TP TID 7 Days Vibramycin (Doxycycline Hyclate) 100 Mg Capsule 1 Cap PO BID Furosemide 40 Mg Tablet 40 Mg PO DAILY Lisinopril 5 Mg Tablet 5 Mg PO DAILY Duoneb 0.5-3(2.5) Mg/3 Ml (Albuterol/Ipratropium) 3 Ml Ampul.neb 3 Ml NEB RTQID Diflucan (Fluconazole) 100 Mg Tablet 100 Mg PO DAILY Prednisone 10 Mg Tablet 20 Mg PO DAILY LAST DOSE GIVEN: DATE: TODAY TIME: AM NEXT DOSE DUE: DATE: TOMORROW TIME: AM Reported Diflucan (Fluconazole) 100 Mg Tablet 100 Mg PO DAILY Ambien (Zolpidem Tartrate) 5 Mg Tablet 1 Tab PO QHS Hydroxyzine Hcl 25 Mg Tablet 25 Mg PO PRN QHS PRN Novolog Flexpen (Insulin Aspart) 100 Unit/1 Ml Insuln.pen 10 Unit SQ TIDWMEALS Acid Loss Control Consultant (Cimetidine) 200 Mg Tablet 200 Mg PO PRN PRN Acetaminophen 500 Mg Tablet 1 Tab PO BID PRN Benadryl (Diphenhydramine Hcl) 25 Mg Capsule 1 Cap PO QHS PRN Alprazolam 0.25 Mg Tablet 0.25 Mg PO Q8HRS PRN Vitamin D2 (Ergocalciferol (Vitamin D2)) 50,000 Unit Capsule 1 Cap PO WEEKLY Gabapentin 100 Mg Capsule 300 Cap PO BID Glipizide 5 Mg Tablet 1 Tab PO BID Tresiba Flextouch U-200 (Insulin Degludec) 200 Unit/1 Ml Insuln.pen 98 Units SUBCUT DAILY Tramadol Hcl (Tramadol HCl) 50 Mg Tablet 50 Mg PO PRN Q12HR PRN Protonix (Pantoprazole Sodium) 40 Mg Tablet.dr 1 Tab PO DAILY Zyrtec (Cetirizine Hcl) 10 Mg Tablet 10 Mg PO DAILY LAST DOSE GIVEN: DATE: TODAY TIME: AM NEXT DOSE DUE: DATE: TOMORROW TIME: AM Flonase Allergy Relief (Fluticasone Propionate) 9.9 Ml [place].susp 1 Spr NS DAILY LAST DOSE GIVEN: DATE: TODAY TIME: AM NEXT DOSE DUE: DATE: TOMORROW TIME: AM Amitriptyline Hcl 25 Mg Tablet 2 Tab PO HS LAST DOSE GIVEN: DATE: YESTERDAY TIME: AT BEDTIME NEXT DOSE DUE: DATE: TODAY TIME: AT BEDTIME Cyclobenzaprine Hcl 10 Mg Tablet 10 Mg PO TID LAST DOSE GIVEN: DATE: YESTERDAY TIME: AT BEDTIME NEXT DOSE DUE: DATE: TODAY TIME: AT BEDTIME IF NEEDED Klor-Con M20 (Potassium Chloride) 20 Meq Tab.er.prt 20 Meq PO BID LAST DOSE GIVEN: DATE: TODAY TIME: AM NEXT DOSE DUE: DATE: TOMORROW TIME: AM Enbrel (Etanercept) 50 Mg/1 Ml Disp.syrin 50 Mg SQ WEEKLY RESTART ON YOUR NORMALLY SCHEDULED DAY not given this admission Allergies: Coded Allergies: insulin aspart (Verified Allergy, Severe, Anaphylaxis, 01/26/18) insulin glargine (Verified Allergy, Severe, Anaphylaxis, 01/26/18) insulin lispro (Verified Allergy, Severe, Anaphylaxis, 01/26/18) Gadolinium-Containing Contrast Medi (Verified Allergy, Intermediate, 05/25) Influenza Virus Vaccines (Verified Allergy, Intermediate, 01/26/18) Sulfa (Sulfonamide Antibiotics) (Verified Allergy, Intermediate, 01/26/18) alogliptin (Verified Allergy, Intermediate, 05/25/18) capsaicin (Verified Allergy, Intermediate, 01/26/18) clindamycin (Verified Allergy, Intermediate, 05/25/18) codeine (Verified Allergy, Intermediate, 01/26/18) exenatide (Verified Allergy, Intermediate, 05/25/18) insulin glulisine (Verified Allergy, Intermediate, Rash, 01/26/18) iodine (Verified Allergy, Intermediate, 01/26/18) levofloxacin (Verified Allergy, Intermediate, 01/26/18) menthol (Verified Allergy, Intermediate, 01/26/18) metformin (Verified Allergy, Intermediate, Hives, 01/26/18) morphine (Verified Allergy, Intermediate, 05/25/18) naproxen (Verified Allergy, Intermediate, 01/26/18) pioglitazone (Verified Allergy, Intermediate, 05/25/18) pregabalin (Verified Allergy, Intermediate, 05/25/18) I S O L A T I O N *CONTACT* (Verified Allergy, Unknown, 07/06/18) MRSA + 07/04/2018 nares Review of System per HPI General: Oriented X3, Cooperative, No acute distress HEENT: Atraumatic, EOMI, Mucous membr. moist/pink Lungs: Clear to auscultation Heart: Normal S1, Normal S2 Abdomen: Normal bowel sounds, Soft, Other (mild tenderness epigastric area) Extremities: Other (trace edema) Neuro: Normal speech Psych/Mental Status: Mental status NL, Mood NL VITALS Vital Signs Date Time Temp Pulse Resp B/P (MAP) Pulse Ox O2 Delivery O2 Flow Rate FiO2 07/11/18 15:33 107 122/73 (89) 98 Room Air 07/11/18 15:30 98.8 20 Labs Laboratory Tests Test 07/11/18 03:55 07/11/18 06:00 07/11/18 06:36 07/11/18 06:41 White Blood Count 9.0 x10^3/uL (4.0-11.0) Red Blood Count 5.00 x10^6/uL (3.50-5.40) Hemoglobin 11.6 g/dL (12.0-15.5) Hematocrit 37.3 % (36.0-47.0) Mean Corpuscular Volume 75 fL (79-100) Mean Corpuscular Hemoglobin 23 pg (25-35) Mean Corpuscular Hemoglobin Concent 31 g/dL (31-37) Red Cell Distribution Width 17.7 % (11.5-14.5) Platelet Count 236 x10^3/uL (140-400) Neutrophils (%) (Auto) 59 % (31-73) Lymphocytes (%) (Auto) 27 % (24-48) Monocytes (%) (Auto) 11 % (0-9) Eosinophils (%) (Auto) 2 % (0-3) Basophils (%) (Auto) 1 % (0-3) Neutrophils # (Auto) 5.3 x10^3uL (1.8-7.7) Lymphocytes # (Auto) 2.4 x10^3/uL (1.0-4.8) Monocytes # (Auto) 1.0 x10^3/uL (0.0-1.1) Eosinophils # (Auto) 0.2 x10^3/uL (0.0-0.7) Basophils # (Auto) 0.1 x10^3/uL (0.0-0.2) Prothrombin Time 9.8 SEC (9.4-11.4) 9.9 SEC (9.4-11.4) Prothromb Time International Ratio 1.0 (0.9-1.1) 1.0 (0.9-1.1) Activated Partial Thromboplast Time < 150 SEC (23-33) 21 SEC (23-33) D-Dimer (Dalia) 1.22 mg/L (0.00-0.50) Sodium Level 138 mmol/L (136-145) Potassium Level 4.5 mmol/L (3.5-5.1) Chloride Level 100 mmol/L (98-107) Carbon Dioxide Level 26 mmol/L (21-32) Anion Gap 12 (6-14) Blood Urea Nitrogen 40 mg/dL (7-20) Creatinine 1.6 mg/dL (0.6-1.0) Estimated GFR (Cockcroft-Gault) 31.9 Glucose Level 142 mg/dL (70-99) Calcium Level 8.9 mg/dL (8.5-10.1) Magnesium Level 1.8 mg/dL (1.8-2.4) Total Bilirubin 0.4 mg/dL (0.2-1.0) Direct Bilirubin 0.1 mg/dL (0.0-0.2) Aspartate Amino Transf (AST/SGOT) 30 U/L (15-37) Alanine Aminotransferase (ALT/SGPT) 85 U/L (14-59) Alkaline Phosphatase 128 U/L (46-116) Creatine Kinase 68 U/L (26-192) 66 U/L (26-192) Troponin I Quantitative 0.041 ng/mL (0-0.055) 0.034 ng/mL (0-0.055) TG-Vss-S-Type Natriuretic Peptide 234 pg/mL (0-124) Total Protein 6.9 g/dL (6.4-8.2) Albumin 3.4 g/dL (3.4-5.0) Lipase 534 U/L (73-393) Urine Collection Type Unknown Urine Color Yellow Urine Clarity Hazy Urine pH 6.0 Urine Specific [employer] 1.010 Urine Protein Neg (NEG-TRACE) Urine Glucose (UA) Neg mg/dL (NEG) Urine Ketones (Stick) Neg mg/dL (NEG) Urine Blood Neg (NEG) Urine Nitrite Neg (NEG) Urine Bilirubin Neg (NEG) Urine Urobilinogen Dipstick 0.2 mg/dL (0.2 mg/dL) Urine Leukocyte Esterase Neg (NEG) Urine RBC 0 /HPF (0-2) Urine WBC 0 /HPF (0-4) Urine Squamous Epithelial Cells Occ /LPF Urine Bacteria 0 /HPF (0-FEW) Urine Yeast Present /HPF Urine Opiates Screen Neg (NEG) Urine Methadone Screen Neg (NEG) Urine Barbiturates Neg (NEG) Urine Phencyclidine Screen Neg (NEG) Urine Amphetamine/Methamphetamine Neg (NEG) Urine Benzodiazepines Screen Neg (NEG) Urine Cocaine Screen Neg (NEG) Urine Cannabinoids Screen Neg (NEG) Urine Ethyl Alcohol Neg (NEG) Nasal Screen MRSA (PCR) Positive (Negative) Test 07/11/18 07:28 07/11/18 11:55 Glucose (Fingerstick) 197 mg/dL (70-99) 262 mg/dL (70-99) Images EKG sinus rhythm, PACs, no acute ischemic changes. Assessment/Plan 1. Paroxysmal atrial tachycardia - short salvos. start low dose beta fam. 2. CHF, chronic diastolic - compensated. Normal LV systolic and diastolic function by echo last week. Continue home meds. 3. hypertension - resume home meds, add low dose beta fam and monitor. 4. CKD stage 3 - Cr stable. 5. diabetes mellitus - Mgmt per PCP 6. elevated lipase - am sono per PCP CARMEL JURADO APRN Jul 11, 2018 16:17
[2018-07-11] MEDS: glipiZIDE 5 MG TABLET PO SCH ×2 (16:30→17:08)
[2018-07-11 19:20] VITALS: BP 126/77
[2018-07-11] MEDS: METOPROLOL TART IMMED RELEASE 25 MG TABLET PO SCH (20:36)
[2018-07-11] MEDS: LACTOBACILLUS RHAMNOSUS GG 1 CAPSULE. PO SCH (20:36)
[2018-07-11] MEDS: NEOMY/BACITR/POLYMYXIN OINT PACKET. TP SCH (20:37)
[2018-07-11] MEDS ORDERED: AMITRIPTYLINE HCL PO SCH (21:00)
[2018-07-11] MEDS ORDERED: ZOLPIDEM 5 MG TABLET. PO SCH (21:00)
[2018-07-12] MEDS: IPRATRPIUM/ALBUTEROL 0.5/2.5MG 3 ML NEBU. NEB SCH ×2 (05:35→09:55)
[2018-07-12 05:45] VITALS: BP 96/63
[2018-07-12] MEDS: INSULIN ASPART 10 UNIT SQ SCH (08:00)
[2018-07-12] MEDS: FUROSEMIDE 40 MG TABLET PO SCH (08:40)
[2018-07-12] MEDS: DOXYCYCLINE HYCLATE 100 MG TABLET PO SCH (08:40)
[2018-07-12] MEDS: GABAPENTIN 300 MG CAPSULE. PO SCH (08:40)
[2018-07-12] MEDS: POTASSIUM CHLORIDE 20 MEQ TABLET.ER. PO SCH (08:41)
[2018-07-12] MEDS: glipiZIDE 5 MG TABLET PO SCH (08:41)
[2018-07-12] MEDS: LACTOBACILLUS RHAMNOSUS GG 1 CAPSULE. PO SCH (08:41)
[2018-07-12] MEDS: PANTOPRAZOLE 40 MG TABLET. PO SCH (08:42)
[2018-07-12] MEDS: NEOMY/BACITR/POLYMYXIN OINT PACKET. TP SCH (08:43)
[2018-07-12] MEDS: LISINOPRIL 5 MG TABLET. PO SCH (08:45)
[2018-07-12] MEDS: FLUCONAZOLE 100 MG TABLET. PO SCH (08:45)
[2018-07-12] MEDS: METOPROLOL TART IMMED RELEASE 25 MG TABLET PO SCH (08:45)
[2018-07-12] MEDS: MUPIROCIN 2% TOPICAL OINTMENT 22GM TUBE. TP SCH (08:46)
[2018-07-12] MEDS ORDERED: FLUTICASONE 50MCG/NASAL SPRAY 16GM BOTTLE. NS SCH (09:00)
[2018-07-12] MEDS ORDERED: CETIRIZINE HCL 10 MG TABLET PO SCH (09:00)
[2018-07-12] MEDS ORDERED: INSULIN DEGLUDEC SQ SCH (09:00)
[2018-07-12] MEDS ORDERED: predniSONE 20 MG TABLET PO SCH (09:00)
[2018-07-12 10:35] VITALS: BP 94/62
--- NOTE | 2018-07-12 10:53 | PDOC ---
PROGRESS NOTES Diagnosis Problem Problems Medical Problems: (1) Falling Status: Acute Assessment Problems Medical Problems: (1) Falling Status: Acute 1. Paroxysmal atrial tachycardia - short salvos. if tolerates metoprolol this jigar, suggest change to 12.5 of ER daily starting tomorrow. 2. CHF, chronic diastolic - compensated. Normal LV systolic and diastolic function by echo last week. decreased lasix and lisinopril. 3. hypertension - resume home meds, add low dose beta fam and monitor. 4. CKD stage 3 - Cr up to 1.6, decrease lasix. 5. diabetes mellitus - Mgmt per PCP 6. elevated lipase - am sono per PCP OK CV vergara for discharge. Keep scheduled HF follow up next week. Subjective no cp, dypsnea, palpitations, no lightheadedness Objective tele sinus rhythm, short salvos if PAT up to about 10 beats. no sustained runs. Vital Signs Date Time Temp Pulse Resp B/P (MAP) Pulse Ox O2 Delivery O2 Flow Rate FiO2 07/12/18 10:35 98.1 97 20 94/62 (73) 97 Room Air Intake and Output 07/12/18 07:00 Intake Total 2009 ml Output Total 2300 ml Balance -290 ml Intake Oral 2009 ml Output Urine Total 2300 ml Abdomen: Normal bowel sounds, Soft, No tenderness Heart: Regular rate, Normal S1, Normal S2 Extremities: No cyanosis, Other (trace edema, palpable pulses) General: Alert, Oriented X3, Cooperative, No acute distress HEENT: Atraumatic, EOMI Lungs: Clear to auscultation, Normal air movement Neuro: Normal speech Psych/Mental Status: Mental status NL, Mood NL Review of Relevant I have reviewed the following items federico (where applicable) has been applied. Labs Laboratory Tests Test 07/11/18 03:55 07/11/18 06:00 07/11/18 06:36 07/11/18 06:41 White Blood Count 9.0 x10^3/uL (4.0-11.0) Red Blood Count 5.00 x10^6/uL (3.50-5.40) Hemoglobin 11.6 g/dL (12.0-15.5) Hematocrit 37.3 % (36.0-47.0) Mean Corpuscular Volume 75 fL (79-100) Mean Corpuscular Hemoglobin 23 pg (25-35) Mean Corpuscular Hemoglobin Concent 31 g/dL (31-37) Red Cell Distribution Width 17.7 % (11.5-14.5) Platelet Count 236 x10^3/uL (140-400) Neutrophils (%) (Auto) 59 % (31-73) Lymphocytes (%) (Auto) 27 % (24-48) Monocytes (%) (Auto) 11 % (0-9) Eosinophils (%) (Auto) 2 % (0-3) Basophils (%) (Auto) 1 % (0-3) Neutrophils # (Auto) 5.3 x10^3uL (1.8-7.7) Lymphocytes # (Auto) 2.4 x10^3/uL (1.0-4.8) Monocytes # (Auto) 1.0 x10^3/uL (0.0-1.1) Eosinophils # (Auto) 0.2 x10^3/uL (0.0-0.7) Basophils # (Auto) 0.1 x10^3/uL (0.0-0.2) Prothrombin Time 9.8 SEC (9.4-11.4) 9.9 SEC (9.4-11.4) Prothromb Time International Ratio 1.0 (0.9-1.1) 1.0 (0.9-1.1) Activated Partial Thromboplast Time < 150 SEC (23-33) 21 SEC (23-33) D-Dimer (Dalia) 1.22 mg/L (0.00-0.50) Sodium Level 138 mmol/L (136-145) Potassium Level 4.5 mmol/L (3.5-5.1) Chloride Level 100 mmol/L (98-107) Carbon Dioxide Level 26 mmol/L (21-32) Anion Gap 12 (6-14) Blood Urea Nitrogen 40 mg/dL (7-20) Creatinine 1.6 mg/dL (0.6-1.0) Estimated GFR (Cockcroft-Gault) 31.9 Glucose Level 142 mg/dL (70-99) Calcium Level 8.9 mg/dL (8.5-10.1) Magnesium Level 1.8 mg/dL (1.8-2.4) Total Bilirubin 0.4 mg/dL (0.2-1.0) Direct Bilirubin 0.1 mg/dL (0.0-0.2) Aspartate Amino Transf (AST/SGOT) 30 U/L (15-37) Alanine Aminotransferase (ALT/SGPT) 85 U/L (14-59) Alkaline Phosphatase 128 U/L (46-116) Creatine Kinase 68 U/L (26-192) 66 U/L (26-192) Troponin I Quantitative 0.041 ng/mL (0-0.055) 0.034 ng/mL (0-0.055) CW-Edy-B-Type Natriuretic Peptide 234 pg/mL (0-124) Total Protein 6.9 g/dL (6.4-8.2) Albumin 3.4 g/dL (3.4-5.0) Lipase 534 U/L (73-393) Thyroid Stimulating Hormone (TSH) 1.475 uIU/mL (0.358-3.740) Urine Collection Type Unknown Urine Color Yellow Urine Clarity Hazy Urine pH 6.0 Urine Specific [place] 1.010 Urine Protein Neg (NEG-TRACE) Urine Glucose (UA) Neg mg/dL (NEG) Urine Ketones (Stick) Neg mg/dL (NEG) Urine Blood Neg (NEG) Urine Nitrite Neg (NEG) Urine Bilirubin Neg (NEG) Urine Urobilinogen Dipstick 0.2 mg/dL (0.2 mg/dL) Urine Leukocyte Esterase Neg (NEG) Urine RBC 0 /HPF (0-2) Urine WBC 0 /HPF (0-4) Urine Squamous Epithelial Cells Occ /LPF Urine Bacteria 0 /HPF (0-FEW) Urine Yeast Present /HPF Urine Opiates Screen Neg (NEG) Urine Methadone Screen Neg (NEG) Urine Barbiturates Neg (NEG) Urine Phencyclidine Screen Neg (NEG) Urine Amphetamine/Methamphetamine Neg (NEG) Urine Benzodiazepines Screen Neg (NEG) Urine Cocaine Screen Neg (NEG) Urine Cannabinoids Screen Neg (NEG) Urine Ethyl Alcohol Neg (NEG) Nasal Screen MRSA (PCR) Positive (Negative) Test 07/11/18 07:28 07/11/18 11:55 07/11/18 16:47 07/12/18 07:39 Glucose (Fingerstick) 197 mg/dL (70-99) 262 mg/dL (70-99) 171 mg/dL (70-99) 88 mg/dL (70-99) Medications Current Medications Sodium Chloride 1,000 ml @ 100 mls/hr Q10H IV Last administered on 07/11/18at 06:54; Start 07/11/18 at 04:00; Stop 07/11/18 at 14:00; Status DC Diphtheria/ Tetanus/Acell Pertussis (Boostrix) 0.5 ml ONCE ONCE VAX IM ; Start 07/11/18 at 04:00; Stop 07/11/18 at 04:01; Status DC Ondansetron HCl (Zofran) 4 mg PRN Q4HRS PRN IV NAUSEA/VOMITING Last administered on 07/11/18at 22:28; Start 07/11/18 at 04:45; Stop 07/12/18 at 04 :44; Status DC Acetaminophen (Tylenol) 650 mg PRN Q4HRS PRN PO FEVER; Start 07/11/18 at 04:45 ; Stop 07/12/18 at 04:44; Status DC Levofloxacin (Levaquin) 500 mg DAILY PO ; Start 07/11/18 at 09:00; Status UNV Doxycycline Hyclate (Vibra-Tab) 100 mg BID PO Last administered on 07/12/18at 08:40; Start 07/11/18 at 05:00 Lidocaine HCl 20 ml STK-MED ONCE .ROUTE ; Start 07/11/18 at 05:23; Stop at 05:24; Status DC Lidocaine HCl 20 ml 1X ONCE IJ ; Start 07/11/18 at 07:00; Stop 07/11/18 at 07 :01; Status DC Diphenhydramine HCl (Benadryl) 25 mg QHS PRN PO ALLERGIES; Start 07/11/18 at 09:00; Stop 07/11/18 at 09:47; Status DC Fluconazole (Diflucan) 100 mg DAILY PO ; Start 07/11/18 at 09:00; Stop at 09:38; Status DC Fluconazole (Diflucan) 100 mg DAILY PO ; Start 07/11/18 at 10:30 Albuterol/ Ipratropium (Duoneb) 3 ml RTQID NEB Last administered on 07/12/18at 09:55; Start 07/11/18 at 12:00 Potassium Chloride (Klor-Con) 20 meq BID PO Last administered on 07/12/18at 08: 41; Start 07/11/18 at 10:30 Prednisone (Prednisone) 20 mg DAILY PO Last administered on 07/12/18at 08:42; Start 07/12/18 at 09:00 Tramadol HCl (Ultram) 50 mg PRN Q12HR PRN PO PAIN Last administered on at 08:42; Start 07/11/18 at 09:00 Zolpidem Tartrate (Ambien) 5 mg QHS PO ; Start 07/11/18 at 21:00; Stop at 21:00; Status DC Acetaminophen (Tylenol) 500 mg PRN BID PRN PO PAIN / TEMP Last administered on 07/11/18at 12:25; Start 07/11/18 at 10:45 Alprazolam (Xanax) 0.25 mg PRN Q8HRS PRN PO ANXIETY / AGITATION; Start at 10:30 Non-Formulary Medication (Amitriptyline Hcl ) 2 tab HS PO ; Start 07/11/18 at 21:00; Stop 07/11/18 at 21:00; Status DC Cetirizine HCl (ZyrTEC) 10 mg DAILY PO Last administered on 07/12/18at 08:42; Start 07/12/18 at 09:00 Non-Formulary Medication (Cyclobenzaprine Hcl ) 10 mg TID PO ; Start 07/11/18 at 09:00; Stop 07/11/18 at 09:38; Status DC Non-Formulary Medication (Doxycycline Hyclate (Vibramycin)) 1 cap BID PO ; Start 07/11/18 at 09:00; Stop 07/11/18 at 09:47; Status DC Vitamin D (Vitamin D3) 50,000 unit WEEKLY PO ; Start 07/18/18 at 09:00 Non-Formulary Medication (Etanercept (Enbrel)) 50 mg WEEKLY SQ ; Start at 09:00; Status UNV Fluticasone Propionate (Flonase) 2 spray DAILY NS Last administered on at 08:43; Start 07/12/18 at 09:00 Furosemide (Lasix) 40 mg DAILY PO Last administered on 07/12/18at 08:40; Start 07/11/18 at 10:30 Gabapentin (Neurontin) 300 mg BID PO Last administered on 07/12/18 08:40; Start 07/11/18 at 10:30 Glipizide (Glucotrol) 5 mg BIDBFRMEAL PO Last administered on 07/12/18 08:41 ; Start 07/11/18 at 16:30 Non-Formulary Medication (Insulin Aspart (Novolog Flexpen)) 10 unit TIDWMEALS SQ Last administered on 07/11/18 12:21; Start 07/11/18 at 12:00 Non-Formulary Medication (Insulin Degludec (Tresiba Flextouch U-200)) 98 units DAILY SQ ; Start 07/12/18 at 09:00 Lisinopril (Prinivil) 5 mg DAILY PO Last administered on 07/11/18 12:23; Start 07/11/18 at 10:30 Mupirocin (Bactroban) 1 dorian TID TP Last administered on 07/12/18 08:46; Start 07/11/18 at 14:00 Pantoprazole Sodium (Protonix) 40 mg DAILYAC PO Last administered on 08:42; Start 07/11/18 at 10:30 Neomycin/ Polymyxin/ Bacitracin (Triple Antibiotic) 1 dorian BID TP ; Start at 10:00; Stop 07/11/18 at 10:00; Status DC Neomycin/ Polymyxin/ Bacitracin (Triple Antibiotic Ointment) 1 pkt BID TP Last administered on 07/12/18at 08:43; Start 07/11/18 at 21:00 Albuterol/ Ipratropium (Duoneb) 3 ml STK-MED ONCE .ROUTE Last administered on 07/11/18at 10:28; Start 07/11/18 at 10:23; Stop 07/11/18 at 10:24; Status DC Lactobacillus Rhamnosus (Culturelle) 1 cap BID PO Last administered on 08:41; Start 07/11/18 at 21:00 Metoprolol Tartrate (Lopressor) 12.5 mg BID PO Last administered on 07/11/18at 20:36; Start 07/11/18 at 21:00 Active Scripts Active Bactroban (Mupirocin Calcium) 15 Gm Cream..g. 1 Dorian TP TID 7 Days Vibramycin (Doxycycline Hyclate) 100 Mg Capsule 1 Cap PO BID Furosemide 40 Mg Tablet 40 Mg PO DAILY Lisinopril 5 Mg Tablet 5 Mg PO DAILY Duoneb 0.5-3(2.5) Mg/3 Ml (Albuterol/Ipratropium) 3 Ml Ampul.neb 3 Ml NEB RTQID Diflucan (Fluconazole) 100 Mg Tablet 100 Mg PO DAILY Prednisone 10 Mg Tablet 20 Mg PO DAILY LAST DOSE GIVEN: DATE: TODAY TIME: AM NEXT DOSE DUE: DATE: TOMORROW TIME: AM Reported Diflucan (Fluconazole) 100 Mg Tablet 100 Mg PO DAILY Ambien (Zolpidem Tartrate) 5 Mg Tablet 1 Tab PO QHS Hydroxyzine Hcl 25 Mg Tablet 25 Mg PO PRN QHS PRN Novolog Flexpen (Insulin Aspart) 100 Unit/1 Ml Insuln.pen 10 Unit SQ TIDWMEALS Acid Vice President Of Product Marketing (Cimetidine) 200 Mg Tablet 200 Mg PO PRN PRN Acetaminophen 500 Mg Tablet 1 Tab PO BID PRN Benadryl (Diphenhydramine Hcl) 25 Mg Capsule 1 Cap PO QHS PRN Alprazolam 0.25 Mg Tablet 0.25 Mg PO Q8HRS PRN Vitamin D2 (Ergocalciferol (Vitamin D2)) 50,000 Unit Capsule 1 Cap PO WEEKLY Gabapentin 100 Mg Capsule 300 Cap PO BID Glipizide 5 Mg Tablet 1 Tab PO BID Tresiba Flextouch U-200 (Insulin Degludec) 200 Unit/1 Ml Insuln.pen 98 Units SUBCUT DAILY Tramadol Hcl (Tramadol HCl) 50 Mg Tablet 50 Mg PO PRN Q12HR PRN Protonix (Pantoprazole Sodium) 40 Mg Tablet.dr 1 Tab PO DAILY Zyrtec (Cetirizine Hcl) 10 Mg Tablet 10 Mg PO DAILY LAST DOSE GIVEN: DATE: TODAY TIME: AM NEXT DOSE DUE: DATE: TOMORROW TIME: AM Flonase Allergy Relief (Fluticasone Propionate) 9.9 Ml [place].susp 1 Spr NS DAILY LAST DOSE GIVEN: DATE: TODAY TIME: AM NEXT DOSE DUE: DATE: TOMORROW TIME: AM Amitriptyline Hcl 25 Mg Tablet 2 Tab PO HS LAST DOSE GIVEN: DATE: YESTERDAY TIME: AT BEDTIME NEXT DOSE DUE: DATE: TODAY TIME: AT BEDTIME Cyclobenzaprine Hcl 10 Mg Tablet 10 Mg PO TID LAST DOSE GIVEN: DATE: YESTERDAY TIME: AT BEDTIME NEXT DOSE DUE: DATE: TODAY TIME: AT BEDTIME IF NEEDED Klor-Con M20 (Potassium Chloride) 20 Meq Tab.er.prt 20 Meq PO BID LAST DOSE GIVEN: DATE: TODAY TIME: AM NEXT DOSE DUE: DATE: TOMORROW TIME: AM Enbrel (Etanercept) 50 Mg/1 Ml Disp.syrin 50 Mg SQ WEEKLY RESTART ON YOUR NORMALLY SCHEDULED DAY not given this admission Vitals/I & O Vital Sign - Last 24 Hours 07/11/18 07/11/18 07/11/18 07/11/18 12:23 15:28 15:30 15:31 Temp 98.8 Pulse 106 101 108 Resp 20 B/P (MAP) 102/52 114/67 (83) 137/90 (106) Pulse Ox 100 97 97 O2 Delivery Room Air Room Air Room Air 07/11/18 07/11/18 07/11/18 07/11/18 15:33 19:20 19:53 20:00 Temp 97.8 Pulse 107 103 Resp 18 B/P (MAP) 122/73 (89) 126/77 (93) Pulse Ox 98 96 99 O2 Delivery Room Air Room Air Room Air Room Air 07/11/18 07/11/18 07/12/18 07/12/18 20:36 23:00 05:35 05:45 Temp 98.0 Pulse 103 93 90 Resp 20 B/P (MAP) 126/77 96/63 (74) Pulse Ox 97 97 O2 Delivery Room Air Room Air 07/12/18 07/12/18 07/12/18 07/12/18 08:30 08:42 08:45 08:45 Pulse 90 90 B/P (MAP) 96/63 96/63 Pulse Ox 97 O2 Delivery Room Air Room Air 07/12/18 07/12/18 07/12/18 09:42 09:56 10:35 Temp 98.1 Pulse 97 Resp 20 B/P (MAP) 94/62 (73) Pulse Ox 97 97 97 O2 Delivery Room Air Room Air Room Air Intake and Output 07/11/18 07/11/18 07/12/18 15:00 23:00 07:00 Intake Total 930 ml 630 ml 450 ml Output Total 2300 ml Balance 930 ml -1670 ml 450 ml CARMEL JURADO APRN 12, 2018 10:53
[2018-07-12] MEDS ORDERED: METO25TA4 PO (11:36)
--- NOTE | 2018-07-12 15:39 | RAD ---
COMPLETE ABDOMINAL ULTRASOUND Clinical History: Elevated lipase and alkaline phosphatase and ALT. Comparison: Complete abdominal ultrasound, October 20162017. Technique: Sonographic examination of the abdomen was performed and multiple grayscale and color Doppler static images were obtained. Findings: Liver is normal in echotexture. The liver measures 16.2 cm. Ultrasound is not sensitive for detecting solid liver lesions. Portal flow is hepatopetal. The common bile duct dilated measuring 8 mm in diameter. The gallbladder is surgically absent. The visualized pancreas is homogeneous. Pancreatic duct is normal. The right kidney is normal in echotexture and measures 11.7 cm. The left kidney is normal in echotexture and measures 10.5 cm. Corticomedullary differentiation is preserved. There is no hydronephrosis. The spleen is not enlarged, measuring 9.2 cm. Abdominal aorta and IVC are not well-visualized due to bowing bowel gas. IMPRESSION: Common bile duct is mildly dilated but is unchanged from prior study. Electronically signed by: Jer Xavier MD (07/12/2018 3:35 PM) [id number]
[2018-07-13] MEDS ORDERED: POTASSIUM CHLORIDE 20 MEQ TABLET.ER. PO SCH (09:00)
[2018-07-13] MEDS ORDERED: LISINOPRIL 5 MG TABLET. PO SCH (09:00)
[2018-07-13] MEDS ORDERED: FUROSEMIDE 40 MG TABLET PO SCH (09:00)
[2018-07-18] MEDS ORDERED: CHOLECALCIFEROL (VITAMIN D3) 50,000 UNIT CAPSULE PO SCH (09:00)
== END 2018-07-12 12:43 | disposition home or self-care (01) | DRG 308 ==
LOC: ER 03:23 → 1 SOUTH 06:28
PROVIDERS: ADMIT Family Medicine; ATTEND Family Medicine
PROC: 0HQDXZZ Repair Right Lower Arm Skin, External Approach (ICD-10-PCS; principal; 2018-07-11)
DX: I47.1 Supraventricular tachycardia (principal); G92 Toxic encephalopathy; I13.0 Hypertensive heart and chronic kidney disease with heart failure and stage 1 through stage 4 chronic kidney disease, or unspecified chronic kidney disease; I50.32 Chronic diastolic (congestive) heart failure; E11.22 Type 2 diabetes mellitus with diabetic chronic kidney disease; E11.42 Type 2 diabetes mellitus with diabetic polyneuropathy; E78.00 Pure hypercholesterolemia, unspecified; E66.01 Morbid (severe) obesity due to excess calories; E11.51 Type 2 diabetes mellitus with diabetic peripheral angiopathy without gangrene; J44.9 Chronic obstructive pulmonary disease, unspecified; K21.9 Gastro-esophageal reflux disease without esophagitis; M06.9 Rheumatoid arthritis, unspecified; N18.3 Chronic kidney disease, stage 3 (moderate); Z96.653 Presence of artificial knee joint, bilateral; D64.9 Anemia, unspecified; S51.011A Laceration without foreign body of right elbow, initial encounter; W06.XXXA Fall from bed, initial encounter; Z79.899 Other long term (current) drug therapy; Z82.3 Family history of stroke; Z79.4 Long term (current) use of insulin; Y93.89 Activity, other specified; Y92.098 Other place in other non-institutional residence as the place of occurrence of the external cause; Y99.8 Other external cause status; Z68.33 Body mass index [BMI] 33.0-33.9, adult; Z82.49 Family history of ischemic heart disease and other diseases of the circulatory system; Z88.9 Allergy status to unspecified drugs, medicaments and biological substances; Z83.3 Family history of diabetes mellitus; Z90.710 Acquired absence of both cervix and uterus; Z98.41 Cataract extraction status, right eye; Z98.42 Cataract extraction status, left eye; Z88.5 Allergy status to narcotic agent; Z88.2 Allergy status to sulfonamides; Z88.7 Allergy status to serum and vaccine; Z88.8 Allergy status to other drugs, medicaments and biological substances; Z88.1 Allergy status to other antibiotic agents; Z91.041 Radiographic dye allergy status
CPT/HCPCS: 36415; 70450; 71045; 72125; 72131; 72192; 73080; 73502; 73552; 76700; 78582; 80048; 80076; 80307; 81001; 82550; 82947; 83690; 83735; 83880; 84443; 84484; 85025; 85379; 85610; 85730; 87641; 93005; 94640; 96374; A9540; A9558; J2405; J7512; J7620; J7030

== ENCOUNTER 2018-07-30 11:48 | Emergency (ER) | payer MEDICARE, OTHER ==
[~2018-07-30 11:48] MED LIST changes: +ALBU2.5V8 INH; -ALBU8.5H8 INH; +METO25TA4 PO
[2018-07-30 12:01] VITALS: BP 121/58
--- NOTE | 2018-07-30 12:16 | EKG ---
[address] [address] Test Date: 2018-07-30 Test Time: 11:58:28 Pat Name: PATRIA GONSALVES Department: Room: Gender: F Local Announcer: : 1945 Requested By: DEMOND VALLADARES Order Number: [id number] Reading MD: Betito Burch Measurements Intervals [place] Rate: 122 P: 50 MI: 166 QRS: -16 QRSD: 78 T: 24 QT: 314 QTc: 449 Interpretive Statements SINUS TACHYCARDIA COMPLEX(ES) WITH ABERRANT INTRAVENTRICULAR CONDUCTION ATRIAL PREMATURE COMPLEX(ES) LEFTWARD AXIS CONSIDER LEFT VENTRICULAR HYPERTROPHY ABNORMAL ECG Electronically Signed On 08-04-2018 15:25:30 [employer] by Betito Burch
[2018-07-30] MEDS ORDERED: METO50TA6 PO (12:20)
--- NOTE | 2018-07-30 14:25 | ED.ADGEN ---
Past History Past Medical History: CHF, Diabetes, Pneumonia Past Surgical History: No Surgical History Alcohol Use: None Drug Use: None Adult General Chief Complaint Chief Complaint Palpitations HPI HPI Patient is a 72-year-old female with history of tachyarrhythmia presents with palpitations the past 3 days. Patient was seen by her PCP 2 days ago for the same complaint and had her prescription of carpal increased from 25 mg to 50 mg twice daily. Patient states she has been unable to fill the medication and is unable to do so for the next 3 days. Denies chest pain shortness breath, dizziness or lightheadedness. EKG, patient's sinus tachycardia in the 120s. No leg pain or swelling. No other acute symptoms or complaints. [] Review of Systems Review of Systems Review symptoms as per history of present illness. All other review symptoms are negative. All other systems were reviewed and found to be within normal limits, except as documented in this note. Allergies Allergies Allergies Coded Allergies Type Severity Reaction Last Updated Verified insulin aspart Allergy Severe Anaphylaxis 01/26/18 Yes insulin glargine Allergy Severe Anaphylaxis 01/26/18 Yes insulin lispro Allergy Severe Anaphylaxis 01/26/18 Yes Gadolinium-Containing Contrast Medi Allergy Intermediate 05/25/18 Yes Influenza Virus Vaccines Allergy Intermediate 01/26/18 Yes Sulfa (Sulfonamide Antibiotics) Allergy Intermediate 01/26/18 Yes alogliptin Allergy Intermediate 05/25/18 Yes capsaicin Allergy Intermediate 01/26/18 Yes clindamycin Allergy Intermediate 05/25/18 Yes codeine Allergy Intermediate 01/26/18 Yes exenatide Allergy Intermediate 05/25/18 Yes insulin glulisine Allergy Intermediate Rash 01/26/18 Yes iodine Allergy Intermediate 01/26/18 Yes levofloxacin Allergy Intermediate 01/26/18 Yes menthol Allergy Intermediate 01/26/18 Yes metformin Allergy Intermediate Hives 01/26/18 Yes morphine Allergy Intermediate 05/25/18 Yes naproxen Allergy Intermediate 01/26/18 Yes pioglitazone Allergy Intermediate 05/25/18 Yes pregabalin Allergy Intermediate 05/25/18 Yes I S O L A T I O N *CONTACT* Allergy Unknown 07/06/18 Yes Physical Exam Physical Exam Constitutional: Well developed, well nourished, no acute distress, non-toxic appearance. [] HENT: Normocephalic, atraumatic, bilateral external ears normal, oropharynx moist, no oral exudates, nose normal. [] Eyes: PERRLA, EOMI, conjunctiva normal. [] Neck: Normal range of motion, no tenderness. [] Cardiovascular:Tachycardic, Regular rhythm[] Lungs & Thorax: Bilateral breath sounds clear to auscultation [] Abdomen: Bowel sounds normal, soft, no tenderness. [] Skin: Warm, dry, no erythema, no rash. [] Back: No tenderness, no CVA tenderness. [] Extremities: No tenderness, no cyanosis, no clubbing, ROM intact, no edema. [] Neurologic: Alert and oriented X 3, normal motor function, normal sensory function, no focal deficits noted. [] Psychologic: Affect normal, judgement normal, mood normal. [] Current Patient Data Vital Signs Vital Signs Date Time Temp Pulse Resp B/P (MAP) Pulse Ox O2 Delivery O2 Flow Rate FiO2 07/30/18 12:01 118 94 Room Air EKG EKG [] Radiology/Procedures Radiology/Procedures [] Course & Med Decision Making Course & Med Decision Making Pertinent Labs and Imaging studies reviewed. (See chart for details) [Patient denies any new complaint. Rather she is requesting medication refill for prescription that is currently at a pharmacy that is closed for the next 3 days. Courtesy medication refill provided. prescription of metoprolol provided. Final Impression Final Impression [#1 Encounter fo Medication Refill] Verito Disclaimer Verito Disclaimer This electronic medical record was generated, in whole or in part, using a voice recognition dictation system. DEMOND VALLADARES DO Jul 30, 2018 14:25
== END 2018-07-30 12:28 | disposition home or self-care (01) ==
LOC: ER 11:48
DX: R00.2 Palpitations (principal); Z76.0 Encounter for issue of repeat prescription; I50.9 Heart failure, unspecified; E11.9 Type 2 diabetes mellitus without complications; Z88.8 Allergy status to other drugs, medicaments and biological substances; Z88.5 Allergy status to narcotic agent; Z88.2 Allergy status to sulfonamides; Z88.7 Allergy status to serum and vaccine; Z88.1 Allergy status to other antibiotic agents; Z91.041 Radiographic dye allergy status
CPT/HCPCS: 93005; 99283

== ENCOUNTER 2018-08-17 10:40 | Inpatient (IN) | payer MEDICARE, OTHER ==
[~2018-08-17] VITALS: Ht 170.2 cm; Wt 98.7 kg
[~2018-08-17 10:40] MED LIST changes: +METO50TA6 PO
[2018-08-17] MEDS ORDERED: IV NORMAL SALINE 500ML 500 ML IV ONE (12:30)
[2018-08-17 12:37] VITALS: BP 127/63
[2018-08-17] MEDS: IV NORMAL SALINE 1,000ML 1,000 ML IV SCH (12:46)
[2018-08-17 12:59] LABS: BASO # 0.1 x10^3/uL (0.0-0.2); BASO % 1 % (0-3); EOS # 0.1 x10^3/uL (0.0-0.7); EOS % 1 % (0-3); HEMATOCRIT 38.7 % (36.0-47.0); HEMOGLOBIN 12.3 g/dL (12.0-15.5); LYMPH # 1.6 x10^3/uL (1.0-4.8); LYMPH % 14 % (24-48); MEAN CORPUSCULAR HEMOGLOBIN 24 pg (25-35); MEAN CORPUSCULAR HGB CONC 32 g/dL (31-37); MEAN CORPUSCULAR VOLUME 75 fL (79-100); MONO # 0.3 x10^3/uL (0.0-1.1); MONO % 2 % (0-9); NEUT # 8.9 x10^3uL (1.8-7.7); NEUT % 82 % (31-73); PLATELET COUNT 221 x10^3/uL (140-400); RED BLOOD COUNT 5.18 x10^6/uL (3.50-5.40); RED CELL DISTRIBUTION WIDTH 19.3 % (11.5-14.5); WHITE BLOOD COUNT 10.9 x10^3/uL (4.0-11.0)
[2018-08-17 13:20] LABS: ALBUMIN 3.1 g/dL (3.4-5.0); ALBUMIN/GLOBULIN RATIO 0.8 (1.0-1.7); CALCIUM 8.5 mg/dL (8.5-10.1); CREATININE 1.1 mg/dL (0.6-1.0); POTASSIUM 4.5 mmol/L (3.5-5.1); TOTAL BILIRUBIN 0.3 mg/dL (0.2-1.0); TOTAL PROTEIN 6.8 g/dL (6.4-8.2)
[2018-08-17] MEDS ORDERED: NORMAL SALINE IV SCH (14:00)
[2018-08-17] MEDS ORDERED: CEFUROXIME SODIUM IV SCH (14:00)
[2018-08-17] MEDS ORDERED: PRED-220 PO (14:17)
[2018-08-17] MEDS ORDERED: traMADol 50 MG TABLET PO PRN ×2 (14:30→15:00)
[2018-08-17 14:45] VITALS: BP 154/77
[2018-08-17] MEDS ORDERED: INSULIN ASPART 10 UNIT SQ SCH (17:00)
[2018-08-17] MEDS: NOVOLOG U SQ SCH (17:20)
[2018-08-17 17:32] LABS: CLARITY,URINE CLEAR; COLOR,URINE YELLOW
[2018-08-17 17:33] LABS: BACTERIA,URINE MOD /HPF (0-FEW); BILIRUBIN,URINE NEG (NEG); GLUCOSE,URINE >=1000 mg/dL (NEG); HYALINE CASTS, URINE OCC /HPF; NITRITE,URINE NEG (NEG); RBC,URINE OCC /HPF (0-2); SQUAMOUS EPITHELIAL CELL,UR FEW /LPF; UROBILINOGEN,URINE 0.2 mg/dL (0.2 mg/dL)
--- NOTE | 2018-08-17 17:45 | RAD ---
CHEST AP ONLY History: SHORT OF AIR. Comparison: July 11, 2018 Cardiomediastinal silhouette: Stable, mildly prominent or enlarged. Lungs: No focal airspace consolidation. Pleura: No evidence of pleural effusion. Pneumothorax: None visualized Support Devices: None There appears to be evidence of a right and possibly left rotator cuff tear. Impression: No acute infiltrate. Electronically signed by: Edvin Hannah MD (08/17/2018 5:40 PM) [facility]
[2018-08-17 17:49] VITALS: BP 154/76
[2018-08-17] MEDS ORDERED: ACETAMINOPHEN 500 MG TABLET PO PRN (19:45)
[2018-08-17] MEDS ORDERED: ALPRAZolam 0.25 MG TABLET PO PRN (19:45)
[2018-08-17] MEDS ORDERED: INSULIN DEGLUDEC U SQ SCH (21:00)
[2018-08-17] MEDS: POTASSIUM CHLORIDE 20 MEQ TABLET.ER. PO SCH (21:45)
[2018-08-17] MEDS: GABAPENTIN 300 MG CAPSULE. PO SCH (21:45)
[2018-08-17] MEDS: METOPROLOL TART IMMED RELEASE 50 MG TABLET PO SCH (21:45)
[2018-08-18] MEDS: IV NORMAL SALINE 1,000ML 1,000 ML IV SCH (01:23)
[2018-08-18 06:24] LABS: BASO # 0.1 x10^3/uL (0.0-0.2); BASO % 1 % (0-3); EOS # 0.2 x10^3/uL (0.0-0.7); EOS % 2 % (0-3); HEMATOCRIT 36.5 % (36.0-47.0); HEMOGLOBIN 11.6 g/dL (12.0-15.5); LYMPH # 3.6 x10^3/uL (1.0-4.8); LYMPH % 34 % (24-48); MEAN CORPUSCULAR HEMOGLOBIN 24 pg (25-35); MEAN CORPUSCULAR HGB CONC 32 g/dL (31-37); MEAN CORPUSCULAR VOLUME 74 fL (79-100); MONO % 9 % (0-9); NEUT # 5.7 x10^3uL (1.8-7.7); NEUT % 54 % (31-73); PLATELET COUNT 197 x10^3/uL (140-400); RED BLOOD COUNT 4.91 x10^6/uL (3.50-5.40); WHITE BLOOD COUNT 10.7 x10^3/uL (4.0-11.0)
[2018-08-18 06:33] LABS: CALCIUM 8.5 mg/dL (8.5-10.1); CREATININE 0.9 mg/dL (0.6-1.0); GFR 61.7; POTASSIUM 3.9 mmol/L (3.5-5.1)
[2018-08-18] MEDS ORDERED: glipiZIDE 5 MG TABLET PO SCH (07:30)
[2018-08-18] MEDS ORDERED: PANTOPRAZOLE 40 MG TABLET. PO SCH (07:30)
[2018-08-18 07:47] VITALS: BP 157/70
[2018-08-18] MEDS: METOPROLOL TART IMMED RELEASE 50 MG TABLET PO SCH (07:47)
[2018-08-18] MEDS: POTASSIUM CHLORIDE 20 MEQ TABLET.ER. PO SCH (07:49)
[2018-08-18] MEDS: GABAPENTIN 300 MG CAPSULE. PO SCH (07:50)
[2018-08-18] MEDS: NOVOLOG U SQ SCH (08:00)
[2018-08-18] MEDS: IPRATRPIUM/ALBUTEROL 0.5/2.5MG 3 ML NEBU. NEB SCH ×2 (08:00→09:20)
[2018-08-18] MEDS ORDERED: INSULIN DEGLUDEC SUBCUT SCH (09:00)
[2018-08-18] MEDS ORDERED: predniSONE 10 MG TABLET PO SCH (09:00)
[2018-08-18] MEDS ORDERED: LISINOPRIL 5 MG TABLET. PO SCH (09:00)
[2018-08-18] MEDS ORDERED: predniSONE 5 MG TABLET PO SCH (09:00)
[2018-08-18] MEDS ORDERED: predniSONE 1 MG TABLET PO SCH (09:00)
[2018-08-18] MEDS ORDERED: FLUTICASONE 50MCG/NASAL SPRAY 16GM BOTTLE. NS SCH (09:00)
[2018-08-18] MEDS ORDERED: FUROSEMIDE 40 MG TABLET PO SCH (09:00)
[2018-08-18] MEDS ORDERED: INSULIN DEGLUDEC U SQ SCH (09:00)
[2018-08-18] MEDS ORDERED: CEPH-264 PO (11:43)
[2018-08-18] MEDS ORDERED: LACT1CAP19 PO (11:43)
[2018-08-18] MEDS ORDERED: LACTOBACILLUS RHAMNOSUS GG 1 CAPSULE. PO SCH (21:00)
[2018-08-24] MEDS ORDERED: NON FORMULARY ITEM (Etanercept (Enbrel) 50 MG) SQ SCH (09:00)
[2018-08-24] MEDS ORDERED: CHOLECALCIFEROL (VITAMIN D3) 50,000 UNIT CAPSULE PO SCH (09:00)
== END 2018-08-18 14:15 | disposition home or self-care (01) | DRG 872 ==
LOC: 1 SOUTH 10:40 → ICU 10:55
PROVIDERS: ADMIT Family Medicine; ATTEND Family Medicine
DX: A41.9 Sepsis, unspecified organism (principal); N39.0 Urinary tract infection, site not specified; E11.65 Type 2 diabetes mellitus with hyperglycemia; M06.9 Rheumatoid arthritis, unspecified; E78.5 Hyperlipidemia, unspecified; I10 Essential (primary) hypertension; J45.909 Unspecified asthma, uncomplicated; Z79.899 Other long term (current) drug therapy; Z88.5 Allergy status to narcotic agent; Z88.2 Allergy status to sulfonamides; Z88.8 Allergy status to other drugs, medicaments and biological substances; Z88.1 Allergy status to other antibiotic agents; Z91.041 Radiographic dye allergy status
CPT/HCPCS: 36415; 71045; 80048; 80053; 81001; 82947; 83605; 83880; 85025; 87040; 87086; 87186; 87641; 94640; J0696; J7040; J7512; J7620; J7030

== ENCOUNTER → 2018-09-13 | Outpatient (CLI) | payer MEDICARE, OTHER ==
[2018-08-18 07:47] VITALS: BP 157/70
[~2018-09-13] MED LIST changes: +CEFU500T46 PO; +CEPH-264 PO; +ERTA1VIA IJ; +FLUC100T4 PO; +LACT1CAP19 PO; +OMEP20CA10 PO; -OMEP20CA9 PO; +ONDA4TAB12 PO; +PHEN100T82 PO
--- NOTE | 2018-09-13 14:19 | RAD ---
Examination: LUNG VENT/PERFUSION SCAN(VQ) History: Dyspnea, Elev D dimer Comparison/Correlation: 07/11/2018 VQ scan, 07/13/2019 two-view chest x-ray exam Findings: 9 mCi xenon-133 gas was utilized for ventilation imaging. Imaging was performed in the posterior projection. Delayed washout of radiotracer compatible COPD noted. Pulmonary hyperinflation noted. No definite ventilation defect. 5.5 mCi technetium 99m MAA was intravenously administered for perfusion imaging. Imaging was performed in 8 projections. Perfusion is unremarkable with no mismatch defect or suspicious matched defect. Impression: Low probability for pulmonary embolism. Electronically signed by: Fred Hamilton MD (09/13/2018 2:16 PM) [id number]
--- NOTE | 2018-09-13 14:20 | RAD ---
CHEST PA LATERAL History: SOB, VQ SCAN Comparison: 08/17/2018 AP view of the chest. Findings: The cardiomediastinal silhouette is normal. Pulmonary vasculature is normal. The lungs are clear other than minimal interstitial thickening which is chronic in appearance. No pleural effusion or pneumothorax is seen. There is no acute bone abnormality. Right upper quadrant surgical clips are present. IMPRESSION: No acute cardiopulmonary process. Electronically signed by: Fred Hamilton MD (09/13/2018 2:16 PM) [id number]
== END | disposition home or self-care (01) ==
LOC: DXRAD 12:14
PROVIDERS: ATTEND Family Medicine
DX: R06.02 Shortness of breath (principal); R60.0 Localized edema; R79.1 Abnormal coagulation profile
CPT/HCPCS: 71046; 78582; 96374; A9540; A9558

== ENCOUNTER 2018-09-18 16:11 | Inpatient (IN) | payer MEDICARE, OTHER ==
[~2018-09-18] VITALS: Ht 170.2 cm; Wt 98.0 kg
[~2018-09-18 16:11] MED LIST changes: -CEFU500T46 PO; -ERTA1VIA IJ; -FLUC100T4 PO; -OMEP20CA10 PO; +OMEP20CA9 PO; -ONDA4TAB12 PO; -PHEN100T82 PO
[2018-09-18 16:36] VITALS: BP 120/74
[2018-09-18] MEDS ORDERED: ACETAMINOPHEN 500 MG TABLET PO PRN (18:00)
[2018-09-18] MEDS ORDERED: ALPRAZolam 0.25 MG TABLET PO PRN (18:00)
[2018-09-18 18:42] LABS: ALBUMIN 3.2 g/dL (3.4-5.0); ALBUMIN/GLOBULIN RATIO 0.9 (1.0-1.7); CALCIUM 8.5 mg/dL (8.5-10.1); CREATININE 1.3 mg/dL (0.6-1.0); GFR 40.4; POTASSIUM 5.5 mmol/L (3.5-5.1); TOTAL BILIRUBIN 0.2 mg/dL (0.2-1.0); TOTAL PROTEIN 6.6 g/dL (6.4-8.2)
[2018-09-18 18:53] LABS: BASO % 0 % (0-3); EOS % 0 % (0-3); HEMATOCRIT 35.8 % (36.0-47.0); HEMOGLOBIN 11.3 g/dL (12.0-15.5); LYMPH # 1.2 x10^3/uL (1.0-4.8); LYMPH % 15 % (24-48); MEAN CORPUSCULAR HEMOGLOBIN 24 pg (25-35); MEAN CORPUSCULAR HGB CONC 32 g/dL (31-37); MEAN CORPUSCULAR VOLUME 77 fL (79-100); MONO # 0.3 x10^3/uL (0.0-1.1); MONO % 4 % (0-9); NEUT # 6.6 x10^3uL (1.8-7.7); NEUT % 81 % (31-73); PLATELET COUNT 205 x10^3/uL (140-400); RED BLOOD COUNT 4.66 x10^6/uL (3.50-5.40); RED CELL DISTRIBUTION WIDTH 18.8 % (11.5-14.5); WHITE BLOOD COUNT 8.2 x10^3/uL (4.0-11.0)
[2018-09-18] MEDS: IV NORMAL SALINE 1,000ML 1,000 ML IV SCH (19:30)
[2018-09-18 19:34] VITALS: BP 122/75
[2018-09-18] MEDS: IPRATRPIUM/ALBUTEROL 0.5/2.5MG 3 ML NEBU. NEB SCH (20:53)
[2018-09-18] MEDS ORDERED: NON FORMULARY ITEM (Cephalexin (Keflex) 1 CAP) PO SCH (21:00)
[2018-09-18] MEDS: POTASSIUM CHLORIDE 20 MEQ TABLET.ER. PO SCH (21:00)
[2018-09-18] MEDS: MEROPENEM 1 GM in IV NORMAL SALINE 100ML 100 ML IV SCH (21:24)
[2018-09-18] MEDS: traMADol 50 MG TABLET PO PRN (21:25)
[2018-09-18] MEDS: METOPROLOL TART IMMED RELEASE 50 MG TABLET PO SCH (21:26)
[2018-09-18] MEDS: GABAPENTIN 300 MG CAPSULE. PO SCH (21:26)
[2018-09-18] MEDS: LACTOBACILLUS RHAMNOSUS GG 1 CAPSULE. PO SCH (21:26)
--- NOTE | 2018-09-18 21:41 | RAD ---
Renal ultrasound 09/18/2018 CLINICAL HISTORY: Recurring UTIs. Pyelonephritis. TECHNIQUE: A real-time ultrasound examination of both kidneys and the urinary bladder was performed. Multiple images were obtained. FINDINGS: This study is limited to some degree due to the patient's large body habitus. Both kidneys are within normal limits in size. The right kidney measures 10.1 cm in length. The left kidney measures 10.3 cm in length. A 1.8 cm cyst is seen involving the midpole of the right kidney. No abnormality of the left kidney is seen. No hydronephrosis is noted. The urinary bladder is distended with urine. The post void residual is 238 mL. IMPRESSION: Essentially negative study. Electronically signed by: Vitaliy Geiger MD (09/18/2018 9:39 PM) [facility]
[2018-09-18] MEDS ORDERED: DEXTROSE 50% 25 GM / 50ML DISP.SYRIN. IV PRN (21:45)
[2018-09-18] MEDS: INSULIN DEGLUDEC SUBCUT SCH (21:49)
[2018-09-18 22:07] VITALS: BP 137/76
[2018-09-18] MEDS: CEFEPIME HCL 1 GM in IV NORMAL SALINE 50ML 50 ML IV SCH (22:10)
[2018-09-19] MEDS: CEFEPIME HCL 1 GM in IV NORMAL SALINE 50ML 50 ML IV SCH ×3 (05:11→20:59)
[2018-09-19] MEDS: IPRATRPIUM/ALBUTEROL 0.5/2.5MG 3 ML NEBU. NEB SCH ×4 (05:25→20:13)
[2018-09-19 05:27] LABS: BILIRUBIN,URINE NEG (NEG); CLARITY,URINE CLEAR; COLOR,URINE YELLOW; GLUCOSE,URINE 500 mg/dL (NEG); NITRITE,URINE NEG (NEG); UROBILINOGEN,URINE 0.2 mg/dL (0.2 mg/dL)
[2018-09-19 05:28] LABS: BACTERIA,URINE 0 /HPF (0-FEW); RBC,URINE 0 /HPF (0-2); SQUAMOUS EPITHELIAL CELL,UR FEW /LPF
[2018-09-19 05:32] VITALS: BP 135/77
[2018-09-19] MEDS: IV NORMAL SALINE 1,000ML 1,000 ML IV SCH ×2 (06:10→20:59)
[2018-09-19 06:58] LABS: BASO # 0.1 x10^3/uL (0.0-0.2); BASO % 1 % (0-3); EOS # 0.2 x10^3/uL (0.0-0.7); EOS % 2 % (0-3); HEMATOCRIT 36.5 % (36.0-47.0); HEMOGLOBIN 11.4 g/dL (12.0-15.5); LYMPH # 2.9 x10^3/uL (1.0-4.8); LYMPH % 34 % (24-48); MEAN CORPUSCULAR HEMOGLOBIN 24 pg (25-35); MEAN CORPUSCULAR HGB CONC 31 g/dL (31-37); MEAN CORPUSCULAR VOLUME 77 fL (79-100); MONO # 0.8 x10^3/uL (0.0-1.1); MONO % 9 % (0-9); NEUT # 4.7 x10^3uL (1.8-7.7); NEUT % 54 % (31-73); PLATELET COUNT 204 x10^3/uL (140-400); RED BLOOD COUNT 4.75 x10^6/uL (3.50-5.40); RED CELL DISTRIBUTION WIDTH 19.3 % (11.5-14.5); WHITE BLOOD COUNT 8.6 x10^3/uL (4.0-11.0)
[2018-09-19 07:04] LABS: CALCIUM 8.4 mg/dL (8.5-10.1); GFR 54.7; POTASSIUM 4.2 mmol/L (3.5-5.1)
[2018-09-19] MEDS ORDERED: PANTOPRAZOLE 40 MG TABLET. PO SCH (07:30)
[2018-09-19] MEDS ORDERED: INSULIN ASPART SQ SCH (08:00)
[2018-09-19] MEDS: INSULIN ASPART 10 UNIT SQ SCH ×3 (08:00→17:41)
[2018-09-19] MEDS: glipiZIDE 5 MG TABLET PO SCH ×2 (08:16→16:35)
[2018-09-19] MEDS: PANTOPRAZOLE 40 MG TABLET. PO SCH (08:16)
[2018-09-19] MEDS: FLUTICASONE 50MCG/NASAL SPRAY 16GM BOTTLE. NS SCH (08:17)
[2018-09-19] MEDS: POTASSIUM CHLORIDE 20 MEQ TABLET.ER. PO SCH ×2 (08:17→21:00)
[2018-09-19] MEDS: MEROPENEM 1 GM in IV NORMAL SALINE 100ML 100 ML IV SCH (08:17)
[2018-09-19] MEDS: LACTOBACILLUS RHAMNOSUS GG 1 CAPSULE. PO SCH ×2 (08:17→20:59)
[2018-09-19] MEDS: GABAPENTIN 300 MG CAPSULE. PO SCH ×2 (08:18→21:01)
[2018-09-19] MEDS: LISINOPRIL 5 MG TABLET. PO SCH (08:18)
[2018-09-19] MEDS: METOPROLOL TART IMMED RELEASE 50 MG TABLET PO SCH ×2 (08:18→21:01)
[2018-09-19] MEDS: FUROSEMIDE 40 MG TABLET PO SCH (08:18)
--- NOTE | 2018-09-19 08:42 | RAD ---
CT scan of the abdomen and pelvis without contrast 09/19/2018 CLINICAL HISTORY: Flank pain. TECHNIQUE: Unenhanced, contiguous, 3 mm axial sections were obtained through the abdomen and pelvis. One or more of the following individualized dose reduction techniques were utilized for this study: 1. Automated exposure control. 2. Adjustment of the mA and/or kV according to patient size. 3. Use of iterative reconstruction technique. FINDINGS: Comparison is made to a renal ultrasound dated 09/18/2018. Additional comparison is made to a CT scan of the pelvis dated 05/03/2018. Images through the lung bases demonstrate mild cardiomegaly. Minimal dependent subsegmental atelectasis is seen bilaterally. The liver parenchyma has a decreased attenuation consistent with mild fatty infiltration. The spleen, pancreas, and adrenal glands are within normal limits. No renal or ureteral calculus is seen. There is no evidence of obstruction of either collecting system. Atherosclerotic calcification of the abdominal aorta is seen. The abdominal aorta tapers normally. Surgical clips are seen within the gallbladder fossa consistent with a cholecystectomy. No free fluid or free air is within the abdomen. Air and stool seen throughout the colon. There is no evidence of bowel obstruction. A fat-containing ventral hernia is seen within the upper midline abdomen. This measures 4 cm in greatest diameter. The appendix is well-visualized and is within normal limits. Images through the pelvis demonstrated urinary bladder distended with urine. Air is seen within the anterior aspect of the urinary bladder which is presumably related to recent catheterization. Calcifications are seen within the pelvis consistent with phleboliths. The patient is post hysterectomy. No adnexal mass is seen. A moderate amount stool seen throughout the colon. No free fluid is seen. Very mild S-shaped curvature of the thoracolumbar spine is seen. Degenerative changes are seen involving the mid and lower lumbar spine and both hips. IMPRESSION: No acute abnormality is seen. Electronically signed by: Vitaliy Geiger MD (09/19/2018 8:39 AM) [facility]
[2018-09-19] MEDS ORDERED: predniSONE 10 MG TABLET PO SCH (09:00)
[2018-09-19] MEDS: traMADol 50 MG TABLET PO PRN ×2 (10:33→21:00)
[2018-09-19 11:24] VITALS: BP 142/71
[2018-09-19] MEDS: INSULIN ASPART SQ SCH ×2 (12:12→17:41)
[2018-09-19] MEDS ORDERED: predniSONE 20 MG TABLET PO SCH (15:30)
[2018-09-19 15:41] VITALS: BP 131/70
[2018-09-19] MEDS: predniSONE 1 MG TABLET PO SCH (16:35)
[2018-09-19] MEDS: predniSONE 5 MG TABLET PO SCH (16:35)
[2018-09-19] MEDS: predniSONE 10 MG TABLET PO SCH (16:35)
[2018-09-19 19:57] VITALS: BP 155/81
[2018-09-19] MEDS: INSULIN DEGLUDEC SUBCUT SCH (21:05)
--- NOTE | 2018-09-19 22:34 | PN ---
DATE: 09/19/2018 SUBJECTIVE: She is resting fairly comfortably, has severe right flank pain. She had a positive lactic acid of 2.3, very significant. She looks septic. The patient otherwise seems to be feeling a little better this morning. She has been on IV antibiotic therapy. The patient did have as noted positive lactic acid. PHYSICAL EXAMINATION: VITAL SIGNS: Her heart rate was up over 104, temperature 98.1, blood pressure 122/70, respiratory rate 18-20, pulse ox of only 93%. The patient otherwise seems to be resting fairly comfortably. GENERAL: The patient is alert and oriented. LUNGS: Diminished, but clear. CARDIOVASCULAR: Regular sinus rhythm. ABDOMEN: Soft, nontender except for the right flank pain. EXTREMITIES: No clubbing, cyanosis, no edema. NEUROLOGIC: Alert and oriented. ASSESSMENT AND PLAN: The patient otherwise continued to be monitored carefully, IV antibiotic therapy. Waiting for cultures taken at the office for pyelonephritis, sepsis, hypertension. Continue with IV antibiotic therapy. Make further evaluation on her as other results are returned. JOSE FRANCISCO SZYMANSKI MD DR: LAURENT/jaime JOB#: [id number] / [id number]
[2018-09-19 23:32] VITALS: BP 149/83
[2018-09-20] MEDS: IPRATRPIUM/ALBUTEROL 0.5/2.5MG 3 ML NEBU. NEB SCH ×2 (05:01→09:20)
[2018-09-20 05:12] VITALS: BP 143/77
[2018-09-20] MEDS: CEFEPIME HCL 1 GM in IV NORMAL SALINE 50ML 50 ML IV SCH ×2 (05:43→14:13)
[2018-09-20] MEDS: INSULIN ASPART SQ SCH ×2 (08:00→12:08)
[2018-09-20] MEDS: LACTOBACILLUS RHAMNOSUS GG 1 CAPSULE. PO SCH (08:26)
[2018-09-20] MEDS: GABAPENTIN 300 MG CAPSULE. PO SCH (08:26)
[2018-09-20] MEDS: glipiZIDE 5 MG TABLET PO SCH (08:26)
[2018-09-20] MEDS: POTASSIUM CHLORIDE 20 MEQ TABLET.ER. PO SCH (08:26)
[2018-09-20] MEDS: FUROSEMIDE 40 MG TABLET PO SCH (08:26)
[2018-09-20] MEDS: PANTOPRAZOLE 40 MG TABLET. PO SCH (08:27)
[2018-09-20] MEDS: METOPROLOL TART IMMED RELEASE 50 MG TABLET PO SCH (08:27)
[2018-09-20] MEDS: predniSONE 1 MG TABLET PO SCH (08:27)
[2018-09-20] MEDS: LISINOPRIL 5 MG TABLET. PO SCH (08:27)
[2018-09-20] MEDS: predniSONE 5 MG TABLET PO SCH (08:27)
[2018-09-20] MEDS: FLUTICASONE 50MCG/NASAL SPRAY 16GM BOTTLE. NS SCH (08:27)
[2018-09-20] MEDS: predniSONE 10 MG TABLET PO SCH (08:27)
[2018-09-20] MEDS: IV NORMAL SALINE 1,000ML 1,000 ML IV SCH (08:30)
[2018-09-20] MEDS: INSULIN ASPART 10 UNIT SQ SCH ×2 (08:31→12:08)
[2018-09-20 10:29] VITALS: BP 128/77
[2018-09-20] MEDS ORDERED: FLUCONAZOLE 100 MG TABLET. PO SCH (11:00)
[2018-09-20] MEDS ORDERED: FLUC100T7 PO (14:40)
[2018-09-20] MEDS ORDERED: ERTA1VIA IJ (14:40)
[2018-09-25] MEDS ORDERED: NON FORMULARY ITEM (Etanercept (Enbrel) 50 MG) SQ SCH (09:00)
[2018-09-25] MEDS ORDERED: CHOLECALCIFEROL (VITAMIN D3) 50,000 UNIT CAPSULE PO SCH (09:00)
--- NOTE | 2018-10-04 13:27 | DS ---
DATE OF DISCHARGE: 09/20/2018 HOSPITAL COURSE: The patient is a 73-year-old female. The patient came in through the office with severe right flank pain. She had a positive lactic acid 2.3. She looks septic. She was markedly pale and diaphoretic. The patient's heart rate was over 100. The patient's lactic acids were elevated as indicated. The patient was placed on IV antibiotic therapy. Her blood sugars were also noted to be markedly elevated. She made good progress during the rest of her hospitalization. The patient had a CT scan of her abdomen and pelvis that showed some mild infiltrate of her liver, scoliosis of her spine. Otherwise, the patient made good progress during the rest of her hospitalization and was discharged home. IMPRESSION AND PLAN: Sepsis, pyelonephritis, hypertension, vitamin D deficiency, type 2 diabetes, essential hypertension, abdominal pain. The patient will be discharged home. Follow up as an outpatient. Diabetic diet, decreased activity, see MRAD. Follow up in 7-10 days or sooner as needed. Cultures from the office demonstrated she had bladder infection. JOSE FRANCISCO SZYMANSKI MD DR: LAURENT/jaime JOB#: [id number] / [id number]
== END 2018-09-20 15:12 | disposition home or self-care (01) | DRG 871 ==
LOC: 1 SOUTH 16:11
PROVIDERS: ADMIT Family Medicine; ATTEND Family Medicine
DX: A41.9 Sepsis, unspecified organism (principal); N17.0 Acute kidney failure with tubular necrosis; N12 Tubulo-interstitial nephritis, not specified as acute or chronic; M06.9 Rheumatoid arthritis, unspecified; E11.9 Type 2 diabetes mellitus without complications; I10 Essential (primary) hypertension; E78.5 Hyperlipidemia, unspecified; J45.909 Unspecified asthma, uncomplicated; Z96.651 Presence of right artificial knee joint; Z88.6 Allergy status to analgesic agent; Z88.4 Allergy status to anesthetic agent; Z88.1 Allergy status to other antibiotic agents; Z88.2 Allergy status to sulfonamides; Z88.7 Allergy status to serum and vaccine; Z88.8 Allergy status to other drugs, medicaments and biological substances; Z90.710 Acquired absence of both cervix and uterus; Z87.01 Personal history of pneumonia (recurrent); E55.9 Vitamin D deficiency, unspecified; N30.90 Cystitis, unspecified without hematuria; M41.9 Scoliosis, unspecified; N18.3 Chronic kidney disease, stage 3 (moderate)
CPT/HCPCS: 36415; 74176; 76770; 80048; 80053; 81001; 82947; 83605; 85025; 86140; 87086; 94640; J0692; J2185; J7512; J7620; J7030

== ENCOUNTER 2018-11-14 02:33 | Inpatient (IN) | payer MEDICARE, OTHER ==
[~2018-11-14] VITALS: Ht 170.2 cm; Wt 100.2 kg
[~2018-11-14 02:33] MED LIST changes: +ERTA1VIA IJ
--- NOTE | 2018-11-14 02:40 | ED.ADGEN ---
Past History Past Medical History: Anxiety, Arthritis, CHF, Diabetes, Hypertension, Pneumonia, UTI, Other Past Medical History Severe Rheumatoid Past Surgical History: No Surgical History Alcohol Use: None Drug Use: None Adult General Chief Complaint Chief Complaint ".. I ve got severe pain .. when I urinate.. It like when I had bad UTI last month.. I had to have IV meds for few days..." HPI HPI Patient is a 73 year old female who presents with above hx and complaints of severe dysuria. Patient reports previous prior episode approximately 1 month ago. Patient has a history of immunosuppression due to her treatment of rheumatoid arthritis. No recent travel. No specific ill contacts. Patient is known diabetic. Patient normally follows with Dr. Stevens. Review of Systems Review of Systems Constitutional: Denies fever or chills [] Eyes: Denies change in visual acuity, redness, or eye pain [] HENT: Denies nasal congestion or sore throat [] Respiratory: Denies cough or shortness of breath [] Cardiovascular: No additional information not addressed in HPI [] GI: Denies abdominal pain, nausea, vomiting, bloody stools or diarrhea [] complaints of suprapubic discomfort : Complains of dysuria or hematuria [] Musculoskeletal: Denies back pain or joint pain [] Integument: Denies rash or skin lesions [] Neurologic: Denies headache, focal weakness or sensory changes [] Endocrine: Denies polyuria or polydipsia [] All other systems were reviewed and found to be within normal limits, except as documented in this note. Family History Family History Diabetes Current Medications Current Medications See Nrusing for home meds. Allergies Allergies Allergies Coded Allergies Type Severity Reaction Last Updated Verified insulin aspart Allergy Severe Anaphylaxis 01/26/18 Yes insulin glargine Allergy Severe Anaphylaxis 01/26/18 Yes insulin lispro Allergy Severe Anaphylaxis 01/26/18 Yes Gadolinium-Containing Contrast Medi Allergy Intermediate 05/25/18 Yes Influenza Virus Vaccines Allergy Intermediate 01/26/18 Yes Sulfa (Sulfonamide Antibiotics) Allergy Intermediate 01/26/18 Yes alogliptin Allergy Intermediate 05/25/18 Yes capsaicin Allergy Intermediate 01/26/18 Yes clindamycin Allergy Intermediate 05/25/18 Yes codeine Allergy Intermediate 01/26/18 Yes exenatide Allergy Intermediate 05/25/18 Yes insulin glulisine Allergy Intermediate Rash 01/26/18 Yes iodine Allergy Intermediate 01/26/18 Yes levofloxacin Allergy Intermediate 01/26/18 Yes menthol Allergy Intermediate 01/26/18 Yes metformin Allergy Intermediate Hives 01/26/18 Yes morphine Allergy Intermediate 05/25/18 Yes pioglitazone Allergy Intermediate 05/25/18 Yes pregabalin Allergy Intermediate 05/25/18 Yes I S O L A T I O N *CONTACT* Allergy Unknown 07/06/18 Yes Physical Exam Physical Exam Constitutional: Moderately acute distress, non-toxic appearance. [] HENT: Normocephalic, atraumatic, bilateral external ears normal, oropharynx moist, no oral exudates, nose normal. [] Eyes: PERRLA, EOMI, conjunctiva normal, no discharge. [] Neck: Normal range of motion, no tenderness, supple, no stridor. [] Cardiovascular:Heart rate regular rhythm, no murmur [] Lungs & Thorax: Bilateral breath sounds clear to auscultation [] Abdomen: Bowel sounds normal, soft, upper pubic tenderness, no masses, no pulsatile masses. [] Obese Skin: Warm, dry, no erythema, no rash. [] Back: No tenderness, mild bilateral CVA tenderness. [] Extremities: No tenderness, no cyanosis, no clubbing, ROM intact, no edema. [] Severe arthritic changes Neurologic: Alert and oriented X 3, normal motor function, normal sensory function, no focal deficits noted. [] Psychologic: Affect anxious, judgement normal, mood normal. [] Current Patient Data Vital Signs Vital Signs Date Time Temp Pulse Resp B/P (MAP) Pulse Ox O2 Delivery O2 Flow Rate FiO2 11/14/18 02:33 97.9 110 20 98 Room Air Lab Results Laboratory Tests Test 11/14/18 02:38 Urine Collection Type Unknown Urine Color Yellow Urine Clarity Hazy Urine pH >8.5 Urine Specific [place] 1.010 Urine Protein Trace (NEG-TRACE) Urine Glucose (UA) 500 mg/dL (NEG) Urine Ketones (Stick) Neg mg/dL (NEG) Urine Blood Neg (NEG) Urine Nitrite Neg (NEG) Urine Bilirubin Neg (NEG) Urine Urobilinogen Dipstick 0.2 mg/dL (0.2 mg/dL) Urine Leukocyte Esterase Trace (NEG) Urine RBC 0 /HPF (0-2) Urine WBC 1-4 /HPF (0-4) Urine Squamous Epithelial Cells None /LPF Urine Bacteria Many /HPF (0-FEW) EKG EKG [] Radiology/Procedures Radiology/Procedures [] Course & Med Decision Making Course & Med Decision Making Pertinent Labs and Imaging studies reviewed. (See chart for details) Patient admitted for hydration and IV antibiotics. Admitted to Dr. Stevens. Review presentation, testing and tx. plan with Dr. Stevens 0532 hrs. See Downtime paper work for detail.s [] Final Impression Final Impression 1. Dysuria[] 2. Rheumatoid 3. UTI 4. DM 363 5. Elevated Bun / Creat. 32/1.4 Dragon Disclaimer Dragon Disclaimer This electronic medical record was generated, in whole or in part, using a voice recognition dictation system. Discharge Summary Brief Hospital Course Allergies Allergies Coded Allergies Type Severity Reaction Last Updated Verified insulin aspart Allergy Severe Anaphylaxis 01/26/18 Yes insulin glargine Allergy Severe Anaphylaxis 01/26/18 Yes insulin lispro Allergy Severe Anaphylaxis 01/26/18 Yes Gadolinium-Containing Contrast Medi Allergy Intermediate 05/25/18 Yes Influenza Virus Vaccines Allergy Intermediate 01/26/18 Yes Sulfa (Sulfonamide Antibiotics) Allergy Intermediate 01/26/18 Yes alogliptin Allergy Intermediate 05/25/18 Yes capsaicin Allergy Intermediate 01/26/18 Yes clindamycin Allergy Intermediate 05/25/18 Yes codeine Allergy Intermediate 01/26/18 Yes exenatide Allergy Intermediate 05/25/18 Yes insulin glulisine Allergy Intermediate Rash 01/26/18 Yes iodine Allergy Intermediate 01/26/18 Yes levofloxacin Allergy Intermediate 01/26/18 Yes menthol Allergy Intermediate 01/26/18 Yes metformin Allergy Intermediate Hives 01/26/18 Yes morphine Allergy Intermediate 05/25/18 Yes pioglitazone Allergy Intermediate 05/25/18 Yes pregabalin Allergy Intermediate 05/25/18 Yes I S O L A T I O N *CONTACT* Allergy Unknown 07/06/18 Yes Vital Signs Vital Signs Date Time Temp Pulse Resp B/P (MAP) Pulse Ox O2 Delivery O2 Flow Rate FiO2 11/14/18 02:33 97.9 110 20 98 Room Air Lab Results Laboratory Tests Test 11/14/18 02:38 Urine Collection Type Unknown Urine Color Yellow Urine Clarity Hazy Urine pH >8.5 Urine Specific [place] 1.010 Urine Protein Trace (NEG-TRACE) Urine Glucose (UA) 500 mg/dL (NEG) Urine Ketones (Stick) Neg mg/dL (NEG) Urine Blood Neg (NEG) Urine Nitrite Neg (NEG) Urine Bilirubin Neg (NEG) Urine Urobilinogen Dipstick 0.2 mg/dL (0.2 mg/dL) Urine Leukocyte Esterase Trace (NEG) Urine RBC 0 /HPF (0-2) Urine WBC 1-4 /HPF (0-4) Urine Squamous Epithelial Cells None /LPF Urine Bacteria Many /HPF (0-FEW) Brief Hospital Course Ms. Guerra is a 73 old female who presented with dysuria. Admitted Discharge Information Condition at Discharge: Stable Dischare Medications Active Scripts Active Invanz (Ertapenem Sodium) 1 Gm Vial 1 Gm IJ DAILY 7 Days Diflucan (Fluconazole) 100 Mg Tablet 100 Mg PO DAILY 2 Days Culturelle (Lactobacillus Rhamnosus Gg) 1 Each Cap.sprink 1 Cap PO BID 10 Days Prednisone 10 Mg Tablet 18 Mg PO DAILY LAST DOSE GIVEN: DATE: TODAY TIME: AM NEXT DOSE DUE: DATE: TOMORROW TIME: AM Metoprolol Tartrate 50 Mg Tablet 1 Tab PO BID Furosemide 40 Mg Tablet 40 Mg PO DAILY Lisinopril 5 Mg Tablet 5 Mg PO DAILY Duoneb 0.5-3(2.5) Mg/3 Ml (Albuterol/Ipratropium) 3 Ml Ampul.neb 3 Ml NEB RTQID Reported Novolog Flexpen (Insulin Aspart) 100 Unit/1 Ml Insuln.pen 10 Unit SQ TIDWMEALS Acetaminophen 500 Mg Tablet 1 Tab PO BID PRN Alprazolam 0.25 Mg Tablet 0.25 Mg PO Q8HRS PRN Vitamin D2 (Ergocalciferol (Vitamin D2)) 50,000 Unit Capsule 1 Cap PO WEEKLY Gabapentin 100 Mg Capsule 300 Cap PO BID Glipizide 5 Mg Tablet 1 Tab PO BID Tresiba Flextouch U-200 (Insulin Degludec) 200 Unit/1 Ml Insuln.pen 98 Units SUBCUT DAILY Tramadol Hcl (Tramadol HCl) 50 Mg Tablet 50 Mg PO Q6HRS PRN Protonix (Pantoprazole Sodium) 40 Mg Tablet.dr 1 Tab PO DAILY Flonase Allergy Relief (Fluticasone Propionate) 9.9 Ml [place].susp 1 Spr NS DAILY LAST DOSE GIVEN: DATE: TODAY TIME: AM NEXT DOSE DUE: DATE: TOMORROW TIME: AM Klor-Con M20 (Potassium Chloride) 20 Meq Tab.er.prt 20 Meq PO BID LAST DOSE GIVEN: DATE: TODAY TIME: AM NEXT DOSE DUE: DATE: TOMORROW TIME: AM Enbrel (Etanercept) 50 Mg/1 Ml Disp.syrin 50 Mg SQ WEEKLY RESTART ON YOUR NORMALLY SCHEDULED DAY not given this admission Dragon Disclaimer This chart was dictated in whole or in part using Voice Recognition software in a busy, high-work load, and often noisy Emergency Department environment. It may contain unintended and wholly unrecognized errors or omissions. DIPAK HOPKINS MD Nov 14, 2018 02:40
[2018-11-14 03:16] LABS: BILIRUBIN,URINE NEG (NEG); CLARITY,URINE HAZY; COLOR,URINE YELLOW; GLUCOSE,URINE 500 mg/dL (NEG); UROBILINOGEN,URINE 0.2 mg/dL (0.2 mg/dL)
[2018-11-14 03:17] LABS: BACTERIA,URINE MANY /HPF (0-FEW); NITRITE,URINE NEG (NEG); RBC,URINE 0 /HPF (0-2)
[2018-11-14] MEDS ORDERED: IV NORMAL SALINE 50ML 50 ML ONE (03:22)
[2018-11-14] MEDS ORDERED: cefTRIAXone SODIUM 1 GM VIAL ONE (03:22)
[2018-11-14] MEDS ORDERED: IV RINGERS SOLUTION,LACTATED 1,000 ML IV SCH (03:30)
[2018-11-14] MEDS ORDERED: KETOROLAC 30 MG/ML VIAL. IV ONE (04:00)
[2018-11-14] MEDS ORDERED: PHENAZOPYRIDINE 200 MG TABLET. PO ONE (04:00)
[2018-11-14 04:05] LABS: HEMOGLOBIN 12.3 g/dL (12.0-15.5); RED BLOOD COUNT 4.88 x10^6/uL (3.50-5.40); WHITE BLOOD COUNT 9.4 x10^3/uL (4.0-11.0)
[2018-11-14 04:06] LABS: BASO # 0.1 x10^3/uL (0.0-0.2); BASO % 1 % (0-3); EOS # 0.2 x10^3/uL (0.0-0.7); EOS % 2 % (0-3); HEMATOCRIT 38.3 % (36.0-47.0); LYMPH # 2.4 x10^3/uL (1.0-4.8); LYMPH % 26 % (24-48); MEAN CORPUSCULAR HEMOGLOBIN 25 pg (25-35); MEAN CORPUSCULAR HGB CONC 32 g/dL (31-37); MEAN CORPUSCULAR VOLUME 79 fL (79-100); MONO # 0.9 x10^3/uL (0.0-1.1); MONO % 10 % (0-9); NEUT # 5.7 x10^3uL (1.8-7.7); NEUT % 61 % (31-73); PLATELET COUNT 233 x10^3/uL (140-400); RED CELL DISTRIBUTION WIDTH 16.4 % (11.5-14.5)
[2018-11-14 04:13] LABS: CALCIUM 8.6 mg/dL (8.5-10.1); CREATININE 1.4 mg/dL (0.6-1.0); GFR 37.1
[2018-11-14 04:14] LABS: POTASSIUM 4.1 mmol/L (3.5-5.1)
[2018-11-14] MEDS ORDERED: ACETAMINOPHEN 325 MG TABLET PO PRN (04:45)
[2018-11-14] MEDS ORDERED: ONDANSETRON PF 4 MG/2 ML VIAL. IV PRN (04:45)
[2018-11-14 04:55] LABS: SEDIMENTATION RATE 20 (0-25)
[2018-11-14] MEDS ORDERED: IV NORMAL SALINE 1,000ML 1,000 ML IV ONE (05:00)
[2018-11-14] MEDS ORDERED: INSULIN REGULAR 100 UNIT/ML 3ML VIAL. IV ONE (05:00)
[2018-11-14 06:21] VITALS: BP 141/72
[2018-11-14] MEDS ORDERED: FLUC100T4 PO (07:32)
[2018-11-14] MEDS ORDERED: METO25TA4 PO (07:32)
[2018-11-14] MEDS ORDERED: FURO40TA4 PO (07:32)
[2018-11-14] MEDS ORDERED: PRED-220 PO (07:32)
[2018-11-14] MEDS ORDERED: IPRA3AMP29 NEB (07:32)
[2018-11-14] MEDS ORDERED: INSU100I17 SQ (07:32)
[2018-11-14] MEDS: IPRATRPIUM/ALBUTEROL 0.5/2.5MG 3 ML NEBU. NEB SCH ×2 (08:00→09:56)
[2018-11-14] MEDS ORDERED: ACETAMINOPHEN 500 MG TABLET PO PRN (08:15)
[2018-11-14] MEDS: POTASSIUM CHLORIDE 20 MEQ TABLET.ER. PO SCH ×2 (08:34→21:33)
[2018-11-14] MEDS: FUROSEMIDE 40 MG TABLET PO SCH (08:34)
[2018-11-14] MEDS: PANTOPRAZOLE 40 MG TABLET. PO SCH (08:34)
[2018-11-14] MEDS: LISINOPRIL 5 MG TABLET. PO SCH (08:35)
[2018-11-14] MEDS: METOPROLOL TART IMMED RELEASE 25 MG TABLET PO SCH ×3 (08:35→21:34)
[2018-11-14] MEDS: predniSONE 10 MG TABLET PO SCH (08:35)
[2018-11-14] MEDS: traMADol 50 MG TABLET PO PRN ×2 (08:35→21:34)
[2018-11-14] MEDS: FLUCONAZOLE 100 MG TABLET. PO SCH (08:39)
[2018-11-14] MEDS ORDERED: CHOLECALCIFEROL (VITAMIN D3) 50,000 UNIT CAPSULE PO SCH (09:00)
[2018-11-14] MEDS: FLUTICASONE 50MCG/NASAL SPRAY 16GM BOTTLE. NS SCH (10:35)
[2018-11-14] MEDS: predniSONE 1 MG TABLET PO SCH (10:39)
[2018-11-14 11:00] VITALS: BP 138/77
--- NOTE | 2018-11-14 11:15 | RAD ---
Acute abdomen series with chest, 3 views, 11/14/2018: HISTORY: Abdominal pain Gas is present in large and small bowel in a nonspecific pattern. No free air is seen in the abdomen. Surgical clips are present in the right upper quadrant. There is no evidence of organomegaly. There are mild scattered degenerative changes in the lumbar spine. The heart size is normal. The lungs are clear. There is no evidence of pleural fluid. Arthritic changes are evident at both shoulders. IMPRESSION: No acute abdominal abnormality is detected. Electronically signed by: Loi Yee MD (11/14/2018 11:12 AM) [facility]
[2018-11-14] MEDS ORDERED: DEXTROSE 50% 25 GM / 50ML DISP.SYRIN. IV PRN (11:45)
[2018-11-14] MEDS: INSULIN LISPRO 300 UNITS/3 ML INSULN.PEN. SQ SCH ×2 (11:56→16:58)
[2018-11-14] MEDS ORDERED: INSULIN LISPRO 300 UNITS/3 ML INSULN.PEN. SQ SCH (12:00)
[2018-11-14] MEDS: IPRATRPIUM/ALBUTEROL 0.5/2.5MG 3 ML NEBU. NEB PRN (15:25)
[2018-11-14 15:27] VITALS: BP 121/80
[2018-11-14] MEDS ORDERED: INSULIN LISPRO 300 UNITS/3 ML INSULN.PEN. SQ ONE (16:30)
--- NOTE | 2018-11-14 18:50 | HP ---
ADMIT DATE: 11/14/2018 HISTORY OF PRESENT ILLNESS: The patient came in through the Emergency Room. She was having severe abdominal pain with dysuria. The patient has severe rheumatoid arthritis, on immunosuppressive therapy. The patient was admitted for further evaluation of her abdominal distention and alike. The patient's acute abdominal series basically is unremarkable. PAST MEDICAL HISTORY: Includes that of lens implants, bilateral cataracts, peripheral neuropathy, abdominal cramping, respiratory disorders, bronchitis, cholecystectomy, total hysterectomy, urinary tract infections, muscle spasms and cramps in extremities, amputation of second left toe, rheumatoid arthritis, disk degeneration, orthopedic surgery, joint replacement, back surgeries, type 2 diabetes, on chronic prednisone therapy for RA, pneumococcal and MRSA positive. FAMILY HISTORY: Father and mother had stroke. Mother also had heart attack. ALLERGIES: THE PATIENT IS ALLERGIC TO GADOLINIUM CONTAINING CONTRAST MEDIUM, INFLUENZA VIRUS VACCINE, SULFUR, CAPSAICIN, CLINDAMYCIN, CODEINE, INSULIN ____ IODINE, LEVOTHYROXINE, MENTHOL, METFORMIN, MORPHINE, EXENATIDE. MEDICATIONS: Reconciled and reviewed. SOCIAL HISTORY: Denies smoking, alcohol or drug use. The patient has a full code. REVIEW OF SYSTEMS: The patient denies any headaches, vision change, blurred vision, double vision. Denies chest pain, shortness of breath. Does have abdominal pain and problems on urination. Denies any other problem except for severe pain in her joints, musculoskeletal problems from her rheumatoid arthritis. PHYSICAL EXAMINATION: GENERAL: This is a pleasant white female in moderate amount of distress. VITAL SIGNS: Blood pressure 140/70, respiratory rate 20, pulse 100, temperature 98.3. HEAD: The patient's head was atraumatic, normocephalic. Eyes: PERRLA without jaundice. The patient's mouth and throat were normal. NECK: Supple. LUNGS: Clear. HEART: Regular sinus rhythm. ABDOMEN: Bloated, distended, tenderness in the suprapubic area. EXTREMITIES: No clubbing, cyanosis. NEUROLOGIC: Marked swan neck deformities as well as hypertrophy to her MCP joints. IMPRESSION: Urinary retention, dysuria, hypertension, severe rheumatoid arthritis, type 2 diabetes, poorly controlled. PLAN: As above. Continue to monitor the patient and currently make further evaluation on her as indicated. JOSE FRANCISCO SZYMANSKI MD DR: LAURENT/jaime JOB#: [id number] / [id number]
[2018-11-14 19:07] VITALS: BP 136/67
[2018-11-14] MEDS: LACTOBACILLUS RHAMNOSUS GG 1 CAPSULE. PO SCH (21:33)
[2018-11-14] MEDS: TRESIBA SUBCUT SCH (21:35)
[2018-11-14 22:56] VITALS: BP 139/67
[2018-11-15] MEDS: ACETAMINOPHEN 500 MG TABLET PO PRN ×2 (00:26→11:56)
[2018-11-15] MEDS: IPRATRPIUM/ALBUTEROL 0.5/2.5MG 3 ML NEBU. NEB PRN ×3 (05:30→19:34)
[2018-11-15] MEDS: traMADol 50 MG TABLET PO PRN (05:40)
[2018-11-15 05:43] VITALS: BP 148/81
[2018-11-15 07:00] LABS: BASO # 0.1 x10^3/uL (0.0-0.2); BASO % 1 % (0-3); EOS # 0.2 x10^3/uL (0.0-0.7); EOS % 2 % (0-3); HEMATOCRIT 35.2 % (36.0-47.0); HEMOGLOBIN 11.3 g/dL (12.0-15.5); LYMPH # 3.2 x10^3/uL (1.0-4.8); LYMPH % 38 % (24-48); MEAN CORPUSCULAR HEMOGLOBIN 25 pg (25-35); MEAN CORPUSCULAR HGB CONC 32 g/dL (31-37); MEAN CORPUSCULAR VOLUME 78 fL (79-100); MONO % 12 % (0-9); NEUT # 3.8 x10^3uL (1.8-7.7); NEUT % 47 % (31-73); PLATELET COUNT 215 x10^3/uL (140-400); RED BLOOD COUNT 4.49 x10^6/uL (3.50-5.40); RED CELL DISTRIBUTION WIDTH 16.4 % (11.5-14.5); WHITE BLOOD COUNT 8.3 x10^3/uL (4.0-11.0)
[2018-11-15 07:20] LABS: CALCIUM 8.7 mg/dL (8.5-10.1); CREATININE 1.2 mg/dL (0.6-1.0); GFR 44.3; POTASSIUM 3.7 mmol/L (3.5-5.1)
[2018-11-15] MEDS: NOVOLOG SQ SCH ×3 (08:00→17:00)
[2018-11-15] MEDS: METOPROLOL TART IMMED RELEASE 25 MG TABLET PO SCH ×4 (08:59→21:17)
[2018-11-15] MEDS: LISINOPRIL 5 MG TABLET. PO SCH (08:59)
[2018-11-15] MEDS: PANTOPRAZOLE 40 MG TABLET. PO SCH (08:59)
[2018-11-15] MEDS: LACTOBACILLUS RHAMNOSUS GG 1 CAPSULE. PO SCH ×2 (08:59→21:17)
[2018-11-15] MEDS: FLUCONAZOLE 100 MG TABLET. PO SCH (08:59)
[2018-11-15] MEDS: POTASSIUM CHLORIDE 20 MEQ TABLET.ER. PO SCH ×2 (09:00→21:18)
[2018-11-15] MEDS: FUROSEMIDE 40 MG TABLET PO SCH (09:00)
[2018-11-15] MEDS: predniSONE 1 MG TABLET PO SCH (09:00)
[2018-11-15] MEDS: predniSONE 10 MG TABLET PO SCH (09:00)
[2018-11-15] MEDS: FLUTICASONE 50MCG/NASAL SPRAY 16GM BOTTLE. NS SCH (09:00)
[2018-11-15] MEDS: LIPASE/PROTEAS/AMYLAS 10/32/42 CAPSULE.DR. PO SCH ×2 (11:56→17:02)
--- NOTE | 2018-11-15 14:41 | PN ---
DATE: 11/15/2018 SUBJECTIVE: A 73-year-old female in with abdominal pain, marked distention and urinary retention. The patient says she is a little better this morning with IV antibiotic therapy for what appears to be a bladder infection; however, the patient has been having problems with urination as well as with marked bloating. Her sugars are also markedly elevated to probably coming into play. OBJECTIVE: VITAL SIGNS: Otherwise, blood pressure 148/80, respiratory rate 20, pulse 100, afebrile. HEENT: The patient's head was atraumatic, normocephalic. Eyes: PERRLA without jaundice. The mouth and throat were normal. NECK: Supple. ABDOMEN: Markedly distended, but not quite as much as they were yesterday. Positive tympany on palpation, decreased bowel sounds. EXTREMITIES: No clubbing, cyanosis, or edema. NEUROLOGIC: Intact. PLAN: Continue with IV fluids, antibiotics, and make further evaluation on her as indicated. JOSE FRANCISCO SZYMANSKI MD DR: LAURENT/jaiem JOB#: [id number] / [id number]
[2018-11-15 14:50] VITALS: BP 128/67
[2018-11-15] MEDS ORDERED: ONDANSETRON ODT 4 MG TAB.RAPDIS PO PRN (19:00)
[2018-11-15 19:25] VITALS: BP 121/71
[2018-11-15] MEDS: TRESIBA SUBCUT SCH (21:18)
[2018-11-16] MEDS: traMADol 50 MG TABLET PO PRN ×2 (01:21→12:10)
[2018-11-16] MEDS: IPRATRPIUM/ALBUTEROL 0.5/2.5MG 3 ML NEBU. NEB PRN (04:40)
[2018-11-16 04:55] VITALS: BP 135/72
[2018-11-16] MEDS: NOVOLOG SQ SCH ×2 (08:00→12:00)
[2018-11-16] MEDS: LIPASE/PROTEAS/AMYLAS 10/32/42 CAPSULE.DR. PO SCH ×2 (08:00→09:27)
[2018-11-16] MEDS: predniSONE 1 MG TABLET PO SCH (08:44)
[2018-11-16] MEDS: predniSONE 10 MG TABLET PO SCH (08:44)
[2018-11-16] MEDS: METOPROLOL TART IMMED RELEASE 25 MG TABLET PO SCH (08:44)
[2018-11-16] MEDS: PANTOPRAZOLE 40 MG TABLET. PO SCH (08:45)
[2018-11-16] MEDS: FLUCONAZOLE 100 MG TABLET. PO SCH (08:45)
[2018-11-16] MEDS: LISINOPRIL 5 MG TABLET. PO SCH (08:45)
[2018-11-16] MEDS: FUROSEMIDE 40 MG TABLET PO SCH (08:45)
[2018-11-16] MEDS: LACTOBACILLUS RHAMNOSUS GG 1 CAPSULE. PO SCH (08:45)
[2018-11-16] MEDS: POTASSIUM CHLORIDE 20 MEQ TABLET.ER. PO SCH (08:46)
[2018-11-16] MEDS: FLUTICASONE 50MCG/NASAL SPRAY 16GM BOTTLE. NS SCH (08:50)
[2018-11-16] MEDS ORDERED: CIPROFLOXACIN 400MG PREMIX 200 ML IV SCH (09:00)
[2018-11-16 09:44] VITALS: BP 119/60
[2018-11-16] MEDS ORDERED: CEFU500T46 PO (13:25)
[2018-11-16] MEDS ORDERED: ONDA4TAB12 PO (13:25)
[2018-11-16] MEDS ORDERED: FURO40TA4 PO (13:25)
[2018-11-16] MEDS ORDERED: NON FORMULARY ITEM (Etanercept (Enbrel) 50 MG) SQ SCH (16:00)
--- NOTE | 2018-11-26 16:37 | DS ---
DATE OF DISCHARGE: 11/16/2018 HOSPITAL COURSE: The patient is a 73-year-old female with history of multiple medical problems including severe rheumatoid arthritis, on immunosuppressive therapy as well as diabetes, poorly controlled. She has had a history of amputation of her second left toe, disk degeneration, orthopedic surgeries, chronic prednisone therapy for RA, and she has been MRSA positive in the past. The patient came in with severe abdominal distention and marked abdominal pain. The patient was noted to have marked urinary retention as well as a urinary tract infection going on. The patient was noted to have, on cultures, Proteus mirabilis infection. She was started on appropriate IV antibiotic therapy. She made excellent progress during the rest of her hospitalization. There were no complications, and the patient was discharged home. The patient was recommended that she followup, and continue to get better control of her blood sugars, and make further evaluation. Some of her blood sugars were as high as in the 400, came down. Otherwise, her creatinine remained at 32 and 1.4 and showing some degree of dehydration as well as anemia of chronic disease. IMPRESSION: Abdominal pain, urinary tract infection with Proteus mirabilis, severe rheumatoid arthritis, anemia of chronic disease, immunosuppressive therapy, urinary retention, and hypertension. Continue on oral antibiotics as an outpatient. 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 Obviously, she needs extensive workup in multiple areas as well. She will be on a diabetic diet, decreased activity, and see [facility]. JOSE FRANCISCO SZYMANSKI MD DR: LAURENT/jaime JOB#: [id number] / [id number]
== END 2018-11-16 14:01 | disposition home or self-care (01) | DRG 689 ==
LOC: ER 02:33 → 1 SOUTH 03:00
PROVIDERS: ADMIT Family Medicine; ATTEND Family Medicine
DX: N39.0 Urinary tract infection, site not specified (principal); R65.11 Systemic inflammatory response syndrome (SIRS) of non-infectious origin with acute organ dysfunction; F41.9 Anxiety disorder, unspecified; M19.90 Unspecified osteoarthritis, unspecified site; I50.9 Heart failure, unspecified; I11.0 Hypertensive heart disease with heart failure; M06.9 Rheumatoid arthritis, unspecified; Z83.3 Family history of diabetes mellitus; Z88.5 Allergy status to narcotic agent; Z88.2 Allergy status to sulfonamides; Z88.8 Allergy status to other drugs, medicaments and biological substances; Z88.6 Allergy status to analgesic agent; Z88.1 Allergy status to other antibiotic agents; Z91.041 Radiographic dye allergy status; Z90.710 Acquired absence of both cervix and uterus; Z90.49 Acquired absence of other specified parts of digestive tract; Z82.3 Family history of stroke; Z82.49 Family history of ischemic heart disease and other diseases of the circulatory system; E11.65 Type 2 diabetes mellitus with hyperglycemia; Z79.52 Long term (current) use of systemic steroids; Z79.899 Other long term (current) drug therapy; Z96.1 Presence of intraocular lens
CPT/HCPCS: 36415; 74022; 80048; 81001; 82947; 85025; 85651; 87040; 87086; 87186; 87641; 94640; 96361; 96365; 96375; J0696; J1815; J1885; J7120; J7512; J7620; Q0162; 99285-25; J7030

== ENCOUNTER 2019-01-29 21:22 | Emergency (ER) | payer MEDICARE, OTHER ==
[~2019-01-29] VITALS: Ht 170.2 cm; Wt 101.0 kg
[2019-01-29 21:22] VITALS: BP 131/97
[~2019-01-29 21:22] MED LIST changes: +CEFU500T46 PO; +FLUC100T4 PO; +OMEP20CA10 PO; -OMEP20CA9 PO; +ONDA4TAB12 PO
[2019-01-29] MEDS ORDERED: CEPH-264 PO (22:35)
[2019-01-29] MEDS ORDERED: PHEN100T82 PO (22:35)
--- NOTE | 2019-01-29 22:35 | PHYS DOC ---
Past History Past Medical History: Anxiety, Arthritis, CHF, Diabetes, Hypertension, Pneumonia, UTI, Other Past Surgical History: No Surgical History Smoking: Non-smoker Alcohol Use: None Drug Use: None Adult General Chief Complaint Chief Complaint: PAIN ON URINATION HPI HPI Patient is a 73-year-old female presents complaining of pain with urination for the past 3 days. It has been getting worse over time. No back pain or flank pain. No nausea or vomiting. No vaginal bleeding or discharge. This is similar to previous urinary tract infections. Describes the sensation as burning. Discomfort is moderate to severe. No significant relief with the tramadol that was taken at approximately 2:00 today. No radiation of the discomfort.[] Review of Systems Review of Systems Constitutional: Denies fever or chills [] Eyes: Denies change in visual acuity, redness, or eye pain [] HENT: Denies nasal congestion or sore throat [] Respiratory: Denies cough or shortness of breath [] Cardiovascular: No chest pain or palpitations[] GI: Denies abdominal pain, nausea, vomiting, bloody stools or diarrhea [] : See history of present illness[] Musculoskeletal: Denies back pain or joint pain [] Integument: Denies rash or skin lesions [] Neurologic: Denies headache, focal weakness or sensory changes [] Endocrine: Denies polyuria or polydipsia [] All other systems were reviewed and found to be within normal limits, except as documented in this note. Allergies Allergies Allergies Coded Allergies Type Severity Reaction Last Updated Verified Gadolinium-Containing Contrast Medi Allergy Intermediate 05/25/18 Yes Influenza Virus Vaccines Allergy Intermediate 01/26/18 Yes Sulfa (Sulfonamide Antibiotics) Allergy Intermediate 01/26/18 Yes alogliptin Allergy Intermediate 05/25/18 Yes capsaicin Allergy Intermediate 01/26/18 Yes clindamycin Allergy Intermediate 05/25/18 Yes codeine Allergy Intermediate 01/26/18 Yes exenatide Allergy Intermediate 05/25/18 Yes insulin glulisine Allergy Intermediate Rash 01/26/18 Yes iodine Allergy Intermediate 01/26/18 Yes levofloxacin Allergy Intermediate 01/26/18 Yes menthol Allergy Intermediate 01/26/18 Yes metformin Allergy Intermediate Hives 01/26/18 Yes morphine Allergy Intermediate 05/25/18 Yes pioglitazone Allergy Intermediate 05/25/18 Yes pregabalin Allergy Intermediate 05/25/18 Yes Physical Exam Physical Exam Constitutional: Well developed, well nourished, no acute distress, non-toxic appearance. [] HENT: Normocephalic, atraumatic, bilateral external ears normal, oropharynx moist, no oral exudates, nose normal. [] Eyes: PERRLA, EOMI, conjunctiva normal, no discharge. [] Neck: Normal range of motion, no tenderness, supple, no stridor. [] Cardiovascular:Heart rate regular rhythm, no murmur [] Lungs & Thorax: Bilateral breath sounds clear to auscultation [] Abdomen: Bowel sounds normal, soft, no tenderness, able to sit up and lay back without any difficulty, no masses, no pulsatile masses. [] Skin: Warm, dry, no erythema, no rash. [] Back: No tenderness, no CVA tenderness. [] Extremities: No tenderness, no cyanosis, no clubbing, ROM intact, no edema. [] Neurologic: Alert and oriented X 3, normal motor function, normal sensory function, no focal deficits noted. [] Psychologic: Affect normal, judgement normal, mood normal. [] EKG EKG [] Radiology/Procedures Radiology/Procedures [] Course & Med Decision Making Course & Med Decision Making Pertinent Labs and Imaging studies reviewed. (See chart for details) ED course: Patient arrived, was placed in bed, and tolerated exam well. Patient requested a catheter to provide a urine specimen. While the catheterization was being performed, the nurse performing it noted that patient had what appeared to be a yeast infection. Patient tolerated the procedure without any complications. After the return of laboratory testing, this was discussed with the patient who voiced understanding. Patient reports that she is already taking Diflucan daily for this yeast infection. All questions were answered. Medical decision making: No evidence of pyelonephritis nor systemic toxicity. Given that patient was on IV gentamicin most recently, we will treat with a different class of antibiotics. Review of her urine alter and sensitivity on November 14, 2018 shows that it was sensitive to cephalosporins. We will start with that class of medication.[] Dragon Disclaimer Dragon Disclaimer This electronic medical record was generated, in whole or in part, using a voice recognition dictation system. Departure Departure: Impression: Primary Impression: UTI (urinary tract infection) Disposition: HOME, SELF-CARE Condition: IMPROVED Referrals: JOSE FRANCISCO SZYMANSKI MD (PCP) Follow-up in 2 days Patient Instructions: Urinary Tract Infection Additional Instructions: Follow-up with your regular doctor in 2 days. Drink plenty fluids. Return to the ER if worsening discomfort or any other concerns. Scripts Phenazopyridine Hcl (PYRIDIUM) 100 Mg Tablet 100 MG PO TID for dysuria for 2 Days, #6 TAB Prov: RUDY ROGER DO 01/29/19 Cephalexin (KEFLEX) 500 Mg Capsule 500 MG PO QID for UTI for 10 Days, #40 CAP Prov: RUDY ROGER DO 01/29/19 Problem Qualifiers Primary Impression: UTI (urinary tract infection) Urinary tract infection type: site unspecified Hematuria presence: without hematuria Qualified Codes: N39.0 - Urinary tract infection, site not specified RUDY ROGER DO Jan 29, 2019 22:35
[2019-01-29 22:41] LABS: BACTERIA,URINE MOD /HPF (0-FEW); BILIRUBIN,URINE NEG (NEG); CLARITY,URINE CLOUDY; COLOR,URINE YELLOW; GLUCOSE,URINE NEG (NEG); NITRITE,URINE NEG (NEG); RBC,URINE OCC /HPF (0-2); SQUAMOUS EPITHELIAL CELL,UR MOD /LPF; UROBILINOGEN,URINE 0.2 mg/dL (0.2 mg/dL); WBC,URINE 20-40 /HPF (0-4)
[2019-01-29] MEDS ORDERED: CEPHALEXIN 250 MG CAPSULE PO ONE (22:45)
[2019-01-29] MEDS ORDERED: PHENAZOPYRIDINE 100 MG TABLET. PO ONE (22:45)
== END 2019-01-29 22:46 | disposition home or self-care (01) ==
LOC: ER 21:22
DX: N39.0 Urinary tract infection, site not specified (principal); Z87.440 Personal history of urinary (tract) infections; F41.9 Anxiety disorder, unspecified; M19.90 Unspecified osteoarthritis, unspecified site; I11.0 Hypertensive heart disease with heart failure; I50.9 Heart failure, unspecified; E11.9 Type 2 diabetes mellitus without complications; Z88.1 Allergy status to other antibiotic agents; Z88.5 Allergy status to narcotic agent; Z88.2 Allergy status to sulfonamides; Z88.7 Allergy status to serum and vaccine; Z88.8 Allergy status to other drugs, medicaments and biological substances
CPT/HCPCS: 81001; 87086; 99284

== ENCOUNTER 2019-06-04 13:27 | Inpatient (IN) | payer MEDICARE, OTHER ==
[~2019-06-04] VITALS: Ht 170.2 cm; Wt 91.2 kg
[~2019-06-04 13:27] MED LIST changes: -ETAN50DI2 SQ; +ETAN50SY SQ; +PHEN100T82 PO
[2019-06-04] MEDS ORDERED: ONDANSETRON PF 4 MG/2 ML VIAL. IVP PRN (13:45)
[2019-06-04 13:47] VITALS: BP 157/116
--- NOTE | 2019-06-04 15:05 | RAD ---
EXAM: CHEST 2 VIEWS. HISTORY: Chest pain, left clavicular pain. COMPARISON: 09/13/2018. FINDINGS: Frontal and lateral views of the chest are obtained. There are no confluent infiltrates. There is mild elevation of the right hemidiaphragm. There is no pneumothorax or pleural effusion. The heart is not enlarged. Cholecystectomy clips are noted. IMPRESSION: 1. No confluent infiltrates. Electronically signed by: Matthew Camara MD (06/04/2019 3:01 PM) [facility]
[2019-06-04 15:10] LABS: BASO # 0.1 x10^3/uL (0.0-0.2); BASO % 1 % (0-3); EOS # 0.1 x10^3/uL (0.0-0.7); EOS % 1 % (0-3); HEMATOCRIT 41.5 % (36.0-47.0); HEMOGLOBIN 13.6 g/dL (12.0-15.5); LYMPH # 2.4 x10^3/uL (1.0-4.8); LYMPH % 24 % (24-48); MEAN CORPUSCULAR HEMOGLOBIN 28 pg (25-35); MEAN CORPUSCULAR HGB CONC 33 g/dL (31-37); MEAN CORPUSCULAR VOLUME 86 fL (79-100); MONO # 0.9 x10^3/uL (0.0-1.1); MONO % 9 % (0-9); NEUT # 6.7 x10^3uL (1.8-7.7); NEUT % 66 % (31-73); PLATELET COUNT 266 x10^3/uL (140-400); RED BLOOD COUNT 4.82 x10^6/uL (3.50-5.40); RED CELL DISTRIBUTION WIDTH 14.7 % (11.5-14.5); WHITE BLOOD COUNT 10.1 x10^3/uL (4.0-11.0)
[2019-06-04] MEDS: IV NORMAL SALINE 1,000ML 1,000 ML IV SCH ×2 (15:11→23:28)
[2019-06-04 15:18] VITALS: BP 131/81
[2019-06-04 15:26] LABS: ALBUMIN 3.3 g/dL (3.4-5.0); ALBUMIN/GLOBULIN RATIO 0.8 (1.0-1.7); CALCIUM 8.7 mg/dL (8.5-10.1); CREATININE 1.2 mg/dL (0.6-1.0); GFR 44.3; TOTAL BILIRUBIN 0.2 mg/dL (0.2-1.0); TOTAL PROTEIN 7.6 g/dL (6.4-8.2)
[2019-06-04 15:33] LABS: LIPASE 76 U/L (73-393)
[2019-06-04 15:36] LABS: INFLUENZA A PATIENT NEGATIVE (NEGATIVE); INFLUENZA B PATIENT NEGATIVE (NEGATIVE)
--- NOTE | 2019-06-04 16:13 | NUR ---
The patient, PATRIA GONSALVES, 73 y/o, F admitted by JOSE FRANCISCO SZYMANSKI MD, was given written information regarding hospital policies, unit procedures and contact persons. Valuables were checked and admission assessment performed, iv started, 20g in the left AC, blood drawn per orders, medications started and iv fluids started as well per orders. pt's vss. will ctm.
[2019-06-04] MEDS ORDERED: INSULIN ASPART 15 UNIT SQ SCH (17:00)
[2019-06-04] MEDS ORDERED: IPRATRPIUM/ALBUTEROL 0.5/2.5MG 3 ML NEBU. NEB PRN (17:00)
[2019-06-04] MEDS ORDERED: ONDANSETRON ODT 4 MG TAB.RAPDIS PO PRN (17:00)
--- NOTE | 2019-06-04 17:05 | RAD ---
Examination: Bilateral Lower Extremity Venous Doppler Ultrasound History: Elevated d-dimer Comparison: None Procedure: Burgos scale, color flow 2D and spectal waveform analysis images are obtained with and without compression in the area of the common femoral vein, superficial femoral vein - femoral vein junction, main femoral vein (superficial femoral vein) and popliteal vein. Veins of the proximal calf are also imaged. Findings: There is normal duplex flow, color flow and compressibility of all visualized vein segments. No evidence of deep venous thrombus is present. Impression: No evidence of DVT the bilateral lower extremity venous system. Electronically signed by: Viktor Lira MD (06/04/2019 5:02 PM) [id number]
[2019-06-04] MEDS ORDERED: DEXTROSE 50% 25 GM / 50ML DISP.SYRIN. IV PRN (17:30)
[2019-06-04] MEDS: ENOXAPARIN ** NOTE DOSE ** SYRINGE SQ SCH (18:03)
--- NOTE | 2019-06-04 18:32 | RAD ---
CT scan dated 06/04/2019. No comparison available. Clinical data indication: Elevated d-dimer. FINDINGS: Ventilation/perfusion imaging performed after the administration of 10.3 mCi of xenon-133 and 4.4 mCi of technetium 99m MAA. Single breath and equilibrium phase ventilation images show symmetric excretion of tracer bilaterally. No retention of xenon on the washout images. Perfusion imaging shows symmetric distention of tracer. No pleural based defects are mismatched defects. IMPRESSION: Low probability for pulmonary embolus. Electronically signed by: Edvin Brown MD (06/04/2019 6:29 PM) [employer]
[2019-06-04 18:49] LABS: BILIRUBIN,URINE NEG (NEG); CLARITY,URINE CLOUDY; COLOR,URINE YELLOW; GLUCOSE,URINE >=1000 mg/dL (NEG); NITRITE,URINE POS (NEG); UROBILINOGEN,URINE 0.2 mg/dL (0.2 mg/dL)
[2019-06-04 18:58] LABS: BACTERIA,URINE MOD /HPF (0-FEW); SQUAMOUS EPITHELIAL CELL,UR FEW /LPF; YEAST,URINE PRESENT /HPF
[2019-06-04] MEDS: PHENAZOPYRIDINE 100 MG TABLET. PO SCH (21:12)
[2019-06-04] MEDS: POTASSIUM CHLORIDE 20 MEQ TABLET.ER. PO SCH (21:13)
[2019-06-04] MEDS: METOPROLOL TART IMMED RELEASE 25 MG TABLET PO SCH (21:13)
[2019-06-04] MEDS: traMADol 50 MG TABLET PO PRN (22:55)
--- NOTE | 2019-06-04 23:37 | RAD ---
CT abdomen pelvis without contrast dated 06/04/2019. Comparison made to 09/19/2018. Clinical data indication: Vomiting. TECHNIQUE: Contiguous axial imaging of the abdomen and pelvis performed without the administration of IV or oral contrast. One or more of the following individualized dose reduction techniques were utilized for this examination: 1. Automated exposure control 2. Adjustment of the mA and/or kV according to patient size 3. Use of iterative reconstruction technique. FINDINGS: Limited images of lung bases show patchy and linear opacities in the lower lobes, likely scar or atelectasis. Heart size is upper limits of normal. No pleural or pericardial effusion. Small subxiphoid ventral hernia containing only fat. Diffuse low-density of the liver suggesting fatty infiltration. No apparent mass. Biliary tree normal in caliber. The gallbladder is surgically absent. Spleen is normal in size. Pancreas, adrenal glands and kidneys are unremarkable. No stone or hydronephrosis. There are calcified lymph nodes at the portal caval region and leobardo hepatitis, nonspecific but unchanged. Unopacified GI tract normal in caliber and contour. No focal bowel wall thickening. No inflammatory stranding in the mesentery. The appendix is normal in caliber. No ascites or lymphadenopathy. Abdominal aorta normal in caliber. Images of pelvis show mildly distended urinary bladder. Uterus is surgically absent. No free fluid or pelvic lymphadenopathy. Prominent right inguinal hernia containing fat. Bone windows show no acute findings. Multilevel spondylosis. Degenerative change of the bilateral hip joint, left greater than right. IMPRESSION: 1. No acute abnormality of abdomen or pelvis. Normal appendix. 2. Mild fatty infiltration of the liver. 3. Status post cholecystectomy and hysterectomy. 4. Small right inguinal hernia containing only fat. There is also a small fat-containing hernia at the subxiphoid region, similar to prior study. Electronically signed by: Edvin Brown MD (06/04/2019 11:35 PM) [facility]
--- NOTE | 2019-06-05 06:12 | NUR ---
Apneic episodes observed. PT noted to desat at times. PT awoken, repositioned, increased saturations noted.
[2019-06-05 06:24] LABS: BASO # 0.1 x10^3/uL (0.0-0.2); BASO % 1 % (0-3); EOS # 0.1 x10^3/uL (0.0-0.7); EOS % 1 % (0-3); HEMATOCRIT 38.3 % (36.0-47.0); HEMOGLOBIN 12.1 g/dL (12.0-15.5); LYMPH # 2.8 x10^3/uL (1.0-4.8); LYMPH % 38 % (24-48); MEAN CORPUSCULAR HEMOGLOBIN 28 pg (25-35); MEAN CORPUSCULAR HGB CONC 32 g/dL (31-37); MEAN CORPUSCULAR VOLUME 88 fL (79-100); MONO # 0.9 x10^3/uL (0.0-1.1); MONO % 12 % (0-9); NEUT # 3.7 x10^3uL (1.8-7.7); NEUT % 49 % (31-73); PLATELET COUNT 233 x10^3/uL (140-400); RED BLOOD COUNT 4.38 x10^6/uL (3.50-5.40); RED CELL DISTRIBUTION WIDTH 14.7 % (11.5-14.5); WHITE BLOOD COUNT 7.6 x10^3/uL (4.0-11.0)
[2019-06-05 06:33] LABS: CALCIUM 8.4 mg/dL (8.5-10.1); CREATININE 1.1 mg/dL (0.6-1.0); POTASSIUM 4.1 mmol/L (3.5-5.1)
[2019-06-05] MEDS: INSULIN LISPRO 300 UNITS/3 ML VIAL. SQ SCH ×6 (08:00→17:33)
[2019-06-05] MEDS: FUROSEMIDE 40 MG TABLET PO SCH (08:39)
[2019-06-05] MEDS: predniSONE 10 MG TABLET PO SCH (08:39)
[2019-06-05] MEDS: PANTOPRAZOLE 40 MG TABLET. PO SCH (08:39)
[2019-06-05] MEDS: METOPROLOL TART IMMED RELEASE 25 MG TABLET PO SCH ×3 (08:39→20:16)
[2019-06-05] MEDS: LISINOPRIL 5 MG TABLET. PO SCH (08:39)
[2019-06-05] MEDS: POTASSIUM CHLORIDE 20 MEQ TABLET.ER. PO SCH ×2 (08:40→20:16)
[2019-06-05] MEDS: ENOXAPARIN ** NOTE DOSE ** SYRINGE SQ SCH ×2 (08:41→20:16)
[2019-06-05] MEDS: predniSONE 1 MG TABLET PO SCH (08:42)
[2019-06-05] MEDS: PHENAZOPYRIDINE 100 MG TABLET. PO SCH ×3 (08:42→20:16)
[2019-06-05] MEDS: FLUTICASONE 50MCG/NASAL SPRAY 16GM BOTTLE. NS SCH (08:57)
[2019-06-05] MEDS: ACETAMINOPHEN 500 MG TABLET PO PRN (08:57)
[2019-06-05] MEDS ORDERED: INSULIN GLARGINE SYRINGE. SQ SCH (09:00)
[2019-06-05] MEDS ORDERED: FLUCONAZOLE 100 MG TABLET. PO SCH (09:00)
[2019-06-05] MEDS: IV NORMAL SALINE 1,000ML 1,000 ML IV SCH (09:45)
--- NOTE | 2019-06-05 11:39 | RAD ---
CLAVICLE LEFT History: Pain and swelling left clavicle Technique: 2 views left clavicle Comparison: None. Findings: Normal alignment. No fracture. Mild to moderate left and acromial clavicular DJD. Moderate left glenohumeral DJD. Impression: 1. Left acromioclavicular and glenohumeral DJD. Electronically signed by: Julius Moore DO (06/05/2019 11:36 AM) [id number]
[2019-06-05] MEDS: traMADol 50 MG TABLET PO PRN ×2 (13:05→20:17)
[2019-06-05] MEDS ORDERED: INSU200I4 SUBCUT (14:30)
--- NOTE | 2019-06-05 16:49 | EKG ---
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
[2019-06-05 17:14] VITALS: BP 133/58
[2019-06-05 19:15] VITALS: BP 138/66
[2019-06-06] VITALS (13 sets, daily range): BP systolic 102–154; BP diastolic 57–83
[2019-06-06] MEDS: ACETAMINOPHEN 500 MG TABLET PO PRN (01:05)
--- NOTE | 2019-06-06 05:48 | PN ---
DATE: SUBJECTIVE: A 73-year-old female admitted with multiple medical problems. She is resting fairly comfortably, although she is still having some nausea and the like there. The patient's scans have been basically unremarkable. She did have an elevated lactic acid, but by and large she had no signs of a problem there. The patient's left clavicle shows degenerative arthritis. The patient otherwise seems to be resting fairly comfortably here in the ICU and will continue to be monitored carefully. She is on IV Rocephin and we will recheck her as we continue to go along there. OBJECTIVE: GENERAL: The patient is alert and oriented. VITAL SIGNS: Blood pressure 130/60, respiratory rate 14, pulse 74, afebrile. The patient is alert and oriented. LUNGS: Diminished, but basically clear. CARDIOVASCULAR: Regular sinus rhythm. ABDOMEN: Soft, diffuse tenderness in the epigastric area, slight guarding, no rebounding. Positive bowel sounds. EXTREMITIES: No clubbing, cyanosis or edema. NEUROLOGIC: The patient is alert and oriented x 3. The patient continued to be monitored carefully, and make further evaluation on the multiple medical issues she has at the present time. ASSESSMENT: Urinary tract infection, vomiting, nausea, elevated lactic acid, repeated falls, dizziness, giddiness, unsteadiness on her feet. JOSE FRANCISCO SZYMANSKI MD DR: LAURENT/jaime JOB#: [id number] / [id number]
[2019-06-06] MEDS: traMADol 50 MG TABLET PO PRN ×2 (06:11→20:10)
[2019-06-06] MEDS: INSULIN LISPRO 300 UNITS/3 ML VIAL. SQ SCH ×6 (08:27→17:47)
[2019-06-06] MEDS: INSULIN DEGLUDEC SQ SCH (08:28)
[2019-06-06] MEDS: FUROSEMIDE 40 MG TABLET PO SCH (08:30)
[2019-06-06] MEDS: predniSONE 10 MG TABLET PO SCH (08:30)
[2019-06-06] MEDS: POTASSIUM CHLORIDE 20 MEQ TABLET.ER. PO SCH ×2 (08:31→20:10)
[2019-06-06] MEDS: LISINOPRIL 5 MG TABLET. PO SCH (08:31)
[2019-06-06] MEDS: PANTOPRAZOLE 40 MG TABLET. PO SCH (08:32)
[2019-06-06] MEDS: METOPROLOL TART IMMED RELEASE 25 MG TABLET PO SCH ×3 (08:32→20:10)
[2019-06-06] MEDS: PHENAZOPYRIDINE 100 MG TABLET. PO SCH ×3 (08:32→20:10)
[2019-06-06] MEDS: predniSONE 1 MG TABLET PO SCH (08:32)
[2019-06-06] MEDS: FLUTICASONE 50MCG/NASAL SPRAY 16GM BOTTLE. NS SCH (08:33)
[2019-06-06] MEDS: FLUCONAZOLE 100 MG TABLET. PO SCH (08:34)
[2019-06-06] MEDS: ENOXAPARIN ** NOTE DOSE ** SYRINGE SQ SCH (08:35)
[2019-06-06] MEDS ORDERED: FLUCONAZOLE 100 MG TABLET. PO SCH (09:00)
[2019-06-06] MEDS ORDERED: INSULIN LISPRO 300 UNITS/3 ML VIAL. SQ ONE (17:15)
--- NOTE | 2019-06-06 19:44 | PN ---
DATE: 06/06/2019 SUBJECTIVE: A 73-year-old female patient is feeling nauseated and short of breath this morning. The patient is otherwise doing somewhat better, but still fairly ill. OBJECTIVE: VITAL SIGNS: Blood pressure 154/72, respiratory rate 18, pulse 84 and afebrile. GENERAL: The patient is alert and oriented. LUNGS: Diminished throughout, poor movement of air, but they have been wheezy at times. The patient seems to be making fairly good progress overall. Her blood count showed possible increase in monocytes consistent with possible respiratory infection. The patient otherwise will continue with aggressive pulmonary toilet and make further evaluation there. Blood pressure 152/72, respiratory rate 18, pulse 80. Presently afebrile. The patient went down to 88% on room air when she had her asthma attacks. IMPRESSION: Acute on top of chronic respiratory distress with mild hypoxia, source unknown etiology at the present time, possible urinary tract infection, nausea, vomiting and elevated lactic acid, repeated falls, dizziness, giddiness, unsteadiness on her feet. We will recheck her orthostasis and make further evaluation on her per those results. JOSE FRANCISCO SZYMANSKI MD DR: LAURENT/jaime JOB#: [id number] / [id number]
--- NOTE | 2019-06-06 22:46 | EKG ---
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
[2019-06-06] MEDS ORDERED: METOPROLOL TARTRATE 5 MG/5 ML VIAL. IV ONE (23:30)
--- NOTE | 2019-06-06 23:45 | NUR ---
Pt c/o "low blood sugar feeling" around 2145. POCT done with result of 51. Pt felt "shaky but fine otherwise". Pt given snack per request. Heart rate increased and sustained up into the 140-150s. Pt was asymptomatic and VSS except for high HR. Vagal maneuvers performed without success. EKG completed and Dr Stevens called. Metoprol 5 mg IV push given with minimal change in rate, 120-130s. Once rhythm slowed it appeared to be Afib, irregular with no P waves noted. Pt converted back into SR at 2345 with P waves noted. VSS. Pt resting comfortably in bed. Will continue to monitor.
[2019-06-07 00:01] VITALS: BP 120/63
[2019-06-07] MEDS: ACETAMINOPHEN 500 MG TABLET PO PRN (04:10)
[2019-06-07 04:15] VITALS: BP 137/65
[2019-06-07 05:45] VITALS: BP 119/61
[2019-06-07 06:28] LABS: BASO # 0.1 x10^3/uL (0.0-0.2); BASO % 1 % (0-3); EOS # 0.1 x10^3/uL (0.0-0.7); EOS % 1 % (0-3); HEMATOCRIT 38.9 % (36.0-47.0); HEMOGLOBIN 12.6 g/dL (12.0-15.5); LYMPH # 2.7 x10^3/uL (1.0-4.8); LYMPH % 33 % (24-48); MEAN CORPUSCULAR HEMOGLOBIN 28 pg (25-35); MEAN CORPUSCULAR HGB CONC 32 g/dL (31-37); MEAN CORPUSCULAR VOLUME 88 fL (79-100); MONO # 0.9 x10^3/uL (0.0-1.1); MONO % 12 % (0-9); NEUT # 4.3 x10^3uL (1.8-7.7); NEUT % 53 % (31-73); PLATELET COUNT 231 x10^3/uL (140-400); RED BLOOD COUNT 4.45 x10^6/uL (3.50-5.40); RED CELL DISTRIBUTION WIDTH 15.1 % (11.5-14.5); WHITE BLOOD COUNT 8.2 x10^3/uL (4.0-11.0)
[2019-06-07 06:33] LABS: CALCIUM 8.4 mg/dL (8.5-10.1); CREATININE 1.2 mg/dL (0.6-1.0); GFR 44.3; POTASSIUM 4.2 mmol/L (3.5-5.1)
[2019-06-07] MEDS: FUROSEMIDE 40 MG TABLET PO SCH (07:45)
[2019-06-07] MEDS: LISINOPRIL 5 MG TABLET. PO SCH (07:45)
[2019-06-07] MEDS: METOPROLOL TART IMMED RELEASE 25 MG TABLET PO SCH ×2 (07:46→14:25)
[2019-06-07] MEDS: predniSONE 10 MG TABLET PO SCH (07:46)
[2019-06-07] MEDS: predniSONE 1 MG TABLET PO SCH (07:46)
[2019-06-07] MEDS: PANTOPRAZOLE 40 MG TABLET. PO SCH (07:46)
[2019-06-07] MEDS: FLUCONAZOLE 100 MG TABLET. PO SCH (07:46)
[2019-06-07] MEDS: PHENAZOPYRIDINE 100 MG TABLET. PO SCH ×2 (07:47→14:00)
[2019-06-07] MEDS: POTASSIUM CHLORIDE 20 MEQ TABLET.ER. PO SCH (07:47)
[2019-06-07] MEDS: FLUTICASONE 50MCG/NASAL SPRAY 16GM BOTTLE. NS SCH (07:48)
[2019-06-07] MEDS: INSULIN DEGLUDEC SQ SCH (07:49)
[2019-06-07] MEDS: INSULIN LISPRO 300 UNITS/3 ML VIAL. SQ SCH ×4 (07:59→12:00)
--- NOTE | 2019-06-07 08:51 | PDOC2 ---
CARDIAC CONSULT DATE OF CONSULT Date Of Consult DATE: 06/07/19 TIME: 08:36 REASON FOR CONSULT Reason for Consult Episode of SVT versus AFIB with RVR REFERRING PHYSICIAN Referring Physician Dr. Stevens SOURCE Source: Chart review, Patient HPI History of Present Illness This is a 73 yo female who presented secondary to UTI, nausea and vomiting. Went into AFIB with RVR yesterday evening for about 2 hours, which prompted this consult. Patient was asymptomatic. No chest pain, palpitations, dizziness, diaphoresis, or shortness of breath. Converted back to SR following Meotprolol 5mg IVP and has been maintaining SR since. No previous h/o AFIB. PAST MEDICAL HISTORY Past Medical History Cardiovascular: HTN, Hyperipidemia, CHF Other (peripheral vascular disease) Pulmonary: Asthma, Bronchitis, COPD, Pneumonia CENTRAL NERVOUS SYSTEM: Periperal neuropathy GI: GERD Psych: Anxiety Musculoskeletal: Other (back pain) Rheumatologic: Rheumatoid arthritis Renal/: Chronic renal insuff, recurrent UTI Endocrine: Diabetes, II PAST SURGICAL HISTORY Past Surgical History Cataract surgery with lens implants, Cholecystectomy Hysterectomy Bilateral knee surgery, Amputation of right small toe and left middle toe FAMILY HISTORY Family History: Stroke SOCIAL HISTORY Smoke: No ALCOHOL: none Drugs: None Lives: with Family CURRENT MEDICATIONS Current Medications Current Medications Sodium Chloride 1,000 ml @ 100 mls/hr Q10H IV Last administered on 06/04/19at 23:28; Start 06/04/19 at 13:45; Stop 06/05/19 at 13:49; Status DC Ondansetron HCl (Zofran) 4 mg PRN Q6HRS PRN IVP NAUSEA/VOMITING Last administered on 06/04/19at 15:12; Start 06/04/19 at 13:45 Ceftriaxone Sodium 1 gm/ Sodium Chloride 50 ml @ 100 mls/hr Q24H IV Last administered on 06/06/19at 15:02; Start 06/04/19 at 15:00 Enoxaparin Sodium (Lovenox 100mg Syringe) 90 mg Q12HR SQ Last administered on 06/06/19at 08:35; Start 06/04/19 at 18:00; Stop 06/06/19 at 11:19; Status DC Furosemide (Lasix) 40 mg DAILY PO Last administered on 06/07/19at 07:45; Start 06/05/19 at 09:00 Albuterol/ Ipratropium (Duoneb) 3 ml PRN Q6HRS PRN NEB SHORTNESS OF BREATH Last administered on 06/06/19 10:43; Start 06/04/19 at 17:00 Lisinopril (Prinivil) 5 mg DAILY PO Last administered on 06/07/19 07:45; Start 06/05/19 at 09:00 Metoprolol Tartrate (Lopressor) 25 mg TID PO Last administered on 06/07/19 07:46; Start 06/04/19 at 21:00 Ondansetron HCl (Zofran Odt) 4 mg PRN Q6HRS PRN PO NAUSEA/VOMITING; Start 06/04/19 at 17:00 Pantoprazole Sodium (Protonix) 40 mg DAILY PO Last administered on 06/07/19 07:46; Start 06/05/19 at 09:00 Potassium Chloride (Klor-Con) 20 meq BID PO Last administered on 06/07/19 07:47; Start 06/04/19 at 21:00 Insulin Human Lispro (HumaLOG) 10 units TIDWMEALS SQ Last administered on 06/07/19 07:59; Start 06/05/19 at 08:00 Non-Formulary Medication (Insulin Aspart (Novolog Flexpen)) 15 unit TIDWMEALS SQ ; Start 06/04/19 at 17:00; Status UNV Insulin Glargine (Lantus Syringe) 98 unit DAILY SQ ; Start 06/05/19 at 09:00; Stop 06/05/19 at 14:32; Status DC Insulin Human Lispro (HumaLOG) 0-7 UNITS TIDWMEALS SQ Last administered on 06/07/19at 08:00; Start 06/05/19 at 08:00 Dextrose (Dextrose 50%-Water Syringe) 12.5 gm PRN Q15MIN PRN IV SEE COMMENTS; Start 06/04/19 at 17:30 Acetaminophen (Tylenol) 500 mg PRN BID PRN PO PAIN Last administered on 06/07/19 04:10; Start 06/04/19 at 18:45 Fluconazole (Diflucan) 150 mg DAILY PO Last administered on 06/05/19 08:40; Start 06/05/19 at 09:00; Stop 06/05/19 at 10:12; Status DC Phenazopyridine HCl (Pyridium) 100 mg TID PO Last administered on 06/06/19 20:10; Start 06/04/19 at 21:00 Prednisone (Prednisone) 10 mg DAILY PO Last administered on 06/07/19 07:46; Start 06/05/19 at 09:00 Tramadol HCl (Ultram) 50 mg PRN Q8HRS PRN PO PAIN Last administered on 06/06/19 20:10; Start 06/04/19 at 18:45 Vitamin D (Vitamin D3) 50,000 unit WEEKLY PO ; Start 06/11/19 at 09:00 Fluticasone Propionate (Flonase) 1 spray DAILY NS Last administered on 06/07/19 07:48; Start 06/05/19 at 09:00 Prednisone (Prednisone) 2 mg DAILY PO Last administered on 06/07/19 07:46; Start 06/05/19 at 09:00 Fluconazole (Diflucan) 100 mg DAILY PO ; Start 06/06/19 at 09:00; Stop 06/09/19 at 09:00; Status UNV Fluconazole (Diflucan) 100 mg DAILY PO Last administered on 06/07/19 07:46; Start 06/06/19 at 09:00; Stop 06/08/19 at 23:00 Non-Formulary Medication (Insulin Degludec (Tresiba Flextouch U-200)) 98 units DAILY@1400 SQ Last administered on 06/07/19at 07:49; Start 06/06/19 at 14:00 Enoxaparin Sodium (Lovenox 40mg Syringe) 40 mg Q24H SQ Last administered on 06/07/19 07:48; Start 06/07/19 at 09:00 Insulin Human Lispro (HumaLOG) 5 units 1X ONCE SQ Last administered on 06/06/19 17:51; Start 06/06/19 at 17:15; Stop 06/06/19 at 17:43; Status DC Metoprolol Tartrate (Lopressor Vial) 5 mg 1X ONCE IV Last administered on 06/06/19 23:05; Start 06/06/19 at 23:30; Stop 06/06/19 at 23:31; Status DC Active Scripts Active Pyridium (Phenazopyridine Hcl) 100 Mg Tablet 100 Mg PO TID 2 Days Furosemide 40 Mg Tablet 40 Mg PO DAILY Ondansetron Odt (Ondansetron) 4 Mg Tab.rapdis 4 Mg PO PRN Q6HRS PRN Lisinopril 5 Mg Tablet 5 Mg PO DAILY Reported Tresiba Flextouch U-200 (Insulin Degludec) 200 Unit/1 Ml Insuln.pen 98 Units SUBCUT DAILY Duoneb 0.5-3(2.5) Mg/3 Ml (Albuterol/Ipratropium) 3 Ml Ampul.neb 3 Ml NEB PRN Q4-6HRS PRN Metoprolol Tartrate 25 Mg Tablet 25 Mg PO TID Prednisone 10 Mg Tablet 12 Mg PO DAILY Take 3 tablets by mouth twice a day for 3 days, then take 2 tablets by mouth twice a day for 3 days, then take 1 tablet by mouth twice a day for 3 days, then take 1 tablet by mouth daily x 3 days, then stop. Fluconazole 100 Mg Tablet 150 Mg PO DAILY Novolog Flexpen (Insulin Aspart) 100 Unit/1 Ml Insuln.pen 15-25 Unit SQ TIDWMEALS Novolog Flexpen (Insulin Aspart) 100 Unit/1 Ml Insuln.pen 10 Unit SQ TIDWMEALS Acetaminophen 500 Mg Tablet 1 Tab PO BID PRN Vitamin D2 (Ergocalciferol (Vitamin D2)) 50,000 Unit Capsule 1 Cap PO WEEKLY Tramadol Hcl (Tramadol HCl) 50 Mg Tablet 50 Mg PO PRN Q8HRS PRN Protonix (Pantoprazole Sodium) 40 Mg Tablet.dr 1 Tab PO DAILY Flonase Allergy Relief (Fluticasone Propionate) 9.9 Ml [place].susp 1 Spr NS DAILY LAST DOSE GIVEN: DATE: TODAY TIME: AM NEXT DOSE DUE: DATE: TOMORROW TIME: AM Klor-Con M20 (Potassium Chloride) 20 Meq Tab.er.prt 20 Meq PO BID LAST DOSE GIVEN: DATE: TODAY TIME: AM NEXT DOSE DUE: DATE: TOMORROW TIME: AM Enbrel (Etanercept) 50 Mg/1 Ml Disp.syrin 50 Mg SQ QTH do not given when has an infection ALLERGIES Allergies: Coded Allergies: Gadolinium-Containing Contrast Medi (Verified Allergy, Intermediate, 05/25/18) Influenza Virus Vaccines (Verified Allergy, Intermediate, 01/26/18) Sulfa (Sulfonamide Antibiotics) (Verified Allergy, Intermediate, 01/26/18) alogliptin (Verified Allergy, Intermediate, 05/25/18) capsaicin (Verified Allergy, Intermediate, 01/26/18) clindamycin (Verified Allergy, Intermediate, 05/25/18) codeine (Verified Allergy, Intermediate, 01/26/18) exenatide (Verified Allergy, Intermediate, 05/25/18) insulin glulisine (Verified Allergy, Intermediate, Rash, 01/26/18) iodine (Verified Allergy, Intermediate, 01/26/18) levofloxacin (Verified Allergy, Intermediate, 01/26/18) menthol (Verified Allergy, Intermediate, 01/26/18) metformin (Verified Allergy, Intermediate, Hives, 01/26/18) morphine (Verified Allergy, Intermediate, 05/25/18) pioglitazone (Verified Allergy, Intermediate, 05/25/18) pregabalin (Verified Allergy, Intermediate, 05/25/18) ROS Review of Systems 14 point ROS conducted with pertinent positives noted above in HPI PHYSICAL EXAM General: Alert, Oriented X3, Cooperative, No acute distress HEENT: Atraumatic Lungs: Normal air movement Heart: Regular rate, Normal S1, Normal S2, Other (2/6 systolic murmur ) Abdomen: Soft, No tenderness Extremities: No edema, Normal pulses Skin: No rashes, No breakdown Neuro: Normal speech, Sensation intact Psych/Mental Status: Mental status NL, Mood NL MUSCULOSKELETAL: Osteoarthritic changes both hands VITALS Vital Signs Vital Signs Date Time Temp Pulse Resp B/P (MAP) Pulse Ox O2 Delivery O2 Flow Rate FiO2 06/07/19 08:00 Room Air 06/07/19 07:46 71 119/61 06/07/19 05:45 98.1 18 96 LABS LABS Laboratory Tests Test 06/05/19 10:32 06/05/19 16:54 06/05/19 19:55 06/06/19 07:30 Glucose (Fingerstick) 197 mg/dL (70-99) 230 mg/dL (70-99) 198 mg/dL (70-99) 203 mg/dL (70-99) Test 06/06/19 11:49 06/06/19 16:55 06/06/19 20:08 06/06/19 21:42 Glucose (Fingerstick) 304 mg/dL (70-99) 355 mg/dL (70-99) 148 mg/dL (70-99) 51 mg/dL (70-99) Test 06/06/19 21:58 06/06/19 22:16 06/06/19 22:38 06/06/19 23:12 Glucose (Fingerstick) 55 mg/dL (70-99) 102 mg/dL (70-99) 108 mg/dL (70-99) 103 mg/dL (70-99) Test 06/07/19 01:22 06/07/19 05:45 06/07/19 07:35 Glucose (Fingerstick) 132 mg/dL (70-99) 327 mg/dL (70-99) White Blood Count 8.2 x10^3/uL (4.0-11.0) Red Blood Count 4.45 x10^6/uL (3.50-5.40) Hemoglobin 12.6 g/dL (12.0-15.5) Hematocrit 38.9 % (36.0-47.0) Mean Corpuscular Volume 88 fL (79-100) Mean Corpuscular Hemoglobin 28 pg (25-35) Mean Corpuscular Hemoglobin Concent 32 g/dL (31-37) Red Cell Distribution Width 15.1 % (11.5-14.5) Platelet Count 231 x10^3/uL (140-400) Neutrophils (%) (Auto) 53 % (31-73) Lymphocytes (%) (Auto) 33 % (24-48) Monocytes (%) (Auto) 12 % (0-9) Eosinophils (%) (Auto) 1 % (0-3) Basophils (%) (Auto) 1 % (0-3) Neutrophils # (Auto) 4.3 x10^3uL (1.8-7.7) Lymphocytes # (Auto) 2.7 x10^3/uL (1.0-4.8) Monocytes # (Auto) 0.9 x10^3/uL (0.0-1.1) Eosinophils # (Auto) 0.1 x10^3/uL (0.0-0.7) Basophils # (Auto) 0.1 x10^3/uL (0.0-0.2) Sodium Level 139 mmol/L (136-145) Potassium Level 4.2 mmol/L (3.5-5.1) Chloride Level 102 mmol/L (98-107) Carbon Dioxide Level 27 mmol/L (21-32) Anion Gap 10 (6-14) Blood Urea Nitrogen 23 mg/dL (7-20) Creatinine 1.2 mg/dL (0.6-1.0) Estimated GFR (Cockcroft-Gault) 44.3 Glucose Level 285 mg/dL (70-99) Calcium Level 8.4 mg/dL (8.5-10.1) ECHOCARDIOGRAM Echocardiogram Echo 04/19/17 <Conclusion> The left ventricular systolic function is normal. The Ejection Fraction is 50-55%. There is normal LV segmental wall motion. Transmitral Doppler flow pattern is Grade I-abnormal relaxation pattern. Mild mitral regurgitation. There is no evidence of significant pericardial effusion. DATE: 07/05/18 1542 <Conclusion> Left ventricle systolic function is low normal. The Ejection Fraction is 50-55%. There is normal LV segmental wall motion. Mild mitral regurgitation. Trace tricuspid regurgitation. The PA pressure was estimated at 35 mmHg. There is no evidence of significant pericardial effusion. STRESS TEST Stress Test MPI 04/20/17 Conclusion 1. No evidence of EKG changes with stress testing. 2. Normal perfusion at stress/rest. 3. Low risk study. 4. EF > 60%. ASSESSMENT/PLAN Assessment/Plan 1. New PAFIB in the setting of UTI, nausea/vomiting. Episode lasted approximately 2 hours yesterday evening. Converted back to SR following metoprolol IVP and has been maintaining since. 2. Chronic diastolic CHF; clinically compensated 3. Hypertension; controlled 4. CKD; Cr stable. 5. Hyperlipidemia; statin 6. Diabetes, II 7. UTI, recurrent. As per PCP 8. Elevated D-dimer; VQ with low probability of PE. LE US negative for DVT Recommendations Metoprolol for rate control Discusses r/b/a to OAC. Patient reports having multiple fall recently. Usually trips prior to fall. Most recent fall, tripped over a blanket and fell, striking forehead on the floor. Will use ASA for stroke prophylaxis due to fall risk May discharge from a CV standpoint Will arrange for outpatient echo and event monitor to note AFIB burden, guide therapy. Followup in our off with Dr. Lam 06/13/19 at 3:00pm. ADELIA ELLER APRN Jun 07, 2019 08:51
[2019-06-07] MEDS ORDERED: ENOXAPARIN 40 MG/0.4 ML SYRINGE. SQ SCH (09:00)
[2019-06-07] MEDS ORDERED: ASPIRIN ENTERIC COATED 81 MG TABLET.DR. PO SCH (10:00)
[2019-06-07 11:00] VITALS: BP 124/79
[2019-06-07] MEDS ORDERED: LEVO500T59 PO (13:12)
[2019-06-07] MEDS ORDERED: ASPI-612 PO (13:12)
[2019-06-07] MEDS ORDERED: FLUC100T7 PO (14:24)
[2019-06-07 14:25] VITALS: BP 124/79
[2019-06-11] MEDS ORDERED: CHOLECALCIFEROL (VITAMIN D3) 50,000 UNIT CAPSULE PO SCH (09:00)
== END 2019-06-07 14:10 | disposition home or self-care (01) | DRG 690 ==
LOC: ICU 13:27
PROVIDERS: ADMIT Family Medicine; ATTEND Family Medicine
DX: N39.0 Urinary tract infection, site not specified (principal); I13.0 Hypertensive heart and chronic kidney disease with heart failure and stage 1 through stage 4 chronic kidney disease, or unspecified chronic kidney disease; I50.32 Chronic diastolic (congestive) heart failure; N18.9 Chronic kidney disease, unspecified; E78.5 Hyperlipidemia, unspecified; J44.9 Chronic obstructive pulmonary disease, unspecified; E11.42 Type 2 diabetes mellitus with diabetic polyneuropathy; K21.9 Gastro-esophageal reflux disease without esophagitis; F41.9 Anxiety disorder, unspecified; M06.9 Rheumatoid arthritis, unspecified; E11.22 Type 2 diabetes mellitus with diabetic chronic kidney disease; Z96.1 Presence of intraocular lens; R09.02 Hypoxemia; M19.90 Unspecified osteoarthritis, unspecified site; R29.6 Repeated falls; I48.91 Unspecified atrial fibrillation; E11.51 Type 2 diabetes mellitus with diabetic peripheral angiopathy without gangrene; Z90.710 Acquired absence of both cervix and uterus; Z87.440 Personal history of urinary (tract) infections; Z82.3 Family history of stroke; Z88.1 Allergy status to other antibiotic agents; Z88.5 Allergy status to narcotic agent; Z88.7 Allergy status to serum and vaccine; Z88.8 Allergy status to other drugs, medicaments and biological substances
CPT/HCPCS: 36415; 71046; 73000; 74176; 78582; 80048; 80053; 81001; 82550; 82947; 83605; 83690; 83880; 84484; 85025; 85379; 87040; 87086; 87804; 93005; 93970; 96374; A9540; A9558; J0696; J1650; J1815; J2405; J3490; J7512; J7620; 97530; J7030

== ENCOUNTER → 2019-06-12 | Outpatient (CLI) | payer MEDICARE, OTHER ==
[2019-06-07 14:25] VITALS: BP 124/79
[~2019-06-12] MED LIST changes: +ASPI-612 PO; +LEVO500T59 PO
--- NOTE | 2019-06-13 16:32 | CARD ---
MR#: [id number] Date of Study: 06/12/2019 Ordering Physician: WIL LAM, Referring Physician: WIL LAM, Tech: Reina Valdovinos APPROVED REPORT EXAM: Two-dimensional and M-mode echocardiogram with Doppler and color Doppler. Other Information Quality : AverageHR: 82bpm INDICATION Chest Pain 2D DIMENSIONS RVDd3.0 (2.9-3.5cm)Left Atrium(2D)2.9 (1.6-4.0cm) IVSd1.3 (0.7-1.1cm)Aortic Root(2D)3.6 (2.0-3.7cm) LVDd4.9 (3.9-5.9cm)LVOT Diameter2.2 (1.8-2.4cm) PWd1.1 (0.7-1.1cm)LVDs3.6 (2.5-4.0cm) FS (%) 26.3 %SV57.9 ml LVEF(%)51.4 (>50%) Aortic Valve AoV Peak Jhonathan.141.0cm/sAoV VTI25.9cm AO Peak GR.8.0mmHgLVOT Peak Jhonathan.85.0cm/s LVOT VTI 17.73cmAO Mean GR.4mmHg MAIA (VMAX)2.27tg3PGT (VTI)2.54cm2 Mitral Valve MV E Tfarkqsc03.1cm/sMV DECEL NWRA393pl MV A Pjttrybr16.5cm/sE/A Ratio0.9 Tricuspid Valve TR P. Gvgwcepm768if/sRAP CNWGVLLN1lqOd TR Peak Gr.42ffHvBRAX93fyKb Pulmonary Vein S1 Cdsctedc39.9cm/sD2 Ygruibym53.2cm/s LEFT VENTRICLE The left ventricle is normal size. There is mild to moderate concentric left ventricular hypertrophy. The left ventricular systolic function is low normal. The Ejection Fraction is 50-55%. There is norm al LV segmental wall motion. Transmitral Doppler flow pattern is Grade II-pseudonormal filling dynami cs. RIGHT VENTRICLE The right ventricle is normal size. There is normal right ventricular wall thickness. The right ventr icular systolic function is normal. ATRIA The left atrium size is normal. The right atrium size is normal. The interatrial septum is intact wit h no evidence for an atrial septal defect or patent foramen ovale as noted on 2-D or Doppler imaging. AORTIC VALVE The aortic valve is calcified but opens well. Doppler and Color Flow revealed no significant aortic r egurgitation. There is no significant aortic valvular stenosis. MITRAL VALVE The mitral valve is normal in structure and function. There is no evidence of mitral valve prolapse. There is no mitral valve stenosis. Doppler and Color-flow revealed trace mitral regurgitation. TRICUSPID VALVE The tricuspid valve is normal in structure and function. Doppler and Color Flow revealed trace tricus pid regurgitation with an estimated PAP of 23 mmHg. There is no tricuspid valve stenosis. PULMONIC VALVE Doppler and Color Flow revealed mild pulmonic valvular regurgitation. There is no pulmonic valvular s tenosis. GREAT VESSELS The aortic root is normal in size. The IVC is normal in size and collapses >50% with inspiration. PERICARDIAL EFFUSION There is no evidence of significant pericardial effusion. Critical Notification Critical Value: No <Conclusion> The left ventricular systolic function is low normal. The Ejection Fraction is 50-55%. There is normal LV segmental wall motion. Doppler and Color Flow revealed mild pulmonic valvular regurgitation. Signed by : Wil Lam, Electronically Approved : 06/12/2019 16:29:45
== END | disposition home or self-care (01) ==
LOC: ECHO 14:55
PROVIDERS: ATTEND Internal Medicine Cardiovascular Disease
DX: I08.0 Rheumatic disorders of both mitral and aortic valves (principal); I11.9 Hypertensive heart disease without heart failure
CPT/HCPCS: 93306

== ENCOUNTER 2019-09-11 12:54 | Inpatient (IN) | payer MEDICARE, OTHER ==
[~2019-09-11] VITALS: Ht 172.7 cm; Wt 90.2 kg
[~2019-09-11 12:54] MED LIST changes: -CETI10TA22 PO; +CETI10TA24 PO; -OMEP20CA10 PO; +OMEP20CA16 PO; -OXYM30SP NS; +OXYM30SP25 NS
--- NOTE | 2019-09-11 13:26 | EKG ---
[address] [address] Test Date: 2019-09-11 Test Time: 13:12:41 Pat Name: PATRIA GONSALVES Department: Room: Gender: F [employer]: : 1945 Requested By: DEMOND NEVILLE Order Number: [id number] Reading MD: Measurements Intervals [place] Rate: 96 P: 7 MN: 178 QRS: -10 QRSD: 76 T: 66 QT: 350 QTc: 449 Interpretive Statements SINUS RHYTHM ATRIAL PREMATURE COMPLEX(ES) LEFTWARD AXIS NO SPECIFIC ECG ABNORMALITIES RI6.01 No previous ECG available for comparison
[2019-09-11] MEDS ORDERED: MECLIZINE 12.5 MG TABLET. PO STA (13:36)
--- NOTE | 2019-09-11 13:40 | PHYS DOC ---
Past History Past Medical History: Anxiety, Arthritis, CHF, Diabetes, Hypertension, Pneumonia, UTI, Other Past Surgical History: Cholecystectomy, Knee Replacement Additional Past Surgical Histo: BILATERAL KNEE REPLACEMENT Smoking: Non-smoker Alcohol Use: None Drug Use: None Adult General Chief Complaint Chief Complaint: DIZZY/LIGHT HEADED HPI HPI 74-year-old female presents with dizziness. The patient tells me she woke up at 3:30 this morning with night sweats. She went to get up and discovered she was very dizzy. She describes the dizziness as a room spinning sensation. It comes on when she moves too quickly or turns her head. She has not had this before. She denies headache. She does feel like she is dehydrated. The only other complaint is having lately are mildly sore left ear and throat. She does not believe she has had a fever, but she has not checked. She denies cough, chest pain, shortness of breath. Review of Systems Review of Systems Constitutional: Denies fever or chills [] Eyes: Denies change in visual acuity, redness, or eye pain [] HENT: Denies nasal congestion or sore throat [] Respiratory: Denies cough or shortness of breath [] Cardiovascular: No additional information not addressed in HPI [] GI: Denies abdominal pain, nausea, vomiting, bloody stools or diarrhea [] : Denies dysuria or hematuria [] Musculoskeletal: Denies back pain or joint pain [] Integument: Denies rash or skin lesions [] Neurologic: Dizziness. Denies headache, focal weakness or sensory changes [] Endocrine: Denies polyuria or polydipsia [] All other systems were reviewed and found to be within normal limits, except as documented in this note. Allergies Allergies Allergies Coded Allergies Type Severity Reaction Last Updated Verified Gadolinium-Containing Contrast Medi Allergy Intermediate 05/25/18 Yes Influenza Virus Vaccines Allergy Intermediate 01/26/18 Yes Sulfa (Sulfonamide Antibiotics) Allergy Intermediate 01/26/18 Yes alogliptin Allergy Intermediate 05/25/18 Yes capsaicin Allergy Intermediate 01/26/18 Yes clindamycin Allergy Intermediate 05/25/18 Yes codeine Allergy Intermediate 01/26/18 Yes exenatide Allergy Intermediate 05/25/18 Yes insulin glulisine Allergy Intermediate Rash 01/26/18 Yes iodine Allergy Intermediate 01/26/18 Yes levofloxacin Allergy Intermediate 01/26/18 Yes menthol Allergy Intermediate 01/26/18 Yes metformin Allergy Intermediate Hives 01/26/18 Yes morphine Allergy Intermediate 05/25/18 Yes pioglitazone Allergy Intermediate 05/25/18 Yes pregabalin Allergy Intermediate 05/25/18 Yes Physical Exam Physical Exam Constitutional: Well developed, obese, well nourished, no acute distress, non- toxic appearance. [] HENT: Normocephalic, atraumatic, bilateral external ears normal, oropharynx dry, no oral exudates, nose normal. [] Eyes: PERRLA, EOMI, conjunctiva normal, no discharge. [] Neck: Normal range of motion, no tenderness, supple, no stridor. [] Cardiovascular:Heart rate regular rhythm, no murmur [] Lungs & Thorax: Bilateral breath sounds clear to auscultation [] Abdomen: Bowel sounds normal, soft, no tenderness, no masses, no pulsatile masses. [] Skin: Warm, dry, no erythema, no rash. [] Back: No tenderness, no CVA tenderness. [] Extremities: No tenderness, no cyanosis, no clubbing, ROM intact, no edema. [] Neurologic: Alert and oriented X 3, normal motor function, normal sensory function, no focal deficits noted. [] Psychologic: Affect normal, judgement normal, mood normal. [] Current Patient Data Vital Signs Vital Signs Date Time Temp Pulse Resp B/P (MAP) Pulse Ox O2 Delivery O2 Flow Rate FiO2 09/11/19 13:08 98.5 98 18 139/81 (100) 97 Room Air EKG EKG Sinus rhythm, rate 96, leftward axis, no ST elevations or depressions.[] Radiology/Procedures Radiology/Procedures [] Impressions: CHEST AP ONLY Clinical indications: Dizziness COMPARISON: June 04, 2019. Findings: No acute lung infiltrate or pleural effusion or pulmonary edema or lung mass or pneumothorax is seen. The heart size, pulmonary vasculature, mediastinum and both jarek are unremarkable. Impression: No acute radiographic abnormality is seen. Electronically signed by: Chadwick Murphy MD (09/11/2019 1:37 PM) [facility] DICTATED AND SIGNED BY: CHADWICK MURPHY MD DATE: 09/11/19 [id number] CC: DEMOND NEVILLE DO; MIKE SZYMANSKI MD ~ CT HEAD WO CONTRAST History: Dizziness Comparison: July 11, 2018 Technique: Noncontrast CT imaging was performed of the head. Exposure: One or more of the following individualized dose reduction techniques were utilized for this examination: 1. Automated exposure control 2. Adjustment of the mA and/or kV according to patient size 3. Use of iterative reconstruction technique. Findings: There is mild motion. No acute extra-axial or parenchymal hemorrhage is identified. There is no significant intra-axial mass effect, midline shift, or extra-axial fluid collection. The ramirez-white differentiation of the major vascular territories is preserved. The ventricles, sulci, and cisterns are within normal limits in size and configuration. There is again extensive ill-defined low-density of the supratentorial parenchyma bilaterally. The mastoid air cells and the visualized paranasal sinuses are aerated. No acute calvarial abnormality is identified. There is some atherosclerotic calcification of the carotid siphons bilaterally. Impression: 1. There is no evidence of acute parenchymal hemorrhage. There is again extensive ill-defined low-density of the supratentorial parenchyma bilaterally, nonspecific findings which may be sequela of chronic microvascular ischemic disease unless there is known previous history of inflammatory demyelinating disease. Electronically signed by: Damien Winter MD (09/11/2019 3:34 PM) [id number] DICTATED AND SIGNED BY: DAMIEN WINTER MD DATE: 09/11/19 153 CC: DEMOND NEVILLE DO; MIKE SZYMANSKI MD ~ Course & Med Decision Making Course & Med Decision Making Pertinent Labs and Imaging studies reviewed. (See chart for details) Patient's labs are significant for an elevated glucose. Her anion gap was normal. She is a slightly elevated creatinine. I given her a liter of normal saline as she looked clinically dry. Also given her 25 mg of meclizine. This has not helped the patient's symptoms. I ordered a head CT. Her EKG is unremarkable. Her chest x-ray is unremarkable. Her head CT is negative for acute findings. Spoke with Dr. Szymanski and he has agreed to admit the patient for further management. The patient is in agreement with this plan. [] Dragon Disclaimer Dragon Disclaimer This electronic medical record was generated, in whole or in part, using a voice recognition dictation system. Departure Departure: Impression: Primary Impression: Dizziness Additional Impression: Hypovolemia dehydration Disposition: ADMITTED INPATIENT Admitting Physician: Mike Szymanski Condition: STABLE Referrals: MIKE SZYMANSKI MD (PCP) Problem Qualifiers DEMOND NEVILLE DO Sep 11, 2019 13:40
[2019-09-11 13:41] LABS: BASO # 0.1 x10^3/uL (0.0-0.2); BASO % 1 % (0-3); EOS # 0.2 x10^3/uL (0.0-0.7); EOS % 2 % (0-3); HEMATOCRIT 38.3 % (36.0-47.0); HEMOGLOBIN 12.3 g/dL (12.0-15.5); LYMPH % 20 % (24-48); MEAN CORPUSCULAR HEMOGLOBIN 28 pg (25-35); MEAN CORPUSCULAR HGB CONC 32 g/dL (31-37); MEAN CORPUSCULAR VOLUME 86 fL (79-100); MONO # 0.9 x10^3/uL (0.0-1.1); MONO % 9 % (0-9); NEUT % 69 % (31-73); PLATELET COUNT 253 x10^3/uL (140-400); RED BLOOD COUNT 4.44 x10^6/uL (3.50-5.40); RED CELL DISTRIBUTION WIDTH 14.6 % (11.5-14.5); WHITE BLOOD COUNT 10.2 x10^3/uL (4.0-11.0)
[2019-09-11] MEDS ORDERED: IV NORMAL SALINE 1,000ML 1,000 ML IV ONE (13:45)
[2019-09-11 13:47] LABS: CREATININE 1.2 mg/dL (0.6-1.0); GFR 44.2; POTASSIUM 4.3 mmol/L (3.5-5.1)
[2019-09-11 13:53] LABS: ALBUMIN 3.1 g/dL (3.4-5.0); ALBUMIN/GLOBULIN RATIO 0.8 (1.0-1.7); TOTAL BILIRUBIN 0.2 mg/dL (0.2-1.0); TOTAL PROTEIN 7.2 g/dL (6.4-8.2)
--- NOTE | 2019-09-11 15:37 | RAD ---
CT HEAD WO CONTRAST History: Dizziness Comparison: July 11, 2018 Technique: Noncontrast CT imaging was performed of the head. Exposure: One or more of the following individualized dose reduction techniques were utilized for this examination: 1. Automated exposure control 2. Adjustment of the mA and/or kV according to patient size 3. Use of iterative reconstruction technique. Findings: There is mild motion. No acute extra-axial or parenchymal hemorrhage is identified. There is no significant intra-axial mass effect, midline shift, or extra-axial fluid collection. The ramirez-white differentiation of the major vascular territories is preserved. The ventricles, sulci, and cisterns are within normal limits in size and configuration. There is again extensive ill-defined low-density of the supratentorial parenchyma bilaterally. The mastoid air cells and the visualized paranasal sinuses are aerated. No acute calvarial abnormality is identified. There is some atherosclerotic calcification of the carotid siphons bilaterally. Impression: 1. There is no evidence of acute parenchymal hemorrhage. There is again extensive ill-defined low-density of the supratentorial parenchyma bilaterally, nonspecific findings which may be sequela of chronic microvascular ischemic disease unless there is known previous history of inflammatory demyelinating disease. Electronically signed by: Adriano Olguin MD (09/11/2019 3:34 PM) [id number]
[2019-09-11] MEDS ORDERED: ONDANSETRON PF 4 MG/2 ML VIAL. IV PRN (17:00)
[2019-09-11] MEDS ORDERED: ACETAMINOPHEN 325 MG TABLET PO PRN (17:00)
[2019-09-11 17:59] VITALS: BP 138/83
[2019-09-11] MEDS ORDERED: IPRATRPIUM/ALBUTEROL 0.5/2.5MG 3 ML NEBU. NEB PRN (18:15)
[2019-09-11] MEDS ORDERED: ONDANSETRON ODT 4 MG TAB.RAPDIS PO PRN (18:15)
[2019-09-11 19:23] VITALS: BP 149/80
[2019-09-11 22:12] VITALS: BP 132/74
[2019-09-11] MEDS ORDERED: AMIT25TA PO (22:38)
[2019-09-11] MEDS ORDERED: GABA-586 PO (22:54)
[2019-09-11] MEDS ORDERED: CETI10TA16 PO (22:54)
[2019-09-11] MEDS ORDERED: IBUP400T18 PO (22:54)
[2019-09-11] MEDS ORDERED: VENL37.56 PO (22:54)
[2019-09-11] MEDS ORDERED: CHOL40003 PO (22:54)
[2019-09-11] MEDS ORDERED: MELA5TAB20 PO (22:54)
[2019-09-11] MEDS ORDERED: CALC-77 PO (22:54)
[2019-09-11] MEDS ORDERED: [UNRECOGNIZED DRUG - CODE] PO (22:54)
[2019-09-11] MEDS ORDERED: GLIP5TAB22 PO (22:54)
[2019-09-11] MEDS ORDERED: CYCL-331 PO (22:54)
[2019-09-11] MEDS ORDERED: SULF500T36 PO (22:54)
[2019-09-11] MEDS ORDERED: INSU100V37 SQ (23:01)
[2019-09-11] MEDS ORDERED: INSU100I17 SQ (23:02)
[2019-09-11] MEDS ORDERED: INSU100C4 SQ (23:05)
[2019-09-11] MEDS ORDERED: DEXTROSE 50% 25 GM / 50ML DISP.SYRIN. IV PRN (23:15)
[2019-09-11] MEDS: POTASSIUM CHLORIDE 20 MEQ TABLET.ER. PO SCH (23:37)
[2019-09-11] MEDS: PHENAZOPYRIDINE 100 MG TABLET. PO SCH (23:37)
[2019-09-11 23:38] VITALS: BP 164/79
[2019-09-11] MEDS: ENOXAPARIN 40 MG/0.4 ML SYRINGE. SQ SCH (23:38)
[2019-09-11] MEDS: METOPROLOL TART IMMED RELEASE 25 MG TABLET PO SCH (23:41)
--- NOTE | 2019-09-11 23:44 | CONS ---
DATE OF CONSULTATION: 09/11/2019 NEUROLOGICAL CONSULTATION REFERRING PHYSICIAN: Dr. Stevens. REASON FOR CONSULTATION: Severe dizziness. HISTORY OF PRESENT ILLNESS: This is a 74-year-old right-handed female who was admitted through Emergency Room on account of severe vertigo described as "spinning." The patient stated she woke up this morning at 3:30 and she was profusely diaphoretic and thirsty. She tries to get up of the bed, she felt very dizzy and could not do it. She described it as spinning spells aggravated by moving the head quickly to any directions or trying to move her bodies. The patient denies any similar episode in the past. She denies any recent infections around the head. She denies hearing loss or earache, fever or chills. She denies chest pain, shortness of breath or palpitation, dysarthria, dysphagia, or diplopia. She describes generalized arthritic pain due to osteoarthritis. Initial nonenhanced head CT scan revealed no evidence of acute intracranial process, but it showed microvascular ischemic disease. The patient denies any recent head injuries or fall. PAST MEDICAL HISTORY: Significant for cataract removal with lens implant, peripheral neuropathy of the lower extremities, congestive heart failure, peripheral vascular disease, hyperlipidemia, pneumonia, gastroesophageal disease, frequent urinary infections and urinary urgency, rheumatoid arthritis, degenerative disk disease, chronic lower back pain, and diabetes mellitus. PAST SURGICAL HISTORY: Significant for bilateral cataract removal with lens implant, cholecystectomy, total hysterectomy, amputation of the left second toe, status bilateral total knee replacements, and bilateral foot surgeries. FAMILY HISTORY: Father had stroke. Mother had coronary artery disease and myocardial infarction. SOCIAL HISTORY: She is . She denies smoking, alcohol drinking, or illicit drug use. CURRENT HOME MEDICATIONS: Vitamin D, insulin, Flonase, prednisone, Protonix, lisinopril, furosemide, aspirin, potassium, Pyridium, metoprolol, and tramadol. ALLERGIES: GADOLINIUM CONTAINING CONTRAST, INFLUENZA VIRUS VACCINES, SULFA DRUGS, ALOGLIPTIN, , CLINDAMYCIN, CODEINE, EXENATIDE, IODINE, LEVOFLOXACIN, MENTHOL, METFORMIN, MORPHINE, PIOGLITAZONE, PREGABALIN. REVIEW OF SYSTEMS: A 10-point review of system was performed as mentioned above in history of present illness and consistent mainly from positional vertigo. PHYSICAL EXAMINATION: GENERAL: Obese female, not in acute distress. She weighs 198 kilos, morbidly obese female, in no acute distress. VITAL SIGNS: Blood pressure 149/80, respiratory rate 20, pulse is 86 and regular, oxygen saturation is 98% on room air, temperature 98. HEENT: Normocephalic, atraumatic, otherwise unremarkable. NECK: Supple. Negative for carotid bruit, lymphadenopathy or thyromegaly. LUNGS: Clear to A and P. CARDIOVASCULAR: Regular rate and rhythm, normal S1, S2. ABDOMEN: Soft. Bowel sounds positive. EXTREMITIES: Negative for cyanosis, clubbing or edema. NEUROLOGICAL EXAMINATION: Mental status: The patient is alert and oriented x 3. Speech is fluent. There is no language dysfunction. Memory, judgment, and abstracting thinking are normal. The patient denies hallucination or delusion. Cranial Nerves: Visual pena are full. The pupils are reactive to light and accommodation. The extraocular movements are intact. There is no nystagmus. There is no facial motor or sensory deficit. Hearing is intact bilaterally. The palate is elevated symmetrically. Sternocleidomastoid muscles are powerful bilaterally. The patient shrugs her shoulders symmetrically and protrudes her tongue in the midline without fasciculation or atrophy. Motor Examination: No focal muscle bulk wasting. The tone is normal. The strength was 4/5 throughout. Sensory examination revealed diminished pinprick and light touch senses in patchy distributions in both lower extremities. Deep tendon reflexes were symmetric and hypoactive with absent Achilles responses. Gait not tested as the patient has severe dizziness. LABORATORY DATA: CBC revealed white blood cells of 10.2 thousand, hemoglobin 12.3, hematocrit 38.3, and platelet count 253,000. Chemistry revealed sodium of 141, potassium 4.3, chloride 103, CO2 of 31, BUN 25, creatinine 1.2, glucose 279, calcium 9. Liver enzymes: AST is high at 70 and ALT is high at 71, alkaline phosphatase is high at 147. Troponin level is 0.044. IMPRESSION: 1. Acute benign positional vertigo, aggravated by moving the head or body quickly. 2. Multiple medical problems include morbid obesity, diabetes mellitus, hyperlipidemia, dehydration, renal insufficiency, arthritis, degenerative disk disease, GERD. RECOMMENDATIONS: 1. Vestibular exercise and that can be done by Physical Therapy Service. 2. Aggressive weight loss. 3. We will add meclizine to alleviate the anxiety associated with the dizziness. 4. We will continue with current management initiated by Dr. Stevens. M Yumiko PIMENTEL MD DR: YG/jaime JOB#: [id number] / [id number]
[2019-09-11] MEDS: INSULIN LISPRO 300 UNITS/3 ML VIAL. SQ SCH (23:47)
[2019-09-11] MEDS: MECLIZINE 12.5 MG TABLET. PO PRN (23:55)
[2019-09-12 01:28] LABS: CLARITY,URINE CLEAR; COLOR,URINE YELLOW
[2019-09-12 01:29] LABS: BACTERIA,URINE FEW /HPF (0-FEW); BILIRUBIN,URINE NEG (NEG); GLUCOSE,URINE >=1000 mg/dL (NEG); NITRITE,URINE NEG (NEG); RBC,URINE 0 /HPF (0-2); SQUAMOUS EPITHELIAL CELL,UR OCC /LPF; UROBILINOGEN,URINE 0.2 mg/dL (0.2 mg/dL)
[2019-09-12 06:23] VITALS: BP 172/90
[2019-09-12] MEDS ORDERED: LISINOPRIL 5 MG TABLET. PO ONE (07:00)
[2019-09-12] MEDS ORDERED: NON FORMULARY ITEM (Insulin Aspart (Novolog) 1 UNIT) SQ SCH (07:30)
[2019-09-12] MEDS ORDERED: INSULIN ASPART 10 UNIT SQ SCH (08:00)
[2019-09-12] MEDS: FLUTICASONE 50MCG/NASAL SPRAY 16GM BOTTLE. NS SCH (08:31)
[2019-09-12] MEDS: predniSONE 1 MG TABLET PO SCH (08:31)
[2019-09-12] MEDS: POTASSIUM CHLORIDE 20 MEQ TABLET.ER. PO SCH ×2 (08:32→21:20)
[2019-09-12] MEDS: PANTOPRAZOLE 40 MG TABLET. PO SCH (08:32)
[2019-09-12] MEDS: METOPROLOL TART IMMED RELEASE 25 MG TABLET PO SCH ×3 (08:32→21:21)
[2019-09-12] MEDS: predniSONE 10 MG TABLET PO SCH (08:33)
[2019-09-12] MEDS: ASPIRIN ENTERIC COATED 81 MG TABLET.DR. PO SCH (08:33)
[2019-09-12] MEDS: PHENAZOPYRIDINE 100 MG TABLET. PO SCH ×3 (08:33→21:20)
[2019-09-12] MEDS: FUROSEMIDE 40 MG TABLET PO SCH (08:33)
[2019-09-12] MEDS: INSULIN LISPRO 300 UNITS/3 ML VIAL. SQ SCH ×6 (08:41→17:21)
[2019-09-12] MEDS ORDERED: FLUCONAZOLE 100 MG TABLET. PO SCH (09:00)
[2019-09-12] MEDS ORDERED: levoFLOXacin 500 MG TABLET PO SCH (09:00)
[2019-09-12] MEDS ORDERED: INSULIN DEGLUDEC SQ SCH (09:00)
[2019-09-12 09:49] VITALS: BP 148/72
--- NOTE | 2019-09-12 10:40 | PN ---
DATE: SUBJECTIVE: The patient denies any new medical or neurological complaints. She stated her dizziness has been better today by doing vestibular exercises. The patient was also placed on meclizine 25 mg 3 times a day to alleviate the anxiety associated with the dizziness. OBJECTIVE: GENERAL: Morbidly obese female, not in acute distress. VITAL SIGNS: Blood pressure 148/72, respiratory rate 20, pulse is 88, temperature 98.1, oxygen saturation 99% on room air. HEENT: Normocephalic, atraumatic, otherwise unremarkable. NECK: Supple. Negative for carotid bruit, lymphadenopathy or thyromegaly. LUNGS: Clear to A and P. CARDIOVASCULAR: Regular rate and rhythm, normal S1, S2. There is no S3, S4 or murmur. ABDOMEN: Soft. Bowel sounds positive. EXTREMITIES: Negative for cyanosis, clubbing or edema. NEUROLOGICAL EXAM: Mental Status: The patient is alert and oriented x 3. Speech is fluent. There is no language dysfunction. Memory, judgment, and abstract thinking are normal. The patient denies hallucination or delusion. Cranial nerves are intact. No nystagmus. Motor examination: No focal muscle bulk wasting. The tone is normal. The strength is 4/5 throughout. Sensory examination revealed normal pinprick, light touch, vibratory and position senses. Deep tendon reflexes were symmetric and hypoactive with absent Achilles responses. Gait not tested as the patient has severe position dizziness. IMPRESSION: 1. Acute benign positional vertigo, aggravated by moving the head or the body quickly. 2. Multiple medical problems include morbid obesity, diabetes mellitus, hyperlipidemia, dehydration, renal insufficiency, arthritis and degenerative disk disease, gastroesophageal reflux disease. RECOMMENDATIONS: 1. Continue with current vestibular exercise, which can be initiated by Physical Therapy. 2. Aggressive weight loss. 3. Continue with current management initiated by Dr. Stevens. 4. Encourage hydration and encourage fluid intake. M Yumiko PIMENTEL MD DR: YG/jaime JOB#: [id number] / [id number]
[2019-09-12] MEDS: ACETAMINOPHEN 500 MG TABLET PO PRN (12:50)
[2019-09-12] MEDS ORDERED: GABAPENTIN 300 MG CAPSULE. PO PRN (13:15)
[2019-09-12] MEDS ORDERED: GABAPENTIN 300 MG CAPSULE. PO SCH (13:30)
--- NOTE | 2019-09-12 13:35 | HP ---
ADMIT DATE: HISTORY OF PRESENT ILLNESS: A 74-year-old female came in through the Emergency Room with severe dizziness, vestibulitis. Patient broke out in a cold sweat. She could not stand. The room was spinning, unable to move at all. She had difficulty moving her head and got very nauseated with this, she was unable to control it previously with meclizine or scopolamine patch. The patient was admitted for further evaluation. She apparently was very dehydrated as well and consequently the patient was admitted for such for unsteadiness as well as severe vestibulitis uncontrolled with outpatient medication. PAST MEDICAL HISTORY: Extensive lens implant, bilateral cataracts, cardiac disorder, hypercholesterolemia, bronchitis, abdominal cramping, pneumonia, cholecystectomy, total hysterectomy, GERD, frequent UTIs, urinary frequency, urgency, muscle spasm, cramps in the extremities, left second toe amputated, rheumatoid arthritis, degenerative disk disease, bilateral foot surgery for RA, bilateral knee replacement, back pain, endocrine disorders, steroid therapy, on chronic prednisone for RA, influenza vaccination, pneumococcal vaccination, MRSA multiple times. FAMILY HISTORY: Father of stroke. Mother stroke and IA in the mother. ALLERGIES: CALADIUM, CONTRAST, INFLUENZA VIRUS VACCINE, SULFUR, CAPSAICIN, CLINDAMYCIN, CODEINE, EXENATIDE, INSULIN, IODINE, LEVOTHYROXINE, MENTHOL, METFORMIN, MORPHINE, PIOGLITAZONE AND LYRICA. SOCIAL HISTORY: No smoking, alcohol or drug use. FULL CODE. REVIEW OF SYSTEMS: Outside of her dizziness, feeling clammy when she has this. She denies chest pain, shortness of breath. Denies any melena, hematochezia, hematemesis and neurologically stable outside of that ____ ailment. She does have some diarrhea and nausea. PHYSICAL EXAMINATION: GENERAL: Pleasant white female looking very uncomfortable. VITAL SIGNS: Blood pressure 172/90, respiratory rate 20, pulse 87, afebrile. HEENT: The patient's head was atraumatic, normocephalic. Eyes: PERRLA without jaundice. There is no nystagmus noted and her eyes were PERRLA. Ears show full TMs, but with fluid air lines. The patient's mouth and throat normal. NECK: Supple, without JVD, carotid bruits or thyromegaly. LUNGS: Clear to auscultation. CARDIOVASCULAR: Regular sinus rhythm. ABDOMEN: Soft, protuberant. EXTREMITIES: No clubbing, cyanosis, nor edema. NEUROLOGIC: The patient is alert, very dizzy, however, cranial nerves 2-12 are basically intact except for vestibular function, has difficulty walking because of the room spinning on her and has to hang on to the side of the bed or wall to walk. The patient was seen initially in the Emergency Room and admitted. CT scan of the head showed extensive low density parenchymal findings consistent with previous history of microvascular ischemic disease ____ there was a history of inflammatory demyelinating disease, which may be somehow related to her rheumatoid arthritis. IMPRESSION: Severe rheumatoid arthritis, type 2 diabetes with hyperglycemia, chronic kidney disease stage 3, severe atrophy of the brain, ataxia, hypertension. PLAN: The patient will be admitted for further evaluation by Neurology and make further assessment with PT, OT for training for vestibular dysfunction. JOSE FRANCISCO SZYMANSKI MD DR: LAURENT/jaime JOB#: [id number] / [id number]
[2019-09-12] MEDS: MECLIZINE 12.5 MG TABLET. PO PRN (13:42)
[2019-09-12 14:16] VITALS: BP 133/79
[2019-09-12] MEDS: SENNOSIDES 8.6 MG TABLET PO SCH ×2 (17:16→21:20)
[2019-09-12] MEDS: GABAPENTIN 300 MG CAPSULE. PO SCH (18:08)
[2019-09-12 19:32] VITALS: BP 133/76
[2019-09-12] MEDS: ENOXAPARIN 40 MG/0.4 ML SYRINGE. SQ SCH (21:20)
[2019-09-12] MEDS: MELATONIN 3 MG TABLET PO SCH (21:20)
[2019-09-12] MEDS: AMITRIPTYLINE HCL 25 MG TABLET PO SCH (21:21)
[2019-09-12 23:28] VITALS: BP 142/76
[2019-09-13] MEDS: GABAPENTIN 300 MG CAPSULE. PO SCH ×3 (00:23→17:02)
[2019-09-13 05:27] VITALS: BP 141/72
[2019-09-13] MEDS: PANTOPRAZOLE 40 MG TABLET. PO SCH (08:07)
[2019-09-13] MEDS: FUROSEMIDE 40 MG TABLET PO SCH (08:07)
[2019-09-13] MEDS: ASPIRIN ENTERIC COATED 81 MG TABLET.DR. PO SCH (08:07)
[2019-09-13] MEDS: PHENAZOPYRIDINE 100 MG TABLET. PO SCH ×3 (08:07→20:36)
[2019-09-13] MEDS: SENNOSIDES 8.6 MG TABLET PO SCH ×4 (08:07→20:37)
[2019-09-13] MEDS: LISINOPRIL 5 MG TABLET. PO SCH (08:08)
[2019-09-13] MEDS: FLUTICASONE 50MCG/NASAL SPRAY 16GM BOTTLE. NS SCH (08:08)
[2019-09-13] MEDS: METOPROLOL TART IMMED RELEASE 25 MG TABLET PO SCH ×3 (08:08→20:37)
[2019-09-13] MEDS: POTASSIUM CHLORIDE 20 MEQ TABLET.ER. PO SCH ×2 (08:08→20:36)
[2019-09-13] MEDS: predniSONE 10 MG TABLET PO SCH (08:08)
[2019-09-13] MEDS: predniSONE 1 MG TABLET PO SCH (08:10)
[2019-09-13] MEDS: INSULIN LISPRO 300 UNITS/3 ML VIAL. SQ SCH ×6 (08:13→17:03)
[2019-09-13] MEDS: traMADol 50 MG TABLET PO PRN ×2 (10:18→23:11)
--- NOTE | 2019-09-13 10:20 | PN ---
DATE: 09/13/2019 SUBJECTIVE: The patient denies any new medical or neurological complaints. She stated her dizziness has been better today. Physical therapy has been working with her and she received vestibular exercises at bedside. She denies nausea, vomiting, chest pain, shortness of breath or palpitation, dysarthria or dysphagia. OBJECTIVE: GENERAL: Obese female, not in acute distress. VITAL SIGNS: Blood pressure is 141/72, respiratory rate 18, pulse is 94, oxygen saturation is 96% on room air, temperature 98.3. HEENT: Normocephalic, atraumatic, otherwise unremarkable. NECK: Supple. Negative for carotid bruit, lymphadenopathy or thyromegaly. LUNGS: Clear to A and P. CARDIOVASCULAR: Regular rate and rhythm, normal S1, S2. There is no S3, S4 or murmurs. ABDOMEN: Soft. Bowel sounds positive. EXTREMITIES: Negative for cyanosis, clubbing or edema. NEUROLOGICAL EXAM: Normal mental status and intact cranial nerves. Motor examination revealed no focal muscle bulk wasting. Tone is normal. Strength is 4/5 throughout. The patient has decreased range of motions of the right shoulder secondary to arthritis. Sensory examination revealed normal pinprick, light touch, vibratory and position senses. Deep tendon reflexes were symmetric and hypoactive with absent Achilles responses. Gait and coordination are normal. IMPRESSION: 1. Acute benign positional vertigo - improved slowly since admission. 2. Multiple medical problems include obesity, diabetes mellitus, hyperlipidemia, renal insufficiency, arthritis, degenerative disk disease, and gastroesophageal reflux disease. RECOMMENDATIONS: 1. Continue with current management initiated by Dr. Stevens. 2. Physical therapy as tolerated, including vestibular exercises. Encourage fluid intake. M Yumiko PIMENTEL MD DR: YG/jaime JOB#: [id number] / [id number]
[2019-09-13 10:44] VITALS: BP 124/78
[2019-09-13] MEDS: MECLIZINE 12.5 MG TABLET. PO PRN (11:06)
[2019-09-13] MEDS ORDERED: INSULIN DEGLUDEC SQ SCH (12:00)
[2019-09-13] MEDS: ACETAMINOPHEN 500 MG TABLET PO PRN (14:01)
[2019-09-13 14:45] VITALS: BP 108/71
[2019-09-13] MEDS ORDERED: NON FORMULARY ITEM (Etanercept (Enbrel) 50 MG) SQ SCH (16:00)
[2019-09-13 18:39] VITALS: BP 109/59
[2019-09-13] MEDS: AMITRIPTYLINE HCL 25 MG TABLET PO SCH (20:36)
[2019-09-13] MEDS: MELATONIN 3 MG TABLET PO SCH (20:37)
[2019-09-13] MEDS: ENOXAPARIN 40 MG/0.4 ML SYRINGE. SQ SCH (20:37)
--- NOTE | 2019-09-13 22:05 | PN ---
DATE: 09/13/2019 SUBJECTIVE: A 74-year-old female in with situation of severe dizziness, and lightheadedness. The patient was markedly dehydrated. She has basically incontinent of urine; however, Dr. Chand has been kind enough to review her and make further suggestions from a neurological standpoint. OBJECTIVE: VITAL SIGNS: The patient's blood pressure is 108/70, respiratory rate 18, pulse 87, afebrile. GENERAL: The patient is alert and oriented. LUNGS: Diminished. CARDIOVASCULAR: Stable. The patient seems to be less dizzy than she has been. She is taking exercises to realign her positional vertigo. We are trying to get her onto the skilled unit for continued evaluation. Review Dr. Chand's note here. IMPRESSION: Therefore, benign positional vertigo, multiple medical problems, rheumatoid arthritis, diabetes mellitus, renal insufficiency, gastroesophageal reflux disease, obesity, poorly controlled diabetes, make further evaluation on her as indicated. JOSE FRANCISCO SZYMANSKI MD DR: LAURENT/jaime JOB#: [id number] / [id number]
[2019-09-13 23:27] VITALS: BP 127/71
[2019-09-14] MEDS: GABAPENTIN 300 MG CAPSULE. PO SCH (00:11)
[2019-09-14 06:41] VITALS: BP 132/82
[2019-09-14] MEDS ORDERED: guaiFENesin DM 200MG/20MG 10 ML SYRUP PO PRN (07:00)
[2019-09-14] MEDS: ASPIRIN ENTERIC COATED 81 MG TABLET.DR. PO SCH (08:02)
[2019-09-14] MEDS: PHENAZOPYRIDINE 100 MG TABLET. PO SCH (08:02)
[2019-09-14] MEDS: predniSONE 10 MG TABLET PO SCH (08:02)
[2019-09-14] MEDS: FUROSEMIDE 40 MG TABLET PO SCH (08:02)
[2019-09-14] MEDS: predniSONE 1 MG TABLET PO SCH (08:02)
[2019-09-14] MEDS: POTASSIUM CHLORIDE 20 MEQ TABLET.ER. PO SCH (08:02)
[2019-09-14 08:03] VITALS: BP 132/82
[2019-09-14] MEDS: LISINOPRIL 5 MG TABLET. PO SCH (08:03)
[2019-09-14] MEDS: PANTOPRAZOLE 40 MG TABLET. PO SCH (08:03)
[2019-09-14] MEDS: METOPROLOL TART IMMED RELEASE 25 MG TABLET PO SCH (08:03)
[2019-09-14] MEDS: SENNOSIDES 8.6 MG TABLET PO SCH (08:03)
[2019-09-14] MEDS: FLUTICASONE 50MCG/NASAL SPRAY 16GM BOTTLE. NS SCH (08:04)
[2019-09-14] MEDS: INSULIN LISPRO 300 UNITS/3 ML VIAL. SQ SCH ×2 (08:05)
[2019-09-14] MEDS ORDERED: ENOX40DI3 SQ (10:21)
[2019-09-14] MEDS ORDERED: MECL-75 PO (10:21)
[2019-09-14] MEDS ORDERED: INSU100C SQ (10:21)
--- NOTE | 2019-09-14 14:44 | PN ---
DATE: SUBJECTIVE: The patient denies any new medical or neurological complaints. She is making good progress and moving her head and her body with physical therapy. Her dizziness has been improved slowly and she is making progress every day. OBJECTIVE: GENERAL: Well-developed, well-nourished female, not in acute distress. She weighs 90.2 kilos. VITAL SIGNS: Blood pressure is 132/82, respiratory rate 20, pulse is 82 and regular, temperature is 97.8, and oxygen saturation 96% on room air. HEENT: Normocephalic, atraumatic, otherwise unremarkable. NECK: Supple. Negative for carotid bruit, lymphadenopathy or thyromegaly. LUNGS: Clear to A and P. CARDIOVASCULAR: Regular rate and rhythm, normal S1, S2. ABDOMEN: Soft. Bowel sounds positive. EXTREMITIES: Negative for cyanosis, clubbing or pitting edema. Decreased range of motions of the right shoulder secondary to arthritic pain. NEUROLOGICAL EXAM: Normal mental status and intact cranial nerves. There are no focal motor or sensory deficits. The strength was 4/5 throughout. Sensory examination revealed normal pinprick, light touch, vibratory and position senses. Deep tendon reflexes were symmetric and hypoactive with absent Achilles responses. Gait not tested; however, the patient stated she moves her body slowly and she sits at the edge of the bed before she stands up and going to bathroom, and she does not feel dizzy if she walked slowly. IMPRESSION: 1. Benign positional vertigo - improved. 2. Multiple medical problems include diabetes mellitus, hyperlipidemia, arthritis, degenerative disk disease, and gastroesophageal reflux. RECOMMENDATIONS: 1. Continue with current management initiated by Dr. Stevens. 2. Continue with physical therapy and vestibular exercises. M Yumiko PIMENTEL MD DR: YG/jaime JOB#: [id number] / [id number]
[2019-09-14] MEDS ORDERED: DICL100G18 TP (15:27)
== END 2019-09-14 09:23 | DRG 641 ==
LOC: ER 12:54 → 1 SOUTH 16:00
PROVIDERS: ADMIT Family Medicine; ATTEND Family Medicine
DX: E86.0 Dehydration (principal); I13.0 Hypertensive heart and chronic kidney disease with heart failure and stage 1 through stage 4 chronic kidney disease, or unspecified chronic kidney disease; H81.10 Benign paroxysmal vertigo, unspecified ear; E11.65 Type 2 diabetes mellitus with hyperglycemia; E11.22 Type 2 diabetes mellitus with diabetic chronic kidney disease; E11.42 Type 2 diabetes mellitus with diabetic polyneuropathy; E11.51 Type 2 diabetes mellitus with diabetic peripheral angiopathy without gangrene; E66.01 Morbid (severe) obesity due to excess calories; E78.00 Pure hypercholesterolemia, unspecified; E78.5 Hyperlipidemia, unspecified; E86.1 Hypovolemia; F41.9 Anxiety disorder, unspecified; H83.09 Labyrinthitis, unspecified ear; I50.9 Heart failure, unspecified; K21.9 Gastro-esophageal reflux disease without esophagitis; M06.9 Rheumatoid arthritis, unspecified; M19.90 Unspecified osteoarthritis, unspecified site; N18.3 Chronic kidney disease, stage 3 (moderate); Z79.4 Long term (current) use of insulin; Z79.52 Long term (current) use of systemic steroids; Z82.3 Family history of stroke; Z82.49 Family history of ischemic heart disease and other diseases of the circulatory system; Z87.440 Personal history of urinary (tract) infections; Z90.710 Acquired absence of both cervix and uterus; Z96.1 Presence of intraocular lens; Z96.653 Presence of artificial knee joint, bilateral; Z98.41 Cataract extraction status, right eye; Z98.42 Cataract extraction status, left eye; G89.29 Other chronic pain; Z88.2 Allergy status to sulfonamides; Z88.7 Allergy status to serum and vaccine; Z88.8 Allergy status to other drugs, medicaments and biological substances
CPT/HCPCS: 36415; 70450; 71045; 80053; 81001; 82947; 84484; 85025; 93005; 96360; 99285; J1650; J1815; J7512; J8597; Q0162; 97112; J7030

== ENCOUNTER 2019-09-14 09:27 | Inpatient (IN) | payer MEDICARE, OTHER ==
[~2019-09-14] VITALS: Ht 170.2 cm; Wt 90.2 kg
[~2019-09-14 09:27] MED LIST changes: +CALC-77 PO; +CETI10TA16 PO; +CHOL40003 PO; +GABA-586 PO; +GLIP5TAB22 PO; +IBUP400T18 PO; +INSU100C4 SQ; +INSU100V37 SQ; +MELA5TAB20 PO; +SULF500T36 PO; +VENL37.56 PO; +[UNRECOGNIZED DRUG - CODE] PO
[2019-09-14] MEDS ORDERED: CYCLOBENZAPRINE 10 MG TABLET. PO PRN (10:00)
[2019-09-14] MEDS ORDERED: IBUPROFEN 400 MG TABLET. PO PRN (10:00)
[2019-09-14] MEDS ORDERED: IPRATRPIUM/ALBUTEROL 0.5/2.5MG 3 ML NEBU. NEB PRN (10:00)
[2019-09-14] MEDS ORDERED: MECL-75 PO (10:21)
[2019-09-14] MEDS ORDERED: ENOX40DI3 SQ (10:21)
[2019-09-14] MEDS ORDERED: INSU100C SQ (10:21)
[2019-09-14] MEDS: MECLIZINE 12.5 MG TABLET. PO PRN (11:05)
[2019-09-14] MEDS: ONDANSETRON ODT 4 MG TAB.RAPDIS PO PRN (11:05)
[2019-09-14] MEDS: INSULIN DEGLUDEC SQ SCH (12:00)
[2019-09-14] MEDS ORDERED: NON FORMULARY ITEM (Insulin Aspart (Novolog Flexpen) 0 UNIT) SQ SCH (12:00)
[2019-09-14] MEDS: GABAPENTIN 300 MG CAPSULE. PO SCH ×2 (12:19→17:46)
[2019-09-14] MEDS: INSULIN LISPRO 300 UNITS/3 ML VIAL. SQ SCH ×4 (12:37→17:15)
[2019-09-14 13:30] VITALS: BP 113/74
[2019-09-14] MEDS: PHENAZOPYRIDINE 100 MG TABLET. PO SCH ×2 (13:33→20:43)
[2019-09-14] MEDS: METOPROLOL TART IMMED RELEASE 25 MG TABLET PO SCH ×2 (13:34→20:47)
[2019-09-14] MEDS: SENNOSIDES 8.6 MG TABLET PO SCH ×3 (13:34→20:43)
[2019-09-14] MEDS: traMADol 50 MG TABLET PO PRN (14:22)
[2019-09-14] MEDS ORDERED: DICL100G18 TP (15:27)
[2019-09-14 16:00] VITALS: BP 115/76
[2019-09-14] MEDS: glipiZIDE 5 MG TABLET PO SCH (16:37)
[2019-09-14] MEDS: POTASSIUM CHLORIDE 20 MEQ TABLET.ER. PO SCH (16:44)
[2019-09-14] MEDS: DICLOFENAC SODIUM 1% TOPICAL GEL 100GM TUBE. TP SCH ×2 (17:00→20:46)
[2019-09-14] MEDS: SULFASALAZINE 500 MG PO SCH (17:46)
[2019-09-14] MEDS: AMITRIPTYLINE HCL 25 MG TABLET PO SCH (20:44)
[2019-09-15] MEDS: GABAPENTIN 300 MG CAPSULE. PO SCH ×3 (00:32→17:15)
[2019-09-15 05:40] VITALS: BP 136/82
[2019-09-15 07:36] VITALS: BP 116/72
[2019-09-15] MEDS ORDERED: CHOLECALCIFEROL PO SCH (09:00)
[2019-09-15] MEDS: DICLOFENAC SODIUM 1% TOPICAL GEL 100GM TUBE. TP SCH ×4 (09:00→20:50)
[2019-09-15] MEDS ORDERED: FLUCONAZOLE 100 MG TABLET. PO SCH (09:00)
[2019-09-15] MEDS: SENNOSIDES 8.6 MG TABLET PO SCH ×4 (09:00→20:49)
[2019-09-15] MEDS: SULFASALAZINE 500 MG PO SCH ×2 (09:00→17:21)
[2019-09-15] MEDS: METOPROLOL TART IMMED RELEASE 25 MG TABLET PO SCH ×3 (09:02→20:49)
[2019-09-15] MEDS: POTASSIUM CHLORIDE 20 MEQ TABLET.ER. PO SCH ×2 (09:03→17:16)
[2019-09-15] MEDS: VENLAFAXINE 37.5 MG TABLET. PO SCH (09:03)
[2019-09-15] MEDS: glipiZIDE 5 MG TABLET PO SCH ×3 (09:03→17:15)
[2019-09-15] MEDS: predniSONE 1 MG TABLET PO SCH (09:04)
[2019-09-15] MEDS: predniSONE 10 MG TABLET PO SCH (09:09)
[2019-09-15] MEDS: PANTOPRAZOLE 40 MG TABLET. PO SCH (09:09)
[2019-09-15] MEDS: CALCIUM CARB/VIT D3 500/200 TABLET PO SCH (09:09)
[2019-09-15] MEDS: FUROSEMIDE 40 MG TABLET PO SCH (09:09)
[2019-09-15] MEDS: CETIRIZINE HCL 10 MG TABLET PO SCH (09:09)
[2019-09-15] MEDS: ASPIRIN ENTERIC COATED 81 MG TABLET.DR. PO SCH (09:09)
[2019-09-15] MEDS: LISINOPRIL 5 MG TABLET. PO SCH (09:09)
[2019-09-15] MEDS: FLUTICASONE 50MCG/NASAL SPRAY 16GM BOTTLE. NS SCH (09:11)
[2019-09-15] MEDS: MECLIZINE 12.5 MG TABLET. PO PRN ×2 (09:16→19:46)
[2019-09-15] MEDS: PHENAZOPYRIDINE 100 MG TABLET. PO SCH ×3 (09:16→20:49)
[2019-09-15] MEDS: INSULIN LISPRO 300 UNITS/3 ML VIAL. SQ SCH ×6 (09:26→17:18)
[2019-09-15] MEDS: traMADol 50 MG TABLET PO PRN ×2 (09:57→19:46)
[2019-09-15] MEDS: INSULIN DEGLUDEC SQ SCH (12:00)
[2019-09-15 17:47] VITALS: BP 132/74
[2019-09-15] MEDS: AMITRIPTYLINE HCL 25 MG TABLET PO SCH (20:48)
[2019-09-16] MEDS: GABAPENTIN 300 MG CAPSULE. PO SCH ×3 (00:43→17:18)
--- NOTE | 2019-09-16 05:07 | PN ---
DATE: 09/15/2019 SUBJECTIVE: The patient continued to have dizziness described as vertigo when she turns her head to any directions or changing her body positions quickly. However, the dizzy spell has been improved over the last few days by doing vestibular exercises as instructed. The patient with some assistance, uses a walker and go to bathroom. She denies headaches, visual disturbances, nausea, vomiting, chest pain, shortness of breath or palpitation, dysarthria or dysphagia. OBJECTIVE: GENERAL: Well-developed, well-nourished female, obese female, not in acute distress. VITAL SIGNS: Blood pressure 125/70, respiratory rate 18, pulse is 84 regular, oxygen saturation is 98% on room air. HEENT: Normocephalic, atraumatic, otherwise unremarkable. NECK: Supple. Negative for carotid bruit, lymphadenopathy or thyromegaly. LUNGS: Clear to A and P. CARDIOVASCULAR: Regular rhythm, normal S1, S2. There is no S3, S4 or murmur. ABDOMEN: Soft. Bowel sounds positive. EXTREMITIES: Negative for cyanosis, clubbing or edema. NEUROLOGICAL EXAMINATION: Mental status: The patient is alert and oriented x 3. Speech is fluent. There is no language dysfunction. Memory, judgment, and abstracting thinking are normal. The patient denies hallucination or delusion. Cranial nerves are intact. No focal motor or sensory deficit. No focal deficits. Strength is 4/5 throughout. Sensory examination revealed normal pinprick, light touch, vibratory and position senses. Deep tendon reflexes were symmetric and hypoactive with absent Achilles responses. Gait not tested. IMPRESSION: 1. Acute paroxysmal benign positional vertigo -- improved over the last few days by doing exercises and physical therapy. 2. Multiple medical problems include diabetes mellitus, hyperlipidemia, arthritis, degenerative disk disease, gastroesophageal reflux disease. RECOMMENDATIONS: 1. We will continue with current management with meclizine 25 mg t.i.d. 2. Vestibular exercise and PT as tolerated. M Yumiko PIMENTEL MD DR: YG/jaime JOB#: [id number] / [id number]
[2019-09-16 05:59] VITALS: BP 125/77
[2019-09-16] MEDS: INSULIN LISPRO 300 UNITS/3 ML VIAL. SQ SCH ×6 (08:00→17:27)
[2019-09-16] MEDS: DICLOFENAC SODIUM 1% TOPICAL GEL 100GM TUBE. TP SCH ×4 (09:00→21:00)
[2019-09-16] MEDS: SULFASALAZINE 500 MG PO SCH ×2 (09:00→17:20)
[2019-09-16] MEDS: CETIRIZINE HCL 10 MG TABLET PO SCH (09:05)
[2019-09-16] MEDS: POTASSIUM CHLORIDE 20 MEQ TABLET.ER. PO SCH ×2 (09:05→17:18)
[2019-09-16] MEDS: FUROSEMIDE 40 MG TABLET PO SCH (09:05)
[2019-09-16] MEDS: CALCIUM CARB/VIT D3 500/200 TABLET PO SCH (09:06)
[2019-09-16] MEDS: METOPROLOL TART IMMED RELEASE 25 MG TABLET PO SCH ×3 (09:06→21:18)
[2019-09-16] MEDS: MECLIZINE 12.5 MG TABLET. PO PRN (09:08)
[2019-09-16] MEDS: SENNOSIDES 8.6 MG TABLET PO SCH ×4 (09:08→21:00)
[2019-09-16] MEDS: LISINOPRIL 5 MG TABLET. PO SCH (09:08)
[2019-09-16] MEDS: predniSONE 10 MG TABLET PO SCH (09:08)
[2019-09-16] MEDS: PHENAZOPYRIDINE 100 MG TABLET. PO SCH ×3 (09:08→21:20)
[2019-09-16] MEDS: glipiZIDE 5 MG TABLET PO SCH ×3 (09:09→17:18)
[2019-09-16] MEDS: PANTOPRAZOLE 40 MG TABLET. PO SCH (09:09)
[2019-09-16] MEDS: ASPIRIN ENTERIC COATED 81 MG TABLET.DR. PO SCH (09:09)
[2019-09-16] MEDS: FLUTICASONE 50MCG/NASAL SPRAY 16GM BOTTLE. NS SCH (09:10)
[2019-09-16] MEDS: predniSONE 1 MG TABLET PO SCH (09:11)
[2019-09-16] MEDS: VENLAFAXINE 37.5 MG TABLET. PO SCH (09:12)
[2019-09-16] MEDS: ONDANSETRON ODT 4 MG TAB.RAPDIS PO PRN (13:34)
[2019-09-16] MEDS: INSULIN DEGLUDEC SQ SCH (13:35)
[2019-09-16 18:41] VITALS: BP 125/73
[2019-09-16] MEDS: AMITRIPTYLINE HCL 25 MG TABLET PO SCH (21:18)
[2019-09-17] MEDS: GABAPENTIN 300 MG CAPSULE. PO SCH ×3 (00:17→17:07)
[2019-09-17 05:20] VITALS: BP 142/80
[2019-09-17] MEDS: traMADol 50 MG TABLET PO PRN ×2 (06:41→17:12)
[2019-09-17] MEDS: INSULIN LISPRO 300 UNITS/3 ML VIAL. SQ SCH ×6 (08:00→17:00)
[2019-09-17] MEDS: predniSONE 1 MG TABLET PO SCH (08:33)
[2019-09-17] MEDS: PHENAZOPYRIDINE 100 MG TABLET. PO SCH ×4 (08:33→20:43)
[2019-09-17] MEDS: LISINOPRIL 5 MG TABLET. PO SCH (08:33)
[2019-09-17] MEDS: CALCIUM CARB/VIT D3 500/200 TABLET PO SCH (08:33)
[2019-09-17] MEDS: predniSONE 10 MG TABLET PO SCH (08:33)
[2019-09-17] MEDS: PANTOPRAZOLE 40 MG TABLET. PO SCH (08:33)
[2019-09-17] MEDS: CETIRIZINE HCL 10 MG TABLET PO SCH (08:33)
[2019-09-17] MEDS: FUROSEMIDE 40 MG TABLET PO SCH (08:34)
[2019-09-17] MEDS: FLUTICASONE 50MCG/NASAL SPRAY 16GM BOTTLE. NS SCH (08:34)
[2019-09-17] MEDS: glipiZIDE 5 MG TABLET PO SCH ×3 (08:34→16:18)
[2019-09-17] MEDS: METOPROLOL TART IMMED RELEASE 25 MG TABLET PO SCH ×3 (08:34→20:43)
[2019-09-17] MEDS: POTASSIUM CHLORIDE 20 MEQ TABLET.ER. PO SCH ×2 (08:34→17:07)
[2019-09-17] MEDS: ASPIRIN ENTERIC COATED 81 MG TABLET.DR. PO SCH (08:34)
[2019-09-17] MEDS: VENLAFAXINE 37.5 MG TABLET. PO SCH (08:35)
[2019-09-17] MEDS: SULFASALAZINE 500 MG PO SCH ×2 (08:35→17:07)
[2019-09-17] MEDS: DICLOFENAC SODIUM 1% TOPICAL GEL 100GM TUBE. TP SCH ×4 (08:36→20:44)
[2019-09-17] MEDS: SENNOSIDES 8.6 MG TABLET PO SCH ×4 (08:44→20:43)
[2019-09-17] MEDS: MECLIZINE 12.5 MG TABLET. PO PRN (09:46)
[2019-09-17 10:22] LABS: BASO # 0.1 x10^3/uL (0.0-0.2); BASO % 1 % (0-3); EOS # 0.2 x10^3/uL (0.0-0.7); EOS % 2 % (0-3); HEMOGLOBIN 11.7 g/dL (12.0-15.5); LYMPH # 2.3 x10^3/uL (1.0-4.8); LYMPH % 23 % (24-48); MEAN CORPUSCULAR HEMOGLOBIN 28 pg (25-35); MEAN CORPUSCULAR HGB CONC 32 g/dL (31-37); MEAN CORPUSCULAR VOLUME 88 fL (79-100); MONO % 10 % (0-9); NEUT # 6.5 x10^3uL (1.8-7.7); NEUT % 64 % (31-73); PLATELET COUNT 273 x10^3/uL (140-400); RED BLOOD COUNT 4.23 x10^6/uL (3.50-5.40); RED CELL DISTRIBUTION WIDTH 14.5 % (11.5-14.5); WHITE BLOOD COUNT 10.2 x10^3/uL (4.0-11.0)
[2019-09-17 10:30] LABS: CALCIUM 8.2 mg/dL (8.5-10.1); CREATININE 1.4 mg/dL (0.6-1.0); POTASSIUM 4.5 mmol/L (3.5-5.1)
[2019-09-17] MEDS: INSULIN DEGLUDEC SQ SCH (11:39)
[2019-09-17] MEDS: ACETAMINOPHEN 500 MG TABLET PO PRN (14:24)
--- NOTE | 2019-09-17 17:29 | PN ---
DATE: SUBJECTIVE: The patient receiving PT/OT. The patient was having problems with severe vestibulitis. She is still receiving therapy for that, also trying to control her blood sugars and make that further evaluation as indicated. Otherwise, she continues to receive PT/OT. Blood sugars are down in the 120s now, so she is improving there and her vestibulitis seems to be is improving. OBJECTIVE: VITAL SIGNS: Blood pressure 142/80, respiratory rate 18, pulse 78, afebrile. GENERAL: The patient is alert and oriented. Speech is fluent and spontaneous. LUNGS: Diminished. CARDIOVASCULAR: Stable. ABDOMEN: Soft. EXTREMITIES: The patient still has some dizziness, but with PT, OT working with her. She is definitely making improvement. IMPRESSION: 1. Vestibulitis. 2. Type 2 diabetes. 3. Urinary incontinence. 4. Multiple urinary tract infections. 5. Rheumatoid arthritis. 6. Essential hypertension. JOSE FRANCISCO SZYMANSKI MD DR: LAURENT/jaime JOB#: [id number] / [id number]
[2019-09-17 18:03] VITALS: BP 119/72
[2019-09-17] MEDS: AMITRIPTYLINE HCL 25 MG TABLET PO SCH (20:43)
[2019-09-18 05:53] VITALS: BP 150/67
[2019-09-18] MEDS: INSULIN LISPRO 300 UNITS/3 ML VIAL. SQ SCH ×6 (08:00→17:39)
[2019-09-18] MEDS: LISINOPRIL 5 MG TABLET. PO SCH (08:42)
[2019-09-18] MEDS: ASPIRIN ENTERIC COATED 81 MG TABLET.DR. PO SCH (08:42)
[2019-09-18] MEDS: MECLIZINE 12.5 MG TABLET. PO PRN (08:42)
[2019-09-18] MEDS: CALCIUM CARB/VIT D3 500/200 TABLET PO SCH (08:42)
[2019-09-18] MEDS: FLUTICASONE 50MCG/NASAL SPRAY 16GM BOTTLE. NS SCH (08:42)
[2019-09-18] MEDS: METOPROLOL TART IMMED RELEASE 25 MG TABLET PO SCH ×3 (08:43→20:49)
[2019-09-18] MEDS: ACETAMINOPHEN 500 MG TABLET PO PRN (08:43)
[2019-09-18] MEDS: CETIRIZINE HCL 10 MG TABLET PO SCH (08:43)
[2019-09-18] MEDS: predniSONE 10 MG TABLET PO SCH (08:43)
[2019-09-18] MEDS: SENNOSIDES 8.6 MG TABLET PO SCH ×4 (08:44→20:48)
[2019-09-18] MEDS: FUROSEMIDE 40 MG TABLET PO SCH (08:44)
[2019-09-18] MEDS: POTASSIUM CHLORIDE 20 MEQ TABLET.ER. PO SCH ×2 (08:44→17:35)
[2019-09-18] MEDS: PANTOPRAZOLE 40 MG TABLET. PO SCH (08:44)
[2019-09-18] MEDS: PHENAZOPYRIDINE 100 MG TABLET. PO SCH ×3 (08:44→20:48)
[2019-09-18] MEDS: predniSONE 1 MG TABLET PO SCH (08:47)
[2019-09-18] MEDS: VENLAFAXINE 37.5 MG TABLET. PO SCH (08:48)
[2019-09-18] MEDS: SULFASALAZINE 500 MG PO SCH ×2 (08:48→17:36)
[2019-09-18] MEDS: glipiZIDE 5 MG TABLET PO SCH ×3 (08:58→17:35)
[2019-09-18] MEDS: DICLOFENAC SODIUM 1% TOPICAL GEL 100GM TUBE. TP SCH ×4 (09:00→20:53)
[2019-09-18] MEDS ORDERED: CHOLECALCIFEROL (VITAMIN D3) 50,000 UNIT CAPSULE PO SCH (09:00)
[2019-09-18 10:33] LABS: BASO # 0.1 x10^3/uL (0.0-0.2); BASO % 1 % (0-3); EOS # 0.2 x10^3/uL (0.0-0.7); EOS % 2 % (0-3); HEMATOCRIT 38.9 % (36.0-47.0); HEMOGLOBIN 12.4 g/dL (12.0-15.5); LYMPH % 34 % (24-48); MEAN CORPUSCULAR HEMOGLOBIN 28 pg (25-35); MEAN CORPUSCULAR HGB CONC 32 g/dL (31-37); MEAN CORPUSCULAR VOLUME 88 fL (79-100); MONO % 11 % (0-9); NEUT # 4.8 x10^3uL (1.8-7.7); NEUT % 53 % (31-73); PLATELET COUNT 295 x10^3/uL (140-400); RED BLOOD COUNT 4.44 x10^6/uL (3.50-5.40); RED CELL DISTRIBUTION WIDTH 14.9 % (11.5-14.5); WHITE BLOOD COUNT 9.1 x10^3/uL (4.0-11.0)
[2019-09-18 11:06] LABS: ALBUMIN 3.2 g/dL (3.4-5.0); ALBUMIN/GLOBULIN RATIO 0.7 (1.0-1.7); CALCIUM 8.4 mg/dL (8.5-10.1); CREATININE 1.4 mg/dL (0.6-1.0); POTASSIUM 4.1 mmol/L (3.5-5.1); TOTAL BILIRUBIN 0.2 mg/dL (0.2-1.0); TOTAL PROTEIN 7.5 g/dL (6.4-8.2)
[2019-09-18] MEDS: CEFDINIR 300 MG CAPSULE PO SCH ×2 (12:00→20:48)
[2019-09-18] MEDS: INSULIN DEGLUDEC SQ SCH (12:00)
[2019-09-18] MEDS: GABAPENTIN 300 MG CAPSULE. PO SCH ×3 (12:00→17:35)
[2019-09-18] MEDS: traMADol 50 MG TABLET PO PRN (20:48)
[2019-09-18] MEDS: LACTOBACILLUS RHAMNOSUS GG 1 CAPSULE. PO SCH (20:48)
[2019-09-18] MEDS: AMITRIPTYLINE HCL 25 MG TABLET PO SCH (20:51)
[2019-09-19] MEDS: GABAPENTIN 300 MG CAPSULE. PO SCH ×3 (00:27→18:06)
[2019-09-19 05:57] VITALS: BP 154/82
[2019-09-19] MEDS: INSULIN LISPRO 300 UNITS/3 ML VIAL. SQ SCH ×6 (08:00→17:17)
[2019-09-19] MEDS: LACTOBACILLUS RHAMNOSUS GG 1 CAPSULE. PO SCH ×2 (08:28→20:44)
[2019-09-19] MEDS: CETIRIZINE HCL 10 MG TABLET PO SCH (08:28)
[2019-09-19] MEDS: glipiZIDE 5 MG TABLET PO SCH ×3 (08:28→16:07)
[2019-09-19] MEDS: CEFDINIR 300 MG CAPSULE PO SCH ×2 (08:29→20:44)
[2019-09-19] MEDS: POTASSIUM CHLORIDE 20 MEQ TABLET.ER. PO SCH ×2 (08:29→17:13)
[2019-09-19] MEDS: CALCIUM CARB/VIT D3 500/200 TABLET PO SCH (08:29)
[2019-09-19] MEDS: PHENAZOPYRIDINE 100 MG TABLET. PO SCH ×3 (08:29→20:44)
[2019-09-19] MEDS: predniSONE 10 MG TABLET PO SCH (08:29)
[2019-09-19] MEDS: ASPIRIN ENTERIC COATED 81 MG TABLET.DR. PO SCH (08:30)
[2019-09-19] MEDS: PANTOPRAZOLE 40 MG TABLET. PO SCH (08:30)
[2019-09-19] MEDS: SENNOSIDES 8.6 MG TABLET PO SCH ×4 (08:30→20:44)
[2019-09-19] MEDS: predniSONE 1 MG TABLET PO SCH (08:30)
[2019-09-19] MEDS: VENLAFAXINE 37.5 MG TABLET. PO SCH (08:31)
[2019-09-19] MEDS: FLUTICASONE 50MCG/NASAL SPRAY 16GM BOTTLE. NS SCH (08:31)
[2019-09-19] MEDS: SULFASALAZINE 500 MG PO SCH ×2 (08:32→18:00)
[2019-09-19] MEDS: FUROSEMIDE 40 MG TABLET PO SCH (08:33)
[2019-09-19] MEDS: LISINOPRIL 5 MG TABLET. PO SCH (08:33)
[2019-09-19] MEDS: DICLOFENAC SODIUM 1% TOPICAL GEL 100GM TUBE. TP SCH ×4 (08:33→20:45)
[2019-09-19] MEDS: METOPROLOL TART IMMED RELEASE 25 MG TABLET PO SCH ×3 (08:33→20:44)
[2019-09-19] MEDS: traMADol 50 MG TABLET PO PRN (08:58)
[2019-09-19] MEDS: INSULIN DEGLUDEC SQ SCH (12:00)
[2019-09-19] MEDS: LIDOCAINE (700MG/PATCH) PATCH. TD SCH (13:30)
[2019-09-19] MEDS: MECLIZINE 12.5 MG TABLET. PO PRN (16:08)
[2019-09-19 18:35] VITALS: BP 137/62
[2019-09-19] MEDS: ACETAMINOPHEN 500 MG TABLET PO PRN (20:44)
[2019-09-19] MEDS: PATCH REMOVAL. MC SCH (20:44)
[2019-09-19] MEDS: AMITRIPTYLINE HCL 25 MG TABLET PO SCH (20:44)
[2019-09-20] MEDS: GABAPENTIN 300 MG CAPSULE. PO SCH ×3 (00:05→17:02)
[2019-09-20 05:45] VITALS: BP 148/73
[2019-09-20] MEDS: INSULIN LISPRO 300 UNITS/3 ML VIAL. SQ SCH ×6 (08:00→17:07)
[2019-09-20] MEDS: CEFDINIR 300 MG CAPSULE PO SCH ×2 (08:37→20:19)
[2019-09-20] MEDS: predniSONE 10 MG TABLET PO SCH (08:37)
[2019-09-20] MEDS: LISINOPRIL 5 MG TABLET. PO SCH (08:39)
[2019-09-20] MEDS: PANTOPRAZOLE 40 MG TABLET. PO SCH (08:39)
[2019-09-20] MEDS: CETIRIZINE HCL 10 MG TABLET PO SCH (08:39)
[2019-09-20] MEDS: PHENAZOPYRIDINE 100 MG TABLET. PO SCH ×3 (08:39→20:22)
[2019-09-20] MEDS: LACTOBACILLUS RHAMNOSUS GG 1 CAPSULE. PO SCH ×2 (08:39→20:20)
[2019-09-20] MEDS: SENNOSIDES 8.6 MG TABLET PO SCH ×4 (08:39→20:19)
[2019-09-20] MEDS: CALCIUM CARB/VIT D3 500/200 TABLET PO SCH (08:39)
[2019-09-20] MEDS: ASPIRIN ENTERIC COATED 81 MG TABLET.DR. PO SCH (08:39)
[2019-09-20] MEDS: FUROSEMIDE 40 MG TABLET PO SCH (08:39)
[2019-09-20] MEDS: glipiZIDE 5 MG TABLET PO SCH ×3 (08:40→17:02)
[2019-09-20] MEDS: POTASSIUM CHLORIDE 20 MEQ TABLET.ER. PO SCH ×2 (08:40→17:03)
[2019-09-20] MEDS: METOPROLOL TART IMMED RELEASE 25 MG TABLET PO SCH ×3 (08:40→20:20)
[2019-09-20] MEDS: LIDOCAINE (700MG/PATCH) PATCH. TD SCH (08:41)
[2019-09-20] MEDS: VENLAFAXINE 37.5 MG TABLET. PO SCH (08:47)
[2019-09-20] MEDS: predniSONE 1 MG TABLET PO SCH (08:47)
[2019-09-20] MEDS: SULFASALAZINE 500 MG PO SCH ×2 (08:50→17:11)
[2019-09-20] MEDS: FLUTICASONE 50MCG/NASAL SPRAY 16GM BOTTLE. NS SCH (08:50)
[2019-09-20] MEDS: DICLOFENAC SODIUM 1% TOPICAL GEL 100GM TUBE. TP SCH ×4 (08:56→21:00)
[2019-09-20] MEDS: INSULIN DEGLUDEC SQ SCH (12:06)
[2019-09-20] MEDS: MECLIZINE 12.5 MG TABLET. PO PRN (14:15)
[2019-09-20] MEDS: traMADol 50 MG TABLET PO PRN (14:15)
[2019-09-20] MEDS ORDERED: NON FORMULARY ITEM (Etanercept (Enbrel) 50 MG) SQ SCH (16:00)
[2019-09-20 18:14] VITALS: BP 141/85
[2019-09-20] MEDS: ACETAMINOPHEN 500 MG TABLET PO PRN (20:19)
[2019-09-20] MEDS: AMITRIPTYLINE HCL 25 MG TABLET PO SCH (20:20)
[2019-09-20] MEDS: PATCH REMOVAL. MC SCH (20:22)
[2019-09-21] MEDS: GABAPENTIN 300 MG CAPSULE. PO SCH (00:04)
[2019-09-21] MEDS: traMADol 50 MG TABLET PO PRN (00:06)
[2019-09-21 04:42] VITALS: BP 117/65
[2019-09-21] MEDS: ASPIRIN ENTERIC COATED 81 MG TABLET.DR. PO SCH (08:00)
[2019-09-21] MEDS: CEFDINIR 300 MG CAPSULE PO SCH (08:11)
[2019-09-21] MEDS: CALCIUM CARB/VIT D3 500/200 TABLET PO SCH (08:11)
[2019-09-21] MEDS: PHENAZOPYRIDINE 100 MG TABLET. PO SCH (08:12)
[2019-09-21] MEDS: CETIRIZINE HCL 10 MG TABLET PO SCH (08:12)
[2019-09-21] MEDS: METOPROLOL TART IMMED RELEASE 25 MG TABLET PO SCH (08:12)
[2019-09-21] MEDS: PANTOPRAZOLE 40 MG TABLET. PO SCH (08:13)
[2019-09-21] MEDS: predniSONE 10 MG TABLET PO SCH (08:13)
[2019-09-21] MEDS: glipiZIDE 5 MG TABLET PO SCH (08:13)
[2019-09-21] MEDS: POTASSIUM CHLORIDE 20 MEQ TABLET.ER. PO SCH (08:13)
[2019-09-21 08:14] VITALS: BP 117/65
[2019-09-21] MEDS: LISINOPRIL 5 MG TABLET. PO SCH (08:14)
[2019-09-21] MEDS: LACTOBACILLUS RHAMNOSUS GG 1 CAPSULE. PO SCH (08:14)
[2019-09-21] MEDS: FUROSEMIDE 40 MG TABLET PO SCH (08:14)
[2019-09-21] MEDS: FLUTICASONE 50MCG/NASAL SPRAY 16GM BOTTLE. NS SCH (08:15)
[2019-09-21] MEDS: predniSONE 1 MG TABLET PO SCH (08:16)
[2019-09-21] MEDS: SULFASALAZINE 500 MG PO SCH (08:16)
[2019-09-21] MEDS: INSULIN LISPRO 300 UNITS/3 ML VIAL. SQ SCH ×2 (08:27→08:28)
[2019-09-21] MEDS: VENLAFAXINE 37.5 MG TABLET. PO SCH (08:28)
[2019-09-21] MEDS: DICLOFENAC SODIUM 1% TOPICAL GEL 100GM TUBE. TP SCH (08:28)
[2019-09-21] MEDS: SENNOSIDES 8.6 MG TABLET PO SCH (08:46)
[2019-09-21] MEDS: LIDOCAINE (700MG/PATCH) PATCH. TD SCH (08:48)
[2019-09-21] MEDS ORDERED: NON FORMULARY ITEM (Ergocalciferol (Vitamin D2) (Vitamin D2) 1 CAP) PO SCH (09:00)
[2019-09-21] MEDS ORDERED: LACT1CAP19 PO (10:32)
[2019-09-21] MEDS ORDERED: CEFD300C PO (10:32)
[2019-09-21] MEDS ORDERED: PRED-220 PO (10:32)
== END 2019-09-21 12:34 | disposition home or self-care (01) | DRG 149 ==
LOC: LND 09:27
PROVIDERS: ADMIT Family Medicine; ATTEND Family Medicine
DX: H83.09 Labyrinthitis, unspecified ear (principal); E11.9 Type 2 diabetes mellitus without complications; E78.5 Hyperlipidemia, unspecified; I10 Essential (primary) hypertension; M19.90 Unspecified osteoarthritis, unspecified site; M06.9 Rheumatoid arthritis, unspecified; Z87.440 Personal history of urinary (tract) infections; K21.9 Gastro-esophageal reflux disease without esophagitis; R32 Unspecified urinary incontinence; H81.10 Benign paroxysmal vertigo, unspecified ear
CPT/HCPCS: 36415; 80048; 80053; 82947; 85025; J1815; J7512; J8597; Q0162; 95992; 97110; 97112; 97116; 97530; 97535

== ENCOUNTER → 2019-11-08 | Outpatient (CLI) | payer MEDICARE, OTHER ==
[~2019-11-08] MED LIST changes: +CEFD300C PO; +DICL100G18 TP; +ENOX40DI3 SQ; +INSU100C SQ; +MECL-75 PO
--- NOTE | 2019-11-08 10:53 | RAD ---
Left knee 3 views. HISTORY: Left knee pain, "popping" 3 views were taken the left knee. There is a total joint prosthesis in place. There is no fracture. There is no other acute osseous abnormality. IMPRESSION: 1. Total joint prosthesis in good position. 2. No acute osseous abnormality. Electronically signed by: Jesse Parmar MD (11/08/2019 10:50 AM) [id number]
== END | disposition home or self-care (01) ==
LOC: DXRAD 10:24
PROVIDERS: ATTEND Orthopaedic Surgery
DX: M25.562 Pain in left knee (principal); Z96.652 Presence of left artificial knee joint
CPT/HCPCS: 73562

== ENCOUNTER 2019-12-09 22:24 | Inpatient (IN) | payer MEDICARE, OTHER ==
[~2019-12-09] VITALS: Ht 170.2 cm; Wt 94.0 kg
[~2019-12-09 22:24] MED LIST changes: -ERTA1VIA IJ; +ERTA1VIA16 IJ
--- NOTE | 2019-12-09 22:30 | PHYS DOC ---
Past History Past Medical History: A-Fib, Anxiety, Arthritis, CHF, Dementia, Depression, Diabetes, Hypertension, Pneumonia, UTI, Other Past Surgical History: Cholecystectomy, Knee Replacement Additional Past Surgical Histo: BILATERAL KNEE REPLACEMENT Smoking: Non-smoker Alcohol Use: None Drug Use: None General Adult HPI: HPI: "..I dont know.. what happened.. I don't want to be transfer..I am fine/..." Patient is a 74 year old female who presents with hx fall and mental status change this p.m. Patient reportedly normal at 1100 hrs. Pt. has been taking pain meds for bilateral hip pain. Pt. hx of DM with episodes of poor control. Patient denies any travel or specific ill contacts. Patient has longstanding history of diabetes and severe arthritis. Patient has plans for left hip replacement in the next month. Patient denies any changes in meds. Patient does not have memory of why she fell. Patient localizes her pain primary left hip. On arrival patient appeared to be somewhat confused and had the impression of post ictal presentation. Patient did have a bite federico on her tongue. Pt. appears to be very dehydrated. Initial blood sugars were in 510 range. Patient has extensive health history with coronary artery disease, hypercholesterolemia, bronchitis, IBS, pneumonia, cholecystectomy, total hysterectomy, bilateral cataracts, lens implants, GERD, frequent urinary tract infections, muscle spasms, chronic limb cramps, rheumatoid arthritis, de generative joint disease, bilateral foot surgeries rheumatoid arthritis, bilateral knee replacements, diabetes, on chronic prednisone for rheumatoid, MRSA, and multiple drug allergies were and sensitivities. Patient normally follows with Dr. Szymanski Review of Systems: Review of Systems: Constitutional: Denies fever or chills Complaints of confusion- over all a poor historian Eyes: Denies change in visual acuity HENT: Denies nasal congestion or sore throat Respiratory: Denies cough or shortness of breath Cardiovascular: Denies chest pain or edema GI: Denies abdominal pain, nausea, vomiting, bloody stools or diarrhea : Denies dysuria Musculoskeletal: Denies back pain or joint pain Integument: Denies rash Neurologic: Denies headache, focal weakness or sensory changes Endocrine: Denies polyuria or polydipsia Lymphatic: Denies swollen glands Psychiatric: Denies depression or anxiety Heart Score: HEART Score for Chest Pain: HEART Score for Chest Pain Response (Comments) Value History Moderately Suspicious 1 ECG Nonspecific Repolarizatio 1 Age > 65 2 Risk Factors 1 or 2 Risk Factors 1 Troponin < Normal Limit 0 Total 5 Risk Factors: Risk Factors: DM, Current or recent (<one month) smoker, HTN, HLP, family history of CAD, obesity. Risk Scores: Score 0 - 3: 2.5% MACE over next 6 weeks - Discharge Home Score 4 - 6: 20.3% MACE over next 6 weeks - Admit for Clinical Observation Score 7 - 10: 72.7% MACE over next 6 weeks - Early Invasive Strategies Family History: Family History: Noncontributory to presentation. Father had CVA,- cause of , Mother had ID and CVA cause of . Current Medications: Current Meds: See nursing for home meds Allergies: Allergies: Allergies Coded Allergies Type Severity Reaction Last Updated Verified Gadolinium-Containing Contrast Medi Allergy Intermediate 05/25/18 Yes Influenza Virus Vaccines Allergy Intermediate 01/26/18 Yes Sulfa (Sulfonamide Antibiotics) Allergy Intermediate 01/26/18 Yes alogliptin Allergy Intermediate 05/25/18 Yes capsaicin Allergy Intermediate 01/26/18 Yes clindamycin Allergy Intermediate 05/25/18 Yes codeine Allergy Intermediate 01/26/18 Yes exenatide Allergy Intermediate 05/25/18 Yes insulin glulisine Allergy Intermediate Rash 01/26/18 Yes iodine Allergy Intermediate 01/26/18 Yes levofloxacin Allergy Intermediate 01/26/18 Yes menthol Allergy Intermediate 01/26/18 Yes metformin Allergy Intermediate Hives 01/26/18 Yes morphine Allergy Intermediate 05/25/18 Yes pioglitazone Allergy Intermediate 05/25/18 Yes pregabalin Allergy Intermediate 05/25/18 Yes Physical Exam: PE: Constitutional: moderated acute distress, non-toxic appearance. [] HENT: Normocephalic, tongue has bite mei, bilateral external ears normal, oropharynx very dry, no oral exudates, nose normal. [] Eyes: PERRLA, EOMI, conjunctiva normal, no discharge. [] Neck: Normal range of motion, no tenderness, supple, no stridor. [] Cardiovascular: Tachycardia heart rate regular rhythm, no murmur [] PMI to the left Lungs & Thorax: Bilateral breath sounds equal apex with scattered wheezing and rhonchi on auscultation [] Abdomen: Bowel sounds normal, soft, no tenderness, no masses, no pulsatile masses. Obese Skin: Warm, dry, no erythema, no rash. [] Back: No tenderness, no CVA tenderness. [] Extremities: Complains of left hip tenderness, no cyanosis, no clubbing, ROM intact, lower leg edema. Arthritic changes. Bilateral knee scars Neurologic: Alert and oriented X 3, moves extremities on request, does have distal sensory however decreased in feet,, no focal deficits noted. [] DTRs +2 patella and brachial. Psychologic: Affect anxious, judgement appears to be impaired as to her medical issues, mood normal. [] EKG: EKG: My interpretation EKG shows sinus tachycardia 102 bpm. Does have a leftward axis. No flank acute STEMI or contralateral changes. [] Radiology/Procedures: Radiology/Procedures: [][place] [address] IMAGING REPORT Signed PATIENT: PATRIA GONSALVES ACCOUNT: [id number] : 1945 LOCATION: ER AGE: 74 SEX: F EXAM STATUS: REG ER ORD. PHYSICIAN: DIPAK HOPKINS MD REASON: fall PROCEDURE: CT HEAD AND CERVICAL SPINE WO CT Head W/O Contrast: History: fall Comparison: September 11, 2019 Axial images were obtained without contrast. There is moderate diffuse atrophy. There is no mass effect, extraaxial fluid collections or hydrocephalus. There is no gross bleed. Marked, patchy periventricular and subcortical white matter hypoattenuation is seen. There is no focal loss of ramirez-white matter distinction to suggest acute ischemia, i.e. stroke. Impression: No acute findings. End impression CT C-Spine without contrast: Clinical History: Pain status post fall Technique: Axial helical images of the cervical spine were obtained without contrast, axial coronal and sagittal reconstruction was performed. COMPARISON: July 11, 2018 Findings: There is grade 1 anterolisthesis of C4 on C5 seen previously. There is no loss of vertebral body stature. There is no prevertebral soft tissue swelling. There is straightening of the normal cervical lordosis which can be positional or could be chronic. The C1-C2 relationship is normal. The visualized osseous structures appear normal. Evaluation of the central canal is limited without contrast. There is multiple posterior disc bulges resulting in flattening of the thecal sac. There does not appear to be gross flattening of the cervical cord. There is moderate narrowing of multiple neuroforamen. Impression: No acute findings. Clinical correlation suggested. PQRS Compliance Statement: One or more of the following individualized dose reduction techniques were utilized for this examination: 1. Automated exposure control 2. Adjustment of the mA and/or kV according to patient size 3. Use of iterative reconstruction technique Electronically signed by: Rosas Rodney III, MD (12/10/2019 12:04 AM) [id number] DICTATED AND SIGNED BY: ROSAS RODNEY III, MD DATE: 12/10/19 0004 CC: JOSE FRANCISCO SZYMANSKI MD; DIPAK HOPKINS MD ~ Course & Med Decision Making: Course & Med Decision Making Pertinent Labs and Imaging studies reviewed. (See chart for details) Discussed presentation, testing and treatment plan with Dr. Szymanski- Will admit here and attempt rehydration and control over glucose levels. Patient has pending ultrasound of legs in a.m. evaluation for DVT. Impression: 1. Mental status change. 2. Hyperglycemia glucose 510 3. Arthritis 4. Dehydration 5. Acute on chronic renal failure BUN 72/4.1 creatinine 6. Leukocytosis 19.5 7. Anemia hemoglobin 10.9 8. Elevated d-dimer more than 19 9. Hype hyponatremia 125 10. Hyperkalemia 5.9 11. Malnutrition albumin 2.6 12.. Atypical pneumonia 13. Elevated lactic Acid 3.7 14. Deconditioned [] Dragon Disclaimer: Dragon Disclaimer: This electronic medical record was generated, in whole or in part, using a voice recognition dictation system. Departure Departure: Disposition: 01 HOME/RESIDENCE PRIOR TO ADM Condition: STABLE Referrals: JOSE FRANCISCO SZYMANSKI MD (PCP) Dragon Disclaimer This chart was dictated in whole or in part using Voice Recognition software in a busy, high-work load, and often noisy Emergency Department environment. It may contain unintended and wholly unrecognized errors or omissions. DIPAK HOPKINS MD December 09, 2019 22:30
[2019-12-09] MEDS ORDERED: IV RINGERS SOLUTION,LACTATED 1,000 ML IV SCH (23:00)
[2019-12-09 23:09] LABS: BASO % 0 % (0-3); EOS % 0 % (0-3); HEMOGLOBIN 10.9 g/dL (12.0-15.5); LYMPH # 1.3 x10^3/uL (1.0-4.8); LYMPH % 7 % (24-48); MEAN CORPUSCULAR HEMOGLOBIN 27 pg (25-35); MEAN CORPUSCULAR HGB CONC 31 g/dL (31-37); MEAN CORPUSCULAR VOLUME 85 fL (79-100); MONO # 1.7 x10^3/uL (0.0-1.1); MONO % 9 % (0-9); NEUT # 16.5 x10^3uL (1.8-7.7); NEUT % 85 % (31-73); PLATELET COUNT 240 x10^3/uL (140-400); RED CELL DISTRIBUTION WIDTH 15.5 % (11.5-14.5); WHITE BLOOD COUNT 19.5 x10^3/uL (4.0-11.0)
--- NOTE | 2019-12-09 23:19 | EKG ---
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
[2019-12-09 23:26] LABS: ALBUMIN 2.6 g/dL (3.4-5.0); CALCIUM 7.7 mg/dL (8.5-10.1); CREATININE 4.1 mg/dL (0.6-1.0); DIRECT BILIRUBIN 0.1 mg/dL (0.0-0.2); GFR 10.7; MAGNESIUM 1.8 mg/dL (1.8-2.4); POTASSIUM 5.9 mmol/L (3.5-5.1); TOTAL BILIRUBIN 0.4 mg/dL (0.2-1.0); TOTAL PROTEIN 6.1 g/dL (6.4-8.2)
[2019-12-09 23:33] LABS: BARBITURATES NEG (NEG); BENZODIAZEPINES NEG (NEG); CANNABINOIDS NEG (NEG); COCAINE NEG (NEG); METHADONE NEG (NEG); OPIATES NEG (NEG); PHENCYCLIDINE NEG (NEG)
[2019-12-09 23:34] LABS: AMPHETAMINE/METHAMPHETAMINE NEG (NEG)
[2019-12-09 23:40] LABS: CLARITY,URINE CLEAR; COLOR,URINE YELLOW
[2019-12-09 23:41] LABS: AMORPHOUS SEDIMENT,UR PRESENT /HPF; BACTERIA,URINE 0 /HPF (0-FEW); BILIRUBIN,URINE NEG (NEG); GLUCOSE,URINE 500 mg/dL (NEG); NITRITE,URINE NEG (NEG); RBC,URINE 0 /HPF (0-2); SQUAMOUS EPITHELIAL CELL,UR OCC /LPF; UROBILINOGEN,URINE 0.2 mg/dL (0.2 mg/dL); WBC,URINE OCC /HPF (0-4)
--- NOTE | 2019-12-10 00:07 | RAD ---
CT Head W/O Contrast: History: fall Comparison: September 11, 2019 Axial images were obtained without contrast. There is moderate diffuse atrophy. There is no mass effect, extraaxial fluid collections or hydrocephalus. There is no gross bleed. Marked, patchy periventricular and subcortical white matter hypoattenuation is seen. There is no focal loss of ramirez-white matter distinction to suggest acute ischemia, i.e. stroke. Impression: No acute findings. End impression CT C-Spine without contrast: Clinical History: Pain status post fall Technique: Axial helical images of the cervical spine were obtained without contrast, axial coronal and sagittal reconstruction was performed. COMPARISON: July 11, 2018 Findings: There is grade 1 anterolisthesis of C4 on C5 seen previously. There is no loss of vertebral body stature. There is no prevertebral soft tissue swelling. There is straightening of the normal cervical lordosis which can be positional or could be chronic. The C1-C2 relationship is normal. The visualized osseous structures appear normal. Evaluation of the central canal is limited without contrast. There is multiple posterior disc bulges resulting in flattening of the thecal sac. There does not appear to be gross flattening of the cervical cord. There is moderate narrowing of multiple neuroforamen. Impression: No acute findings. Clinical correlation suggested. PQRS Compliance Statement: One or more of the following individualized dose reduction techniques were utilized for this examination: 1. Automated exposure control 2. Adjustment of the mA and/or kV according to patient size 3. Use of iterative reconstruction technique Electronically signed by: Todd Snow III, MD (12/10/2019 12:04 AM) [id number]
[2019-12-10 00:20] LABS: BGAS PH 7.33 (7.35-7.45)
--- NOTE | 2019-12-10 00:20 | RAD ---
HIP BILATERAL WITH PELVIS, PORTABLE CHEST 1V Clinical History: Pain status post fall One view chest: Technique: AP view of the chest was obtained at 12/09/2019 10:30 PM. Comparison: None. Findings: The heart is moderately enlarged. The pulmonary vessels are top normal limits in size. There is mild perihilar patchy opacities on the left. Impression: 1. Moderate primarily. 2. Left-sided infiltrate likely discoid atelectasis. End impression Pelvis and bilateral Two View hip: Clinical History: Pain. Technique: AP view the pelvis AP and frog leg views of the hips bilaterally were obtained. Comparison: None. Findings: There is obscuration of bony detail of sacrum due to overlying bowel gas. There is marked degenerative changes left hip with loss of joint space superiorly. The femoral acetabular relationship is normal. There is gross osteopenia which decreases sensitivity for a possible nondisplaced fracture. Impression: Marked degenerative changes of the left hip consistent with osteoarthrosis. No acute findings. Electronically signed by: Todd Snow III, MD (12/10/2019 12:17 AM) [id number]
[2019-12-10] MEDS ORDERED: HEPARIN for SUB-Q USE 5,000 UNIT/ML VIAL. SQ ONE (00:30)
[2019-12-10] MEDS ORDERED: INSULIN REGULAR VIAL 100 UNIT in IV NORMAL SALINE 100ML 100 ML IV ONE ×2 (00:30→01:30)
[2019-12-10] MEDS ORDERED: INSULIN REGULAR 100 UNIT/ML 3ML VIAL. IV ONE ×2 (00:30→01:15)
[2019-12-10] MEDS ORDERED: VANCOMYCIN 1 GM in IV NORMAL SALINE 250ML 250 ML IV ONE (00:30)
[2019-12-10] MEDS ORDERED: IV NORMAL SALINE 1,000ML 1,000 ML IV ONE ×3 (00:30→01:30)
[2019-12-10] MEDS ORDERED: VANCOMYCIN PER PHARMACY MC PRN (01:00)
[2019-12-10] MEDS ORDERED: ACETAMINOPHEN 325 MG TABLET PO PRN (01:00)
[2019-12-10] MEDS ORDERED: ONDANSETRON PF 4 MG/2 ML VIAL. IVP PRN (01:00)
[2019-12-10] MEDS ORDERED: cefTRIAXone SODIUM 1 GM VIAL ONE (01:22)
[2019-12-10] MEDS ORDERED: IV NORMAL SALINE 50ML 50 ML ONE (01:22)
[2019-12-10] MEDS ORDERED: AZITHROMYCIN 250 MG in IV NORMAL SALINE 250ML 250 ML IV SCH ×2 (01:30→22:00)
[2019-12-10] MEDS ORDERED: VANCOMYCIN 1.5 GM in IV NORMAL SALINE 500ML 500 ML IV ONE (01:30)
[2019-12-10] MEDS ORDERED: AZITHROMYCIN 500 MG VIAL. IV ONE (01:45)
[2019-12-10] MEDS ORDERED: VANCOMYCIN 1 GM VIAL. ONE ×2 (01:45→01:50)
[2019-12-10] MEDS ORDERED: IV NORMAL SALINE 500ML 500 ML ONE (01:45)
[2019-12-10] MEDS ORDERED: IV NORMAL SALINE 250ML 250 ML ONE (01:45)
[2019-12-10] MEDS ORDERED: IV NORMAL SALINE 100ML 100 ML ONE (01:57)
[2019-12-10] MEDS ORDERED: methylPREDNISolone SOD SUCC PF 125 MG/2 ML VIAL. IV ONE ×2 (02:00→06:15)
[2019-12-10] MEDS ORDERED: AZITHROMYCIN 500 MG in IV NORMAL SALINE 250ML 250 ML IV ONE (02:15)
--- NOTE | 2019-12-10 02:30 | NUR ---
The patient, PATRIA GONSALVES, 74 y/o, F admitted by JOSE FRANCISCO SZMYANSKI MD, was given written information regarding hospital policies, unit procedures and contact persons. Valuables were checked and documented. pt arrived via EMS on a gurney. pt vitals were taken and blood sugars are being monitored hourly. pt is also being monitored on telemetry. pt was given Ativan in the ED and has been sedated the entire time on floor. ED nurses stated pt was disoriented while in his care. pt is arousable to pain. Will continue to monitor pt.
[2019-12-10 02:44] VITALS: BP 99/75
--- NOTE | 2019-12-10 04:33 | NUR ---
non administered 0030 insulin drip due to duplicated order.
--- NOTE | 2019-12-10 05:26 | NUR ---
Pharmacy Vancomycin Dosing Note S:Consulted to monitor and dose vancomycin started 12/10/19. O:PATRIA GONSALVES is a 74 year old F with Pneumonia, . Height: 5 feet, 7 inches Weight: 94.0 kg [place] Body Weight: 61.60 Adjusted Body Weight: 74.56 Dosing Weight: Actual Other Antibiotics: ZITHROMAX 250 DAILY LABS: Last BUN: 72 Last Creatinine: 4.1 Creatinine Clearance: 14 Last WBC: 19.5 Last Procalcitonin: Tmax (past 24 hours): Microbiology: I/O: Drug Levels: Last level: on at Last dose given 12/10/19 at 0130 Vancomycin Dosing: Loading Dose: 1500 mg x1 Dosing Weight: Actual Target Trough: 15-20 A: Based on: WT AND CRCL P: 1. Begin Vancomycin 1500 mg IV Dose Per Levels 2. Follow up Random level on 12/11/19 at 2300 3. Pharmacy will continue to monitor, follow and adjust therapy as needed. ANNA RUSS RPH, 12/10/19525 Signed: 12/10/19 at 525 by ANNA RUSS RPH PHA
[2019-12-10] MEDS ORDERED: DEXTROSE 50% 25 GM / 50ML DISP.SYRIN. IV PRN (05:45)
[2019-12-10] MEDS ORDERED: HEPARIN for SUB-Q USE 5,000 UNIT/ML VIAL. SQ SCH (06:00)
[2019-12-10 06:19] VITALS: BP 98/73
[2019-12-10 07:03] LABS: CALCIUM 7.4 mg/dL (8.5-10.1); CREATININE 3.6 mg/dL (0.6-1.0); GFR 12.4; POTASSIUM 4.3 mmol/L (3.5-5.1)
[2019-12-10] MEDS ORDERED: IPRATRPIUM/ALBUTEROL 0.5/2.5MG 3 ML NEBU. NEB SCH (08:00)
[2019-12-10] MEDS: INSULIN LISPRO 300 UNITS/3 ML VIAL. SQ SCH ×2 (08:20→11:11)
[2019-12-10 08:24] LABS: BGAS PH 7.34 (7.35-7.45)
--- NOTE | 2019-12-10 08:31 | NUR ---
NURSING NOTE REPORT OBTAINED FROM ANYI [facility]. UPON WALKING ROUNDS, PT SEDATED. PT RAMBLING UNCLEAR WORDS/MUMBLES THROUGHOUT THE NIGHT PER REPORT. PT EVALUATED WITH ICU NURSE, CAITLIN. PT IS NOT A&O. PT PUPILS REACTIVE TO LIGHT. PT DOES NOT FOLLOW COMMAND. PT BLOOD SUGAR THIS AM WAS 313, 5 UNITS OF INSULIN ADMINISTERED. PT MOUTH EXCESSIVELY DRY. DENTURES REMOVED. ORAL CARE PREFORMED. SPOKE WITH PT THIS AM. PT STATES THAT HER MEDICATIONS MAKE HER "NUTS" AND SOMETIMES SHE HAS "SLURRED WORDS" AT HOME. PT STATES SHE WANTED TO GET UP AND USE THE RESTROOM, HE WAS HELPING HER TO THE REST ROOM, SHE HER LEGS GAVE OUT AND SHE FELL. THAT IS WHEN THEY CALLED EMS. PT STATES SHE WAS MUMBLING/TALKING A LITTLE AFTER THE FALL WHEN EMS TOOK HER TO THE ER. CONSULT ORDER IN PLACE FOR NEUROLOGY TO EVALUATE. ABG'S REPEATED THIS AM. PT PLACED ON 2 L OF OXYGEN. PT IS CURRENTLY SEDATED/SLEEPING IN BED. WILL CONTINUE TO MONITOR.
[2019-12-10] MEDS ORDERED: IV NORMAL SALINE 1,000ML 1,000 ML IV SCH (09:00)
[2019-12-10 09:09] LABS: BASO # 0.1 x10^3/uL (0.0-0.2); BASO % 1 % (0-3); EOS # 0.1 x10^3/uL (0.0-0.7); EOS % 1 % (0-3); HEMATOCRIT 29.2 % (36.0-47.0); HEMOGLOBIN 9.2 g/dL (12.0-15.5); LYMPH # 2.2 x10^3/uL (1.0-4.8); LYMPH % 13 % (24-48); MEAN CORPUSCULAR HEMOGLOBIN 27 pg (25-35); MEAN CORPUSCULAR HGB CONC 32 g/dL (31-37); MEAN CORPUSCULAR VOLUME 85 fL (79-100); MONO # 1.8 x10^3/uL (0.0-1.1); MONO % 11 % (0-9); NEUT # 12.4 x10^3uL (1.8-7.7); NEUT % 74 % (31-73); PLATELET COUNT 194 x10^3/uL (140-400); RED BLOOD COUNT 3.44 x10^6/uL (3.50-5.40); RED CELL DISTRIBUTION WIDTH 15.1 % (11.5-14.5); WHITE BLOOD COUNT 16.6 x10^3/uL (4.0-11.0)
[2019-12-10] MEDS ORDERED: NALOXONE 0.4 MG/ML VIAL. IV ONE ×2 (09:30→09:45)
[2019-12-10] MEDS ORDERED: IPRATRPIUM/ALBUTEROL 0.5/2.5MG 3 ML NEBU. NEB PRN (09:45)
--- NOTE | 2019-12-10 09:53 | NUR ---
NURSING NOTE DR SZYMANSKI EVALUATED PT, ORDERS OBTAINED FOR NARCAN 0.4 IV AND TO INSERT A CAST CATH. PT TO BE TRANSFERRED TO [facility] OR . ANYI FALCON.
[2019-12-10 10:29] LABS: % BANDS 16 % (0-9); % EOS 1 % (0-5); % LYMPHS 11 % (24-48); % MONOS 9 % (0-10); % SEGS 63 % (35-66); PLT ESTIMATE ADEQUATE (ADEQUATE)
[2019-12-10 10:30] VITALS: BP 117/72
[2019-12-10 10:31] LABS: ANISOCYTOSIS SLIGHT; MICROCYTOSIS SLIGHT; POLYCHROMASIA SLIGHT; TOXIC GRANULATION SLIGHT; TOXIC VACUOLATION SLIGHT
[2019-12-10] MEDS ORDERED: INSULIN LISPRO 300 UNITS/3 ML VIAL. SQ ONE (11:00)
--- NOTE | 2019-12-10 11:15 | NUR ---
NURSING NOTE BLOOD SUGAR PT BLOOD SUGAR 401. PHONED DR SZYMANSKI, ORDER FOR 25 UNITS HUMALOG OBTAINED AND ADMINISTERED. WILL CONTINUE TO MONITOR. ANYI FALCON.
--- NOTE | 2019-12-10 12:25 | NUR ---
NURSING NOTE DISCHARGE PT DISCHARGED/TRANSFERRED TO [facility] UNDER DR KENNEDY ACCEPTING PHYSICIAN. REPORT CALLED TO ANYI LAGOS AT [facility]. EMS GIVEN PACKET WITH PT INFORMATION TO TAKE TO [facility]. PT , KADEEM, NOTIFIED OF TRANSFER AND GIVEN CONTACT INFORMATION. ANYI FALCON.
--- NOTE | 2019-12-10 14:42 | CONS ---
DATE OF CONSULTATION: NEUROLOGY CONSULTATION REFERRING PHYSICIAN: Dr. Stevens. REASON FOR CONSULTATION: Acute mental status changes. HISTORY OF PRESENT ILLNESS: This is a 74-year-old right-handed female who was admitted through Emergency Room after she sustained a fall and then she became unresponsive. According to her , the patient has been fine until 11:00 a.m. yesterday, but she sustained a fall at home and since that time, she has been confused and nonresponsive. The patient was found to have hyperglycemia with glucose of 510. During the evaluation in the Emergency Room, she was found to have a mild tongue biting. Initial nonenhanced head CT scan revealed no evidence of acute intracranial process seen for the cervical CT scan. Currently, the patient is unresponsive and tachypnea and unable to provide any information. PAST MEDICAL HISTORY: Significant for coronary artery disease, obesity, hyperlipidemia, diabetes mellitus, pneumonia, IBS, GERD and frequent urinary tract infections, rheumatoid arthritis. PAST SURGICAL HISTORY: Positive for hysterectomy, cholecystectomy, cataract removal, bilateral foot surgeries and bilateral knee replacement. No further information is available at the time of this dictation. SOCIAL HISTORY: The patient is . She denies smoking, alcohol drinking, or illicit drug use. CURRENT HOME MEDICATIONS: Include Tylenol, albuterol inhaler, amitriptyline, aspirin, vitamin D3, cetirizine, cyclobenzaprine, diclofenac, enalapril for rheumatoid arthritis, gabapentin, glipizide, ibuprofen, insulin, lisinopril, meclizine, metoprolol, pantoprazole, potassium, prednisone, tramadol, and venlafaxine for depression. ALLERGIES: GADOLINIUM CONTRAST, INFLUENZA VACCINE, SULFA DRUGS, ALOGLIPTIN, CAPSAICIN, CLINDAMYCIN, and CODEINE. FAMILY HISTORY: Unobtainable. REVIEW OF SYSTEMS: A 14-review of system was performed as mentioned above in history of present illness, otherwise unremarkable. PHYSICAL EXAMINATION: GENERAL: Obese female, not in acute distress. She weighs 94 kilos. VITAL SIGNS: Blood pressure 98/73, respiratory rate 24, pulse is 117, oxygen saturation is 92% on 2 liters by nasal cannula and temperature 98.4. HEENT: Normocephalic, atraumatic, otherwise unremarkable. NECK: Supple. Negative for carotid bruit, lymphadenopathy or thyromegaly. LUNGS: With diminished breath sounds throughout. CARDIOVASCULAR: Regular rhythm, normal S1, S2. ABDOMEN: Soft. Bowel sounds positive. EXTREMITIES: Trace edema. NEUROLOGICAL EXAMINATION: 1. Mental Status: The patient is unresponsive to verbal or noxious stimuli. The pupils are equal and sluggishly reactive to light. There is no facial motor or sensory deficit. Further evaluation is limited at this time. 2. Cranial nerves: Pupils are equal, but sluggishly reactive to light and accommodation. The extraocular movements are slow. There is no nystagmus. There is no facial asymmetry. Further evaluation is limited at this time. 3. Motor examination: No focal muscle bulk was seen. The tone is normal. The strength evaluation is limited as the patient is unresponsive. 4. Sensory examination: The patient did not respond to noxious stimuli. 5. Deep tendon reflexes are asymmetric and hypoactive with absent Achilles responses. Gait not tested. LABORATORY DATA: CBC revealed white blood cells of 16.6 thousand, hemoglobin 9.2, hematocrit 29.2, platelet count 194,000. Chemistry revealed sodium of 131, potassium 4.3, chloride 100, CO2 of 19, BUN 73, creatinine 3.6 and glucose 323. Urinalysis is negative for urinary tract infections. Coagulations, D-dimer is high, more than 19. Urine drug screen is negative. EKG, sinus tachycardia. IMPRESSION: 1. Acute encephalopathy. The underlying metabolic and infectious process may have contributed to the current symptoms. 2. Status post a fall with encephalopathy, rule out seizure. 3. Multiple medical problems include poorly controlled diabetes mellitus, coronary artery disease, hyperlipidemia, hypertension, chronic and acute renal failure, leukocytosis suggestive of systemic infections, depressions, chronic obstructive pulmonary disease, and possible peripheral neuropathy in the lower extremities and also anemia. RECOMMENDATIONS: 1. Treat the underlying metabolic and systemic infections. 2. The patient needs an electroencephalogram to rule out active seizure and evaluation for encephalopathy. As the EEG is not available at this institution, the patient may need to be transferred to [facility] for further neurological evaluation and electroencephalogram. M Yumiko PIMENTEL MD DR: YG/jaime JOB#: [id number] / [id number]
[2019-12-11] MEDS ORDERED: VANCOMYCIN RANDOM LEVEL. MC ONE (23:00)
--- NOTE | 2019-12-13 10:59 | DS ---
DATE OF DISCHARGE: 12/10/2019 HOSPITAL COURSE: This is a 74-year-old female with multiple medical problems, apparently fell at home. She had a mental status change approximately 11:00 at night. The patient has been taking medications for her rheumatoid arthritis, diabetes, which is under poor control, multiple bladder infections. The patient was markedly confused. She had some bite mei on her tongue. Blood sugar was greater than 500. The patient was admitted for acute mental status change, probably encephalopathy basically, diabetic ketoacidosis. PAST MEDICAL HISTORY: The patient's past medical history is extensive; lens implant, cataract, cataract extraction, dementia, peripheral neuropathy, congestive heart failure, hypercholesterolemia, bronchitis, pneumonia, cholecystectomy, GERD, hysterectomy, urinary tract infection, musculoskeletal disorders, amputation, rheumatoid arthritis. IMMUNIZATIONS: For influenza, pneumococcal are up-to-date. She had a history of MRSA. FAMILY HISTORY: For stroke and myocardial infarction. ALLERGIES: Adverse reaction to GADOLINIUM CONTAINING CONTRAST MEDIUM, INFLUENZA VIRUS VACCINE, SULFUR, CAPSAICIN, CLINDAMYCIN, CODEINE, EXENATIDE, INSULIN GLULISINE, IODINE, LEVOTHYROXINE, MENTHOL, METFORMIN, MORPHINE, PIOGLITAZONE, PREGABALIN. SOCIAL HISTORY: Denies smoking, alcohol or drug use. Lives at home with her . REVIEW OF SYSTEMS: Unable to give any type of history as she is pretty much comatose. OBJECTIVE: VITAL SIGNS: Blood pressure 99/75, respiratory rate 24, pulse 117. Technically, afebrile. HEENT: The patient's head was atraumatic, normocephalic. Eyes: PERRLA without jaundice. She was basically unresponsive. Eyes very sluggish. The mouth and throat: Dry mucous membranes. NECK: Supple. LUNGS: Diminished, but clear. CARDIOVASCULAR: Stable. Regular sinus rhythm. ABDOMEN: Soft, nontender. EXTREMITIES: No clubbing, cyanosis, or edema. Decreased reflexes throughout. NEUROLOGIC: The patient is not alert and not arousable. LABORATORY DATA: The patient's labs show white count of 19,000, hemoglobin 10.9 and 35. Sodium and potassium 131 and 4.3, BUN and creatinine of possible 73 and 3.6 and initial sugar of 500 down to about 400. Blood gas 7.33, pCO2 of 40, pO2 of 90. IMPRESSION: Metabolic encephalopathy, sepsis, change in mental status, acute respiratory failure, rheumatoid arthritis. Due to the severity of her medical problems, the patient was transferred down to [facility] for an interdisciplinary approach to her situation requiring Nephrology, Pulmonology, Diabetology, and Infectious Disease, which were not available at this institution. She was transferred via EMS to [facility]. JOSE FRANCISCO SZYMANSKI MD DR: LAURENT/jaime JOB#: [id number] / [id number]
--- NOTE | 2019-12-13 11:15 | SSS ---
ADMIT DATE: 12/10/2019 HOSPITAL COURSE: This is a 74-year-old female with multiple medical problems, apparently fell at home. She had a mental status change approximately 11:00 at night. The patient has been taking medications for her rheumatoid arthritis, diabetes, which is under poor control, multiple bladder infections. The patient was markedly confused. She had some bite mei on her tongue. Blood sugar was greater than 500. The patient was admitted for acute mental status change, probably encephalopathy basically, diabetic ketoacidosis. PAST MEDICAL HISTORY: The patient's past medical history is extensive; lens implant, cataract, cataract extraction, dementia, peripheral neuropathy, congestive heart failure, hypercholesterolemia, bronchitis, pneumonia, cholecystectomy, GERD, hysterectomy, urinary tract infection, musculoskeletal disorders, amputation, rheumatoid arthritis. IMMUNIZATIONS: For influenza, pneumococcal are up-to-date. She had a history of MRSA. FAMILY HISTORY: For stroke and myocardial infarction. ALLERGIES: Adverse reaction to GADOLINIUM CONTAINING CONTRAST MEDIUM, INFLUENZA VIRUS VACCINE, SULFUR, CAPSAICIN, CLINDAMYCIN, CODEINE, EXENATIDE, INSULIN GLULISINE, IODINE, LEVOTHYROXINE, MENTHOL, METFORMIN, MORPHINE, PIOGLITAZONE, PREGABALIN. SOCIAL HISTORY: Denies smoking, alcohol or drug use. Lives at home with her . REVIEW OF SYSTEMS: Unable to give any type of history as she is pretty much comatose. OBJECTIVE: VITAL SIGNS: Blood pressure 99/75, respiratory rate 24, pulse 117. Technically, afebrile. HEENT: The patient's head was atraumatic, normocephalic. Eyes: PERRLA without jaundice. She was basically unresponsive. Eyes very sluggish. The mouth and throat: Dry mucous membranes. NECK: Supple. LUNGS: Diminished, but clear. CARDIOVASCULAR: Stable. Regular sinus rhythm. ABDOMEN: Soft, nontender. EXTREMITIES: No clubbing, cyanosis, or edema. Decreased reflexes throughout. NEUROLOGIC: The patient is not alert and not arousable. LABORATORY DATA: The patient's labs show white count of 19,000, hemoglobin 10.9 and 35. Sodium and potassium 131 and 4.3, BUN and creatinine of possible 73 and 3.6 and initial sugar of 500 down to about 400. Blood gas 7.33, pCO2 of 40, pO2 of 90. IMPRESSION: Metabolic encephalopathy, sepsis, change in mental status, acute respiratory failure, rheumatoid arthritis. Due to the severity of her medical problems, the patient was transferred down to [facility] for an interdisciplinary approach to her situation requiring Nephrology, Pulmonology, Diabetology, and Infectious Disease, which were not available at this institution. She was transferred via EMS to [facility]. JOSE FRANCISCO SZYMANSKI MD DR: LAURENT/nts JOB#: [id number] / [id number]
== END 2019-12-10 12:27 | disposition short-term general hospital (02) | DRG 871 ==
LOC: ER 22:24 → 1 SOUTH 23:13 → UNDOADMIN 23:15 → UNDODISIN 12-10 12:27
PROVIDERS: ADMIT Family Medicine; ATTEND Family Medicine
DX: A41.9 Sepsis, unspecified organism (principal); G93.41 Metabolic encephalopathy; E11.10 Type 2 diabetes mellitus with ketoacidosis without coma; J96.00 Acute respiratory failure, unspecified whether with hypoxia or hypercapnia; J18.8 Other pneumonia, unspecified organism; N17.9 Acute kidney failure, unspecified; E46 Unspecified protein-calorie malnutrition; E87.1 Hypo-osmolality and hyponatremia; I13.0 Hypertensive heart and chronic kidney disease with heart failure and stage 1 through stage 4 chronic kidney disease, or unspecified chronic kidney disease; E11.65 Type 2 diabetes mellitus with hyperglycemia; D64.9 Anemia, unspecified; E11.22 Type 2 diabetes mellitus with diabetic chronic kidney disease; E78.00 Pure hypercholesterolemia, unspecified; E78.5 Hyperlipidemia, unspecified; E86.0 Dehydration; E87.5 Hyperkalemia; F03.90 Unspecified dementia, unspecified severity, without behavioral disturbance, psychotic disturbance, mood disturbance, and anxiety; F32.9 Major depressive disorder, single episode, unspecified; I25.10 Atherosclerotic heart disease of native coronary artery without angina pectoris; I48.91 Unspecified atrial fibrillation; I50.9 Heart failure, unspecified; M06.9 Rheumatoid arthritis, unspecified; M19.90 Unspecified osteoarthritis, unspecified site; N18.9 Chronic kidney disease, unspecified; Z79.4 Long term (current) use of insulin; Z79.52 Long term (current) use of systemic steroids; Z82.3 Family history of stroke; E11.42 Type 2 diabetes mellitus with diabetic polyneuropathy; Z82.49 Family history of ischemic heart disease and other diseases of the circulatory system; Z88.9 Allergy status to unspecified drugs, medicaments and biological substances; Z87.440 Personal history of urinary (tract) infections; Z90.710 Acquired absence of both cervix and uterus; Z96.1 Presence of intraocular lens; Z96.653 Presence of artificial knee joint, bilateral; E66.9 Obesity, unspecified; F41.9 Anxiety disorder, unspecified; K21.9 Gastro-esophageal reflux disease without esophagitis; Z68.32 Body mass index [BMI] 32.0-32.9, adult; Z88.2 Allergy status to sulfonamides; Z88.7 Allergy status to serum and vaccine; Z88.8 Allergy status to other drugs, medicaments and biological substances; Z91.018 Allergy to other foods; Z91.048 Other nonmedicinal substance allergy status; W18.39XA Other fall on same level, initial encounter; Y93.89 Activity, other specified; Y92.89 Other specified places as the place of occurrence of the external cause; Y99.8 Other external cause status; Z87.01 Personal history of pneumonia (recurrent); J44.9 Chronic obstructive pulmonary disease, unspecified; B99.9 Unspecified infectious disease
CPT/HCPCS: 36415; 36600; 70450; 71045; 72125; 73521; 80048; 80076; 80307; 81001; 82550; 82803; 82947; 83605; 83690; 83735; 83880; 84443; 84484; 85007; 85025; 85379; 85610; 85730; 87040; 87205; 93005; 94640; 96365; 96368; 96372; 96375; G0238; G0379; J0456; J0696; J1644; J1815; J2060; J2310; J2930; J3370; J7040; J7050; J7120; 99285-25; J7030

== ENCOUNTER 2019-12-27 10:20 | Emergency (ER) | payer MEDICARE, OTHER ==
[~2019-12-27] VITALS: Ht 170.2 cm; Wt 94.0 kg
[~2019-12-27 10:20] MED LIST changes: -ASPI-612 PO; +ASPI-889 PO; -CETI10TA24 PO; +CETI10TA74 PO; +VENL-109 PO; -VENL37.56 PO
[2019-12-27] MEDS ORDERED: IV NORMAL SALINE 1,000ML 1,000 ML IV ONE ×3 (10:30→12:00)
--- NOTE | 2019-12-27 10:44 | PHYS DOC ---
Past History Past Medical History: A-Fib, Anxiety, Arthritis, CHF, Dementia, Depression, Diabetes, Hypertension, Pneumonia, UTI, Other Past Surgical History: Cholecystectomy, Hysterectomy, Other Additional Past Surgical Histo: left second toe amputation Smoking: Non-smoker Alcohol Use: None Drug Use: None General Adult EDM: Chief Complaint: ALTERED MENTAL STATUS HPI: HPI: Patient is a 74 year old female who presents with complaint of generalized weakness. The patient was brought to the emergency department by EMS who were called by the patient's after patient was noted to be slurring her speech after awakening at 945. The patient states that she feels very weak all over. Notes that she did awaken at 530 this morning and felt very weak when going to the restroom. She denies any focal weakness. She is slurring her speech per EMS and . She was brought to the emergency department for further evaluation. The patient was recently admitted to the hospital on December 09, 2019 and later transferred to [facility] for treatment of sepsis and uncontrolled diabetes mellitus. She notes that she was treated for a urinary tract infection, pneumonia, and renal failure during her hospitalization. She is currently complaining of chest pain. Denies shortness of breath or cough. Review of Systems: Review of Systems: Constitutional: Denies fever or chills Eyes: Denies change in visual acuity HENT: Denies nasal congestion or sore throat Respiratory: Denies cough or shortness of breath Cardiovascular: Chest pain GI: Denies abdominal pain, nausea, vomiting, bloody stools or diarrhea : Denies dysuria Musculoskeletal: Denies back pain or joint pain Integument: Denies rash Neurologic: Generalized weakness, slurred speech Endocrine: Denies polyuria or polydipsia Lymphatic: Denies swollen glands Heart Score: HEART Score for Chest Pain: HEART Score for Chest Pain Response (Comments) Value ECG Normal 0 Age > 65 2 Risk Factors >3 Risk Factors or Hx CAD 2 Troponin < Normal Limit 0 Total 4 Risk Factors: Risk Factors: DM, Current or recent (<one month) smoker, HTN, HLP, family history of CAD, obesity. Risk Scores: Score 0 - 3: 2.5% MACE over next 6 weeks - Discharge Home Score 4 - 6: 20.3% MACE over next 6 weeks - Admit for Clinical Observation Score 7 - 10: 72.7% MACE over next 6 weeks - Early Invasive Strategies Current Medications: Current Meds: Current Medications Medications (Trade) Dose Ordered Sig/Ashlyn Start Time Stop Time Status Last Admin Dose Admin Sodium Chloride 1,000 ml @ 1,000 mls/hr 1X ONCE 12/27/19 10:30 12/27/19 11:29 Allergies: Allergies: Allergies Coded Allergies Type Severity Reaction Last Updated Verified Gadolinium-Containing Contrast Medi Allergy Intermediate 05/25/18 Yes Influenza Virus Vaccines Allergy Intermediate 01/26/18 Yes Sulfa (Sulfonamide Antibiotics) Allergy Intermediate 01/26/18 Yes alogliptin Allergy Intermediate 05/25/18 Yes capsaicin Allergy Intermediate 01/26/18 Yes clindamycin Allergy Intermediate 05/25/18 Yes codeine Allergy Intermediate 01/26/18 Yes exenatide Allergy Intermediate 05/25/18 Yes insulin glulisine Allergy Intermediate Rash 01/26/18 Yes iodine Allergy Intermediate 01/26/18 Yes levofloxacin Allergy Intermediate 01/26/18 Yes menthol Allergy Intermediate 01/26/18 Yes metformin Allergy Intermediate Hives 01/26/18 Yes morphine Allergy Intermediate 05/25/18 Yes pioglitazone Allergy Intermediate 05/25/18 Yes pregabalin Allergy Intermediate 05/25/18 Yes Physical Exam: PE: Constitutional: Lethargic, hypotensive, opens eyes to voice, slurring of speech. [] HENT: Normocephalic, atraumatic, bilateral external ears normal, oropharynx moist, no oral exudates, nose normal. [] Eyes: PERRLA, EOMI, conjunctiva normal, no discharge. [] Neck: Normal range of motion, no tenderness, supple, no stridor. [] Cardiovascular:Heart rate regular rhythm, no murmur [] Lungs & Thorax: Bilateral breath sounds clear to auscultation [] Abdomen: Bowel sounds normal, soft, no tenderness, no masses, no pulsatile masses. [] Skin: Warm, dry, no erythema, no rash. [] Back: No tenderness, no CVA tenderness. [] Extremities: No tenderness, no cyanosis, no clubbing, ROM intact, no edema. [] Neurologic: Lethargic, oriented x3, slurring of speech present, motor strength 4 out of 5 in the bilateral upper and lower extremities, normal sensory function, no focal deficits noted. [] Current Patient Data: Labs: Laboratory Tests Test 12/27/19 10:27 12/27/19 10:30 12/27/19 10:40 12/27/19 11:00 Glucose (Fingerstick) 92 mg/dL White Blood Count 9.0 x10^3/uL Red Blood Count 4.36 x10^6/uL Hemoglobin 11.7 g/dL Hematocrit 37.0 % Mean Corpuscular Volume 85 fL Mean Corpuscular Hemoglobin 27 pg Mean Corpuscular Hemoglobin Concent 32 g/dL Red Cell Distribution Width 15.8 % Platelet Count 298 x10^3/uL Neutrophils (%) (Auto) 70 % Lymphocytes (%) (Auto) 19 % Monocytes (%) (Auto) 8 % Eosinophils (%) (Auto) 2 % Basophils (%) (Auto) 1 % Neutrophils # (Auto) 6.3 x10^3uL Lymphocytes # (Auto) 1.7 x10^3/uL Monocytes # (Auto) 0.7 x10^3/uL Eosinophils # (Auto) 0.2 x10^3/uL Basophils # (Auto) 0.1 x10^3/uL Prothrombin Time 10.4 SEC Prothromb Time International Ratio 1.0 Activated Partial Thromboplast Time 21 SEC Sodium Level 134 mmol/L Potassium Level 5.7 mmol/L Chloride Level 97 mmol/L Carbon Dioxide Level 26 mmol/L Anion Gap 11 Blood Urea Nitrogen 41 mg/dL Creatinine 2.5 mg/dL Estimated GFR (Cockcroft-Gault) 18.9 BUN/Creatinine Ratio 16 Glucose Level 155 mg/dL Lactic Acid Level 3.5 mmol/L Calcium Level 9.7 mg/dL Total Bilirubin 0.3 mg/dL Aspartate Amino Transf (AST/SGOT) 40 U/L Alanine Aminotransferase (ALT/SGPT) 37 U/L Alkaline Phosphatase 122 U/L Troponin I Quantitative < 0.017 ng/mL Total Protein 8.0 g/dL Albumin 3.3 g/dL Albumin/Globulin Ratio 0.7 Urine Collection Type U cath Urine Color Yellow Urine Clarity Hazy Urine pH 5.5 Urine Specific Clymer 1.010 Urine Protein Neg Urine Glucose (UA) Neg mg/dL Urine Ketones (Stick) Neg mg/dL Urine Blood Neg Urine Nitrite Neg Urine Bilirubin Neg Urine Urobilinogen Dipstick 0.2 mg/dL Urine Leukocyte Esterase Small Urine RBC 1-2 /HPF Urine WBC >40 /HPF Urine Squamous Epithelial Cells Few /LPF Urine Bacteria 0 /HPF Urine Hyaline Casts Occ /HPF Urine Mucus Slight /LPF Urine Yeast Present /HPF Blood Gas pH 7.31 Blood Gas PCO2 41 mmHg Blood Gas PO2 58 mmHg Blood Gas HCO3 21 mmol/L Arterial Bld O2 Saturation (Calc) 91 % FiO2 21 % Current Medications Medications (Trade) Dose Ordered Sig/Ashlyn Route PRN Reason Start Time Stop Time Status Last Admin Dose Admin Sodium Chloride 1,000 ml @ 1,000 mls/hr 1X ONCE IV 12/27/19 10:30 12/27/19 11:29 DC 12/27/19 10:30 Sodium Chloride 1,000 ml @ 1,000 mls/hr 1X ONCE IV 12/27/19 11:30 12/27/19 12:29 12/27/19 11:24 Methylprednisolone Sodium Succinate (SOLU-Medrol 125MG VIAL) 125 mg 1X ONCE IV 12/27/19 11:45 12/27/19 11:46 DC Famotidine (Pepcid Vial) 20 mg 1X ONCE IVP 12/27/19 11:45 12/27/19 11:46 DC Diphenhydramine HCl (Benadryl) 25 mg 1X ONCE IVP 12/27/19 11:45 12/27/19 11:46 DC Ceftriaxone Sodium 1 gm/ Sodium Chloride 50 ml @ 100 mls/hr 1X ONCE IV 12/27/19 12:00 12/27/19 12:29 12/27/19 11:59 Sodium Chloride 50 ml @ As Directed STK-MED ONCE .ROUTE 12/27/19 11:55 12/27/19 11:56 DC Ceftriaxone Sodium (Rocephin) 1 gm STK-MED ONCE .ROUTE 12/27/19 11:55 12/27/19 11:56 DC Sodium Chloride 1,000 ml @ 1,000 mls/hr 1X ONCE IV 12/27/19 12:00 12/27/19 12:59 12/27/19 12:00 Vital Signs: Vital Signs Date Time Temp Pulse Resp B/P (MAP) Pulse Ox O2 Delivery O2 Flow Rate FiO2 12/27/19 12:04 77 20 108/74 (85) 100 Room Air 12/27/19 11:33 76 15 116/82 (93) 100 Nasal Cannula 2.0 12/27/19 11:18 75 20 89/59 (69) 100 Nasal Cannula 2.0 12/27/19 11:18 70 19 113/44 (67) 92 Nasal Cannula 2.0 12/27/19 11:13 74 19 93/43 (60) 90 Nasal Cannula 2.0 12/27/19 11:03 72 22 96/45 (62) 85 Room Air 12/27/19 10:45 73 21 84/37 (53) 85 Room Air 12/27/19 10:35 71 14 109/53 (71) 95 Room Air 12/27/19 10:32 94.4 12/27/19 10:20 74 18 87/74 (78) 95 Room Air EKG: EKG: Interpreted by me: Heart rate 72, sinus rhythm, leftward axis, prolonged VA interval, no acute ST/T wave abnormalities present [] Radiology/Procedures: Radiology/Procedures: [address] [address] IMAGING REPORT Signed PATIENT: PATRIA GONSALVES ACCOUNT: [id number] : 1945 LOCATION: ER AGE: 74 SEX: F EXAM STATUS: REG ER ORD. PHYSICIAN: MARY JURADO MD REASON: hypotension PROCEDURE: PORTABLE CHEST 1V EXAM: Chest, single view. HISTORY: Hypotension. COMPARISON: 12/09/2019 FINDINGS: A frontal view of the chest is obtained. There is no infiltrate, pleural effusion or pneumothorax. The heart is normal in size. There is incidental superior migration of the right humeral head and deformity of the acromioclavicular joint due to a chronic rotator cuff tear. IMPRESSION: No acute pulmonary finding. Electronically signed by: Brenda Everett MD (12/27/2019 11:05 AM) [id number] DICTATED AND SIGNED BY: BRENDA EVERETT MD DATE: 12/27/19 1109 CC: JOSE FRANCISCO SZYMANSKI MD; MARY JURADO MD ~ [address] [address] IMAGING REPORT Signed PATIENT: PATRIA GONSALVES ACCOUNT: [id number] : 1945 LOCATION: ER AGE: 74 SEX: F EXAM STATUS: REG ER ORD. PHYSICIAN: MARY JURADO MD REASON: weakness since awakening at 5:30 AM PROCEDURE: CT HEAD WO CONTRAST EXAM: CT Head without IV contrast CLINICAL HISTORY: weakness since awakening at 5:30 AM COMPARISON: 12/09/2019. TECHNIQUE: Routine CT of the head without contrast. Soft tissues and bone windows were reviewed. PQRS compliance statement - One or more of the following individualized dose reduction techniques were utilized for this study: 1. Automated exposure control 2. Adjustment of the mA and/or kV according to patient size 3. Use of iterative reconstruction technique FINDINGS: There is no evidence of hemorrhage, mass or extra-axial fluid collection. Bach-white differentiation is maintained with no evidence of edema. Subcortical, periventricular as well as deep white matter hypoattenuation likely changes of chronic small vessel disease. There is no mass effect or shift of the intracranial structures. The ventricles, basilar cisterns and cortical sulci are normal in size and configuration for the patients stated age. The cerebellum and brainstem are unremarkable. The calvarium demonstrates no evidence of fracture or focal lesion. There is normal aeration of the visualized paranasal sinuses and mastoid air cells. The visualized portions of the orbits are normal. Atherosclerotic calcifications of the intracranial internal carotid and vertebral arteries is seen. IMPRESSION: No evidence for acute intracranial process. Electronically signed by: Wili Laura MD (12/27/2019 11:05 AM) [id number] DICTATED AND SIGNED BY: WILI LAURA MD DATE: 12/27/19 1105 CC: JOSE FRANCISCO SZYMANSKI MD; MARY JURADO MD ~ [] Course & Med Decision Making: Course & Med Decision Making Pertinent Labs and Imaging studies reviewed. (See chart for details) Patient was found to be hypotensive and hypothermic upon being received in the treatment room during triage. Patient was started on IV fluids and placed on Carlos hugger warmer. The patient's ABG shows evidence of hypoxia on room air. Patient currently on 2 L nasal cannula with O2 sats at 100%. The patient was given 2 L of IV fluids initially which meets a 30 mL/kg bolus based off of ideal weight. The patient's blood pressure has been improving with IV fluid administration. The patient's chest x-ray showed no acute abnormality and head CT was also without acute abnormality. Urinalysis shows a high number of leukocytes and positive leukoesterase suggesting active urinary tract infection. Troponin level negative. Given chest pain with normal x-ray and presence of hypoxia, the patient is in need of evaluation for pulmonary embolism. Unfortunately the patient is unable to receive CT angiography due to history of contrast allergy as well as acute renal failure resulting in GFR of 18. For this reason, the patient will need transfer to a higher level of care as she will need a likely VQ scan in addition to further ICU monitoring and treatment. I contacted Dr. Arriaga, hospitalist for [facility], who has agreed to accept patient for transfer. Patient will be transferred by ground ambulance for further care to [facility]. Critical CARE time excluding procedures: 60 minutes PPE: I, Mary Jurado MD, or level 3 mask, eye protection, and gloves during this patient encounter. [] Dragon Disclaimer: Dragon Disclaimer: This electronic medical record was generated, in whole or in part, using a voice recognition dictation system. Departure Departure: Impression: Primary Impression: Severe sepsis Additional Impressions: Urinary tract infection Qualified Codes: N39.0 - Urinary tract infection, site not specified Acute renal failure Qualified Codes: N17.9 - Acute kidney failure, unspecified Metabolic encephalopathy Hypothermia Qualified Codes: T68.XXXA - Hypothermia, initial encounter Hypoxia Disposition: HOME/RESIDENCE PRIOR TO ADM Condition: STABLE Referrals: JOSE FRANCISCO SZYMANSKI MD (PCP) MARY JURADO MD December 27, 2019 10:44
[2019-12-27 10:58] LABS: BASO # 0.1 x10^3/uL (0.0-0.2); BASO % 1 % (0-3); EOS # 0.2 x10^3/uL (0.0-0.7); EOS % 2 % (0-3); HEMOGLOBIN 11.7 g/dL (12.0-15.5); LYMPH # 1.7 x10^3/uL (1.0-4.8); LYMPH % 19 % (24-48); MEAN CORPUSCULAR HEMOGLOBIN 27 pg (25-35); MEAN CORPUSCULAR HGB CONC 32 g/dL (31-37); MEAN CORPUSCULAR VOLUME 85 fL (79-100); MONO # 0.7 x10^3/uL (0.0-1.1); MONO % 8 % (0-9); NEUT # 6.3 x10^3uL (1.8-7.7); NEUT % 70 % (31-73); PLATELET COUNT 298 x10^3/uL (140-400); RED BLOOD COUNT 4.36 x10^6/uL (3.50-5.40); RED CELL DISTRIBUTION WIDTH 15.8 % (11.5-14.5)
[2019-12-27 10:59] LABS: CALCIUM 9.7 mg/dL (8.5-10.1); CREATININE 2.5 mg/dL (0.6-1.0); GFR 18.9; POTASSIUM 5.7 mmol/L (3.5-5.1)
[2019-12-27 11:04] LABS: ALBUMIN 3.3 g/dL (3.4-5.0); ALBUMIN/GLOBULIN RATIO 0.7 (1.0-1.7); TOTAL BILIRUBIN 0.3 mg/dL (0.2-1.0)
--- NOTE | 2019-12-27 11:08 | RAD ---
EXAM: CT Head without IV contrast CLINICAL HISTORY: weakness since awakening at 5:30 AM COMPARISON: 12/09/2019. TECHNIQUE: Routine CT of the head without contrast. Soft tissues and bone windows were reviewed. RS compliance statement - One or more of the following individualized dose reduction techniques were utilized for this study: 1. Automated exposure control 2. Adjustment of the mA and/or kV according to patient size 3. Use of iterative reconstruction technique FINDINGS: There is no evidence of hemorrhage, mass or extra-axial fluid collection. Bach-white differentiation is maintained with no evidence of edema. Subcortical, periventricular as well as deep white matter hypoattenuation likely changes of chronic small vessel disease. There is no mass effect or shift of the intracranial structures. The ventricles, basilar cisterns and cortical sulci are normal in size and configuration for the patients stated age. The cerebellum and brainstem are unremarkable. The calvarium demonstrates no evidence of fracture or focal lesion. There is normal aeration of the visualized paranasal sinuses and mastoid air cells. The visualized portions of the orbits are normal. Atherosclerotic calcifications of the intracranial internal carotid and vertebral arteries is seen. IMPRESSION: No evidence for acute intracranial process. Electronically signed by: Wili Mason MD (12/27/2019 11:05 AM) [id number]
--- NOTE | 2019-12-27 11:08 | RAD ---
EXAM: Chest, single view. HISTORY: Hypotension. COMPARISON: 12/09/2019 FINDINGS: A frontal view of the chest is obtained. There is no infiltrate, pleural effusion or pneumothorax. The heart is normal in size. There is incidental superior migration of the right humeral head and deformity of the acromioclavicular joint due to a chronic rotator cuff tear. IMPRESSION: No acute pulmonary finding. Electronically signed by: Brenda Colon MD (12/27/2019 11:05 AM) [id number]
[2019-12-27 11:20] LABS: BGAS PH 7.31 (7.35-7.45)
[2019-12-27 11:25] LABS: BACTERIA,URINE 0 /HPF (0-FEW); BILIRUBIN,URINE NEG (NEG); CLARITY,URINE HAZY; COLOR,URINE YELLOW; GLUCOSE,URINE NEG (NEG); HYALINE CASTS, URINE OCC /HPF; NITRITE,URINE NEG (NEG); SQUAMOUS EPITHELIAL CELL,UR FEW /LPF; UROBILINOGEN,URINE 0.2 mg/dL (0.2 mg/dL); WBC,URINE >40 /HPF (0-4); YEAST,URINE PRESENT /HPF
[2019-12-27] MEDS ORDERED: FAMOTIDINE 20 MG/2 ML VIAL IVP ONE (11:45)
[2019-12-27] MEDS ORDERED: diphenhydrAMINE 50 MG/ML VIAL IVP ONE (11:45)
[2019-12-27] MEDS ORDERED: methylPREDNISolone SOD SUCC PF 125 MG/2 ML VIAL. IV ONE (11:45)
[2019-12-27] MEDS ORDERED: cefTRIAXone SODIUM 1 GM VIAL ONE (11:55)
[2019-12-27] MEDS ORDERED: IV NORMAL SALINE 50ML 50 ML ONE (11:55)
[2019-12-27 13:56] VITALS: BP 126/71
--- NOTE | 2019-12-27 18:50 | EKG ---
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
--- NOTE | 2019-12-28 01:13 | EKG ---
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
== END 2019-12-27 15:13 | disposition home or self-care (01) ==
LOC: ER 10:20
DX: A41.9 Sepsis, unspecified organism (principal); R65.21 Severe sepsis with septic shock; T68.XXXA Hypothermia, initial encounter; N17.9 Acute kidney failure, unspecified; N39.0 Urinary tract infection, site not specified; G93.41 Metabolic encephalopathy; R09.02 Hypoxemia; I48.91 Unspecified atrial fibrillation; M19.90 Unspecified osteoarthritis, unspecified site; I11.0 Hypertensive heart disease with heart failure; I50.9 Heart failure, unspecified; F03.90 Unspecified dementia, unspecified severity, without behavioral disturbance, psychotic disturbance, mood disturbance, and anxiety; E11.9 Type 2 diabetes mellitus without complications; Z87.440 Personal history of urinary (tract) infections; Z88.2 Allergy status to sulfonamides; Z88.1 Allergy status to other antibiotic agents; Z88.8 Allergy status to other drugs, medicaments and biological substances; Z88.7 Allergy status to serum and vaccine
CPT/HCPCS: 36415; 36600; 70450; 71045; 80053; 81001; 82803; 82947; 83605; 84484; 85025; 85379; 85610; 85730; 87040; 87086; 93005; 96365; 99291; J0696; P9612; J7030

== ENCOUNTER 2020-01-08 15:05 | Inpatient (IN) | payer MEDICARE, OTHER ==
[~2020-01-08] VITALS: Ht 170.2 cm; Wt 89.6 kg
[~2020-01-08 15:05] MED LIST changes: +ASPI-612 PO; -ASPI-889 PO; +CETI10TA24 PO; -CETI10TA74 PO
[2020-01-08] MEDS ORDERED: IV NORMAL SALINE 1,000ML 1,000 ML IV SCH (15:19)
--- NOTE | 2020-01-08 15:29 | PHYS DOC ---
Past History Past Medical History: A-Fib, Anxiety, Arthritis, CHF, Dementia, Depression, Diabetes, Hypertension, Pneumonia, UTI, Other Past Surgical History: Cholecystectomy, Hysterectomy, Other Additional Past Surgical Histo: left second toe amputation Smoking: Non-smoker Alcohol Use: None Drug Use: None General Adult EDM: Chief Complaint: BACK PAIN OR INJURY HPI: HPI: patient is a 74-year-old female who presents to the emergency department for evaluation. She states that she was walking with her walker at home when she lost her balance and fell to the ground, landing on her left side. Her primary complaint is left hip pain, she has some mild upper back pain as well. She is uncertain if she hit her head. She did not lose consciousness. She denies any neck pain, chest pain, shortness of breath, nausea, vomiting, or diarrhea. She has been hospitalized here and at [facility] several times in the past several weeks, with some febrile illnesses. Limited available notes from her recent hospital stay at [facility] have been reviewed. She is noted to have a low-grade fever upon arrival. She states she has had several COVID tests over the past several weeks which all have been negative. Review of Systems: Review of Systems: Constitutional: Denies fever or chills, but noted to be febrile upon arrival. Eyes: Denies change in visual acuity HENT: Denies nasal congestion or sore throat Respiratory: Denies cough or shortness of breath Cardiovascular: Denies chest pain or edema GI: Denies abdominal pain, nausea, vomiting, bloody stools or diarrhea : Denies dysuria Musculoskeletal: Denies neck pain, lower back pain or joint pain, other than the left hip Integument: Denies rash Neurologic: Denies headache, focal weakness or sensory changes Endocrine: Denies polyuria or polydipsia Lymphatic: Denies swollen glands Psychiatric: Denies depression or anxiety Heart Score: Risk Factors: Risk Factors: DM, Current or recent (<one month) smoker, HTN, HLP, family history of CAD, obesity. Risk Scores: Score 0 - 3: 2.5% MACE over next 6 weeks - Discharge Home Score 4 - 6: 20.3% MACE over next 6 weeks - Admit for Clinical Observation Score 7 - 10: 72.7% MACE over next 6 weeks - Early Invasive Strategies Current Medications: Current Meds: Current Medications Medications (Trade) Dose Ordered Sig/Ashlyn Start Time Stop Time Status Last Admin Dose Admin Sodium Chloride 1,000 ml @ 100 mls/hr Q10H 01/08/20 15:19 01/09/20 01:18 Allergies: Allergies: Allergies Coded Allergies Type Severity Reaction Last Updated Verified Gadolinium-Containing Contrast Medi Allergy Intermediate 12/27/19 Yes Influenza Virus Vaccines Allergy Intermediate 12/27/19 Yes Sulfa (Sulfonamide Antibiotics) Allergy Intermediate 12/27/19 Yes alogliptin Allergy Intermediate 12/27/19 Yes capsaicin Allergy Intermediate 12/27/19 Yes clindamycin Allergy Intermediate 12/27/19 Yes codeine Allergy Intermediate 12/27/19 Yes exenatide Allergy Intermediate 12/27/19 Yes insulin glulisine Allergy Intermediate Rash 12/27/19 Yes iodine Allergy Intermediate 12/27/19 Yes levofloxacin Allergy Intermediate 12/27/19 Yes menthol Allergy Intermediate 12/27/19 Yes metformin Allergy Intermediate Hives 12/27/19 Yes morphine Allergy Intermediate 12/27/19 Yes pioglitazone Allergy Intermediate 12/27/19 Yes pregabalin Allergy Intermediate 12/27/19 Yes Physical Exam: PE: PHYSICAL EXAM: CONSTITUTIONAL: Well developed, well nourished HEAD: normocephalic, atraumatic EENT: PERRL, EOMI. Conjunctivae normal color, sclerae non-icteric; moist mucous membranes. NECK: Supple, non-tender; no meningismus. There is full, painless range of motion of the cervical spine, without any focal bony midline tenderness to palpation. LUNGS: Lungs CTA, breathing even and unlabored. Normal air movement. HEART: Regular tachycardia, no murmur CHEST: No deformity; non-tender ABDOMEN: The abdomen is soft, and non-tender, no masses or bruits. EXTREM: There is tenderness to palpation of the left hip, which is slightly shor tened compared to the right, although range of motion is present in the hip, the remainder the extremities are atraumatic, with normal ROM; no deformity, no calf tenderness. Normal pulses palpable in all extremities. There is no pedal edema. SKIN: No rash; no diaphoresis NEURO: Alert; normal speech and cognition; CN's grossly intact; strength grossly intact without focal deficit. BACK: No CVA TTP. There is no bony tenderness to palpation of the thoracic or lumbar spine. Current Patient Data: Labs: Laboratory Tests Test 01/08/20 15:31 01/08/20 15:41 01/08/20 16:52 01/08/20 17:21 White Blood Count 12.9 x10^3/uL Red Blood Count 3.91 x10^6/uL Hemoglobin 10.1 g/dL Hematocrit 32.4 % Mean Corpuscular Volume 83 fL Mean Corpuscular Hemoglobin 26 pg Mean Corpuscular Hemoglobin Concent 31 g/dL Red Cell Distribution Width 17.6 % Platelet Count 453 x10^3/uL Neutrophils (%) (Auto) 87 % Lymphocytes (%) (Auto) 8 % Monocytes (%) (Auto) 4 % Eosinophils (%) (Auto) 1 % Basophils (%) (Auto) 1 % Neutrophils # (Auto) 11.2 x10^3uL Lymphocytes # (Auto) 1.0 x10^3/uL Monocytes # (Auto) 0.5 x10^3/uL Eosinophils # (Auto) 0.1 x10^3/uL Basophils # (Auto) 0.1 x10^3/uL Sodium Level 133 mmol/L Potassium Level 4.0 mmol/L Chloride Level 96 mmol/L Carbon Dioxide Level 28 mmol/L Anion Gap 9 Blood Urea Nitrogen 10 mg/dL Creatinine 1.2 mg/dL Estimated GFR (Cockcroft-Gault) 44.2 BUN/Creatinine Ratio 8 Glucose Level 66 mg/dL Lactic Acid Level 2.1 mmol/L Calcium Level 9.6 mg/dL Total Bilirubin 0.6 mg/dL Aspartate Amino Transf (AST/SGOT) 25 U/L Alanine Aminotransferase (ALT/SGPT) 23 U/L Alkaline Phosphatase 128 U/L Troponin I Quantitative < 0.017 ng/mL FX-Ozi-L-Type Natriuretic Peptide 1808 pg/mL Total Protein 8.4 g/dL Albumin 2.9 g/dL Albumin/Globulin Ratio 0.5 Glucose (Fingerstick) 61 mg/dL 79 mg/dL Urine Collection Type Unknown Urine Color Straw Urine Clarity Clear Urine pH 7.5 Urine Specific [place] 1.020 Urine Protein Neg Urine Glucose (UA) 500 mg/dL Urine Ketones (Stick) Neg mg/dL Urine Blood Neg Urine Nitrite Neg Urine Bilirubin Neg Urine Urobilinogen Dipstick 0.2 mg/dL Urine Leukocyte Esterase Neg Urine RBC 0 /HPF Urine WBC 0 /HPF Urine Squamous Epithelial Cells None /LPF Urine Amorphous Sediment Present /HPF Urine Bacteria 0 /HPF Current Medications Medications (Trade) Dose Ordered Sig/Ashlyn Route PRN Reason Start Time Stop Time Status Last Admin Dose Admin Sodium Chloride 1,000 ml @ 100 mls/hr Q10H IV 01/08/20 15:19 01/09/20 01:18 01/08/20 15:45 Ceftriaxone Sodium 1 gm/ Sodium Chloride 50 ml @ 100 mls/hr 1X ONCE IV 01/08/20 16:00 01/08/20 16:29 DC 01/08/20 16:25 Sodium Chloride 1,000 ml @ 1,000 mls/hr 1X ONCE IV 01/08/20 15:30 01/08/20 16:29 DC Dextrose (Dextrose 50%-Water Syringe) 25 gm STK-MED ONCE IV 01/08/20 15:42 01/08/20 15:42 DC Sodium Chloride 50 ml @ As Directed STK-MED ONCE .ROUTE 01/08/20 15:47 01/08/20 15:47 DC Ceftriaxone Sodium (Rocephin) 1 gm STK-MED ONCE .ROUTE 01/08/20 15:47 01/08/20 15:47 DC Morphine Sulfate (Morphine 2mg Syringe) 2 mg STK-MED ONCE .ROUTE 01/08/20 16:13 01/08/20 16:13 DC EKG: EKG: [] Normal sinus rhythm at a rate of 124 bpm, left axis deviation, normal intervals. There are no acute ischemic ST/T changes. Radiology/Procedures: Radiology/Procedures: PROCEDURE: PORTABLE CHEST 1V Examination: PORTABLE CHEST 1V History: Reason: fall, pain / Spl. Instructions: / History: Comparison/Correlation: 12/27/2019 portable chest x-ray exam Findings: Portable supine frontal view of the chest was obtained. Heart size is slightly enlarged. Pulmonary vasculature has a congested appearance but this may in part relate to the supine patient position and limited pulmonary inflation. No focal infiltrate Bony structures are intact. Right upper quadrant surgical clips are noted. Impression: No focal infiltrate. No fracture. Consider further imaging if fracture is a persistent concern. [] PROCEDURE: CT HEAD WO CONTRAST PQRS Compliance Statement: One or more of the following individualized dose reduction techniques were utilized for this examination: 1. Automated exposure control 2. Adjustment of the mA and/or kV according to patient size 3. Use of iterative reconstruction technique CT HEAD WITHOUT CONTRAST History: Reason: fall, trauma / Spl. Instructions: / History: Comparison: CT head without contrast, December 27, 2019. Technique: Axial images are obtained of the head from the skull base through the vertex without IV contrast. Findings: No mass-effect, midline shift, extra-axial fluid collection, hemorrhage, or obvious acute infarction is identified. Basilar cisterns are patent. The ventricles and sulci are normal for patient age. There is moderate supratentorial white matter hypoattenuation. This is a nonspecific finding but is commonly due to chronic small vessel ischemic disease. Bone windows demonstrate no acute calvarial abnormality. The visualized paranasal sinuses are clear. Mastoid air cells are well aerated. IMPRESSION: 1. No acute intracranial abnormality. 2. Moderate supratentorial white matter changes probably due to chronic small vessel ischemic disease. PROCEDURE: HIP LEFT 2 VIEW Study: CR HIP LEFT 2 VIEW Indication: Fall. Left hip pain. Comparison: 12/10/2019 Findings: No acute fracture seen at the left hip or rest of the partially imaged pelvis. There is again end-stage arthrosis at the left hip. Vascular calcifications. Impression: No acute fracture or traumatic malalignment at the left hip by radiography. Redemonstrated end-stage left hip arthrosis. PROCEDURE: THORACIC SPINE 3V THORACIC SPINE 3V History: Fall, pain Comparison: Two-view chest June 04, 2019 Findings: 4 views of the thoracic spine are submitted. There is mild thoracic dextroscoliosis. Visualized thoracic vertebral body stature is grossly maintained, limited evaluation of the superior 3 thoracic vertebral bodies lateral view due to overlying bone and soft tissues. There is some increased opacity in the region of azygous which could be due to degree of azygous distention. There is some perihilar opacity bilaterally. There has been cholecystectomy. Impression: 1. No convincing acute radiographic abnormality is identified, limited evaluation of the superior thoracic vertebral bodies on lateral view. Course & Med Decision Making: Course & Med Decision Making Pertinent Labs and Imaging studies reviewed. (See chart for details) [] 5:30 PM: The patient's condition remains stable, she is able to get to the bedside commode but requires significant assistance to do though and is unsteady on her feet. Her blood sugar is also low and she remains tachycardic with a heart rate of 126. I discussed the case with her PCP, Dr. Sawyer who will admit her to the hospital for further evaluation. The patient reports that she just finished a course of antibiotics today, a repeat urinalysis is pending at this time. Patient's hemoglobin is not significantly different compared to her prior values. Dragon Disclaimer: Dragon Disclaimer: This electronic medical record was generated, in whole or in part, using a voice recognition dictation system. Departure Departure: Impression: Primary Impression: Hypoglycemia Additional Impressions: Weakness Tachycardia Fever, unknown origin Disposition: ADMITTED INPATIENT Admitting Physician: Mike Stevens Condition: STABLE Referrals: MIKE STEVENS MD (PCP) Justification of Admission: Justification of Admission: Justification of Admission Dx: Yes CHF: Cardiac Arrhythmias (tachycardia) Sepsis: Infection Altered Mental Status: Altered Mental Status LOIS YORK MD Jan 08, 2020 15:29
[2020-01-08] MEDS ORDERED: IV NORMAL SALINE 1,000ML 1,000 ML IV ONE (15:30)
[2020-01-08] MEDS ORDERED: DEXTROSE 50% 25 GM / 50ML DISP.SYRIN. IV ONE (15:42)
[2020-01-08] MEDS ORDERED: IV NORMAL SALINE 50ML 50 ML ONE (15:47)
[2020-01-08] MEDS ORDERED: cefTRIAXone SODIUM 1 GM VIAL ONE (15:47)
--- NOTE | 2020-01-08 16:07 | RAD ---
PQRS Compliance Statement: One or more of the following individualized dose reduction techniques were utilized for this examination: 1. Automated exposure control 2. Adjustment of the mA and/or kV according to patient size 3. Use of iterative reconstruction technique CT HEAD WITHOUT CONTRAST History: Reason: fall, trauma / Spl. Instructions: / History: Comparison: CT head without contrast, December 27, 2019. Technique: Axial images are obtained of the head from the skull base through the vertex without IV contrast. Findings: No mass-effect, midline shift, extra-axial fluid collection, hemorrhage, or obvious acute infarction is identified. Basilar cisterns are patent. The ventricles and sulci are normal for patient age. There is moderate supratentorial white matter hypoattenuation. This is a nonspecific finding but is commonly due to chronic small vessel ischemic disease. Bone windows demonstrate no acute calvarial abnormality. The visualized paranasal sinuses are clear. Mastoid air cells are well aerated. IMPRESSION: 1. No acute intracranial abnormality. 2. Moderate supratentorial white matter changes probably due to chronic small vessel ischemic disease. Electronically signed by: Jer Xavier MD (01/08/2020 4:04 PM) [facility]
[2020-01-08] MEDS ORDERED: MORPHINE SULFATE 2 MG/ML DISP.SYRIN. ONE (16:13)
[2020-01-08 16:15] LABS: CALCIUM 9.6 mg/dL (8.5-10.1); CREATININE 1.2 mg/dL (0.6-1.0); GFR 44.2
[2020-01-08 16:18] LABS: BASO # 0.1 x10^3/uL (0.0-0.2); BASO % 1 % (0-3); EOS # 0.1 x10^3/uL (0.0-0.7); EOS % 1 % (0-3); HEMATOCRIT 32.4 % (36.0-47.0); HEMOGLOBIN 10.1 g/dL (12.0-15.5); LYMPH % 8 % (24-48); MEAN CORPUSCULAR HEMOGLOBIN 26 pg (25-35); MEAN CORPUSCULAR HGB CONC 31 g/dL (31-37); MEAN CORPUSCULAR VOLUME 83 fL (79-100); MONO # 0.5 x10^3/uL (0.0-1.1); MONO % 4 % (0-9); NEUT # 11.2 x10^3uL (1.8-7.7); NEUT % 87 % (31-73); PLATELET COUNT 453 x10^3/uL (140-400); RED BLOOD COUNT 3.91 x10^6/uL (3.50-5.40); RED CELL DISTRIBUTION WIDTH 17.6 % (11.5-14.5); WHITE BLOOD COUNT 12.9 x10^3/uL (4.0-11.0)
--- NOTE | 2020-01-08 16:18 | RAD ---
Examination: PORTABLE CHEST 1V History: Reason: fall, pain / Spl. Instructions: / History: Comparison/Correlation: 12/27/2019 portable chest x-ray exam Findings: Portable supine frontal view of the chest was obtained. Heart size is slightly enlarged. Pulmonary vasculature has a congested appearance but this may in part relate to the supine patient position and limited pulmonary inflation. No focal infiltrate Bony structures are intact. Right upper quadrant surgical clips are noted. Impression: No focal infiltrate. No fracture. Consider further imaging if fracture is a persistent concern. Electronically signed by: Fred Hamilton MD (01/08/2020 4:15 PM) [id number]
--- NOTE | 2020-01-08 16:22 | RAD ---
Study: CR HIP LEFT 2 VIEW Indication: Fall. Left hip pain. Comparison: 12/10/2019 Findings: No acute fracture seen at the left hip or rest of the partially imaged pelvis. There is again end-stage arthrosis at the left hip. Vascular calcifications. Impression: No acute fracture or traumatic malalignment at the left hip by radiography. Redemonstrated end-stage left hip arthrosis. Electronically signed by: LEAH MARINELLI MD (01/08/2020 4:19 PM) [id number]
[2020-01-08 16:28] LABS: ALBUMIN 2.9 g/dL (3.4-5.0); ALBUMIN/GLOBULIN RATIO 0.5 (1.0-1.7); TOTAL BILIRUBIN 0.6 mg/dL (0.2-1.0); TOTAL PROTEIN 8.4 g/dL (6.4-8.2)
--- NOTE | 2020-01-08 16:31 | RAD ---
THORACIC SPINE 3V History: Fall, pain Comparison: Two-view chest June 04, 2019 Findings: 4 views of the thoracic spine are submitted. There is mild thoracic dextroscoliosis. Visualized thoracic vertebral body stature is grossly maintained, limited evaluation of the superior 3 thoracic vertebral bodies lateral view due to overlying bone and soft tissues. There is some increased opacity in the region of azygous which could be due to degree of azygous distention. There is some perihilar opacity bilaterally. There has been cholecystectomy. Impression: 1. No convincing acute radiographic abnormality is identified, limited evaluation of the superior thoracic vertebral bodies on lateral view. Electronically signed by: Adriano Olguin MD (01/08/2020 4:28 PM) [id number]
[2020-01-08 17:11] LABS: BILIRUBIN,URINE NEG (NEG); CLARITY,URINE CLEAR; COLOR,URINE STRAW; GLUCOSE,URINE 500 mg/dL (NEG)
[2020-01-08 17:12] LABS: NITRITE,URINE NEG (NEG); UROBILINOGEN,URINE 0.2 mg/dL (0.2 mg/dL)
[2020-01-08 17:21] LABS: BACTERIA,URINE 0 /HPF (0-FEW); RBC,URINE 0 /HPF (0-2); WBC,URINE 0 /HPF (0-4)
[2020-01-08 17:22] LABS: AMORPHOUS SEDIMENT,UR PRESENT /HPF
[2020-01-08] MEDS ORDERED: IV DEXTROSE 5% - 0.9 % NACL 1,000 ML IV ONE (18:15)
[2020-01-08 19:49] VITALS: BP 141/86
[2020-01-08] MEDS ORDERED: CETI10TA30 PO (20:09)
[2020-01-08] MEDS ORDERED: PRED20TA PO (20:15)
[2020-01-08] MEDS ORDERED: ACETAMINOPHEN 500 MG TABLET PO PRN (20:45)
[2020-01-08] MEDS ORDERED: IBUPROFEN 400 MG TABLET. PO PRN (20:45)
[2020-01-08] MEDS ORDERED: ALBUTEROL SULFATE 2.5 MG/3 ML NEBU. NEB PRN (21:00)
[2020-01-08] MEDS ORDERED: MECLIZINE 12.5 MG TABLET. PO PRN (21:15)
[2020-01-08] MEDS: MELATONIN 3 MG TABLET PO SCH (22:00)
[2020-01-08] MEDS ORDERED: VANCOMYCIN 2 GM in IV NORMAL SALINE 500ML 500 ML IV ONE (22:00)
[2020-01-08] MEDS: VANCOMYCIN PER PHARMACY MC PRN (22:01)
[2020-01-08 22:25] VITALS: BP 166/67
[2020-01-08] MEDS: DICLOFENAC SODIUM 1% TOPICAL GEL 100GM TUBE. TP SCH (22:31)
[2020-01-08] MEDS: AMITRIPTYLINE HCL 25 MG TABLET PO SCH (22:32)
[2020-01-08] MEDS: METOPROLOL TART IMMED RELEASE 25 MG TABLET PO SCH (22:32)
[2020-01-08] MEDS: traMADol 50 MG TABLET PO PRN (22:32)
[2020-01-08] MEDS: INSULIN DEGLUDEC SQ SCH (22:35)
[2020-01-09 05:24] VITALS: BP 112/81
[2020-01-09] MEDS ORDERED: INSULIN ASPART 10 UNIT SQ SCH (08:00)
[2020-01-09] MEDS: INSULIN LISPRO 300 UNITS/3 ML VIAL. SQ SCH ×6 (08:00→17:00)
[2020-01-09] MEDS: CETIRIZINE HCL 10 MG TABLET PO SCH (08:11)
[2020-01-09] MEDS: FUROSEMIDE 40 MG TABLET PO SCH (08:11)
[2020-01-09] MEDS: traMADol 50 MG TABLET PO PRN ×2 (08:11→20:50)
[2020-01-09] MEDS: CHOLECALCIFEROL (VITAMIN D3) 1,000 UNIT TABLET PO SCH (08:11)
[2020-01-09] MEDS: METOPROLOL TART IMMED RELEASE 25 MG TABLET PO SCH ×3 (08:11→19:59)
[2020-01-09] MEDS: ASPIRIN ENTERIC COATED 81 MG TABLET.DR. PO SCH (08:11)
[2020-01-09] MEDS: predniSONE 20 MG TABLET PO SCH (08:11)
[2020-01-09] MEDS: CALCIUM CARB/VIT D3 500/200 TABLET PO SCH (08:12)
[2020-01-09] MEDS: VENLAFAXINE 37.5 MG TABLET. PO SCH (08:12)
[2020-01-09] MEDS: DICLOFENAC SODIUM 1% TOPICAL GEL 100GM TUBE. TP SCH ×4 (08:12→20:00)
[2020-01-09] MEDS: PANTOPRAZOLE 40 MG TABLET. PO SCH (08:12)
[2020-01-09] MEDS: ENOXAPARIN 40 MG/0.4 ML SYRINGE. SQ SCH (11:19)
[2020-01-09] MEDS: CEFEPIME HCL 1 GM in IV NORMAL SALINE 50ML 50 ML IV SCH ×2 (11:19→19:59)
[2020-01-09 12:03] LABS: BASO # 0.1 x10^3/uL (0.0-0.2); BASO % 1 % (0-3); EOS % 0 % (0-3); HEMATOCRIT 28.8 % (36.0-47.0); HEMOGLOBIN 9.1 g/dL (12.0-15.5); LYMPH # 0.8 x10^3/uL (1.0-4.8); LYMPH % 4 % (24-48); MEAN CORPUSCULAR HEMOGLOBIN 26 pg (25-35); MEAN CORPUSCULAR HGB CONC 32 g/dL (31-37); MEAN CORPUSCULAR VOLUME 82 fL (79-100); MONO # 0.6 x10^3/uL (0.0-1.1); MONO % 3 % (0-9); NEUT # 17.3 x10^3uL (1.8-7.7); NEUT % 92 % (31-73); PLATELET COUNT 446 x10^3/uL (140-400); RED BLOOD COUNT 3.52 x10^6/uL (3.50-5.40); RED CELL DISTRIBUTION WIDTH 17.7 % (11.5-14.5); WHITE BLOOD COUNT 18.8 x10^3/uL (4.0-11.0)
--- NOTE | 2020-01-09 12:30 | RAD ---
EXAM: CT Abdomen and Pelvis without IV contrast INDICATION: Reason: right flank pain TECHNIQUE: Multi-detector row CT images were acquired from the lung bases through the abdomen and pelvis without the use of IV contrast. Sagittal and coronal images were acquired from the transaxial data. All CT scans performed at this facility utilize dose optimization techniques as appropriate to the exam, including the following: Automated exposure control and adjustment of the mA and/or KV according to patient size (this includes techniques or standardized protocols for targeted exams where dose is indication/reason for exam). ORAL CONTRAST: None COMPARISON: 06/04/2019 FINDINGS: The some respiratory motion artifact that degrades detail. The absence of IV contrast limits evaluation of soft tissue pathology. LOWER CHEST: Mild thickening of the pericardial sac over the right heart up to 3 mm in depth is newly apparent. There is some prominence of interstitium bilaterally that is more apparent in the interval. LIVER: Unremarkable BILIARY SYSTEM: Gallbladder is surgically absent. Bile ducts are not dilated. PANCREAS: Unremarkable SPLEEN: Unremarkable ADRENALS: Unremarkable KIDNEYS & URETERS: Unremarkable BLADDER: Unremarkable REPRODUCTIVE ORGANS: Unremarkable GASTROINTESTINAL: The stomach, small bowel, and colon are unremarkable. The appendix is normal. MESENTERY/PERITONEUM/RETROPERITONEUM: Unremarkable VASCULAR: Unremarkable LYMPH NODES: No adenopathy OSSEOUS & SOFT TISSUES: A right L3-L4 anterolateral disc protrusion appears marginally larger in the interval (axial image 75 series 2 this exam compared with axial image 77 series 2 on the prior study). Newly apparent is soft tissue gas superficial to the coccyx and tracking in the left perineal soft tissues superficial to the pelvic floor muscles. Additional foci of gas along the superficial aspect of the right gluteus walter. Minimal gas in the right hip joint likely reflects vacuum phenomenon. Stable right-sided T12 sclerotic lesion compatible with a bone island. Similar levoscoliosis lumbar spine. Stable fat-containing periumbilical hernia There is sclerosis and deformity to the left femoral head consistent with an impaction fracture or changes of avascular necrosis. These have developed in the interval. IMPRESSION: 1. No stones in the urinary tract or findings of obstructive uropathy. 2. Slightly more conspicuous right lateral disc protrusion at L3-L4, potentially related to patient's complaints of right flank pain. 3. Gas in the pelvic soft tissues and deformity to the left femoral head could reflect changes of recent blunt trauma. Correlate clinically. Penetrating trauma and right hip avascular necrosis can appear similar. Electronically signed by: Mercedes Flores MD (01/09/2020 12:27 PM) [id number]
[2020-01-09 12:34] LABS: % BANDS 8 % (0-9); % BASOS 1 % (0-3); % LYMPHS 8 % (24-48); % MONOS 1 % (0-10); % SEGS 82 % (35-66); CREATININE 1.5 mg/dL (0.6-1.0); GFR 34.1; PLT ESTIMATE INCREASED (ADEQUATE); POTASSIUM 4.6 mmol/L (3.5-5.1)
[2020-01-09 12:35] LABS: TOXIC GRANULATION PRESENT; TOXIC VACUOLATION PRESENT
[2020-01-09 12:36] LABS: ANISOCYTOSIS SLIGHT; MICROCYTOSIS SLIGHT
[2020-01-09] MEDS ORDERED: ACETAMINOPHEN 500 MG TABLET PO PRN (14:15)
[2020-01-09 15:00] VITALS: BP 123/61
[2020-01-09] MEDS: VANCOMYCIN 1 GM in IV NORMAL SALINE 250ML 250 ML IV SCH (16:00)
--- NOTE | 2020-01-09 16:24 | HP ---
ADMIT DATE: 01/08/2020 HISTORY OF PRESENT ILLNESS: A 74-year-old female brought in through the Emergency Room by her . Apparently, she had fallen. She was walking with her walker, lost her balance and fell to the ground, landing on her left side. Her primary complaint was her left hip pain. There was also apparently later on found a possible puncture wound to that area. CT scan shows possible gas in that area, so there is a possibility of infection as well as avascular necrosis. The patient also had problems with an elevated temperature as well as her blood pressure was vacillating. The patient was admitted from the Emergency Room initially. She has had several COVID test done at [facility] here in the last month, but they have all been negative. She had a low-grade temperature. The patient was admitted. She has multiple medical problems. It appears that possibly the patient may even be septic with her blood pressure, at one time, it was down to 92/45, respiratory rate 18, pulse of 120, and a temperature 100.6. PAST MEDICAL HISTORY: Well known in terms of bilateral cataracts, mild dementia, peripheral neuropathy, severe type 2 diabetes, poorly controlled. Also, rheumatoid arthritis. She has had respiratory problems, hysterectomy, amputation of her left toe. She has rheumatoid arthritis seen down at . She is on immunosuppressive therapy. Depression, anxiety. IMMUNIZATIONS: Tetanus, Influenza, pneumococcal up-to-date. FAMILY HISTORY: Nonsignificant in this case. HOME MEDICATIONS: At home includes that of Zyrtec, DuoNeb, Flexeril, metoprolol, aspirin, diclofenac, ibuprofen p.r.n., tramadol, Tylenol, Elavil 25 ____, furosemide 40, Protonix 40, prednisone 20, and insulin on a sliding scale as well as vitamin D. ALLERGIES: Apparently, she has allergies to a number of things including GADOLINIUM CONTAINING CONTRAST, INFLUENZA VACCINE, SULFUR, CAPSAICIN, CLINDAMYCIN, CODEINE, EXENATIDE, INSULIN GLULISINE, IODINE, LEVAQUIN, MENTHOL, METFORMIN, MORPHINE, PIOGLITAZONE and PREGABALIN, which is LYRICA. SOCIAL HISTORY: The patient is a FULL CODE. There is no smoking, alcohol history. REVIEW OF SYSTEMS: The patient really not able to give much of a history. PHYSICAL EXAMINATION: GENERAL: This is a very ill-appearing white female. Blood pressure has varied from 150/90 down to 92/45, respiratory rate 18, pulse 120, temperature 100.6. The patient is alert very vaguely, she is very lethargic, somewhat clammy. LUNGS: Diminished throughout, but basically clear. CARDIOVASCULAR: Tachycardic. ABDOMEN: Soft, diffuse tenderness in the left lower quadrant area, as well she is complaining of right flank pain. NEUROLOGIC: The patient otherwise, extremities, difficulty in moving left leg at all. Pulses are noted distally. She senses some touch down there, but again her mentation is extremely poor. She is not able to verbalize very well. She is very lethargic and the like. Her x-rays of her chest, head, hip have been basically negative, no acute fracture noted in that left hip. However, a CT of the abdomen was performed because of that right flank pain and the radiologist noted gas in the pelvic soft tissue and deformity in the left femoral head could reflect recent blunt trauma or possible penetrating trauma or right hip avascular necrosis. IMPRESSION: Sepsis, possible puncture wound to the gluteal area, possible avascular necrosis, hypotension, tachycardia, type 2 diabetes poorly controlled, rheumatoid arthritis, history of being on immunosuppressive therapy, recent discharge from the hospitals for numerous medical issues, multiple bladder infections. The patient has also had a history of metabolic encephalopathy, which may also be present presently now secondary to her sepsis. We will try to get her transferred down to [facility] as soon as possible for multidisciplinary review. JOSE FRANCISCO SZYMANSKI MD DR: LAURENT/jaime JOB#: [id number] / [id number]
[2020-01-09] MEDS: AMITRIPTYLINE HCL 25 MG TABLET PO SCH (19:59)
[2020-01-09] MEDS: MELATONIN 3 MG TABLET PO SCH (19:59)
[2020-01-09] MEDS: LACTOBACILLUS RHAMNOSUS GG 1 CAPSULE. PO SCH (19:59)
[2020-01-09] MEDS: INSULIN DEGLUDEC SQ SCH (20:24)
[2020-01-09 20:30] VITALS: BP 101/50
[2020-01-09] MEDS ORDERED: diazePAM 2 MG TABLET PO ONE (20:30)
[2020-01-09 23:05] VITALS: BP 120/51
[2020-01-10 01:07] LABS: HEMOGLOBIN A1C 9.2 % (4.8-5.6)
[2020-01-10] MEDS: CYCLOBENZAPRINE 10 MG TABLET. PO PRN ×2 (02:27→09:01)
[2020-01-10 03:54] VITALS: BP 137/84
[2020-01-10] MEDS: traMADol 50 MG TABLET PO PRN (06:28)
[2020-01-10 06:35] VITALS: BP 135/57
--- NOTE | 2020-01-10 07:59 | EKG ---
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
[2020-01-10] MEDS: INSULIN LISPRO 300 UNITS/3 ML VIAL. SQ SCH ×4 (08:00→12:56)
--- NOTE | 2020-01-10 08:32 | PDOC2 ---
CARDIAC CONSULT DATE OF CONSULT Date Of Consult DATE: 01/10/20 TIME: 08:27 REASON FOR CONSULT Reason for Consult SVT REFERRING PHYSICIAN Referring Physician Dr. Stevens SOURCE Source: Chart review, Patient HPI History of Present Illness This is a 74 yo female who presented secondary to mechanical fall with left hip pain. Noted with intermittently elevated heart rate overnight, which prompted this consult. She denies any chest pain, palpitations, dizziness, diaphoresis, or nausea/vomiting. C/o left hip pain. Plan was to transfer patient to [facility] last night for multidisciplinary care, but patient refused. PAST MEDICAL HISTORY Past Medical History Cardiovascular: HTN, Hyperipidemia, CHF Other (peripheral vascular disease), SVT Pulmonary: Asthma, Bronchitis, COPD, Pneumonia CENTRAL NERVOUS SYSTEM: Periperal neuropathy GI: GERD Psych: Anxiety Musculoskeletal: Other (back pain) Rheumatologic: Rheumatoid arthritis Renal/: Chronic renal insuff, recurrent UTI Endocrine: Diabetes, II PAST SURGICAL HISTORY Past Surgical History Cataract surgery with lens implants, Cholecystectomy Hysterectomy Bilateral knee surgery, Amputation of right small toe and left middle toe FAMILY HISTORY Family History: Stroke SOCIAL HISTORY Smoke: No ALCOHOL: none Drugs: None Lives: with Family CURRENT MEDICATIONS Current Medications Current Medications Sodium Chloride 1,000 ml @ 100 mls/hr Q10H IV Last administered on 01/08/20at 15:45; Start 01/08/20 at 15:19; Stop 01/09/20 at 01:18; Status DC Ceftriaxone Sodium 1 gm/ Sodium Chloride 50 ml @ 100 mls/hr 1X ONCE IV Last administered on 01/08/20at 16:25; Start 01/08/20 at 16:00; Stop 01/08/20 at 16:29; Status DC Sodium Chloride 1,000 ml @ 1,000 mls/hr 1X ONCE IV ; Start 01/08/20 at 15:30; Stop 01/08/20 at 16:29; Status DC Dextrose (Dextrose 50%-Water Syringe) 25 gm STK-MED ONCE IV ; Start 01/08/20 at 15:42; Stop 01/08/20 at 15:42; Status DC Sodium Chloride 50 ml @ As Directed STK-MED ONCE .ROUTE ; Start 01/08/20 at 15:47; Stop 01/08/20 at 15:47; Status DC Ceftriaxone Sodium (Rocephin) 1 gm STK-MED ONCE .ROUTE ; Start 01/08/20 at 15:47; Stop 01/08/20 at 15:47; Status DC Morphine Sulfate (Morphine 2mg Syringe) 2 mg STK-MED ONCE .ROUTE ; Start 01/08/20 at 16:13; Stop 01/08/20 at 16:13; Status DC Dextrose/Sodium Chloride 1,000 ml @ 75 mls/hr 1X ONCE IV Last administered on 01/08/20at 18:00; Start 01/08/20 at 18:15; Stop 01/09/20 at 07:34; Status DC Acetaminophen (Tylenol) 500 mg PRN BID PRN PO MILD PAIN 1-3 Last administered on 01/09/20at 11:19; Start 01/08/20 at 20:45; Stop 01/09/20 at 14:09; Status DC Amitriptyline HCl (Elavil) 25 mg QHS PO Last administered on 01/09/20at 19:59; Start 01/08/20 at 21:00 Aspirin (Aspirin Enteric Coated) 81 mg DAILYWBKFT PO Last administered on 01/09/20at 08:11; Start 01/09/20 at 08:00 Cyclobenzaprine HCl (Flexeril) 10 mg PRN TID PRN PO MUSCLE SPASMS Last administered on 01/10/20at 02:27; Start 01/08/20 at 20:45 Diclofenac Sodium (Voltaren) 1 leigh ann QID TP Last administered on 01/09/20at 20:00; Start 01/08/20 at 21:00 Furosemide (Lasix) 40 mg DAILY PO Last administered on 01/09/20at 08:11; Start 01/09/20 at 09:00 Ibuprofen (Motrin) 400 mg PRN QHS PRN PO INFLAMMATION; Start 01/08/20 at 20:45 Albuterol Sulfate (Ventolin) 2.5 mg PRN Q4HRS PRN NEB SHORTNESS OF BREATH; Start 01/08/20 at 21:00 Metoprolol Tartrate (Lopressor) 25 mg TID PO Last administered on 01/09/20at 19:59; Start 01/08/20 at 21:00 Pantoprazole Sodium (Protonix) 40 mg DAILYAC PO Last administered on 01/09/20at 08:12; Start 01/09/20 at 07:30 Prednisone (Prednisone) 20 mg DAILY PO Last administered on 01/09/20 08:11; Start 01/09/20 at 09:00 Tramadol HCl (Ultram) 50 mg PRN Q8HRS PRN PO MODERATE PAIN Last administered on 01/10/20at 06:28; Start 01/08/20 at 20:45 Venlafaxine HCl (Effexor) 37.5 mg DAILY PO Last administered on 01/09/20 08:12; Start 01/09/20 at 09:00 Calcium/Vitamin D (Oscal D 500mg/ 200uts) 1 tab DAILYWBKFT PO Last administered on 01/09/20 08:12; Start 01/09/20 at 08:00 Cetirizine HCl (ZyrTEC) 10 mg DAILY PO Last administered on 01/09/20 08:11; Start 01/09/20 at 09:00 Vitamin D (Vitamin D3) 1,000 unit DAILY PO Last administered on 01/09/20 08:11; Start 01/09/20 at 09:00 Non-Formulary Medication (Insulin Aspart (Novolog Flexpen)) 10 unit TIDWMEALS SQ ; Start 01/09/20 at 08:00; Status UNV Insulin Human Lispro (HumaLOG) 20 units TIDWMEALS SQ Last administered on 01/09/20 12:15; Start 01/09/20 at 08:00 Non-Formulary Medication (Insulin Degludec (Tresiba Flextouch U-200)) 98 units QHS SQ Last administered on 01/09/20at 20:24; Start 01/08/20 at 22:00 Meclizine HCl (Antivert) 25 mg PRN Q8HRS PRN PO DIZZINESS; Start 01/08/20 at 21:15 Melatonin (Melatonin) 4.5 mg QHS PO ; Start 01/08/20 at 22:00 Vancomycin HCl (Vanco Per Pharmacy) 1 each PRN DAILY PRN MC SEE COMMENTS Last administered on 01/08/20at 22:01; Start 01/08/20 at 20:45 Vancomycin HCl 2 gm/Sodium Chloride 500 ml @ 250 mls/hr 1X ONCE IV Last administered on 01/08/20at 22:31; Start 01/08/20 at 22:00; Stop 01/08/20 at 23:59; Status DC Insulin Human Lispro (HumaLOG) 0-35 UNITS TIDWMEALS SQ Last administered on 01/09/20at 08:00; Start 01/09/20 at 08:00 Vancomycin HCl (Vancomycin Trough Level) 1 each 1X ONCE MC ; Start 01/10/20 at 09:30; Stop 01/10/20 at 09:31 Vancomycin HCl 1 gm/Sodium Chloride 250 ml @ 250 mls/hr Q18H IV Last administered on 01/09/20at 16:00; Start 01/09/20 at 16:00 Cefepime HCl 1 gm/ Sodium Chloride 50 ml @ 100 mls/hr Q12HR IV Last administered on 01/09/20at 19:59; Start 01/09/20 at 10:00 Enoxaparin Sodium (Lovenox 40mg Syringe) 40 mg Q24H SQ Last administered on 01/09/20at 11:19; Start 01/09/20 at 09:45 Lactobacillus Rhamnosus (Culturelle) 1 cap BID PO Last administered on 01/09/20at 19:59; Start 01/09/20 at 21:00 Acetaminophen (Tylenol) 1,000 mg PRN BID PRN PO MILD PAIN 1-3 Last administered on 01/10/20at 02:27; Start 01/09/20 at 14:15 Diazepam (Valium) 2 mg 1X ONCE PO Last administered on 01/09/20at 20:41; Start 01/09/20 at 20:30; Stop 01/09/20 at 20:31; Status DC Active Scripts Active Aspirin Ec (Aspirin) 81 Mg Tablet.dr 81 Mg PO DAILYWBKFT 90 Days Furosemide 40 Mg Tablet 40 Mg PO DAILY Reported Prednisone 20 Mg Tablet 1 Tab PO DAILY Cetirizine Hcl 10 Mg Tab.chew 10 Mg PO DAILY Voltaren (Diclofenac Sodium) 100 Gm Gel..gram. 1 Gm TP QID 30 Days apply to affected area(s) Meclizine Hcl 25 Mg Tablet 1 Tab PO PRN Q8HRS PRN Melatonin 5 Mg Tab.rapdis 1 Tab PO QHS 30 Days Cyclobenzaprine Hcl 10 Mg Tablet 1 Tab PO TID PRN Ibuprofen 400 Mg Tablet 1 Tab PO HS PRN Venlafaxine Hcl 37.5 Mg Tablet 1 Tab PO DAILY Calcium + D3 Er Tablet (Calcium Carb & Cit/Vitamin D3) 1 Each Tablet.er 1 Each PO DAILY Vitamin D3 (Cholecalciferol (Vitamin D3)) 4,000 Unit Capsule 1,000 Cap PO DAILY 30 Days Amitriptyline Hcl 25 Mg Tablet 1 Tab PO QHS Tresiba Flextouch U-200 (Insulin Degludec) 200 Unit/1 Ml Insuln.pen 98 Units SUBCUT DAILY Duoneb 0.5-3(2.5) Mg/3 Ml (Albuterol/Ipratropium) 3 Ml Ampul.neb 3 Ml NEB PRN Q4-6HRS PRN Metoprolol Tartrate 25 Mg Tablet 25 Mg PO TID Novolog Flexpen (Insulin Aspart) 100 Unit/1 Ml Insuln.pen 10-35 Unit SQ TIDWMEALS PRN Novolog Flexpen (Insulin Aspart) 100 Unit/1 Ml Insuln.pen 10 Unit SQ TIDWMEALS Acetaminophen 500 Mg Tablet 1 Tab PO BID PRN Tramadol Hcl (Tramadol HCl) 50 Mg Tablet 50 Mg PO PRN Q8HRS PRN Protonix (Pantoprazole Sodium) 40 Mg Tablet.dr 1 Tab PO DAILY Enbrel (Etanercept) 50 Mg/1 Ml Disp.syrin 50 Mg SQ QTH do not give when PT has an infection ALLERGIES Allergies: Coded Allergies: Gadolinium-Containing Contrast Medi (Verified Allergy, Intermediate, 12/27/19) Influenza Virus Vaccines (Verified Allergy, Intermediate, 12/27/19) Sulfa (Sulfonamide Antibiotics) (Verified Allergy, Intermediate, 12/27/19) alogliptin (Verified Allergy, Intermediate, 12/27/19) capsaicin (Verified Allergy, Intermediate, 12/27/19) clindamycin (Verified Allergy, Intermediate, 12/27/19) codeine (Verified Allergy, Intermediate, 12/27/19) exenatide (Verified Allergy, Intermediate, 12/27/19) insulin glulisine (Verified Allergy, Intermediate, Rash, 12/27/19) iodine (Verified Allergy, Intermediate, 12/27/19) levofloxacin (Verified Allergy, Intermediate, 12/27/19) menthol (Verified Allergy, Intermediate, 12/27/19) metformin (Verified Allergy, Intermediate, Hives, 12/27/19) morphine (Verified Allergy, Intermediate, 12/27/19) pioglitazone (Verified Allergy, Intermediate, 12/27/19) pregabalin (Verified Allergy, Intermediate, 12/27/19) ROS Review of Systems 14 point ROS conducted with pertinent positives noted above in HPI PHYSICAL EXAM Physical Exam General: Alert, Oriented X3, Cooperative, No acute distress HEENT: Atraumatic, Mucous membr. moist/pink Lungs: Other (diminished bases) Heart: Regular rate (SR/ST with PACs), Other (distant heart sounds) Abdomen: Soft, No tenderness, Other (obese) Extremities: No cyanosis, Other (trace bilateral LE edema ) Skin: No breakdown, No significant lesion Neuro: Normal speech, Sensation intact Psych/Mental Status: Mental status NL, Mood NL MUSCULOSKELETAL: Osteoarthritic changes both hands VITALS Vital Signs Vital Signs Date Time Temp Pulse Resp B/P (MAP) Pulse Ox O2 Delivery O2 Flow Rate FiO2 01/10/20 07:28 16 97 Room Air 01/10/20 06:35 97.9 93 135/57 (83) LABS LABS Laboratory Tests Test 01/08/20 15:31 01/08/20 15:41 01/08/20 16:52 01/08/20 17:21 White Blood Count 12.9 x10^3/uL (4.0-11.0) Red Blood Count 3.91 x10^6/uL (3.50-5.40) Hemoglobin 10.1 g/dL (12.0-15.5) Hematocrit 32.4 % (36.0-47.0) Mean Corpuscular Volume 83 fL (79-100) Mean Corpuscular Hemoglobin 26 pg (25-35) Mean Corpuscular Hemoglobin Concent 31 g/dL (31-37) Red Cell Distribution Width 17.6 % (11.5-14.5) Platelet Count 453 x10^3/uL (140-400) Neutrophils (%) (Auto) 87 % (31-73) Lymphocytes (%) (Auto) 8 % (24-48) Monocytes (%) (Auto) 4 % (0-9) Eosinophils (%) (Auto) 1 % (0-3) Basophils (%) (Auto) 1 % (0-3) Neutrophils # (Auto) 11.2 x10^3uL (1.8-7.7) Lymphocytes # (Auto) 1.0 x10^3/uL (1.0-4.8) Monocytes # (Auto) 0.5 x10^3/uL (0.0-1.1) Eosinophils # (Auto) 0.1 x10^3/uL (0.0-0.7) Basophils # (Auto) 0.1 x10^3/uL (0.0-0.2) Prothrombin Time 11.6 SEC (9.4-11.4) Prothromb Time International Ratio 1.1 (0.9-1.1) Activated Partial Thromboplast Time 25 SEC (23-33) Sodium Level 133 mmol/L (136-145) Potassium Level 4.0 mmol/L (3.5-5.1) Chloride Level 96 mmol/L (98-107) Carbon Dioxide Level 28 mmol/L (21-32) Anion Gap 9 (6-14) Blood Urea Nitrogen 10 mg/dL (7-20) Creatinine 1.2 mg/dL (0.6-1.0) Estimated GFR (Cockcroft-Gault) 44.2 BUN/Creatinine Ratio 8 (6-20) Glucose Level 66 mg/dL (70-99) Lactic Acid Level 2.1 mmol/L (0.4-2.0) Calcium Level 9.6 mg/dL (8.5-10.1) Total Bilirubin 0.6 mg/dL (0.2-1.0) Aspartate Amino Transf (AST/SGOT) 25 U/L (15-37) Alanine Aminotransferase (ALT/SGPT) 23 U/L (14-59) Alkaline Phosphatase 128 U/L (46-116) Troponin I Quantitative < 0.017 ng/mL (0-0.055) [id number] Natriuretic Peptide 1808 pg/mL (0-124) Total Protein 8.4 g/dL (6.4-8.2) Albumin 2.9 g/dL (3.4-5.0) Albumin/Globulin Ratio 0.5 (1.0-1.7) Glucose (Fingerstick) 61 mg/dL (70-99) 79 mg/dL (70-99) Urine Collection Type Unknown Urine Color Straw Urine Clarity Clear Urine pH 7.5 Urine Specific [place] 1.020 Urine Protein Neg (NEG-TRACE) Urine Glucose (UA) 500 mg/dL (NEG) Urine Ketones (Stick) Neg mg/dL (NEG) Urine Blood Neg (NEG) Urine Nitrite Neg (NEG) Urine Bilirubin Neg (NEG) Urine Urobilinogen Dipstick 0.2 mg/dL (0.2 mg/dL) Urine Leukocyte Esterase Neg (NEG) Urine RBC 0 /HPF (0-2) Urine WBC 0 /HPF (0-4) Urine Squamous Epithelial Cells None /LPF Urine Amorphous Sediment Present /HPF Urine Bacteria 0 /HPF (0-FEW) Test 01/08/20 20:50 01/08/20 20:57 01/08/20 23:02 01/09/20 00:44 Lactic Acid Level 1.0 mmol/L (0.4-2.0) Glucose (Fingerstick) 202 mg/dL (70-99) 284 mg/dL (70-99) Coronavirus (COVID-19)(PCR) Not detected (NOT DETECT.) Test 01/09/20 05:11 01/09/20 08:22 01/09/20 11:24 01/09/20 11:50 Glucose (Fingerstick) 234 mg/dL (70-99) 257 mg/dL (70-99) 129 mg/dL (70-99) White Blood Count 18.8 x10^3/uL (4.0-11.0) Red Blood Count 3.52 x10^6/uL (3.50-5.40) Hemoglobin 9.1 g/dL (12.0-15.5) Hematocrit 28.8 % (36.0-47.0) Mean Corpuscular Volume 82 fL (79-100) Mean Corpuscular Hemoglobin 26 pg (25-35) Mean Corpuscular Hemoglobin Concent 32 g/dL (31-37) Red Cell Distribution Width 17.7 % (11.5-14.5) Platelet Count 446 x10^3/uL (140-400) Neutrophils (%) (Auto) 92 % (31-73) Lymphocytes (%) (Auto) 4 % (24-48) Monocytes (%) (Auto) 3 % (0-9) Eosinophils (%) (Auto) 0 % (0-3) Basophils (%) (Auto) 1 % (0-3) Neutrophils # (Auto) 17.3 x10^3uL (1.8-7.7) Lymphocytes # (Auto) 0.8 x10^3/uL (1.0-4.8) Monocytes # (Auto) 0.6 x10^3/uL (0.0-1.1) Eosinophils # (Auto) 0.0 x10^3/uL (0.0-0.7) Basophils # (Auto) 0.1 x10^3/uL (0.0-0.2) Segmented Neutrophils % 82 % (35-66) Band Neutrophils % 8 % (0-9) Lymphocytes % 8 % (24-48) Monocytes % 1 % (0-10) Basophils % 1 % (0-3) Toxic Granulation Present Toxic Vacuolation Present Platelet Estimate Increased (ADEQUATE) Large Platelets Occ Giant Platelets Occ Anisocytosis Slight Microcytosis Slight Sodium Level 135 mmol/L (136-145) Potassium Level 4.6 mmol/L (3.5-5.1) Chloride Level 100 mmol/L (98-107) Carbon Dioxide Level 27 mmol/L (21-32) Anion Gap 8 (6-14) Blood Urea Nitrogen 14 mg/dL (7-20) Creatinine 1.5 mg/dL (0.6-1.0) Estimated GFR (Cockcroft-Gault) 34.1 Glucose Level 117 mg/dL (70-99) Hemoglobin A1c 9.2 % (4.8-5.6) Calcium Level 9.0 mg/dL (8.5-10.1) Thyroid Stimulating Hormone (TSH) 0.993 uIU/mL (0.358-3.740) Test 01/09/20 17:13 01/09/20 20:05 01/10/20 08:09 Glucose (Fingerstick) 123 mg/dL (70-99) 160 mg/dL (70-99) 178 mg/dL (70-99) ECHOCARDIOGRAM Echocardiogram <Conclusion> The left ventricular systolic function is low normal. The Ejection Fraction is 50-55%. There is normal LV segmental wall motion. Doppler and Color Flow revealed mild pulmonic valvular regurgitation. DATE: 06/12/191625 ASSESSMENT/PLAN Assessment/Plan 1. Mechanical fall with left hip pain; CT with concerns for possible necrosis 2. Leukocytosis, lactic acidosis, fevers. ? sepsis. COVID negative 3. Arrythmia; PSVT noted. Converted back to SR. Recent echo with preserved LV systolic function. TSH WNL 3. DOTTY 4. Poorly controlled DM2: due to poor diet compliance 5. Hypertension; controlled 6. Hx of RA on immunosuppressive therapy 7. Dementia Recommendations Continue metoprolol for rate control; will increase to q6 ASA Follow BC Ongoing antibiotic therapy Supportive care ADELIA ELLER APRN Jan 10, 2020 08:31
[2020-01-10] MEDS: ASPIRIN ENTERIC COATED 81 MG TABLET.DR. PO SCH (09:01)
[2020-01-10] MEDS: VENLAFAXINE 37.5 MG TABLET. PO SCH (09:01)
[2020-01-10] MEDS: PANTOPRAZOLE 40 MG TABLET. PO SCH (09:01)
[2020-01-10] MEDS: predniSONE 20 MG TABLET PO SCH (09:01)
[2020-01-10] MEDS: LACTOBACILLUS RHAMNOSUS GG 1 CAPSULE. PO SCH (09:01)
[2020-01-10] MEDS: CHOLECALCIFEROL (VITAMIN D3) 1,000 UNIT TABLET PO SCH (09:01)
[2020-01-10] MEDS: CALCIUM CARB/VIT D3 500/200 TABLET PO SCH (09:01)
[2020-01-10] MEDS: METOPROLOL TART IMMED RELEASE 25 MG TABLET PO SCH ×2 (09:02→15:00)
[2020-01-10] MEDS: CETIRIZINE HCL 10 MG TABLET PO SCH (09:02)
[2020-01-10] MEDS: FUROSEMIDE 40 MG TABLET PO SCH (09:02)
[2020-01-10] MEDS: DICLOFENAC SODIUM 1% TOPICAL GEL 100GM TUBE. TP SCH ×2 (09:03→13:00)
[2020-01-10] MEDS: ENOXAPARIN 40 MG/0.4 ML SYRINGE. SQ SCH (09:04)
[2020-01-10] MEDS ORDERED: HYDROcodone/APAP 7.5/325MG 1 TAB TABLET PO PRN (09:15)
[2020-01-10] MEDS: CEFEPIME HCL 1 GM in IV NORMAL SALINE 50ML 50 ML IV SCH (09:18)
[2020-01-10 10:31] VITALS: BP 125/65
[2020-01-10 10:53] LABS: BASO # 0.1 x10^3/uL (0.0-0.2); BASO % 1 % (0-3); EOS # 0.3 x10^3/uL (0.0-0.7); EOS % 3 % (0-3); HEMATOCRIT 27.9 % (36.0-47.0); HEMOGLOBIN 8.7 g/dL (12.0-15.5); LYMPH # 1.2 x10^3/uL (1.0-4.8); LYMPH % 11 % (24-48); MEAN CORPUSCULAR HEMOGLOBIN 26 pg (25-35); MEAN CORPUSCULAR HGB CONC 31 g/dL (31-37); MEAN CORPUSCULAR VOLUME 84 fL (79-100); MONO # 0.4 x10^3/uL (0.0-1.1); MONO % 4 % (0-9); NEUT # 8.6 x10^3uL (1.8-7.7); NEUT % 82 % (31-73); PLATELET COUNT 394 x10^3/uL (140-400); RED BLOOD COUNT 3.34 x10^6/uL (3.50-5.40); RED CELL DISTRIBUTION WIDTH 17.9 % (11.5-14.5); WHITE BLOOD COUNT 10.4 x10^3/uL (4.0-11.0)
[2020-01-10 10:58] LABS: CALCIUM 8.4 mg/dL (8.5-10.1); CREATININE 1.3 mg/dL (0.6-1.0); GFR 40.3
[2020-01-10 11:09] LABS: VANC TR 18.7 mcg/mL (10.0-20.0)
[2020-01-10] MEDS: VANCOMYCIN 1 GM in IV NORMAL SALINE 250ML 250 ML IV SCH (11:20)
[2020-01-10] MEDS: VANCOMYCIN PER PHARMACY MC PRN (13:47)
[2020-01-10 15:00] VITALS: BP 125/65
== END 2020-01-10 16:45 | disposition short-term general hospital (02) | DRG 871 ==
LOC: ER 15:05 → 1 SOUTH 17:30
PROVIDERS: ADMIT Family Medicine; ATTEND Family Medicine
DX: A41.9 Sepsis, unspecified organism (principal); N17.0 Acute kidney failure with tubular necrosis; G93.41 Metabolic encephalopathy; I13.0 Hypertensive heart and chronic kidney disease with heart failure and stage 1 through stage 4 chronic kidney disease, or unspecified chronic kidney disease; I47.1 Supraventricular tachycardia; E11.52 Type 2 diabetes mellitus with diabetic peripheral angiopathy with gangrene; I96 Gangrene, not elsewhere classified; M16.12 Unilateral primary osteoarthritis, left hip; Z20.828 Contact with and (suspected) exposure to other viral communicable diseases; E11.22 Type 2 diabetes mellitus with diabetic chronic kidney disease; M06.9 Rheumatoid arthritis, unspecified; F41.9 Anxiety disorder, unspecified; F32.9 Major depressive disorder, single episode, unspecified; E11.42 Type 2 diabetes mellitus with diabetic polyneuropathy; M19.90 Unspecified osteoarthritis, unspecified site; K21.9 Gastro-esophageal reflux disease without esophagitis; J44.9 Chronic obstructive pulmonary disease, unspecified; Z96.1 Presence of intraocular lens; N18.9 Chronic kidney disease, unspecified; I50.9 Heart failure, unspecified; I48.91 Unspecified atrial fibrillation; E11.649 Type 2 diabetes mellitus with hypoglycemia without coma; W01.0XXA Fall on same level from slipping, tripping and stumbling without subsequent striking against object, initial encounter; Y93.01 Activity, walking, marching and hiking; F03.90 Unspecified dementia, unspecified severity, without behavioral disturbance, psychotic disturbance, mood disturbance, and anxiety; M25.552 Pain in left hip; Z90.49 Acquired absence of other specified parts of digestive tract; Z90.710 Acquired absence of both cervix and uterus; Z89.422 Acquired absence of other left toe(s); Z89.421 Acquired absence of other right toe(s); Z79.899 Other long term (current) drug therapy; Z87.440 Personal history of urinary (tract) infections; Z87.01 Personal history of pneumonia (recurrent); Z98.42 Cataract extraction status, left eye; Z98.41 Cataract extraction status, right eye; Y93.89 Activity, other specified; Y99.8 Other external cause status; Z88.5 Allergy status to narcotic agent; Z88.7 Allergy status to serum and vaccine; Z88.8 Allergy status to other drugs, medicaments and biological substances; Z88.1 Allergy status to other antibiotic agents; Z91.041 Radiographic dye allergy status; Z82.3 Family history of stroke
CPT/HCPCS: 36415; 70450; 71045; 72072; 73502; 74176; 80048; 80053; 80202; 81001; 82947; 83036; 83605; 83880; 84443; 84484; 85007; 85025; 85610; 85730; 87040; 93005; 96361; 96365; 96375; J0692; J0696; J1650; J1815; J3370; J7040; J7042; J7050; J7512; P9612; 99285-25; J7030